=== PATIENT | male | born 1960 | race Caucasian/White ===

== ENCOUNTER 2023-11-06 10:53 | Inpatient (IN) | payer MEDICAID, SELFPAY ==
[2023-11-06] VITALS (35 sets, daily range): BP systolic 69–120; BP diastolic 60–95; PULSE 35–121; RESP 13–29; TEMP 35.7–37.7; O2SAT 92–100; BMI 32.1
[2023-11-06] MEDS: 0.9% Normal Saline (1000mL) 1,000 ML 1000 ML IV ×2 (10:53→11:47)
[2023-11-06] MEDS: Etomidate 20 MG/10 ML Vial IV (10:53)
[2023-11-06] MEDS: Succinylcholine Chloride 200 MG/10 ML SYRINGE 100 MG IV (10:53)
[2023-11-06] MEDS: Midazolam 5 MG/ML Syringe IV (10:58)
--- NOTE | 2023-11-06 11:02 | CT_ITS ---
STUDY: CT BRAIN WITHOUT CONTRAST REASON FOR EXAM: Male, 63 years old. Post arrest RADIATION DOSAGE (If Supplied By Facility): CTDIvol = ( 44.99 ) mGy, DLP = ( 846.73 ) mGycm TECHNIQUE: Transaxial CT imaging of the brain was performed without administration of intravenous contrast material. Individualized dose optimization techniques were used for this CT. COMPARISON: No relevant priors. FINDINGS: Normal soft tissue structures. Normal calvarium. There is mild cerebral atrophy with widening of the extra-axial spaces and ventricular dilatation. Normal white matter tracts of the cerebral hemispheres. Normal basal ganglia and thalami. Normal brainstem. Normal cerebellum. There is no intracranial hemorrhage. There are no findings of an acute ischemic infarction. Atherosclerotic plaque formation of the cavernous portions of the internal carotid arteries bilaterally. Mild degree of mucosal thickening of the ethmoid sinuses bilaterally. CT/Brain/Head without Contrast IMPRESSION: Chronic involutional changes of the brain. Electronically Signed: Carlyle Lazaro MD at 13:12 EDT ,
--- NOTE | 2023-11-06 11:03 | EKG12_ITS ---
Test Reason : CODE BLUE Blood Pressure : / mmHG Vent. Rate : 114 BPM Atrial Rate : 114 BPM P-R Int : 192 ms QRS Dur : 114 ms QT Int : 330 ms P-R-T Axes : 069 074 022 degrees QTc Int : 454 ms Sinus tachycardia Possible Left atrial enlargement Septal infarct , age undetermined ST & T wave abnormality, consider inferior ischemia Abnormal ECG Confirmed by Arie Berg ([id number]), field map editor KATERINA SHELTON ([id number]) on 11/08/2023 8:18:35 AM Referred By: PATI Confirmed By:Arie Berg
[2023-11-06 11:09] LABS: Absolute Lymphocyte Count 2.02 X10^3/uL (0.83-4.51); Absolute Neutrophil Count 8.2 X10^3/uL (2.0-7.7); Basophil# 0.04 X10^3/uL; Basophil% 0.4 % (0-1); Eosinophil# 0.01 X10^3/uL; Eosinophils% 0.1 % (0-5); Hematocrit 35.6 % (40-54); Hemoglobin 11.1 g/dL (13.0-16.5); Lymphocyte # 2.02 X10^3/ul (0.83-4.51); Lymphocyte % 18.4 % (19-41); Mean Corp Hgb Conc 31.2 g/dL (32-36); Mean Corpuscular Hgb 30.6 pg (27.0-32.0); Mean Corpuscular Volume 98.1 fL (80-94); Mean Platelet Vol. 10.7 fl (6.2-12.0); Monocyte# 0.42 X10^3/uL; Monocyte% 3.8 % (0-10); NRBC Flagged by Analyzer 0.5 % (0-5); Neutrophil % 74.9 % (47-70); Platelet Count 195 K/mm3 (150-450); RBC Distribution Width CV 16.6 % (11.6-14.6); RBC Distribution Width SD 60.1 fl (35.1-43.9); Red Blood Count 3.63 M/mm3 (4.6-6.2)
--- NOTE | 2023-11-06 11:10 | RAD_ITS ---
STUDY: X-RAY CHEST REASON FOR EXAM: Male, 63 years old. ET tube and orogastric tube placement. TECHNIQUE: Single AP portable view of the chest. COMPARISON: None. FINDINGS: An endotracheal tube in situ. The tip is at 3.6 sinus proximal to the cory. An orogastric tube is seen with tip below the left hemidiaphragm. The lungs are clear and expanded. There is no demonstrated pleural abnormality. Normal size heart. Normal mediastinum and angi. Normal visualized pulmonary arteries. There is atherosclerotic calcification of the aortic arch with tortuosity. There are degenerative changes of the visualized thoracic spine. Normal visualized ribs, clavicles, and shoulders. There is no demonstrated abnormality of the visualized soft tissue structures of the upper abdomen. RAD/Chest 1 View (Portable) IMPRESSION: The tip of the endotracheal tube is at 3.6 times approximately the cory. The tip of the orogastric tube is seen below the left hemidiaphragm. Electronically Signed: Carlyle Lazaro MD at 11:57 EDT ,
[2023-11-06 11:11] LABS: Bacteria 0 SEEN /hpf (None Seen); Mucous, Urine 0 SEEN /hpf (<or=2+); Red Blood Cells-Urine 0 SEEN /hpf (0-5); Squamous Epithelial Cells - UA 0 SEEN /hpf (0-5); White Blood Cells 0 SEEN /hpf (0-5)
[2023-11-06 11:15] LABS: Glucose, Dipstick Normal (Normal); Leukocyte Esterase-Dipstick 100 /ul (Negative); Nitrite-Dipstick Negative (Negative); Occult Blood-Urine 25 /ul (Negative); Protein-Dipstick 100 mg/dl (Negative); Specific Gravity, Urine 1.015 (1.002-1.030); Urine Bilirubin Dipstick Negative (Negative); Urine Urobilinogen 4 mg/dl (Normal); Urine pH 6.5 (5.0 - 8.0)
[2023-11-06 11:21] LABS: International Normalized Ratio 1.2; Prothrombin Time (Protime)PT. 14.7 SECONDS (11.7-14.9)
[2023-11-06 11:22] LABS: Partial Thromboplast Time 38.2 Seconds (24.1-36.2)
--- NOTE | 2023-11-06 11:22 | EKG12_ITS ---
Test Reason : CODE BLUE SVT Blood Pressure : / mmHG Vent. Rate : 196 BPM Atrial Rate : 197 BPM P-R Int : 000 ms QRS Dur : 138 ms QT Int : 246 ms P-R-T Axes : 000 -49 088 degrees QTc Int : 444 ms Critical Test Result: High HR , Arrhythmia Poor data quality, interpretation may be adversely affected SVT Left axis deviation Right bundle branch block Abnormal ECG No previous ECGs available Confirmed by Arie Berg ([id number]), scientific publications editor KATERINA SHELTON ([id number]) on 11/10/2023 6:43:22 AM Referred By: PATI Confirmed By:Arie Berg
[2023-11-06 11:24] LABS: Color, Urine YELLOW (Yellow)
--- NOTE | 2023-11-06 11:24 | RAD_ITS ---
STUDY: X-RAY CHEST REASON FOR EXAM: Male, 63 years old. Central line TECHNIQUE: Single AP portable view of the chest. COMPARISON: Comparison is made with prior study done earlier today. FINDINGS: The endotracheal tube and orogastric tube are seen and unchanged. The right-sided central venous catheter has been placed with the tip at the junction of the superior vena cava and right atrium. Mild degree of vascular congestion. There is no demonstrated pleural abnormality. Normal size heart. Normal mediastinum and angi. Normal visualized pulmonary arteries. There is atherosclerotic calcification of the aortic arch with tortuosity. There are diffuse degenerative changes of the visualized thoracic spine. Normal visualized ribs, clavicles, and shoulders. There is no demonstrated abnormality of the visualized soft tissue structures of the upper abdomen. RAD/Chest 1 View (Portable) IMPRESSION: The endotracheal tube and orogastric tube are unchanged. The tip of the right-sided central venous catheter is at the junction of the superior vena cava and right atrium. Vascular congestion. Electronically Signed: Carlyle Lazaro MD at 11:58 EDT ,
[2023-11-06 11:25] LABS: Urine Clarity Sl. Cloudy (Clear)
[2023-11-06 11:28] LABS: Ketone-Dipstick 150 mg/dl (Negative)
--- NOTE | 2023-11-06 11:29 | EKG12_ITS ---
Test Reason : Blood Pressure : / mmHG Vent. Rate : 072 BPM Atrial Rate : 000 BPM P-R Int : 000 ms QRS Dur : 116 ms QT Int : 452 ms P-R-T Axes : 000 068 -68 degrees QTc Int : [address] & T wave abnormality, consider inferior ischemia Prolonged QT Abnormal ECG Confirmed by Arie Berg ([id number]), development editor KATERINA SHELTON ([id number]) on 11/08/2023 8:18:23 AM Referred By: BEVERLY Confirmed By:Arie Berg
[2023-11-06] MEDS: Amiodarone 360 MG in Dextrose 5% Viaflo Bag 192.8 ML 33.3 MG CONT INF (11:30)
[2023-11-06 11:39] LABS: Allen Test Positive; Base Excess -16 mmol/L (-2 to +2); Bicarbonate 12.8 mmol/L (22-26); Blood Gas Specimen Type ART; Mode AC; O2 Delivery Device Adult Vent; PEEP 10; PO2 92 mmHG (75-100); RR 16; SITE L Radial; SO2 95 % (95-99); Total Carbon Dioxide 14 mmol/L; pCO2 34.7 mmHg (35-45); pH 7.18 (7.35-7.45)
--- NOTE | 2023-11-06 11:42 | CPS ---
critical ABG results handed to Dr Gay
[2023-11-06 11:51] LABS: Alcohol, Blood (Medical)-Serum < 3.0 mg/dL
--- NOTE | 2023-11-06 11:57 | CT_ITS ---
STUDY: CTA CHEST REASON FOR EXAM: Male, 63 years old. Pulmonary embolism/ cardiac arrest RADIATION DOSAGE (If Supplied By Facility): CTDIvol = ( 16.18 ) mGy, DLP = ( 547.62 ) mGycm TECHNIQUE: The examination was performed with the intravenous administration of IV 100mL Isovue-370. Post-processing of the angiographic images was performed, with multiplanar reformation and 3D reconstruction. Individualized dose optimization techniques were used for this CT. COMPARISON: Comparison is made with prior chest radiograph done earlier in the day. FINDINGS: An endotracheal tube and orogastric tubes are visualized. Normal enhancement of the main pulmonary artery and right and left pulmonary arteries. Normal enhancement of the bilateral peripheral pulmonary arteries. There is no demonstrated pulmonary embolism. There is atherosclerotic calcification of the aortic arch with tortuosity. There is no demonstrated aortic dissection. There are calcifications of the coronary arteries. Normal mediastinum. Normal hilar regions. Normal visualized trachea and bronchi. The lungs are well expanded. Diffuse bilateral airspace disease more pronounced in the right hemithorax and lower lobes. Normal pleura. Normal chest wall structures. There are degenerative changes of thoracic spine. Normal visualized upper abdomen. CT/CTA Chest W/WO Contrast IMPRESSION: No evidence of pulmonary embolism. This may represent pulmonary edema. Bilateral airspace disease worse in the lower lobes and right hemithorax. Electronically Signed: Carlyle Lazaro MD at 13:11 EDT ,
[2023-11-06] MEDS: Norepinephrine 8 MG in 0.9% Normal Saline (250mL Bag) 242 ML 9.4 MG CONT INF (12:04)
--- NOTE | 2023-11-06 12:07 | ED.RN ---
potassium 2.5, troponin 2086 dr hill notified
[2023-11-06 12:08] LABS: AST(SGOT) 41 U/L (15-37); Alanine Aminotransfer ALT/SGPT 15 U/L (16-61); Albumin, Serum 2.9 g/dL (3.2-5.0); Alkaline Phosphatase 68 U/L (45-117); Anion Gap 19 (5-15); BUN 8 mg/dL (7-18); Bilirubin, Direct 0.31 mg/dL (0.00-0.30); Calcium,Total 8.6 mg/dL (8.5-10.1); Chloride 95 mmol/L (98-107); Creatinine, Serum 1.15 mg/dL (0.70-1.30); EST Glomerular Filtration Rate 68 mL/min (>60); Est Glom Filt Rate - Afr Amer 82 mL/min (>60); Globulin 3.9 g/dL (2.2-4.2); Glucose 230 mg/dL (74-106); Lipase 15 U/L (13-75); Magnesium 2.7 mg/dL (1.6-2.6); Potassium 2.5 mmol/L (3.5-5.1); Protein, Total 6.8 g/dL (6.4-8.2); Sodium Level 132 mmol/L (136-145); Troponin-I HS (w/2H Reflex) 2087 pg/mL (3.0-78.0)
[2023-11-06 12:15] LABS: Lactic Acid 9.3 mmol/L (0.4-1.9)
[2023-11-06] MEDS: Heparin Injection (Vial) 5,000 UNIT/ML VIAL 4000 UNIT IV (12:28)
[2023-11-06] MEDS: HEPARIN/D5w 25,000 UNITS 25,000 UNITS/250 ML IV.SOLN. 10 UNITS CONT INF (12:28)
--- NOTE | 2023-11-06 12:39 | CHAPLAIN ---
Type of Pastoral Visit ___ Initial Visit ___ Follow-up Visit ___ On-call Visit ___ General Patient Visit ___ Spiritual Assessment ___ Family Conference ___ Bereavement ___ Rapid Response _x__ Code Blue ___ Other (describe below) Pastoral Care Referral From ___ Patient ___ Family ___ Nurse ___ Physician ___ Concrete Stone Fabricator ___ Mid Level Business Analyst _x__ Other (describe below) Sacrament/Intervention ___ Active listening ___ Anointing ___ Pentecostal ___ Bereavement ___ Communion ___ Jessica exploration ___ ___ Life review ___ Prayer ___ Reconciliation ___ Sacrament of Sick _x__ Supportive presence ___ Wedding ___ Other (describe below) Pastoral Comments patient was brought in by suzanne who reported that family member was present at home and would be coming to the hospital; was available to patient while medical team gave life saving measures; waited for family member to arrive but no one came in; assisted in ED as others came for evaluation and thus gave directions, verbal support to those in waiting area
[2023-11-06] MEDS: Propofol 10MG/Ml 1,000 MG/100 ML Bottle 5.4 MG CONT INF (12:45)
[2023-11-06] MEDS: 0.9% Normal Saline (1000mL) 1,000 ML 150 ML IV ×2 (13:06→15:22)
[2023-11-06 13:07] LABS: Reflex Troponin-HS? (from REC) Y
[2023-11-06 13:13] LABS: Partial Thromboplast Time 34.1 Seconds (24.1-36.2)
[2023-11-06] MEDS: Potassium Chloride 10mEq/100mL 10 MEQ/100 ML IV.SOLN. 100 MEQ IV BOLUS ×2 (13:17→14:16)
[2023-11-06 13:36] LABS: International Normalized Ratio 1.4; Prothrombin Time (Protime)PT. 16.7 SECONDS (11.7-14.9)
--- NOTE | 2023-11-06 13:39 | EX.PCM.CONCC ---
Assessment & Plan Assessment/Plan (1) Acute respiratory failure: PLAN: Plan RECOMMENDATIONS: 1. Continue assist-control mode mechanical ventilation. Wean FiO2 and PEEP to maintain saturations at or above 90%. 2. Agree with empiric antimicrobials. 3. Continue vasopressor support to maintain a mean arterial pressure at or above 65 mmHg. 4. Amiodarone and heparin infusion as ordered. 5. Cardiology consultation and echocardiogram. 6. Obtain sputum and send for culture. 7. Potassium repletion as ordered. 8. Initiate appropriate GI prophylaxis. IMPRESSIONS: 1. Acute hypoxemic respiratory failure following byj-as-ekhrusis cardiac arrest The patient was emergently intubated on arrival to the emergency department. ACLS was initiated with subsequent ROSC. CTA chest was completed and ruled out pulmonary embolism. However, there was evidence of questionable bilateral infiltrates, which could be secondary to CPR. Nevertheless, it is reasonable to initiate empiric antibiotics, pending infectious workup. The patient's electrolytes will be repleted as needed. Cardiology consultation will be obtained along with echocardiogram. 2. History of hypertension and hyperlipidemia Complicates care, management, recovery and prognosis. Hold home medications for now. TIME: 34 minutes of critical care time, independent of procedures, was spent addressing the patient's acute hypoxemic respiratory failure following [id number] cardiac arrest, review of all data and collaboration with the care team. HPI Consult Data Date of Consult: 11/07/23 HPI Narrative Reason for Consultation: Acute respiratory failure status post cardiac arrest HPI Narrative: The patient is a 63-year-old male, with a history as outlined below, who presented to the emergency department on November 05 after he collapsed, while visiting his niece. The patient apparently resides in [place] normally. According to the report that I received, there was a nearby fire truck at the time of his collapse, who were solicited to provide assistance and an AED. Therefore, early resuscitative efforts were undertaken. According to the ED provider, the patient did have business cards for both a assistant director of security and cardiothoracic surgeon on his persons at the time of arrival. It sounds as if the patient was shocked for pulseless V. tach and then had ACLS initiated on arrival to the emergency department, with eventual ROSC. On presentation to the emergency department, the patient was documented to be afebrile but was notably tachycardic and tachypneic with a presenting blood pressure of 85/65 mmHg. Initial laboratory evaluation revealed a normal white blood cell count. Hemoglobin was noted to be 11.1 g/dL with a normal platelet count. The patient was emergently intubated on arrival with subsequent ABG that was notable for a pH of 7.18 with a pCO2 of 35 and pO2 of 92. Chemistry profile was notable for a sodium of 132, potassium of 2.5, chloride of 95, bicarbonate of 18 and creatinine of 1.15. Lactate was elevated at 9.3. Troponin was increased to 2087 with a BNP of 1027. Urine analysis was noncontributory. Alcohol level was negative. CTA chest showed no evidence for pulmonary embolism. Bilateral infiltrates were incidentally noted. The patient received supplemental IV fluid hydration and was initiated on amiodarone infusion and Levophed secondary to fluid refractory hypotension. The patient was initiated on empiric antimicrobials and admitted to the medical intensive care unit for further management. [facility] Medical History Hypertension Hyperlipidemia History of CVA (cerebrovascular accident) Peripheral vascular disease CAD (coronary artery disease) Medical History unable to obtain Home Medications ?Medication ?Instructions ?Recorded ?Last Taken ?Type acetaminophen 500 mg capsule 500 mg PO Q6H 11/06/23 Unknown History albuterol sulfate 90 mcg/actuation 2 inh inhalation Q6H 11/06/23 Unknown History aerosol inhaler amlodipine 5 mg tablet 5 mg PO DAILY 11/06/23 Unknown History aspirin 325 mg tablet 325 mg PO DAILY 11/06/23 Unknown History cetirizine 10 mg tablet (Aller-Lalitha) 10 mg PO DAILY 11/06/23 Unknown History cyclobenzaprine 5 mg tablet 5 mg PO Q8H 11/06/23 Unknown History diphenhydramine HCl 25 mg capsule 25 mg PO Q8H 11/06/23 Unknown History (Aler-Cap) hydrochlorothiazide 25 mg tablet 50 mg PO DAILY 11/06/23 Unknown History ibuprofen 200 mg tablet (Advil) 200 mg PO Q8H 11/06/23 Unknown History losartan 50 mg tablet 50 mg PO DAILY 11/06/23 Unknown History metoprolol tartrate 25 mg tablet 25 mg PO BID 11/06/23 Unknown History rosuvastatin 10 mg tablet 10 mg PO DAILY 11/06/23 Unknown History Allergy/AdvReac Type Severity Reaction Status Date / Time Unable to Assess Allergy Verified 11/06/23 13:21 Family History unable to obtain Surgical History unable to obtain Social History adopted: No number of children: 1 Smoking Status: Current every day smoker tobacco type: cigarettes alcohol intake: former ROS Review of Systems ROS Unobtainable: due to endotracheal tube Physical Exam Const Constitutional Narrative: Intubated, sedated and mechanically ventilated. HEENT normocephalic and head/scalp atraumatic Mouth: endotracheal tube in place and OG tube in place Eyes EOMs intact bilaterally and conjunctivae normal Neck supple General: trachea midline and CVC in place Chest inspection of chest normal Resp Auscultation: diminished lung sounds; Negative for rales, rhonchi or wheezes Cardio S1 normal heart sound and S2 normal heart sound Rate: tachycardic GI normal to inspection, nondistended, normoactive bowel sounds Extremity no clubbing, cyanosis or edema Skin no rashes or lesions noted Neuro Sensorium / Orientation: sedated on vent Lab / Micro Data 11/07/23 06:45 11/07/23 06:45 Labs: Laboratory Results - last 24 hr 11/06/23 10:55: WBC 11.0, RBC 3.63 L, Hgb 11.1 L, Hct 35.6 L, MCV 98.1 H, MCH 30.6, MCHC 31.2 L, RDW Std Deviation 60.1 H, RDW Coeff of [place] 16.6 H, Plt Count 195, MPV 10.7, Immature Gran % (Auto) 2.400 H, Neut % (Auto) 74.9 H, Lymph % (Auto) 18.4 L, Burt % (Auto) 3.8, Eos % (Auto) 0.1, Baso % (Auto) 0.4, Absolute Neuts (auto) 8.2 H, Absolute Lymphs (auto) 2.02, Nucleated RBC % 0.5, PT 14.7, INR 1.2, APTT 38.2 H, Sodium 132 L, Potassium 2.5 L*, Chloride 95 L, Carbon Dioxide 18.0 L, Anion Gap 19 H, BUN 8, Creatinine 1.15, Est GFR (MDRD) Af Amer 82, Est GFR (MDRD) Non-Af 68, BUN/Creatinine Ratio 7.0 L, Glucose 230 H, Lactic Acid 9.3 H*, Calcium 8.6, Magnesium 2.7 H, Total Bilirubin 0.80, Direct Bilirubin 0.31 H, AST 41 H, ALT 15 L, Alkaline Phosphatase 68, Troponin I High Sens 2087 H*, B-Natriuretic Peptide 1027.0 H, Total Protein 6.8, Albumin 2.9 L, Globulin 3.9, Lipase 15, Ethyl Alcohol < 3.0 11/06/23 11:04: Urine Color YELLOW, Urine Clarity Sl. Cloudy, Urine pH 6.5, Ur Specific [place] 1.015, Urine Protein 100 H, Urine Glucose (UA) Normal, Urine Ketones 150 A*, Urine Occult Blood 25 H, Urine Nitrite Negative, Urine Bilirubin Negative, Urine Urobilinogen 4 H, Ur Leukocyte Esterase 100 H, Urine RBC 0 SEEN, Urine WBC 0 SEEN, Ur Squamous Epith Cells 0 SEEN, Urine Bacteria 0 SEEN, Urine Mucus 0 SEEN 11/06/23 12:10: PT 16.7 H, INR 1.4, APTT 34.1 ABG Data ABG results: ABG 11/06/23 11:35 Specimen Type ART Sample Site L Radial pH 7.18 L* Bicarbonate Actual 12.8 L Total CO2 14 Base Excess -16 L O2 Saturation 95 O2 % 100.0 ABG pCO2 34.7 L ABG pO2 92 Jakob Test Positive Respiration Rate 16 O2 Delivery Device Adult Vent Vent Mode AC Tidal Volume 500.0 POC PEEP 10 Crit Call To/Read Back Yes Imaging Radiology Impression Brain CT 11/06/23 11:02 IMPRESSION: Chronic involutional changes of the brain. Electronically Signed: Carlyle Lazaro MD at 13:12 EDT , Chest X-Ray 11/06/23 11:10 IMPRESSION: The tip of the endotracheal tube is at 3.6 times approximately the cory. The tip of the orogastric tube is seen below the left hemidiaphragm. Electronically Signed: Carlyle Lazaro MD at 11:57 EDT , Chest X-Ray 11/06/23 11:24 IMPRESSION: The endotracheal tube and orogastric tube are unchanged. The tip of the right-sided central venous catheter is at the junction of the superior vena cava and right atrium. Vascular congestion. Electronically Signed: Carlyle Lazaro MD at 11:58 EDT , Chest CTA 11/06/23 11:57 IMPRESSION: No evidence of pulmonary embolism. This may represent pulmonary edema. Bilateral airspace disease worse in the lower lobes and right hemithorax. Electronically Signed: Carlyle Lazaro MD at 13:11 EDT , Charges/Coding Procedures Hospitalists Procedures: [id number] Critical Care 1st Hr
[2023-11-06] MEDS: Piperacil/Tazobactam 4.5 GM in 0.9% Normal Saline (100mL MB+) 100 ML IV (13:45)
[2023-11-06 14:06] LABS: Troponin-I HS 3313 pg/mL (3.0-78.0)
--- NOTE | 2023-11-06 14:06 | ED.RN ---
troponin [address] grace notified
--- NOTE | 2023-11-06 14:11 | HP.PCM.HOS_ITS ---
HPI - General General Date of Admission: 11/06/23 Date of Service: 11/06/23 Chief Complaint: Cardiac arrest HPI Narrative DARREN CARLISLE, is a 63-year-old male with unclear past medical history as he is from [place] presented to [facility] ED 11/06/2023 secondary to cardiac arrest. He is up here from [place] staying with his niece and collapsed, there were brand designer nearby within the ED and he was shocked 3 times and was sinus bradycardia brought to the hospital, went V. tach was defibrillated and CPR underway however patient then woke up and began speaking but he then decompensated and ultimately required intubation. Also had an SVT and was shocked for that and now has been in A-fib. Workup in ED revealed high anion gap metabolic acidosis with a lactic 9.3 and also a potassium of 2.5, troponin of 2000, BNP of 1027 and patient had CTA w/ no PE but possible pulmonary edema versus pneumonia. Hospitalist contacted for admission to ICU. 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 Patient evaluated with niece at bedside (Vy Carlisle [phone]) he reports he had a fight with his son and called last week to ask if he could come stay with her, they do not talk often but given his family she was agreeable, he has been here since Monday or . Of note he has been taking significant ritu of ibuprofen, around tentative time, as he reports he has been out of his blood thinner. He reportedly been in his usual health up until today when he had been reporting just feeling generally unwell and then he lost consciousness and had episode of cardiac arrest. She reports he has a history of drinking but recently reported only drinking occasionally and has not drank since as that was one of the conditions of him coming to the house. She is unsure if he has had any drug use but does not know of any. [facility] Medical History unable to obtain Home Medications ?Medication ?Instructions ?Recorded ?Last Taken ?Type acetaminophen 500 mg capsule 500 mg PO Q6H 11/06/23 Unknown History albuterol sulfate 90 mcg/actuation 2 inh inhalation Q6H 11/06/23 Unknown History aerosol inhaler amlodipine 5 mg tablet 5 mg PO DAILY 11/06/23 Unknown History aspirin 325 mg tablet 325 mg PO DAILY 11/06/23 Unknown History cetirizine 10 mg tablet (Aller-Lalitha) 10 mg PO DAILY 11/06/23 Unknown History cyclobenzaprine 5 mg tablet 5 mg PO Q8H 11/06/23 Unknown History diphenhydramine HCl 25 mg capsule 25 mg PO Q8H 11/06/23 Unknown History (Aler-Cap) hydrochlorothiazide 25 mg tablet 50 mg PO DAILY 11/06/23 Unknown History ibuprofen 200 mg tablet (Advil) 200 mg PO Q8H 11/06/23 Unknown History losartan 50 mg tablet 50 mg PO DAILY 11/06/23 Unknown History metoprolol tartrate 25 mg tablet 25 mg PO BID 11/06/23 Unknown History rosuvastatin 10 mg tablet 10 mg PO DAILY 11/06/23 Unknown History Allergy/AdvReac Type Severity Reaction Status Date / Time Unable to Assess Allergy Verified 11/06/23 13:21 Social History Smoking Status: Current every day smoker tobacco type: cigarettes ROS ROS Narrative Unable to obtain secondary to intubated and sedated Vital Signs Vital Signs Vital Signs: 11/06/23 10:55 11/06/23 11:06 11/06/23 11:30 Temperature Temperature Source Pulse Rate 121 H 75 Pulse Rate [4] 35 L Respiratory Rate 29 H 25 H Respiratory Pattern Tachypnea Blood Pressure 85/65 L Blood Pressure Mean 71 Blood Pressure Source Monitor Blood Pressure Position Supine Blood Pressure Location Left Arm Pulse Ox 94 92 93 Oxygen Delivery Method Ambu-Bag Mechanical Ventilator Fraction of Inspired Oxygen (FIO2) 100 100 11/06/23 11:32 11/06/23 12:04 11/06/23 12:13 Temperature Temperature Source Pulse Rate 88 94 Pulse Rate [4] Respiratory Rate 23 H 29 H Respiratory Pattern Blood Pressure 69/60 L 93/68 Blood Pressure Mean 63 76 Blood Pressure Source Monitor Blood Pressure Position Supine Blood Pressure Location Left Arm Pulse Ox 96 93 Oxygen Delivery Method Mechanical Ventilator Mechanical Ventilator Mechanical Ventilator Fraction of Inspired Oxygen (FIO2) 100 100 11/06/23 12:30 11/06/23 13:00 11/06/23 13:00 Temperature 96.4 F L 96.3 F L Temperature Source Core Core Pulse Rate 109 H 116 H 106 H Pulse Rate [4] Respiratory Rate 23 H 23 H 24 H Respiratory Pattern Tachypnea Blood Pressure 107/87 H 120/87 H Blood Pressure Mean 93 98 Blood Pressure Source Blood Pressure Position Blood Pressure Location Pulse Ox 94 95 95 Oxygen Delivery Method Mechanical Ventilator Mechanical Ventilator Fraction of Inspired Oxygen (FIO2) 100 100 100 11/06/23 13:12 11/06/23 13:14 11/06/23 13:30 Temperature 96.5 F L Temperature Source Core Pulse Rate 99 106 H 89 Pulse Rate [4] Respiratory Rate 22 H 21 H 20 H Respiratory Pattern Blood Pressure 104/91 H 104/91 H 97/81 H Blood Pressure Mean 95 95 86 Blood Pressure Source Monitor Monitor Blood Pressure Position Supine Supine Blood Pressure Location Left Arm Left Arm Pulse Ox 96 96 97 Oxygen Delivery Method Mechanical Ventilator Mechanical Ventilator Mechanical Ventilator Fraction of Inspired Oxygen (FIO2) 100 100 100 11/06/23 13:34 11/06/23 13:57 Temperature 96.5 F L 96.6 F L Temperature Source Core Core Pulse Rate 104 H Pulse Rate [4] Respiratory Rate 18 Respiratory Pattern Blood Pressure 101/78 Blood Pressure Mean 85 Blood Pressure Source Blood Pressure Position Blood Pressure Location Pulse Ox 97 Oxygen Delivery Method Mechanical Ventilator Fraction of Inspired Oxygen (FIO2) 100 Weight Weight: 90.2 kg Body Mass Index (BMI) 32.1 Physical Exam Narrative General: Intubated and sedated HEENT: Atraumatic, normocephalic Eyes: Eyes closed, no spontaneous opening Neck: Supple Respiratory: Mechanically ventilated Cardiovascular: Regular rate and rhythm GI: Soft, nontender, nondistended Extremities: No edema Musculoskeletal: Presently sedated and not moving extremities spontaneously Neuro: Unable to participate in neuro exam secondary to intubated and sedated Skin: No rashes appreciated Psych: Unable to cooperate secondary to intubated and sedated Results Lab / Micro Data 11/06/23 10:55 11/06/23 10:55 Labs: Laboratory Results - last 24 hr 11/06/23 10:55: WBC 11.0, RBC 3.63 L, Hgb 11.1 L, Hct 35.6 L, MCV 98.1 H, MCH 30.6, MCHC 31.2 L, RDW Std Deviation 60.1 H, RDW Coeff of [place] 16.6 H, Plt Count 195, MPV 10.7, Immature Gran % (Auto) 2.400 H, Neut % (Auto) 74.9 H, Lymph % (Auto) 18.4 L, Collin % (Auto) 3.8, Eos % (Auto) 0.1, Baso % (Auto) 0.4, Absolute Neuts (auto) 8.2 H, Absolute Lymphs (auto) 2.02, Nucleated RBC % 0.5, PT 14.7, INR 1.2, APTT 38.2 H, Sodium 132 L, Potassium 2.5 L*, Chloride 95 L, Carbon Dioxide 18.0 L, Anion Gap 19 H, BUN 8, Creatinine 1.15, Est GFR (MDRD) Af Amer 82, Est GFR (MDRD) Non-Af 68, BUN/Creatinine Ratio 7.0 L, Glucose 230 H, Lactic Acid 9.3 H*, Calcium 8.6, Magnesium 2.7 H, Total Bilirubin 0.80, Direct Bilirubin 0.31 H, AST 41 H, ALT 15 L, Alkaline Phosphatase 68, Troponin I High Sens 2087 H*, B-Natriuretic Peptide 1027.0 H, Total Protein 6.8, Albumin 2.9 L, Globulin 3.9, Lipase 15, Ethyl Alcohol < 3.0 11/06/23 11:04: Urine Color YELLOW, Urine Clarity Sl. Cloudy, Urine pH 6.5, Ur Specific [place] 1.015, Urine Protein 100 H, Urine Glucose (UA) Normal, Urine Ketones 150 A*, Urine Occult Blood 25 H, Urine Nitrite Negative, Urine Bilirubin Negative, Urine Urobilinogen 4 H, Ur Leukocyte Esterase 100 H, Urine RBC 0 SEEN, Urine WBC 0 SEEN, Ur Squamous Epith Cells 0 SEEN, Urine Bacteria 0 SEEN, Urine Mucus 0 SEEN 11/06/23 11:07: Ur Drug Screen Comment 11/06/23 12:10: PT 16.7 H, INR 1.4, APTT 34.1 11/06/23 13:25: Troponin I High Sens 3313 H* ABG Data ABG results: ABG 11/06/23 11:35 Specimen Type ART Sample Site L Radial pH 7.18 L* Bicarbonate Actual 12.8 L Total CO2 14 Base Excess -16 L O2 Saturation 95 O2 % 100.0 ABG pCO2 34.7 L ABG pO2 92 Jakob Test Positive Respiration Rate 16 O2 Delivery Device Adult Vent Vent Mode AC Tidal Volume 500.0 POC PEEP 10 Crit Call To/Read Back Yes Imaging Radiology Impression Brain CT 11/06/23 11:02 IMPRESSION: Chronic involutional changes of the brain. Electronically Signed: Carlyle Lazaro MD at 13:12 EDT , Chest X-Ray 11/06/23 11:10 IMPRESSION: The tip of the endotracheal tube is at 3.6 times approximately the cory. The tip of the orogastric tube is seen below the left hemidiaphragm. Electronically Signed: Carlyle Lazaro MD at 11:57 EDT , Chest X-Ray 11/06/23 11:24 IMPRESSION: The endotracheal tube and orogastric tube are unchanged. The tip of the right-sided central venous catheter is at the junction of the superior vena cava and right atrium. Vascular congestion. Electronically Signed: Carlyle Lazaro MD at 11:58 EDT , Chest CTA 11/06/23 11:57 IMPRESSION: No evidence of pulmonary embolism. This may represent pulmonary edema. Bilateral airspace disease worse in the lower lobes and right hemithorax. Electronically Signed: Carlyle Lazaro MD at 13:11 EDT , Assessment & Plan Assessment/Plan (1) Cardiac arrest: PLAN: Plan # Cardiac arrest/Shock of unclear underlying etiology -Multiple episodes of defibrillation inside and outside of hospital, unclear underlying etiology but patient was hypokalemic and does have some sort of cardiac history -Troponin elevated, unclear if this is due to cardiac arrest or underlying cardiac etiology the cause of arrest -Cardiology consulted -Patient on heparin drip -Echocardiogram -Patient admitted to ICU -Project Production Engineer consult -Patient achieved ROSC but now is requiring Levophed and was hypotensive prior to sedation -Less likely infectious etiology however patient had possible infiltrate on CT study started on Zosyn, will continue Zosyn at this time # Respiratory failure -In relation to patient's cardiac arrest, ultimately required intubation -Patient admitted to the ICU, on the ventilator, sedated with propofol -Project Production Engineer consult # Elevated troponin -Unclear if cardiac reason the cause of his arrest or this is elevated due to the cardiac arrest -Heparin drip -Echo -Trend troponins -Cardiology consult # Infiltrate on CT -Unclear significance, patient unable to answer questions and per family only was reporting feeling generally unwell today but unclear if any other specific complaints -Started on Zosyn as this was continued -Does have elevated BNP and inquired if there was fluid however unclear significance, workup as above # High anion gap metabolic acidosis and elevated lactic acid -Possibly secondary to the elevated lactic acid and cardiac arrest -Trend lactic -Repeat BMP later -Treat underlying etiology #Afib, unclear chronicity -Patient in A-fib, unclear if this is new or patient has history -On amiodarone drip -On heparin drip -Presently not in RVR # Hypokalemia -Replaced, magnesium actually elevated -Repeat BMP this evening after replacement # Suspect history of hypertension -Patient hypotensive, will hold present medications #Hx alcohol use -Reportedly only uses intermittently now per what he told his niece but has a long history of alcohol use -Has not drink at least since last as one of the conditions for him coming up was that #DVT ppx: On heparin drip Puja Owusu MD Charges/Coding Visit Charges Inpatient E&M: 91547 Init Hosp L2
[2023-11-06 14:16] LABS: CPK Total, Creatine Kinase 130 U/L (39-308); Triglycerides 111 mg/dL
--- NOTE | 2023-11-06 14:19 | ECHOD_ITS ---
Reason For Study: CARDIAC ARREST Procedure This was a 2D Doppler, Color Flow transthoracic echocardiogram. Patient was scanned in supine position during reflux assessment. The study was technically difficult. Contrast injection was performed. Patient was on ventillator during exam. Exam performed portable in ICU/CCU. Left Ventricle Normal LV size. Mild concentric left ventricular hypertrophy. Severe LV systolic dysfunction. Severe global LV hypokinesis. Anterior apical akinesis with thinning. Estimated LVEF 10%. Diastolic function is indeterminate. Right Ventricle Moderate global right ventricular systolic dysfunction. Atria There is mild biatrial dilatation. Mitral Valve Mild-Moderate (1-2+) mitral valve insufficiency. Tricuspid Valve Mild tricuspid valve insufficiency. Right ventricular systolic pressure estimated to be 37 mmHg. Aortic Valve Aortic sclerosis, no stenosis. Trivial aortic valve insufficiency. Pulmonic Valve The pulmonic valve is not well visualized. Great Vessels Normal sized aortic root. Pericardium/Pleural No pericardial effusion. Medication Diluted definity 5ml given slow IV push to enhance endocardial definition. MMode/2D Measurements & Calculations LVIDd: 4.8 cm IVSd: 1.2 cm LVOT diam: 2.0 cm LVIDs: 4.1 cm LVPWd: 1.1 cm RVDd: 4.4 cm FS: 14.4 % LVOT area: 3.1 cm2 Ao root diam: 3.5 cm LAV(MOD-bp): 96.1 ml LVAd ap4: 41.9 cm2 LAV(MOD-bp) Indexed: 48.2 ml/m2 LVLd ap4: 9.4 cm LAV(MOD-sp2): 91.7 ml EDV(MOD-sp4): 149.9 ml LAV(MOD-sp4): 91.7 ml EDV(sp4-el): 157.9 ml LVAs ap4: 40.6 cm2 LVLs ap4: 9.4 cm ESV(MOD-sp4): 139.2 ml ESV(sp4-el): 148.3 ml EF(MOD-sp4): 7.2 % EF(sp4-el): 6.1 % LVAd ap2: 39.6 cm2 SV(MOD-sp4): 10.7 ml SV(MOD-sp2): 14.0 ml LVLd ap2: 10.0 cm EDV(MOD-sp2): 126.2 ml EDV(sp2-el): 133.7 ml LVAs ap2: 36.6 cm2 LVLs ap2: 9.7 cm ESV(MOD-sp2): 112.1 ml ESV(sp2-el): 117.5 ml EF(MOD-sp2): 11.1 % SV(sp4-el): 9.6 ml LA dimension(2D): 4.1 cm LA A4 area: 28.8 cm2 RA A4 area: 23.0 cm2 TAPSE: 0.64 cm Time Measurements MV dec time: 0.18 sec Doppler Measurements & Calculations MV E max magen: 67.9 cm/sec Lat Peak E' Magen: 5.9 cm/sec Med Peak E' Magen: 5.8 cm/sec E/E' lat: 11.4 E/E' med: 11.8 Ao V2 max: 77.7 cm/sec LV V1 max: 54.1 cm/sec SV(LVOT): 23.4 ml Ao max P.5 mmHg LV V1 max P.2 mmHg Ao V2 mean: 62.6 cm/sec LV V1 mean P.76 mmHg Ao mean P.7 mmHg LV V1 mean: 42.3 cm/sec Ao V2 VTI: 10.9 cm LV V1 VTI: 7.6 cm AV (velocity ratio): 0.69 JES(I,D): 2.1 cm2 JES(V,D): 2.2 cm2 PA V2 max: 47.9 cm/sec TR max magen: 232.5 cm/sec PA max PG (full): 0.59 mmHg TR max P.6 mmHg ECHO/Echo Complete W/ Contrast Interpretation Summary Mild concentric left ventricular hypertrophy. Severe LV systolic dysfunction. Severe global LV hypokinesis. Anterior apical a kinesis with thinning. Estimated LVEF 10%. Moderate global right ventricular systolic dysfunction. There is mild biatrial dilatation. Mild-Moderate (1-2+) mitral valve insufficiency. Mild tricuspid valve insufficiency. Right ventricular systolic pressure estimated to be 37 mmHg. Ordering Physician: Puja Owusu Performed By: Leighann Berger RDCS and Student
--- NOTE | 2023-11-06 14:22 | CON.PCM.CA_ITS ---
Assessment & Plan Assessment/Plan (1) CAD (coronary artery disease): QUALIFIERS: Coronary Disease-Associated Artery/Lesion type: [place] artery [place] vs. transplanted heart: [place] heart Associated angina: u nspecified whether angina present Qualified Code(s): I25.10 - Atherosclerotic heart disease of [place] coronary artery without angina pectoris PLAN: Patient's records from [facility] cardiology in [facility] reported small vessel distal coronary artery disease. There was a catheterization done at some point in time in the past. The patient had been on secondary risk factor modifications with rosuvastatin and blood pressure control but he continued to smoke he was not diabetic. (2) Peripheral vascular disease: PLAN: Patient has a history of an occluded right superficial femoral artery and right tibial artery. He was scheduled to see vascular surgery and have an ultrasound done in December 2023. The patient was supposed to be on some type of blood thinner but it was not in his pills. He reportedly ran out of it recently and did not have the refill done yet. The patient carries a history of claudication of the right lower extremity. His left lower extremity by SHILPI was within normal limits. (3) History of CVA (cerebrovascular accident): PLAN: Patient had a CVA in [place] at some point in time in the not too distant past. We do not have an idea of any residual. The cardiology group in [facility] did not have any records from the [place] evaluation and treatment. (4) Hyperlipidemia: QUALIFIERS: Hyperlipidemia type: pure hypercholesterolemia Q ualified Code(s): E78.00 - Pure hypercholesterolemia, unspecified PLAN: Patient is on rosuvastatin is one of his pills. (5) Hypertension: QUALIFIERS: Hypertension type: primary hypertension Qualified Code(s): I10 - Essential (primary) hypertension PLAN: The patient is on losartan is one of his medications and his pills. Currently the patient is on vasopressors for blood pressure support. (6) Cardiac arrest: PLAN: The patient suffered a cardiac arrest that appears to be arrhythmia genic in etiology. We do not know a history of the patient's LV function a 2D echocardiogram will be performed. The patient does have a very low potassium at 2.5 which is being replaced magnesium was within acceptable ranges he is also lactic acidosis with a lactate of 9.3 and a bicarb of 18. This is being treated by the wallcovering hanger and hospitalist services. The patient's ventricular tachycardia/ventricular fibrillatory arrest will be continue to be treated with fixing the metabolic issues as well as amiodarone and blood pressure support. We need to correct the patient's metabolic derangements and then will evaluate him for further treatment options as indicated. Currently the patient's last EKG was not consistent with a STEMI and I would not recommend taking him emergently to the [facility]. There is a question that he did not want heroic measures performed the last time he had a cardiac arrest in [place]. The niece is not next of kin she is trying to contact the patient's son who lives in [place]. (7) Acute respiratory failure: QUALIFIERS: Respiratory failure complication: hypoxia Qualified Code(s): J96.01 - Acute respiratory failure with hypoxia PLAN: The patient's acute respiratory failure secondary to his cardiac arrest. His metabolic derangements are being addressed. And the patient will be managed by the [facility]ing [facility] for his respiratory status. PLAN: Plan 1. Intensive care supportive therapy. 2. Obtain 2D echocardiogram to tailor medical regimen. 3. Defer any aggressive invasive evaluation from a cardiovascular standpoint until we are able to discuss options with the patient. HPI Consult Data Date of Consult: 11/06/23 HPI Narrative HPI Narrative: DARREN CARLISLE, is a 63 M who presents with full arrest. Apparently the patient had just arrived here in [place] last to visit with his niece. She is the daughter of his brother. The patient apparently told the niece and her boyfriend who is retired that he was not feeling well he laid down on the couch and when the boyfriend went to check on him he actually rolled off the couch and a posturing movement and was unresponsive. The boyfriend immediately started CPR and 911 was called there apparently was a veterinary epidemiologist nearby who responded and brought in an AED which shocked the patient 3 times. The patient was transported to the emergency room where CPR was reinitiated due ventricular tachycardia and the patient was cardioverted again. At 1 point in time during the CPR the patient was alert enough to tell them it hurt and to get off of him. The patient deteriorated again went into supraventricular tachycardia and was cardioverted again. The patient was intubated and sedated and EKG was performed which showed some nonspecific ST and T wave changes in the inferior leads. There was no evidence of STEMI. The patient did not complain of chest pain prior to the event. The niece has no information about his past medical history other than the fact she knew he had a stroke when he lived in [place] and thought he had had a previous cardiac arrest at that time as well. I actually called his communications project lead in [place] Dr. Momin ([phone]) his staff was very helpful. They were able to tell me the patient carries a history of a CVA, hypertension, hyperlipidemia he was cathed in the past that revealed small vessel distal disease. He also has a history of claudication and was scheduled to see a vascular surgeon December 18, 2023. He had ABIs performed November 2022 which showed right lower extremity severe occlusive disease with the right superficial femoral artery being occluded and the right tibial artery being occluded. The left lower extremity did not show any significant disease. There is no history of surgical intervention on his peripheral vascular disease or his coronary disease. He has no previous history of stenting to their knowledge. The patient has been such somewhat of a transient living in [facility] and over the recent past. Currently the patient is intubated and sedated and will be transferred to the intensive care unit for further management. [facility] Medical History (Updated 11/06/23 @ 14:[address] Arie Berg MD) Hypertension Hyperlipidemia History of CVA (cerebrovascular accident) Peripheral vascular disease CAD (coronary artery disease) Medical History unable to obtain Home Medications ?Medication ?Instructions ?Recorded ?Last Taken ?Type acetaminophen 500 mg capsule 500 mg PO Q6H 11/06/23 Unknown History albuterol sulfate 90 mcg/actuation 2 inh inhalation Q6H 11/06/23 Unknown History aerosol inhaler amlodipine 5 mg tablet 5 mg PO DAILY 11/06/23 Unknown History aspirin 325 mg tablet 325 mg PO DAILY 11/06/23 Unknown History cetirizine 10 mg tablet (Aller-Lalitha) 10 mg PO DAILY 11/06/23 Unknown History cyclobenzaprine 5 mg tablet 5 mg PO Q8H 11/06/23 Unknown History diphenhydramine HCl 25 mg capsule 25 mg PO Q8H 11/06/23 Unknown History (Aler-Cap) hydrochlorothiazide 25 mg tablet 50 mg PO DAILY 11/06/23 Unknown History ibuprofen 200 mg tablet (Advil) 200 mg PO Q8H 11/06/23 Unknown History losartan 50 mg tablet 50 mg PO DAILY 11/06/23 Unknown History metoprolol tartrate 25 mg tablet 25 mg PO BID 11/06/23 Unknown History rosuvastatin 10 mg tablet 10 mg PO DAILY 11/06/23 Unknown History Allergy/AdvReac Type Severity Reaction Status Date / Time Unable to Assess Allergy Verified 11/06/23 13:21 unable to obtain unable to obtain Social History (Updated 11/06/23 @ 14:[address] Arie Berg MD) adopted: No number of children: 1 Smoking Status: Current every day smoker tobacco type: cigarettes alcohol intake: former ROS Review of Systems ROS Unobtainable: due to endotracheal tube and due to mental status Physical Exam Narrative Patient is intubated and sedated in the emergency department. Const Constitutional Narrative: Appears his stated age HEENT normocephalic Neck no carotid bruits Chest inspection of chest normal Resp Resp Narrative: Patient on the ventilator breathing 16 times a minute sedated. Breath sounds were clear throughout. Auscultation: crackles bilateral (Minimal relatively clear to auscultation.) base Cardio regular rate, regular rhythm, S1 normal heart sound, S2 normal heart sound, no murmurs, no rub and no gallops Cardio Narrative: Distant heart tones and difficult to auscultate given the intubation. GI soft to palpation Extremity no pedal edema Skin no rashes or lesions noted Neuro Neuro Narrative: Intubated and sedated Psych Psych Narrative: Intubated and sedated Risk Stratification Risk Stratification Applicable: Yes Age >/= 65: No >/= 3 CAD Risk Factors (HTN, HLD, DM, family hx of CAD, or current smoker): Yes Aspirin Use in the Past 7 Days: Yes Severe Angina (>/= episodes in 24 hours): No EKG ST Changes >/= 0.5mm: No Positive Cardiac Marker: Yes DARRIN Risk Stratification Score: 3 DARRIN % Risk: 13% Risk Charges/Coding Visit Charges Inpatient E&M: 14651 Init Hosp L3 Objective Data Vital Signs: Vital Signs Temp Pulse Resp BP Pulse Ox O2 Del Method FiO2 96.6 F L 105 H 16 120/95 H 92 Mechanical Ventilator 80 11/06/23 13:57 11/06/23 14:14 11/06/23 14:14 11/06/23 14:14 11/06/23 14:14 11/06/23 14:14 11/06/23 14:14 Oxygen Delivery Method Mechanical Ventilator Weight: 198 lb 13.711 oz Body Mass Index (BMI) 32.1 Intake & Output: Intake and Output for Last 24 Hours 11/04/23 11/05/23 11/06/23 23:59 23:59 23:59 Intake Total 8.29 / 2118.29 Balance 2118.29 / 2118.29 Lab / Micro Data Attestation: I reviewed the patient's lab results. 11/06/23 10:55 11/06/23 10:55 Labs: Laboratory Results - last 24 hr 11/06/23 10:55: WBC 11.0, RBC 3.63 L, Hgb 11.1 L, Hct 35.6 L, MCV 98.1 H, MCH 30.6, MCHC 31.2 L, RDW Std Deviation 60.1 H, RDW Coeff of [place] 16.6 H, Plt Count 195, MPV 10.7, Immature Gran % (Auto) 2.400 H, Neut % (Auto) 74.9 H, Lymph % (Auto) 18.4 L, [place] % (Auto) 3.8, Eos % (Auto) 0.1, Baso % (Auto) 0.4, Absolute Neuts (auto) 8.2 H, Absolute Lymphs (auto) 2.02, Nucleated RBC % 0.5, PT 14.7, INR 1.2, APTT 38.2 H, Sodium 132 L, Potassium 2.5 L*, Chloride 95 L, Carbon Dioxide 18.0 L, Anion Gap 19 H, BUN 8, Creatinine 1.15, Est GFR (MDRD) Af Amer 82, Est GFR (MDRD) Non-Af 68, BUN/Creatinine Ratio 7.0 L, Glucose 230 H, Lactic Acid 9.3 H*, Calcium 8.6, Magnesium 2.7 H, Total Bilirubin 0.80, Direct Bilirubin 0.31 H, AST 41 H, ALT 15 L, Alkaline Phosphatase 68, Total Creatine Kinase 130, Troponin I High Sens 2087 H*, B-Natriuretic Peptide 1027.0 H, Total Protein 6.8, Albumin 2.9 L, Globulin 3.9, Triglycerides 111, Lipase 15, Ethyl Alcohol < 3.0 11/06/23 11:04: Urine Color YELLOW, Urine Clarity Sl. Cloudy, Urine pH 6.5, Ur Specific [place] 1.015, Urine Protein 100 H, Urine Glucose (UA) Normal, Urine Ketones 150 A*, Urine Occult Blood 25 H, Urine Nitrite Negative, Urine Bilirubin Negative, Urine Urobilinogen 4 H, Ur Leukocyte Esterase 100 H, Urine RBC 0 SEEN, Urine WBC 0 SEEN, Ur Squamous Epith Cells 0 SEEN, Urine Bacteria 0 SEEN, Urine Mucus 0 SEEN 11/06/23 11:07: Ur Drug Screen Comment 11/06/23 12:10: PT 16.7 H, INR 1.4, APTT 34.1 11/06/23 13:25: Troponin I High Sens 3313 H* ABG Data ABG results: ABG 11/06/23 11:35 Specimen Type ART Sample Site L Radial pH 7.18 L* Bicarbonate Actual 12.8 L Total CO2 14 Base Excess -16 L O2 Saturation 95 O2 % 100.0 ABG pCO2 34.7 L ABG pO2 92 Jakob Test Positive Respiration Rate 16 O2 Delivery Device Adult Vent Vent Mode AC Tidal Volume 500.0 POC PEEP 10 Crit Call To/Read Back Yes Cardiology Labs/Tests 11/06/23 10:55: WBC 11.0, RBC 3.63 L, Hgb 11.1 L, Hct 35.6 L, MCV 98.1 H, MCH 30.6, MCHC 31.2 L, Plt Count 195, MPV 10.7, Immature Gran % (Auto) 2.400 H, Neut % (Auto) 74.9 H, Lymph % (Auto) 18.4 L, [place] % (Auto) 3.8, Eos % (Auto) 0.1, Baso % (Auto) 0.4, Absolute Neuts (auto) 8.2 H, Nucleated RBC % 0.5, PT 14.7, INR 1.2, APTT 38.2 H, Sodium 132 L, Potassium 2.5 L*, Chloride 95 L, Carbon Dioxide 18.0 L, Anion Gap 19 H, BUN 8, Creatinine 1.15, Est GFR (MDRD) Af Amer 82, Est GFR (MDRD) Non-Af 68, BUN/Creatinine Ratio 7.0 L, Glucose 230 H, Lactic Acid 9.3 H*, Calcium 8.6, Magnesium 2.7 H, Total Bilirubin 0.80, Direct Bilirubin 0.31 H, B-Natriuretic Peptide 1027.0 H, Triglycerides 111 11/06/23 11:04: Urine Color YELLOW, Urine Clarity Sl. Cloudy, Urine pH 6.5, Ur Specific [place] 1.015, Urine Protein 100 H, Urine Glucose (UA) Normal, Urine Ketones 150 A*, Urine Occult Blood 25 H, Urine Nitrite Negative, Urine Bilirubin Negative, Urine Urobilinogen 4 H, Ur Leukocyte Esterase 100 H, Urine RBC 0 SEEN, Urine WBC 0 SEEN 11/06/23 11:35: pH 7.18 L*, Bicarbonate Actual 12.8 L, Base Excess -16 L, O2 Saturation 95, ABG pCO2 34.7 L, ABG pO2 92, Jakob Test Positive 11/06/23 12:10: PT 16.7 H, INR 1.4, APTT 34.1 Rhythm: EKG: ECHO: Stress Test: Cardiac Cath: PCI: CT Surgery: Holter monitor: EPS: PPM: CXR: Chest CT Scan: Radiography Diagnostic Testing: Radiology Impression Brain CT 11/06/23 11:02 IMPRESSION: Chronic involutional changes of the brain. Electronically Signed: Carlyle Lazaro MD at 13:12 EDT , Chest X-Ray 11/06/23 11:10 IMPRESSION: The tip of the endotracheal tube is at 3.6 times approximately the cory. The tip of the orogastric tube is seen below the left hemidiaphragm. Electronically Signed: Carlyle Lazaro MD at 11:57 EDT , Chest X-Ray 11/06/23 11:24 IMPRESSION: The endotracheal tube and orogastric tube are unchanged. The tip of the right-sided central venous catheter is at the junction of the superior vena cava and right atrium. Vascular congestion. Electronically Signed: Carlyle Lazaro MD at 11:58 EDT , Chest CTA 11/06/23 11:57 IMPRESSION: No evidence of pulmonary embolism. This may represent pulmonary edema. Bilateral airspace disease worse in the lower lobes and right hemithorax. Electronically Signed: Carlyle Lazaro MD at 13:11 EDT ,
[2023-11-06 14:42] LABS: Amphetamine Urine VISTA NEGATIVE (<1000 ng/mL); Barbiturate Urine VISTA NEGATIVE (< 200 ng/mL); Benzodiazepine Urine VISTA NEGATIVE (< 200 ng/mL); Cocaine Urine VISTA NEGATIVE (< 300 ng/mL); Ecstacy Urine VISTA NEGATIVE (< 500 ng/mL); Methadone Urine VISTA NEGATIVE (< 300 ng/mL); PCP Urine VISTA NEGATIVE (< 25 ng/mL); THC Urine VISTA POSITIVE (< 50 ng/mL); Vista UDS pH Range 6
[2023-11-06] MEDS: Aspirin 300 MG Suppository RC (14:53)
[2023-11-06 15:06] LABS: Reflex Lactate? Y
[2023-11-06] MEDS: Pantoprazole Sodium 40 MG in 0.9% Normal Saline (100mL MB+) 100 ML 330 MG IV (15:23)
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
[2023-11-06 16:44] LABS: Lactic Acid 3.2 mmol/L (0.4-1.9)
[2023-11-06] MEDS: Amiodarone 360 MG in Dextrose 5% Viaflo Bag 192.8 ML 16.7 MG CONT INF (16:48)
[2023-11-06] MEDS: fentaNYL drip 100 ML 5 MCG CONT INF (18:23)
[2023-11-06 18:50] LABS: Anion Gap 9 (5-15); BUN 10 mg/dL (7-18); BUN/Creat Ratio 11.8 RATIO (10-20); Calcium,Total 7.8 mg/dL (8.5-10.1); Chloride 100 mmol/L (98-107); Creatinine, Serum 0.85 mg/dL (0.70-1.30); EST Glomerular Filtration Rate 97 mL/min (>60); Est Glom Filt Rate - Afr Amer 117 mL/min (>60); Estimated Creatinine Clearance 90.19 ml/min; Glucose 125 mg/dL (74-106); Potassium 3.7 mmol/L (3.5-5.1); Sodium Level 132 mmol/L (136-145); Troponin-I HS 18489 pg/mL (3.0-78.0)
[2023-11-06] MEDS: Propofol 10MG/Ml 1,000 MG/100 ML Bottle 13.5 MG CONT INF (19:35)
[2023-11-06] MEDS: Piperacil/Tazobactam 3.375 GM in 0.9% Normal Saline (50mL MB+) 50 ML IV (21:07)
[2023-11-06] MEDS: 0.9% Saline Lock 10 ML Syringe IV (21:07)
[2023-11-07] VITALS (41 sets, daily range): BP systolic 87–131; BP diastolic 53–109; PULSE 74–120; RESP 16–23; TEMP 37.2–38.1; O2SAT 86–99; BMI 30.2
[2023-11-07 00:56] LABS: Partial Thromboplast Time 59.8 Seconds (24.1-36.2)
[2023-11-07] MEDS: Propofol 10MG/Ml 1,000 MG/100 ML Bottle 16.2 MG CONT INF (03:34)
[2023-11-07] MEDS: fentaNYL drip 100 ML 7.5 MCG CONT INF ×2 (04:15→20:19)
[2023-11-07] MEDS: Amiodarone 360 MG in Dextrose 5% Viaflo Bag 192.8 ML 16.7 MG CONT INF ×3 (05:17→23:52)
[2023-11-07] MEDS: Piperacil/Tazobactam 3.375 GM in 0.9% Normal Saline (50mL MB+) 50 ML IV ×3 (05:31→20:48)
[2023-11-07 07:08] LABS: Absolute Lymphocyte Count 1.14 X10^3/uL (0.83-4.51); Absolute Neutrophil Count 6.9 X10^3/uL (2.0-7.7); Basophil# 0.01 X10^3/uL; Basophil% 0.1 % (0-1); Eosinophil# 0.01 X10^3/uL; Eosinophils% 0.1 % (0-5); Hematocrit 30.8 % (40-54); Hemoglobin 9.9 g/dL (13.0-16.5); Lymphocyte # 1.14 X10^3/ul (0.83-4.51); Lymphocyte % 13.4 % (19-41); Mean Corp Hgb Conc 32.1 g/dL (32-36); Mean Corpuscular Hgb 29.9 pg (27.0-32.0); Mean Corpuscular Volume 93.1 fL (80-94); Mean Platelet Vol. 10.4 fl (6.2-12.0); Monocyte# 0.46 X10^3/uL; Monocyte% 5.4 % (0-10); NRBC Flagged by Analyzer 0 % (0-5); Neutrophil # 6.85 X10^3/uL (2.7-7.7); Neutrophil % 80.5 % (47-70); Platelet Count 175 K/mm3 (150-450); RBC Distribution Width CV 16.7 % (11.6-14.6); RBC Distribution Width SD 56.7 fl (35.1-43.9); Red Blood Count 3.31 M/mm3 (4.6-6.2); White Blood Count 8.5 K/mm3 (4.4-11.0)
[2023-11-07] MEDS: Atorvastatin Calcium 40 MG Tablet PO (07:47)
[2023-11-07] MEDS: Aspirin E.C. 81 MG Tablet PO (07:47)
[2023-11-07 08:20] LABS: Partial Thromboplast Time 48.1 Seconds (24.1-36.2)
[2023-11-07 09:46] LABS: ALB/GLOB Ratio 0.7 RATIO (0.9-2.4); AST(SGOT) 377 U/L (15-37); Alanine Aminotransfer ALT/SGPT 115 U/L (16-61); Albumin, Serum 2.6 g/dL (3.2-5.0); Alkaline Phosphatase 57 U/L (45-117); Anion Gap 10 (5-15); BUN 10 mg/dL (7-18); BUN/Creat Ratio 12.4 RATIO (10-20); Calcium,Total 8.1 mg/dL (8.5-10.1); Chloride 98 mmol/L (98-107); Creatinine, Serum 0.81 mg/dL (0.70-1.30); EST Glomerular Filtration Rate 103 mL/min (>60); Est Glom Filt Rate - Afr Amer 124 mL/min (>60); Estimated Creatinine Clearance 95.43 ml/min; Globulin 3.5 g/dL (2.2-4.2); Glucose 109 mg/dL (74-106); Magnesium 1.9 mg/dL (1.6-2.6); Potassium 3.4 mmol/L (3.5-5.1); Protein, Total 6.1 g/dL (6.4-8.2); Sodium Level 133 mmol/L (136-145)
--- NOTE | 2023-11-07 10:00 | PCM.PN.CARD ---
Subjective Subjective The patient has been weaned off of pressors. He remains on dipper Van heparin and antibiotic therapy. His enzymes are elevated 18,000 for high-sensitivity troponin. This is not inconsistent with his resuscitation efforts from his arrhythmia genic arrest. Patient's EF is estimated in the 10% range by visual inspection of the echocardiogram final report is pending. The patient does arouse with verbal stimulation and seems to answer questions yes no appropriately. Patient remains intubated and moderately sedated. Objective Data Vital Signs: Vital Signs Temp Pulse Resp BP Pulse Ox O2 Del Method FiO2 100.5 F H 94 16 98/71 97 Mechanical Ventilator 40 11/07/23 07:00 11/07/23 09:28 11/07/23 09:28 11/07/23 09:00 11/07/23 09:28 11/07/23 09:00 11/07/23 09:28 Oxygen Delivery Method Mechanical Ventilator Weight: 187 lb 6.287 oz Body Mass Index (BMI) 30.2 Intake & Output: Intake and Output for Last 24 Hours 11/05/23 11/06/23 11/07/23 23:59 23:59 23:59 Intake Total 3553.59 / 3592.99 613.95 / 613.95 Output Total 250 / 500 400 / 400 Balance 3303.59 / 3092.99 213.95 / 213.95 Lab / Micro Data Attestation: I reviewed the patient's lab results. 11/07/23 06:45 11/07/23 06:45 Labs: Laboratory Results - last 24 hr 11/06/23 10:55: WBC 11.0, RBC 3.63 L, Hgb 11.1 L, Hct 35.6 L, MCV 98.1 H, MCH 30.6, MCHC 31.2 L, RDW Std Deviation 60.1 H, RDW Coeff of [place] 16.6 H, Plt Count 195, MPV 10.7, Immature Gran % (Auto) 2.400 H, Neut % (Auto) 74.9 H, Lymph % (Auto) 18.4 L, Lyon % (Auto) 3.8, Eos % (Auto) 0.1, Baso % (Auto) 0.4, Absolute Neuts (auto) 8.2 H, Absolute Lymphs (auto) 2.02, Nucleated RBC % 0.5, PT 14.7, INR 1.2, APTT 38.2 H, Sodium 132 L, Potassium 2.5 L*, Chloride 95 L, Carbon Dioxide 18.0 L, Anion Gap 19 H, BUN 8, Creatinine 1.15, Est GFR (MDRD) Af Amer 82, Est GFR (MDRD) Non-Af 68, BUN/Creatinine Ratio 7.0 L, Glucose 230 H, Lactic Acid 9.3 H*, Calcium 8.6, Magnesium 2.7 H, Total Bilirubin 0.80, Direct Bilirubin 0.31 H, AST 41 H, ALT 15 L, Alkaline Phosphatase 68, Total Creatine Kinase 130, Troponin I High Sens 2087 H*, B-Natriuretic Peptide 1027.0 H, Total Protein 6.8, Albumin 2.9 L, Globulin 3.9, Triglycerides 111, Lipase 15, Ethyl Alcohol < 3.0 11/06/23 11:04: Urine Color YELLOW, Urine Clarity Sl. Cloudy, Urine pH 6.5, Ur Specific [place] 1.015, Urine Protein 100 H, Urine Glucose (UA) Normal, Urine Ketones 150 A*, Urine Occult Blood 25 H, Urine Nitrite Negative, Urine Bilirubin Negative, Urine Urobilinogen 4 H, Ur Leukocyte Esterase 100 H, Urine RBC 0 SEEN, Urine WBC 0 SEEN, Ur Squamous Epith Cells 0 SEEN, Urine Bacteria 0 SEEN, Urine Mucus 0 SEEN 11/06/23 11:07: Urine Opiates Screen NEGATIVE, Urine Methadone Screen NEGATIVE, Ur Barbiturates Screen NEGATIVE, Ur Phencyclidine Scrn NEGATIVE, Ur Amphetamines Screen NEGATIVE, MDMA (Ecstasy) Screen NEGATIVE, U Benzodiazepines Scrn NEGATIVE, Urine Cocaine Screen NEGATIVE, U Cannabinoids Screen POSITIVE H, Ur Drug Screen Comment 11/06/23 12:10: PT 16.7 H, INR 1.4, APTT 34.1 11/06/23 13:25: Troponin I High Sens 3313 H* 11/06/23 15:40: Lactic Acid 3.2 H* 11/06/23 18:04: APTT 44.0 H, Sodium 132 L, Potassium 3.7, Chloride 100, Carbon Dioxide 23.0, Anion Gap 9, BUN 10, Creatinine 0.85, Estim Creat Clear Calc 90.19, Est GFR (MDRD) Af Amer 117, Est GFR (MDRD) Non-Af 97, BUN/Creatinine Ratio 11.8, Glucose 125 H, Calcium 7.8 L, Troponin I High Sens 44370 H* 11/07/23 00:30: APTT 59.8 H 11/07/23 06:45: WBC 8.5, RBC 3.31 L, Hgb 9.9 L, Hct 30.8 L, MCV 93.1 D, MCH 29.9, MCHC 32.1, RDW Std Deviation 56.7 H, RDW Coeff of [place] 16.7 H, Plt Count 175, MPV 10.4, Immature Gran % (Auto) 0.500, Neut % (Auto) 80.5 H, Lymph % (Auto) 13.4 L, [place] % (Auto) 5.4, Eos % (Auto) 0.1, Baso % (Auto) 0.1, Absolute Neuts (auto) 6.9, Absolute Lymphs (auto) 1.14, Nucleated RBC % 0, APTT 48.1 H, Sodium 133 L, Potassium 3.4 L, Chloride 98, Carbon Dioxide 25.0, Anion Gap 10, BUN 10, Creatinine 0.81, Estim Creat Clear Calc 95.43, Est GFR (MDRD) Af Amer 124, Est GFR (MDRD) Non-Af 103, BUN/Creatinine Ratio 12.4, Glucose 109 H, Calcium 8.1 L, Magnesium 1.9, Total Bilirubin 1.00, AST 377 H, ALT 115 H, Alkaline Phosphatase 57, Total Protein 6.1 L, Albumin 2.6 L, Globulin 3.5, Albumin/Globulin Ratio 0.7 L, TSH 3.100 Micro: Microbiology 11/06/23 15:28 Mucosa - Nasopharyngeal SARS-CoV-2, Influenza & RSV (PCR) - Final ABG Data ABG results: ABG 11/06/23 11:35 Specimen Type ART Sample Site L Radial pH 7.18 L* Bicarbonate Actual 12.8 L Total CO2 14 Base Excess -16 L O2 Saturation 95 O2 % 100.0 ABG pCO2 34.7 L ABG pO2 92 Jakob Test Positive Respiration Rate 16 O2 Delivery Device Adult Vent Vent Mode AC Tidal Volume 500.0 POC PEEP 10 Crit Call To/Read Back Yes Rhythm Strip Rhythm Strip: A-fib Rate: 95 Cardiology Labs/Tests 11/06/23 10:55: WBC 11.0, RBC 3.63 L, Hgb 11.1 L, Hct 35.6 L, MCV 98.1 H, MCH 30.6, MCHC 31.2 L, Plt Count 195, MPV 10.7, Immature Gran % (Auto) 2.400 H, Neut % (Auto) 74.9 H, Lymph % (Auto) 18.4 L, [place] % (Auto) 3.8, Eos % (Auto) 0.1, Baso % (Auto) 0.4, Absolute Neuts (auto) 8.2 H, Nucleated RBC % 0.5, PT 14.7, INR 1.2, APTT 38.2 H, Sodium 132 L, Potassium 2.5 L*, Chloride 95 L, Carbon Dioxide 18.0 L, Anion Gap 19 H, BUN 8, Creatinine 1.15, Est GFR (MDRD) Af Amer 82, Est GFR (MDRD) Non-Af 68, BUN/Creatinine Ratio 7.0 L, Glucose 230 H, Lactic Acid 9.3 H*, Calcium 8.6, Magnesium 2.7 H, Total Bilirubin 0.80, Direct Bilirubin 0.31 H, B-Natriuretic Peptide 1027.0 H, Triglycerides 111 11/06/23 11:04: Urine Color YELLOW, Urine Clarity Sl. Cloudy, Urine pH 6.5, Ur Specific [place] 1.015, Urine Protein 100 H, Urine Glucose (UA) Normal, Urine Ketones 150 A*, Urine Occult Blood 25 H, Urine Nitrite Negative, Urine Bilirubin Negative, Urine Urobilinogen 4 H, Ur Leukocyte Esterase 100 H, Urine RBC 0 SEEN, Urine WBC 0 SEEN 11/06/23 11:35: pH 7.18 L*, Bicarbonate Actual 12.8 L, Base Excess -16 L, O2 Saturation 95, ABG pCO2 34.7 L, ABG pO2 92, Jakob Test Positive 11/06/23 12:10: PT 16.7 H, INR 1.4, APTT 34.1 11/06/23 15:40: Lactic Acid 3.2 H* 11/06/23 18:04: APTT 44.0 H, Sodium 132 L, Potassium 3.7, Chloride 100, Carbon Dioxide 23.0, Anion Gap 9, BUN 10, Creatinine 0.85, Est GFR (MDRD) Af Amer 117, Est GFR (MDRD) Non-Af 97, BUN/Creatinine Ratio 11.8, Glucose 125 H, Calcium 7.8 L 11/07/23 00:30: APTT 59.8 H 11/07/23 06:45: WBC 8.5, RBC 3.31 L, Hgb 9.9 L, Hct 30.8 L, MCV 93.1 D, MCH 29.9, MCHC 32.1, Plt Count 175, MPV 10.4, Immature Gran % (Auto) 0.500, Neut % (Auto) 80.5 H, Lymph % (Auto) 13.4 L, Lyon % (Auto) 5.4, Eos % (Auto) 0.1, Baso % (Auto) 0.1, Absolute Neuts (auto) 6.9, Nucleated RBC % 0, APTT 48.1 H, Sodium 133 L, Potassium 3.4 L, Chloride 98, Carbon Dioxide 25.0, Anion Gap 10, BUN 10, Creatinine 0.81, Est GFR (MDRD) Af Amer 124, Est GFR (MDRD) Non-Af 103, BUN/Creatinine Ratio 12.4, Glucose 109 H, Calcium 8.1 L, Magnesium 1.9, Total Bilirubin 1.00 Rhythm: EKG: ECHO: Stress Test: Cardiac Cath: PCI: CT Surgery: Holter monitor: EPS: PPM: CXR: Chest CT Scan: Radiography Diagnostic Testing: Radiology Impression Brain CT 11/06/23 11:02 IMPRESSION: Chronic involutional changes of the brain. Electronically Signed: Carlyle Lazaro MD at 13:12 EDT , Chest X-Ray 11/06/23 11:10 IMPRESSION: The tip of the endotracheal tube is at 3.6 times approximately the cory. The tip of the orogastric tube is seen below the left hemidiaphragm. Electronically Signed: Carlyle Lazaro MD at 11:57 EDT , Chest X-Ray 11/06/23 11:24 IMPRESSION: The endotracheal tube and orogastric tube are unchanged. The tip of the right-sided central venous catheter is at the junction of the superior vena cava and right atrium. Vascular congestion. Electronically Signed: Carlyle Lazaro MD at 11:58 EDT , Chest CTA 11/06/23 11:57 IMPRESSION: No evidence of pulmonary embolism. This may represent pulmonary edema. Bilateral airspace disease worse in the lower lobes and right hemithorax. Electronically Signed: Carlyle Lazaro MD at 13:11 EDT , Physical Exam Const alert and oriented x3 Constitutional Narrative: Intubated HEENT normocephalic Eyes EOMs intact bilaterally Chest inspection of chest normal Resp Auscultation: crackles bilateral base Cardio Cardio Narrative: Very distant heart tones Rate: regular rate Rhythm: abnormal rhythm irregularly irregular Heart Sounds: S1 normal and S2 normal; Negative for click, gallop, murmur or rub GI non-tender and no bruits Extremity no pedal edema Skin no rashes or lesions noted Neuro Neuro Narrative: Intubated and moderately sedated but does respond to verbal stimuli appropriately. Assessment & Plan Assessment/Plan (1) Cardiac arrest: PLAN: The patient suffered a presumed ventricular febrile shaan arrest in the field yesterday resuscitated with AED and CPR. Patient is now appears to be neurologically intact he is arousable by verbal stimuli and appears to respond appropriately remains intubated. He is being weaned from the ventilatory support and his pressors have been discontinued. 2D echocardiogram formal report is pending at this time. (2) Acute respiratory failure: QUALIFIERS: Respiratory failure complication: hypoxia Qualified Code(s): J96.01 - Acute respiratory failure with hypoxia PLAN: Pulmonary is managing the patient's respiratory failure and weaning of ventilatory support. (3) Peripheral vascular disease: PLAN: Patient has a history of severe right lower extremity peripheral vascular disease with an occluded right superficial femoral artery and right tibial artery. (4) CAD (coronary artery disease): QUALIFIERS: Coronary Disease-Associated Artery/Lesion type: [place] artery [place] vs. transplanted heart: [place] heart Associated angina: unspecified whether angina present Qualified Code(s): I25.10 - Atherosclerotic heart disease of [place] coronary artery without angina pectoris PLAN: By verbal report from the patient's residential property manager in [facility] was told that he had small vessel distal disease but they did not have a recent echocardiogram or evaluation of his LV function. Will attempt to get more definitive information once the patient is extubated and can discuss his past medical history with this. PLAN: Plan 1. Continue supportive care per the ICU and primary service. 2. Will address appropriate medical therapy once the 2D echocardiogram is evaluated and will probably need to be repeated as a limited echo given the fact that this 1 was done immediately postresuscitation. 3. Once extubated will discuss long-term management options with the patient. 4. The patient's son Adrian and the patient are estranged at this point in time there is very limited communication between the 2 apparently. Charges/Coding Visit Charges Inpatient E&M: 05890 Subs Hosp L3
[2023-11-07 10:03] LABS: Phosphorus 1.9 mg/dL (2.5-4.9)
[2023-11-07] MEDS: Pantoprazole Sodium 40 MG in 0.9% Normal Saline (100mL MB+) 100 ML 330 MG IV (10:55)
--- NOTE | 2023-11-07 11:05 | CASEMGMT ---
[facility] REYES Face to Face with patient for initial transition planning/care coordination assessment. RN ERIC introduced self and role at [facility]. Patient lying in bed, alert and oriented, intubated and unable to answer questions except for yes and no questions. Nilisa Mcclellan at bedside. Nilisa Mcclellan willing to participate in assessment and is able to answer most questions appropriately. Care providers, pharmacy, and demographics verified. Strata: 1 PCP: Patient has PCP back home in [place] Specialists: none Preferred Pharmacy: [facility] retail at discharge Insurance: unable to verify if patient has insurance. Niece to bring wallet with information Prescription Benefit: unknown Living Will/HPOA: none LNOK: son, greer Living Arrangements: Patient is currently visiting niece here in [place]. Patient lives in [place]. Patient to discharge to niece's house when apporpriate. Niece lives in a 2 story home. Patient nods that his independent and able to ambulate stairs. Transportation: niece DME/HHC: Niece has shower chair at home. Patient wishes to discharge home to niece's home, will monitor for needs pending course of treatment and progress with therapy. Patient and niece state they have no further needs or concerns at this time. CM to follow for discharge planning needs that may arise. Disposition Plan: TBD, pending course of treatment and progress with therapy. Brooke CAVAZOS, RN, CM
[2023-11-07] MEDS: HEPARIN/D5w 25,000 UNITS 25,000 UNITS/250 ML IV.SOLN. 12 UNITS CONT INF (11:17)
--- NOTE | 2023-11-07 12:18 | PCM.PN.INT ---
Assessment & Plan Assessment/Plan (1) Acute respiratory failure: QUALIFIERS: Respiratory failure complication: hypoxia Qualified Code(s): J96.01 - Acute respiratory failure with hypoxia PLAN: Plan RECOMMENDATIONS: 1. Continue assist-control mode mechanical ventilation. Wean FiO2 and PEEP to maintain saturations at or above 90%. 2. Agree with empiric antimicrobials, pending finalized culture results. 3. Initiate scheduled bronchodilators on account of reported history of COPD. 4. Continue amiodarone per cardiology recommendations. 5. Maintain potassium level greater than 4 and magnesium level greater than 2. 6. Continue appropriate GI prophylaxis. IMPRESSIONS: 1. Acute hypoxemic respiratory failure following [id number] cardiac arrest The patient was emergently intubated on arrival to the emergency department. ACLS was initiated with subsequent ROSC. CTA chest was completed and ruled out pulmonary embolism. However, there was evidence of questionable bilateral infiltrates, which are likely secondary to CPR. Nevertheless, it is reasonable to continue empiric antibiotics, pending infectious workup. Continue aggressive electrolyte repletion as needed. The patient did confirm a history of COPD and tobacco dependency. Therefore, he was initiated on scheduled bronchodilators this morning. The patient is otherwise clinically stable. Plan to repeat spontaneous awakening and breathing trial tomorrow morning to assess readiness for extubation. Remainder of medical management per cardiology recommendations. 2. History of hypertension and hyperlipidemia/self-reported history of COPD of unclear severity/tobacco dependency in remission Complicates care, management, recovery and prognosis. Hold home medications for now. TIME: 32 minutes of critical care time, independent of procedures, was spent addressing the patient's acute hypoxemic respiratory failure following [id number] cardiac arrest, review of all data and collaboration with the care team. Subjective Subjective The patient was seen and examined at the bedside this morning. Events from the last 24 hours have been reviewed. The patient is currently afebrile with borderline hemodynamics. He remains on assist-control mode of mechanical ventilation with an FiO2 requirement of 40%. The patient failed his spontaneous breathing trial this morning secondary to hypoxia and tachycardia. The patient is currently alert and able to nod his head to questioning. He did confirm a longstanding smoking history along with COPD and stated that he utilizes inhalers at his baseline. White count remains normal this morning. Chemistry profile was notable for a potassium of 3.4. Objective Data Objective Data The patient's most recent lab work, culture data and imaging studies have all been personally reviewed. Surface echocardiogram demonstrated severe LV systolic dysfunction with an ejection fraction of 10%. COVID, influenza and RSV PCR's were negative. Blood and sputum cultures are pending. Vital Signs: Vital Signs Temp Pulse Resp BP Pulse Ox O2 Del Method FiO2 99.8 F H 98 16 91/70 95 Mechanical Ventilator 40 11/07/23 12:00 11/07/23 12:00 11/07/23 12:00 11/07/23 12:00 11/07/23 12:00 11/07/23 12:00 11/07/23 12:00 Oxygen Delivery Method Mechanical Ventilator Weight: 187 lb 6.287 oz Body Mass Index (BMI) 30.2 Intake & Output: Intake and Output for Last 24 Hours 11/05/23 11/06/23 11/07/23 23:59 23:59 23:59 Intake Total 3553.59 / 3592.99 841.45 / 841.45 Output Total 250 / 500 400 / 400 Balance 3303.59 / 3092.99 441.45 / 441.45 Lab / Micro Data Attestation: I reviewed the patient's lab results. 11/07/23 06:45 11/07/23 06:45 Labs: Laboratory Results - last 24 hr 11/06/23 10:55: Total Creatine Kinase 130, Triglycerides 111 11/06/23 11:07: Urine Opiates Screen NEGATIVE, Urine Methadone Screen NEGATIVE, Ur Barbiturates Screen NEGATIVE, Ur Phencyclidine Scrn NEGATIVE, Ur Amphetamines Screen NEGATIVE, MDMA (Ecstasy) Screen NEGATIVE, U Benzodiazepines Scrn NEGATIVE, Urine Cocaine Screen NEGATIVE, U Cannabinoids Screen POSITIVE H, Ur Drug Screen Comment 11/06/23 12:10: PT 16.7 H, INR 1.4, APTT 34.1 11/06/23 13:25: Troponin I High Sens 3313 H* 11/06/23 15:40: Lactic Acid 3.2 H* 11/06/23 18:04: APTT 44.0 H, Sodium 132 L, Potassium 3.7, Chloride 100, Carbon Dioxide 23.0, Anion Gap 9, BUN 10, Creatinine 0.85, Estim Creat Clear Calc 90.19, Est GFR (MDRD) Af Amer 117, Est GFR (MDRD) Non-Af 97, BUN/Creatinine Ratio 11.8, Glucose 125 H, Calcium 7.8 L, Troponin I High Sens 50950 H* 11/07/23 00:30: APTT 59.8 H 11/07/23 06:45: WBC 8.5, RBC 3.31 L, Hgb 9.9 L, Hct 30.8 L, MCV 93.1 D, MCH 29.9, MCHC 32.1, RDW Std Deviation 56.7 H, RDW Coeff of [place] 16.7 H, Plt Count 175, MPV 10.4, Immature Gran % (Auto) 0.500, Neut % (Auto) 80.5 H, Lymph % (Auto) 13.4 L, [place] % (Auto) 5.4, Eos % (Auto) 0.1, Baso % (Auto) 0.1, Absolute Neuts (auto) 6.9, Absolute Lymphs (auto) 1.14, Nucleated RBC % 0, APTT 48.1 H, Sodium 133 L, Potassium 3.4 L, Chloride 98, Carbon Dioxide 25.0, Anion Gap 10, BUN 10, Creatinine 0.81, Estim Creat Clear Calc 95.43, Est GFR (MDRD) Af Amer 124, Est GFR (MDRD) Non-Af 103, BUN/Creatinine Ratio 12.4, Glucose 109 H, Calcium 8.1 L, Phosphorus 1.9 L, Magnesium 1.9, Total Bilirubin 1.00, AST 377 H, ALT 115 H, Alkaline Phosphatase 57, Total Protein 6.1 L, Albumin 2.6 L, Globulin 3.5, Albumin/Globulin Ratio 0.7 L, TSH 3.100 Micro: Microbiology 11/06/23 15:28 Mucosa - Nasopharyngeal SARS-CoV-2, Influenza & RSV (PCR) - Final Radiography Diagnostic Testing: Radiology Impression Brain CT 11/06/23 11:02 IMPRESSION: Chronic involutional changes of the brain. Electronically Signed: Carllye Lazaro MD at 13:12 EDT , Chest CTA 11/06/23 11:57 IMPRESSION: No evidence of pulmonary embolism. This may represent pulmonary edema. Bilateral airspace disease worse in the lower lobes and right hemithorax. Electronically Signed: Carlyle Lazaro MD at 13:11 EDT , Echocardiogram 11/06/23 14:19 Interpretation Summary Mild concentric left ventricular hypertrophy. Severe LV systolic dysfunction. Severe global LV hypokinesis. Anterior apical akinesis with thinning. Estimated LVEF 10%. Moderate global right ventricular systolic dysfunction. There is mild biatrial dilatation. Mild-Moderate (1-2+) mitral valve insufficiency. Mild tricuspid valve insufficiency. Right ventricular systolic pressure estimated to be 37 mmHg. Ordering Physician: Puja Owusu Performed By: Leighann Berger RDCS and Student Rhythm Strip Rhythm Strip: A-fib Rate: 95 Physical Exam Const Constitutional Narrative: Intubated, sedated and mechanically ventilated. No ventilator dyssynchrony. General Appearance: patient mechanically ventilated HEENT normocephalic and head/scalp atraumatic Mouth: endotracheal tube in place and OG tube in place Eyes EOMs intact bilaterally and conjunctivae normal Neck supple General: trachea midline and CVC in place Chest inspection of chest normal Resp Auscultation: rhonchi and diminished lung sounds; Negative for rales or wheezes Cardio S1 normal heart sound and S2 normal heart sound Rhythm: abnormal rhythm GI normal to inspection, nondistended, normoactive bowel sounds Extremity no clubbing, cyanosis or edema Skin no rashes or lesions noted Neuro Neuro Narrative: Hold if sedated, the patient is alert and able to follow simple commands. Charges/Coding Procedures Hospitalists Procedures: [id number] Critical Care 1st Hr
[2023-11-07] MEDS: Magnesium Sulfate 2 GM in Dextrose 5%-Water (100mL Bag) 100 ML IV (12:54)
[2023-11-07] MEDS: Potassium Chloride 20mEq/100mL 20 MEQ/100 ML IV.SOLN. 100 MEQ IV BOLUS ×2 (12:54→13:50)
[2023-11-07] MEDS: Propofol 10MG/Ml 1,000 MG/100 ML Bottle 10.8 MG CONT INF ×2 (14:35→23:13)
[2023-11-07] MEDS: Potassium Phosphate 21 MM in 0.9% Normal Saline (250mL Bag) 250 ML 84 MM IV (14:37)
--- NOTE | 2023-11-07 16:25 | PN.HOSP_ITS ---
Reason for Visit Reason for Visit: Diagnoses Pure hypercholesterolemia, unspecified (11/06/23) Essential (primary) hypertension (11/06/23) Atherosclerotic heart disease of [place] coronary artery without angina pectoris (11/06/23) Cardiac arrest, cause unspecified (11/06/23) Peripheral vascular disease, unspecified (11/06/23) Acute respiratory failure, unspecified whether with hypoxia or hypercapnia (11/06/23) Acute respiratory failure with hypoxia (11/06/23) Personal history of transient ischemic attack (TIA), and cerebral infarction without residual deficits (11/06/23) Subjective Subjective Patient was seen and examined today, he is sedated and on the ventilator, I talked briefly with cardiology about his care today Objective Data Objective Data Vital Signs: Vital Signs Temp Pulse Resp BP Pulse Ox O2 Del Method FiO2 99.6 F H 96 16 97/53 L 96 Mechanical Ventilator 40 11/07/23 12:00 11/07/23 15:47 11/07/23 15:47 11/07/23 12:00 11/07/23 15:47 11/07/23 15:19 11/07/23 15:47 Oxygen Delivery Method Mechanical Ventilator Weight: 85 kg Body Mass Index (BMI) 30.2 Intake & Output: Intake and Output for Last 24 Hours 11/05/23 11/06/23 11/07/23 23:59 23:59 23:59 Intake Total 3553.59 / 3592.99 1266.39 / 1266.39 Output Total 250 / 500 500 / 500 Balance 3303.59 / 3092.99 766.39 / 766.39 Lab / Micro Data 11/07/23 06:45 11/07/23 06:45 Labs: Laboratory Results - last 24 hr 11/06/23 15:40: Lactic Acid 3.2 H* 11/06/23 18:04: APTT 44.0 H, Sodium 132 L, Potassium 3.7, Chloride 100, Carbon Dioxide 23.0, Anion Gap 9, BUN 10, Creatinine 0.85, Estim Creat Clear Calc 90.19, Est GFR (MDRD) Af Amer 117, Est GFR (MDRD) Non-Af 97, BUN/Creatinine Ratio 11.8, Glucose 125 H, Calcium 7.8 L, Troponin I High Sens 49795 H* 11/07/23 00:30: APTT 59.8 H 11/07/23 06:45: WBC 8.5, RBC 3.31 L, Hgb 9.9 L, Hct 30.8 L, MCV 93.1 D, MCH 29.9, MCHC 32.1, RDW Std Deviation 56.7 H, RDW Coeff of [place] 16.7 H, Plt Count 175, MPV 10.4, Immature Gran % (Auto) 0.500, Neut % (Auto) 80.5 H, Lymph % (Auto) 13.4 L, [place] % (Auto) 5.4, Eos % (Auto) 0.1, Baso % (Auto) 0.1, Absolute Neuts (auto) 6.9, Absolute Lymphs (auto) 1.14, Nucleated RBC % 0, APTT 48.1 H, S odium 133 L, Potassium 3.4 L, Chloride 98, Carbon Dioxide 25.0, Anion Gap 10, BUN 10, Creatinine 0.81, Estim Creat Clear Calc 95.43, Est GFR (MDRD) Af Amer 124, Est GFR (MDRD) Non-Af 103, BUN/Creatinine Ratio 12.4, Glucose 109 H, C alcium 8.1 L, Phosphorus 1.9 L, Magnesium 1.9, Total Bilirubin 1.00, AST 377 H, ALT 115 H, Alkaline Phosphatase 57, Total Protein 6.1 L, Albumin 2.6 L, Globulin 3.5, Albumin/Globulin Ratio 0.7 L, TSH 3.100 11/07/23 14:35: APTT 57.0 H Micro: Microbiology 11/06/23 14:14 Sputum, Tracheal Aspirate Gram Stain - Final 11/06/23 15:28 Mucosa - Nasopharyngeal SARS-CoV-2, Influenza & RSV (PCR) - Final Radiography Diagnostic Testing: Radiology Impression Echocardiogram 11/06/23 14:19 Interpretation Summary Mild concentric left ventricular hypertrophy. Severe LV systolic dysfunction. Severe global LV hypokinesis. Anterior apical akinesis with thinning. Estimated LVEF 10%. Moderate global right ventricular systolic dysfunction. There is mild biatrial dilatation. Mild-Moderate (1-2+) mitral valve insufficiency. Mild tricuspid valve insufficiency. Right ventricular systolic pressure estimated to be 37 mmHg. Ordering Physician: Puja Owusu Performed By: Leighann Berger RDCS and Student Rhythm Strip Rhythm Strip: A-fib Rate: 95 Physical Exam Const Constitutional Narrative: Patient was sedated and on the ventilator General Appearance: well developed HEENT normocephalic, head/scalp atraumatic and moist oral mucous membranes Eyes PERRL and conjunctivae normal Neck no JVD and thyroid normal General: trachea midline Resp normal respiratory effort and clear to auscultation bilaterally Auscultation: Negative for rales, rhonchi or wheezes Cardio regular rate, regular rhythm, S1 normal heart sound, S2 normal heart sound, no murmurs, no rub and no gallops GI normal to inspection, nondistended, normoactive bowel sounds, soft to palpation, non-tender and non-distended Extremity no clubbing, cyanosis or edema Skin no rashes or lesions noted General Skin Exam: no breakdown Neuro Neuro Narrative: Patient is sedated and on the ventilator Psych Psych Narrative: Patient is sedated and on the ventilator Assessment & Plan Assessment/Plan (1) Cardiac arrest: PLAN: Plan 1. Cardiac arrest secondary to cardiac arrhythmia-patient remains intubated at this time and under moderate sedation. Echocardiogram today showed an EF of 10% with severe LV systolic dysfunction and severe global LV hypokinesis. Cardiology is participating in his care #2 acute hypoxic respiratory failure secondary to cardiac arrest-critical care is recommending continuing empiric antibiotic treatment, patient's vital signs are stable at this time, pulmonary medicine states that they may try a breathing trial tomorrow to see if the patient could be extubated #3 cerebrovascular disease-it is unknown whether the patient is compliant with his medications, according to cardiology, patient has a history of a stroke in the past #4 hyperlipidemia-patient had previously been on Crestor, he is on atorvastatin now #5 cardiac arrhythmias-pulseless V. tach-patient is currently on IV amiodarone Total clinical time spent by myself addressing the patient's medical issues, reviewing all of his data, and collaborating with his care team: 35 minutes Charges/Coding Visit Charges Inpatient E&M: 35256 Subs Hosp L2
[2023-11-07] MEDS: Ipratropium/Albuterol Sulfate 3 ML AMPUL.NEB INHALATION (19:24)
[2023-11-07 20:49] LABS: Partial Thromboplast Time 50.3 Seconds (24.1-36.2)
[2023-11-08] VITALS (36 sets, daily range): BP systolic 87–156; BP diastolic 69–124; PULSE 72–133; RESP 13–23; TEMP 36.8–37.8; O2SAT 90–98
[2023-11-08] MEDS: Ipratropium/Albuterol Sulfate 3 ML AMPUL.NEB INHALATION ×4 (01:25→19:26)
[2023-11-08] MEDS: Piperacil/Tazobactam 3.375 GM in 0.9% Normal Saline (50mL MB+) 50 ML IV ×3 (05:26→20:11)
[2023-11-08 06:32] LABS: Partial Thromboplast Time 69.3 Seconds (24.1-36.2)
[2023-11-08] MEDS: HEPARIN/D5w 25,000 UNITS 25,000 UNITS/250 ML IV.SOLN. 13 UNITS CONT INF (07:37)
[2023-11-08] MEDS: Aspirin E.C. 81 MG Tablet PO (07:38)
[2023-11-08] MEDS: Atorvastatin Calcium 40 MG Tablet PO (07:38)
--- NOTE | 2023-11-08 09:22 | PCM.PN.CARD ---
Subjective Subjective Patient on extubation trial at this time. He is alert gives me a thumbs up when I walked in the room. Heart rate is up in the 1 30-1 40 range in atrial fibrillation. Prior to the weaning trial the patient's heart rate had been well-controlled by the nurses report. Objective Data Vital Signs: Vital Signs Temp Pulse Resp BP Pulse Ox O2 Del Method FiO2 99.7 F H 111 H 20 H 127/96 H 97 Mechanical Ventilator 40 11/08/23 08:00 11/08/23 08:00 11/08/23 08:00 11/08/23 08:00 11/08/23 08:00 11/08/23 08:00 11/08/23 08:00 Oxygen Delivery Method Mechanical Ventilator Weight: 186 lb 4.65 oz Body Mass Index (BMI) 30.0 Intake & Output: Intake and Output for Last 24 Hours 11/06/23 11/07/23 11/08/23 23:59 23:59 23:59 Intake Total 3553.59 / 3592.99 2051.24 / 2089.70 361.23 / 361.23 Output Total 250 / 500 800 / 855 205 / 205 Balance 3303.59 / 3092.99 1251.24 / 1234.70 156.23 / 156.23 Lab / Micro Data Attestation: I reviewed the patient's lab results. 11/07/23 06:45 11/07/23 06:45 Labs: Laboratory Results - last 24 hr 11/07/23 06:45: Sodium 133 L, Potassium 3.4 L, Chloride 98, Carbon Dioxide 25.0, Anion Gap 10, BUN 10, Creatinine 0.81, Estim Creat Clear Calc 95.43, Est GFR (MDRD) Af Amer 124, Est GFR (MDRD) Non-Af 103, BUN/Creatinine Ratio 12.4, Glucose 109 H, Calcium 8.1 L, Phosphorus 1.9 L, Magnesium 1.9, Total Bilirubin 1.00, AST 377 H, ALT 115 H, Alkaline Phosphatase 57, Total Protein 6.1 L, Albumin 2.6 L, Globulin 3.5, Albumin/Globulin Ratio 0.7 L, TSH 3.100 11/07/23 14:35: APTT 57.0 H 11/07/23 20:30: APTT 50.3 H 11/08/23 05:20: APTT 69.3 H Micro: Microbiology 11/06/23 14:14 Sputum, Tracheal Aspirate Gram Stain - Final Rhythm Strip Rhythm Strip: A-fib Rate: 140 Cardiology Labs/Tests 11/07/23 06:45: Sodium 133 L, Potassium 3.4 L, Chloride 98, Carbon Dioxide 25.0, Anion Gap 10, BUN 10, Creatinine 0.81, Est GFR (MDRD) Af Amer 124, Est GFR (MDRD) Non-Af 103, BUN/Creatinine Ratio 12.4, Glucose 109 H, Calcium 8.1 L, Phosphorus 1.9 L, Magnesium 1.9, Total Bilirubin 1.00 11/07/23 14:35: APTT 57.0 H 11/07/23 20:30: APTT 50.3 H 11/08/23 05:20: APTT 69.3 H Rhythm: EKG: ECHO: Stress Test: Cardiac Cath: PCI: CT Surgery: Holter monitor: EPS: PPM: CXR: Chest CT Scan: Radiography Diagnostic Testing: Radiology Impression Echocardiogram 11/06/23 14:19 Interpretation Summary Mild concentric left ventricular hypertrophy. Severe LV systolic dysfunction. Severe global LV hypokinesis. Anterior apical akinesis with thinning. Estimated LVEF 10%. Moderate global right ventricular systolic dysfunction. There is mild biatrial dilatation. Mild-Moderate (1-2+) mitral valve insufficiency. Mild tricuspid valve insufficiency. Right ventricular systolic pressure estimated to be 37 mmHg. Ordering Physician: Puja Owusu Performed By: Leighann Berger RDCS and Student Physical Exam Const alert Constitutional Narrative: Remains intubated but is no longer sedated HEENT normocephalic Eyes EOMs intact bilaterally Neck no JVD Chest inspection of chest normal Resp Auscultation: rhonchi throughout Cardio Rate: tachycardic Rhythm: abnormal rhythm irregularly irregular Heart Sounds: S1 normal, S2 normal and other Other Details: Difficult to auscultate given respiratory noise. ; Negative for click, gallop or murmur Skin no rashes or lesions noted Neuro Neuro Narrative: Patient is alert and responsive but remains intubated. Assessment & Plan Assessment/Plan (1) Cardiac arrest: PLAN: Patient status post presumed ventricular fibrillatory arrest. He is now alert and awake and being weaned from the ventilator. He is currently on a trial to extubate the patient. Left ventricular ejection fraction immediately postresuscitation was estimated at 10% with severe global dysfunction. There is apical thinning suggestive of an old myocardial infarction. The information I obtained from his ornamenter in [facility] was that he had small vessel distal disease. There was no mention of bypass graft surgery or stenting. The patient does not have any surgical scars consistent with CABG. We will have further recommendations once we can talk to the patient and figure out a more detailed past medical history. At this time given the tachycardia would recommend adding IV Lopressor as a single dose until the vent weaning trial is completed and the patient is extubated. Once extubated the patient should be instituted on Coreg 6.25-12.5 mg twice daily based on blood pressure response. The patient was on metoprolol 25 mg twice daily by report in his home environment along with losartan 50 mg daily. Given the patient's LV dysfunction I recommend reinstituting losartan when possible based on blood pressure and instead of the hydrochlorothiazide I would replace this with spironolactone 25 mg daily. We should avoid amlodipine unless needed for blood pressure control in addition to maximizing his Coreg and losartan. He should also be reinstituted on the rosuvastatin when tolerating p.o. (2) Dilated cardiomyopathy: PLAN: Patient has a dilated cardiomyopathy on recent echo. Medications will be instituted as noted above in #1. Once maximally titrated we would repeat a limited echocardiogram in 6 to 12 weeks. PLAN: Plan 1. Add Lopressor 5 mg IV push x 1 now. 2. [place] Coreg 12.5 mg twice daily as tolerated once taking p.o.'s. 3. Add losartan 50 mg daily as blood pressure will tolerate. 4. After tolerating Coreg and losartan would add spironolactone 25 mg daily and check a basic metabolic panel 24 to 48 hours later. The patient's renal function 11/07/2023 was within normal limits. He also was mildly hypokalemic. 5. We will continue to follow-up with you as you directed. Please call if assistance is needed. 6. The patient should follow-up in the [place] [facility] office is 7 to 10 days after discharge from the hospital. We will continue to follow peripherally over the next several days. Charges/Coding Visit Charges Inpatient E&M: 13390 [facility] Hosp L3
[2023-11-08] MEDS: Metoprolol Tartrate 5 MG/5 ML Vial IV (09:35)
[2023-11-08] MEDS: Pantoprazole Sodium 40 MG in 0.9% Normal Saline (100mL MB+) 100 ML 330 MG IV (09:43)
[2023-11-08 10:24] LABS: Absolute Lymphocyte Count 0.72 X10^3/uL (0.83-4.51); Absolute Neutrophil Count 11.8 X10^3/uL (2.0-7.7); Basophil# 0.01 X10^3/uL; Basophil% 0.1 % (0-1); Hematocrit 31.1 % (40-54); Hemoglobin 10.3 g/dL (13.0-16.5); Lymphocyte # 0.72 X10^3/ul (0.83-4.51); Lymphocyte % 5.5 % (19-41); Mean Corp Hgb Conc 33.1 g/dL (32-36); Mean Corpuscular Hgb 31.6 pg (27.0-32.0); Mean Corpuscular Volume 95.4 fL (80-94); Mean Platelet Vol. 10.7 fl (6.2-12.0); Monocyte# 0.56 X10^3/uL; Monocyte% 4.3 % (0-10); NRBC Flagged by Analyzer 0.2 % (0-5); Neutrophil # 11.75 X10^3/uL (2.7-7.7); Neutrophil % 89.3 % (47-70); Platelet Count 199 K/mm3 (150-450); RBC Distribution Width CV 17.1 % (11.6-14.6); RBC Distribution Width SD 59.3 fl (35.1-43.9); Red Blood Count 3.26 M/mm3 (4.6-6.2); White Blood Count 13.1 K/mm3 (4.4-11.0)
[2023-11-08 10:46] LABS: Anion Gap 8 (5-15); BUN 15 mg/dL (7-18); Calcium,Total 8.7 mg/dL (8.5-10.1); Chloride 98 mmol/L (98-107); Creatinine, Serum 0.79 mg/dL (0.70-1.30); EST Glomerular Filtration Rate 105 mL/min (>60); Est Glom Filt Rate - Afr Amer 127 mL/min (>60); Estimated Creatinine Clearance 97.58 ml/min; Glucose 162 mg/dL (74-106); Magnesium 2.3 mg/dL (1.6-2.6); Phosphorus 2.1 mg/dL (2.5-4.9); Potassium 4.2 mmol/L (3.5-5.1); Sodium Level 130 mmol/L (136-145)
--- NOTE | 2023-11-08 10:50 | PN.CC_ITS ---
Assessment & Plan Assessment/Plan (1) Acute respiratory failure: QUALIFIERS: Respiratory failure complication: hypoxia Qualified Code(s): J96.01 - Acute respiratory failure with hypoxia PLAN: Plan RECOMMENDATIONS: 1. Proceed with a trial of extubation this morning. 2. Once extubated, wean supplemental oxygen to maintain saturations at or above 90%. 3. Continue scheduled bronchodilators and corticosteroid, given history of COPD. 4. Continue empiric antimicrobials. 5. Perform bedside swallow evaluation and advance diet accordingly. 6. Rate/rhythm control strategy per cardiology. 7. Encourage incentive spirometer use and mobilize patient as tolerated. IMPRESSIONS: 1. Acute hypoxemic respiratory failure following [id number] cardiac arrest The patient was emergently intubated on arrival to the emergency department. ACLS was initiated with subsequent ROSC. CTA chest was completed and ruled out pulmonary embolism. However, there was evidence of questionable bilateral infiltrates, which are likely secondary to CPR. Nevertheless, it is reasonable to continue empiric antibiotics, given concerns for possible aspiration. The patient did confirm a history of COPD and tobacco dependency. Therefore, he will be maintained on scheduled bronchodilators and steroids. The patient is otherwise improved from a respiratory perspective and was able to be extubated on the morning of November 07. Supplemental oxygen will be weaned as tolerated. Bedside swallow evaluation can be completed, with tentative plans for dietary advancement as tolerated. Remainder of medical management per cardiology recommendations. 2. History of hypertension and hyperlipidemia/self-reported history of COPD of unclear severity/tobacco dependency in remission Complicates care, management, recovery and prognosis. Physical therapy to evaluate the patient once extubated. TIME: 33 minutes of critical care time, independent of procedures, was spent addressing the patient's acute hypoxemic respiratory failure following [id number] cardiac arrest, review of all data and collaboration with the care team. Subjective Subjective The patient was seen and examined at the bedside this morning. Events from the last 24 hours have been reviewed. The patient is currently afebrile, hemodynamically stable and maintaining appropriate oxygen saturations on spontaneous mode of mechanical ventilation with an FiO2 requirement of 30%. The patient did quite well this morning on his spontaneous breathing trial. He is alert and able to follow commands appropriately. Therefore, the patient was extubated. White count is mildly elevated at 13,000. Objective Data Objective Data The patient's most recent lab work, culture data and imaging studies have all been personally reviewed. Surface echocardiogram demonstrated severe LV systolic dysfunction with an ejection fraction of 10%. COVID, influenza and RSV PCR's were negative. Blood and sputum cultures are pending. Vital Signs: Vital Signs Temp Pulse Resp BP Pulse Ox O2 Del Method FiO2 100.1 F H 132 H 15 145/105 H 92 Mechanical Ventilator 30 11/08/23 09:00 11/08/23 09:35 11/08/23 09:31 11/08/23 09:35 11/08/23 09:31 11/08/23 09:00 11/08/23 09:00 Oxygen Delivery Method Mechanical Ventilator Weight: 186 lb 4.65 oz Body Mass Index (BMI) 30.0 Intake & Output: Intake and Output for Last 24 Hours 11/06/23 11/07/23 11/08/23 23:59 23:59 23:59 Intake Total 3553.59 / 3592.99 2051.24 / 2089.70 521.23 / 521.23 Output Total 250 / 500 800 / 855 205 / 205 Balance 3303.59 / 3092.99 1251.24 / 1234.70 316.23 / 316.23 Lab / Micro Data Attestation: I reviewed the patient's lab results. 11/08/23 09:55 11/08/23 09:55 Labs: Laboratory Results - last 24 hr 11/07/23 14:35: APTT 57.0 H 11/07/23 20:30: APTT 50.3 H 11/08/23 05:20: APTT 69.3 H 11/08/23 09:55: WBC 13.1 H, RBC 3.26 L, Hgb 10.3 L, Hct 31.1 L, MCV 95.4 H, MCH 31.6, MCHC 33.1, RDW Std Deviation 59.3 H, RDW Coeff of [place] 17.1 H, Plt Count 199, MPV 10.7, Immature Gran % (Auto) 0.800, Neut % (Auto) 89.3 H, Lymph % (Auto) 5.5 L, [place] % (Auto) 4.3, Eos % (Auto) 0.0, Baso % (Auto) 0.1, Absolute Neuts (auto) 11.8 H, Absolute Lymphs (auto) 0.72 L, Nucleated RBC % 0.2, Sodium 130 L, Potassium 4.2, Chloride 98, Carbon Dioxide 24.0, Anion Gap 8, BUN 15, Creatinine 0.79, Estim Creat Clear Calc 97.58, Est GFR (MDRD) Af Amer 127, Est GFR (MDRD) Non-Af 105, BUN/Creatinine Ratio 19.0, Glucose 162 H, Calcium 8.7, P hosphorus 2.1 L, Magnesium 2.3 Micro: Microbiology 11/06/23 14:14 Sputum, Tracheal Aspirate Gram Stain - Final 11/06/23 14:14 Sputum, Tracheal Aspirate Respiratory Culture - Preliminary Appears to be normal respiratory alissa. Further studies to follow. 11/06/23 15:28 Mucosa - Nasopharyngeal SARS-CoV-2, Influenza & RSV (PCR) - Final Radiography Diagnostic Testing: Radiology Impression Brain CT 11/06/23 11:02 IMPRESSION: Chronic involutional changes of the brain. Electronically Signed: Carlyle Lazaro MD at 13:12 EDT , Chest CTA 11/06/23 11:57 IMPRESSION: No evidence of pulmonary embolism. This may represent pulmonary edema. Bilateral airspace disease worse in the lower lobes and right hemithorax. Electronically Signed: Carlyle Lazaro MD at 13:11 EDT , Echocardiogram 11/06/23 14:19 Interpretation Summary Mild concentric left ventricular hypertrophy. Severe LV systolic dysfunction. Severe global LV hypokinesis. Anterior apical akinesis with thinning. Estimated LVEF 10%. Moderate global right ventricular systolic dysfunction. There is mild biatrial dilatation. Mild-Moderate (1-2+) mitral valve insufficiency. Mild tricuspid valve insufficiency. Right ventricular systolic pressure estimated to be 37 mmHg. Ordering Physician: Puja Owusu Performed By: Leighann Berger RDCS and Student Rhythm Strip Rhythm Strip: A-fib Rate: 140 Physical Exam Const Constitutional Narrative: Intubated and mechanically ventilated. Currently tolerating spontaneous mode of mechanical ventilation. General Appearance: patient mechanically ventilated HEENT normocephalic and head/scalp atraumatic Mouth: endotracheal tube in place and OG tube in place Eyes EOMs intact bilaterally and conjunctivae normal Neck supple General: trachea midline and CVC in place Chest inspection of chest normal Resp Auscultation: rhonchi and diminished lung sounds; Negative for rales or wheezes Cardio S1 normal heart sound and S2 normal heart sound Rate: tachycardic Rhythm: abnormal rhythm GI normal to inspection, nondistended, normoactive bowel sounds Extremity no clubbing, cyanosis or edema Skin no rashes or lesions noted Neuro Neuro Narrative: Alert and able to follow simple commands without issue. Psych cooperative Charges/Coding Procedures Hospitalists Procedures: 20072 Critical Care 1st Hr
[2023-11-08] MEDS: Potassium Phosphate 30 MM in 0.9% Normal Saline (250mL Bag) 250 ML 42 MM IV (11:33)
[2023-11-08] MEDS: Furosemide 40 MG/4 ML Vial IV (12:06)
[2023-11-08 12:26] LABS: Partial Thromboplast Time 41.7 Seconds (24.1-36.2)
[2023-11-08] MEDS: Amiodarone 360 MG in Dextrose 5% Viaflo Bag 192.8 ML 16.7 MG CONT INF ×2 (12:32→23:48)
[2023-11-08 13:01] LABS: Partial Thromboplast Time 55.1 Seconds (24.1-36.2)
--- NOTE | 2023-11-08 13:03 | CHAPLAIN ---
Type of Pastoral Visit ___ Initial Visit _x__ Follow-up Visit ___ On-call Visit ___ General Patient Visit ___ Spiritual Assessment ___ Family Conference ___ Bereavement ___ Rapid Response ___ Code Blue ___ Other (describe below) Pastoral Care Referral From ___ Patient ___ Family _x__ Nurse ___ Physician ___ Decorative Greens Cutter ___ Petroleum Refinery Laborer ___ Other (describe below) Sacrament/Intervention _x__ Active listening ___ Anointing ___ Holiness ___ Bereavement ___ Communion ___ Jessica exploration ___ ___ Life review ___ Prayer ___ Reconciliation ___ Sacrament of Sick _x__ Supportive presence ___ Wedding ___ Other (describe below) Pastoral Comments this patient was extubated today and is alert with family at bedside; pt was a code blue on Monday when this power plant technician responded to ED; met with family members in the room today; pt is able to express thankfulness for greatly improved situation and health; pt denies having any further needs or concerns; offer of support to family given as well;
[2023-11-08] MEDS: Carvedilol 6.25 MG Tablet PO (13:53)
--- NOTE | 2023-11-08 17:57 | PN.HOSP_ITS ---
Reason for Visit Reason for Visit: Diagnoses Pure hypercholesterolemia, unspecified (11/06/23) Essential (primary) hypertension (11/06/23) Atherosclerotic heart disease of [place] coronary artery without angina pectoris (11/06/23) Dilated cardiomyopathy (11/06/23) Cardiac arrest, cause unspecified (11/06/23) Peripheral vascular disease, unspecified (11/06/23) Acute respiratory failure, unspecified whether with hypoxia or hypercapnia (11/06/23) Acute respiratory failure with hypoxia (11/06/23) Personal history of transient ischemic attack (TIA), and cerebral infarction without residual deficits (11/06/23) Subjective Subjective Patient was seen and examined today, I saw him while he was still on the ventilator, he was alert and responded with head nods to questions. Patient was extubated later today and appears to be stable on nasal cannula oxygen. I talked briefly with cardiology about his care, cardiology would like the patient to be on carvedilol after he is extubated. Objective Data Objective Data Vital Signs: Vital Signs Temp Pulse Resp BP Pulse Ox O2 Del Method O2 Flow Rate 98.5 F 110 H 20 H 149/101 H 94 High Flow 8 11/08/23 16:00 11/08/23 17:00 11/08/23 17:00 11/08/23 17:00 11/08/23 17:00 11/08/23 17:00 11/08/23 17:00 FiO2 30 11/08/23 09:00 Oxygen Flow Rate (L/min) 8 Oxygen Delivery Method High Flow Weight: 84.5 kg Body Mass Index (BMI) 30.0 Intake & Output: Intake and Output for Last 24 Hours 11/06/23 11/07/23 11/08/23 23:59 23:59 23:59 Intake Total 3553.59 / 3592.99 2051.24 / 2089.70 791.21 / 791.21 Output Total 250 / 500 800 / 855 1205 / 1205 Balance 3303.59 / 3092.99 1251.24 / 1234.70 -413.79 / -413.79 Lab / Micro Data 11/08/23 09:55 11/08/23 09:55 Labs: Laboratory Results - last 24 hr 11/07/23 20:30: APTT 50.3 H 11/08/23 05:20: APTT 69.3 H 11/08/23 09:55: WBC 13.1 H, RBC 3.26 L, Hgb 10.3 L, Hct 31.1 L, MCV 95.4 H, MCH 31.6, MCHC 33.1, RDW Std Deviation 59.3 H, RDW Coeff of [place] 17.1 H, Plt Count 199, MPV 10.7, Immature Gran % (Auto) 0.800, Neut % (Auto) 89.3 H, Lymph % (Auto) 5.5 L, [place] % (Auto) 4.3, Eos % (Auto) 0.0, Baso % (Auto) 0.1, Absolute Neuts (auto) 11.8 H, Absolute Lymphs (auto) 0.72 L, Nucleated RBC % 0.2, Sodium 130 L, Potassium 4.2, Chloride 98, Carbon Dioxide 24.0, Anion Gap 8, BUN 15, Creatinine 0.79, Estim Creat Clear Calc 97.58, Est GFR (MDRD) Af Amer 127, Est GFR (MDRD) Non-Af 105, BUN/Creatinine Ratio 19.0, Glucose 162 H, Calcium 8.7, P hosphorus 2.1 L, Magnesium 2.3 11/08/23 11:40: APTT 41.7 H 11/08/23 12:35: APTT 55.1 H Micro: Microbiology 11/06/23 13:25 Blood Culture (Wb) - Anticubital Left Blood Culture - Preliminary No growth in 48 hours. 11/06/23 14:14 Sputum, Tracheal Aspirate Gram Stain - Final 11/06/23 14:14 Sputum, Tracheal Aspirate Respiratory Culture - Preliminary Appears to be normal respiratory alissa. Further studies to follow. 11/06/23 15:28 Mucosa - Nasopharyngeal SARS-CoV-2, Influenza & RSV (PCR) - Final Rhythm Strip Rhythm Strip: A-fib Rate: 140 Physical Exam Narrative Constitutional Narrative: Patient is alert and on the ventilator General Appearance: well developed HEENT normocephalic, head/scalp atraumatic and moist oral mucous membranes Eyes PERRL and conjunctivae normal Neck no JVD and thyroid normal General: trachea midline Resp normal respiratory effort and clear to auscultation bilaterally Auscultation: Negative for rales, rhonchi or wheezes Cardio regular rate, regular rhythm, S1 normal heart sound, S2 normal heart sound, no murmurs, no rub and no gallops GI normal to inspection, nondistended, normoactive bowel sounds, soft to palpation, non-tender and non-distended Extremity no clubbing, cyanosis or edema Skin no rashes or lesions noted General Skin Exam: no breakdown Neuro Neuro Narrative: Patient is alert and on the ventilator Psych Psych Narrative: Patient is alert and on the ventilator Assessment & Plan Assessment/Plan (1) CAD (coronary artery disease): QUALIFIERS: Coronary Disease-Associated Artery/Lesion type: [place] artery [place] vs. transplanted heart: [place] heart Associated angina: u nspecified whether angina present Qualified Code(s): I25.10 - Atherosclerotic heart disease of [place] coronary artery without angina pectoris (2) Cardiac arrest: PLAN: Plan 1. Cardiac arrest secondary to cardiac arrhythmia-patient appears stable at this time, he is on amiodarone and Coreg, due to an elevated blood pressure have elected to increase his Coreg to 12.5 mg twice daily. Patient will be placed on Plavix in addition to his aspirin. #2 acute hypoxic respiratory failure secondary to cardiac arrest-critical care is recommending continuing empiric antibiotic treatment, patient's vital signs are stable at this time #3 cerebrovascular disease-it is unknown whether the patient is compliant with his medications, according to cardiology, patient has a history of a stroke in the past #4 hyperlipidemia-patient had previously been on Crestor, he is on atorvastatin now #5 cardiac arrhythmias-pulseless V. tach-patient is currently on IV amiodarone #6 essential hypertension-patient will be placed on losartan in addition to his Coreg, blood pressure will be monitored Total clinical time spent by myself addressing the patient's medical issues, reviewing all of his data, and collaborating with his care team: 35 minutes Charges/Coding Visit Charges Inpatient E&M: 02451 Subs Hosp L2
[2023-11-08] MEDS: Losartan Potassium 50 MG Tablet PO (20:12)
[2023-11-08] MEDS: Clopidogrel Bisulfate 75 MG Tablet PO (20:12)
[2023-11-08] MEDS: Carvedilol 12.5 MG Tablet PO (20:12)
[2023-11-08] MEDS: 0.9 % NaCl (Sterile) Posiflush 10 mL IV (20:20)
[2023-11-09] VITALS (26 sets, daily range): BP systolic 132–156; BP diastolic 94–130; PULSE 92–124; RESP 12–25; TEMP 36.4–37.2; O2SAT 90–98; BMI 29.7
[2023-11-09] MEDS: Ipratropium/Albuterol Sulfate 3 ML AMPUL.NEB INHALATION ×4 (02:04→20:12)
[2023-11-09] MEDS: HEPARIN/D5w 25,000 UNITS 25,000 UNITS/250 ML IV.SOLN. 13 UNITS CONT INF (02:13)
[2023-11-09] MEDS: Piperacil/Tazobactam 3.375 GM in 0.9% Normal Saline (50mL MB+) 50 ML IV ×3 (05:02→20:26)
[2023-11-09 05:06] LABS: Absolute Lymphocyte Count 1.14 X10^3/uL (0.83-4.51); Absolute Neutrophil Count 10.1 X10^3/uL (2.0-7.7); Basophil# 0.01 X10^3/uL; Basophil% 0.1 % (0-1); Hematocrit 29.4 % (40-54); Hemoglobin 9.7 g/dL (13.0-16.5); Lymphocyte # 1.14 X10^3/ul (0.83-4.51); Lymphocyte % 9.5 % (19-41); Mean Corpuscular Hgb 30.9 pg (27.0-32.0); Mean Corpuscular Volume 93.6 fL (80-94); Mean Platelet Vol. 10.1 fl (6.2-12.0); Monocyte# 0.65 X10^3/uL; Monocyte% 5.4 % (0-10); NRBC Flagged by Analyzer 0.7 % (0-5); Neutrophil # 10.14 X10^3/uL (2.7-7.7); Neutrophil % 84.3 % (47-70); Platelet Count 190 K/mm3 (150-450); RBC Distribution Width CV 16.6 % (11.6-14.6); RBC Distribution Width SD 56.1 fl (35.1-43.9); Red Blood Count 3.14 M/mm3 (4.6-6.2)
[2023-11-09 05:16] LABS: Partial Thromboplast Time 41.7 Seconds (24.1-36.2)
[2023-11-09 05:24] LABS: Anion Gap 8 (5-15); BUN 21 mg/dL (7-18); Calcium,Total 8.4 mg/dL (8.5-10.1); Chloride 98 mmol/L (98-107); Creatinine, Serum 0.72 mg/dL (0.70-1.30); EST Glomerular Filtration Rate 116 mL/min (>60); Est Glom Filt Rate - Afr Amer 141 mL/min (>60); Estimated Creatinine Clearance 107.06 ml/min; Glucose 130 mg/dL (74-106); Magnesium 1.9 mg/dL (1.6-2.6); Phosphorus 2.3 mg/dL (2.5-4.9); Potassium 3.9 mmol/L (3.5-5.1); Sodium Level 131 mmol/L (136-145)
--- NOTE | 2023-11-09 06:15 | PCM.PN.INT ---
Assessment & Plan Assessment/Plan (1) Acute respiratory failure: QUALIFIERS: Respiratory failure complication: hypoxia Qualified Code(s): J96.01 - Acute respiratory failure with hypoxia PLAN: Plan RECOMMENDATIONS: 1. Wean supplemental oxygen to maintain saturations at or above 90%. 2. Continue bronchodilators and steroids, given history of COPD. 3. Gentle diuresis as tolerated by hemodynamics and renal function. 4. Continue empiric antimicrobials. 5. Rate/rhythm control strategy per cardiology. 6. Encourage incentive spirometer use and mobilize patient as tolerated. IMPRESSIONS: 1. Acute hypoxemic respiratory failure following [id number] cardiac arrest The patient was emergently intubated on arrival to the emergency department. ACLS was initiated with subsequent ROSC. CTA chest was completed and ruled out pulmonary embolism. However, there was evidence of questionable bilateral infiltrates, which are likely secondary to CPR. Nevertheless, it is reasonable to continue empiric antibiotics, given concerns for possible aspiration. The patient did report a history of COPD and tobacco dependency. Therefore, he has been maintained on scheduled bronchodilators and steroids. Ultimately, the patient improved from a respiratory perspective and was extubated on the morning of November 07. Plan to continue to wean supplemental oxygen to maintain saturations at or above 90%. Continue attempts at gentle diuresis as tolerated by hemodynamics and renal function. Remainder of medical management per cardiology recommendations. 2. History of hypertension and hyperlipidemia/self-reported history of COPD of unclear severity/tobacco dependency in remission Complicates care, management, recovery and prognosis. Physical therapy to work with the patient. This note was generated with [employer] dictation software. It may contain incorrect words, spelling, and punctuation that were not noted in checking the note before signing. Subjective Subjective The patient was seen and examined at the bedside this morning. Events from the last 24 hours have been reviewed. The patient is currently afebrile, hemodynamically stable and maintaining appropriate oxygen saturations on 8 L/min via nasal cannula. The patient has done relatively well from a respiratory perspective following extubation yesterday. White count is mildly elevated at 12,000 with a hemoglobin of 9.7 g/dL. Creatinine remains within normal limits. Objective Data Objective Data The patient's most recent lab work, culture data and imaging studies have all been personally reviewed. Surface echocardiogram demonstrated severe LV systolic dysfunction with an ejection fraction of 10%. COVID, influenza and RSV PCR's were negative. Blood and sputum cultures have not demonstrated any growth to date. Vital Signs: Vital Signs Temp Pulse Resp BP Pulse Ox O2 Del Method O2 Flow Rate 98.1 F 100 14 148/103 H 91 High Flow 8 11/09/23 06:00 11/09/23 06:00 11/09/23 06:00 11/09/23 06:00 11/09/23 06:00 11/09/23 06:00 11/09/23 06:00 FiO2 30 11/08/23 09:00 Oxygen Flow Rate (L/min) 8 Oxygen Delivery Method High Flow Weight: 185 lb 3.013 oz Body Mass Index (BMI) 29.7 Intake & Output: Intake and Output for Last 24 Hours 11/07/23 11/08/23 11/09/23 23:59 23:59 23:59 Intake Total 2051.24 / 2089.70 1517.36 / 1610.70 321.86 / 321.86 Output Total 800 / 855 1355 / 1405 300 / 300 Balance 1251.24 / 1234.70 162.36 / 205.70 21.86 / 21.86 Lab / Micro Data Attestation: I reviewed the patient's lab results. 11/09/23 04:50 11/09/23 04:50 Labs: Laboratory Results - last 24 hr 11/08/23 05:20: APTT 69.3 H 11/08/23 09:55: WBC 13.1 H, RBC 3.26 L, Hgb 10.3 L, Hct 31.1 L, MCV 95.4 H, MCH 31.6, MCHC 33.1, RDW Std Deviation 59.3 H, RDW Coeff of [place] 17.1 H, Plt Count 199, MPV 10.7, Immature Gran % (Auto) 0.800, Neut % (Auto) 89.3 H, Lymph % (Auto) 5.5 L, [place] % (Auto) 4.3, Eos % (Auto) 0.0, Baso % (Auto) 0.1, Absolute Neuts (auto) 11.8 H, Absolute Lymphs (auto) 0.72 L, Nucleated RBC % 0.2, Sodium 130 L, Potassium 4.2, Chloride 98, Carbon Dioxide 24.0, Anion Gap 8, BUN 15, Creatinine 0.79, Estim Creat Clear Calc 97.58, Est GFR (MDRD) Af Amer 127, Est GFR (MDRD) Non-Af 105, BUN/Creatinine Ratio 19.0, Glucose 162 H, Calcium 8.7, Phosphorus 2.1 L, Magnesium 2.3 11/08/23 11:40: APTT 41.7 H 11/08/23 12:35: APTT 55.1 H 11/09/23 04:50: WBC 12.0 H, RBC 3.14 L, Hgb 9.7 L, Hct 29.4 L, MCV 93.6, MCH 30.9, MCHC 33.0, RDW Std Deviation 56.1 H, RDW Coeff of [place] 16.6 H, Plt Count 190, MPV 10.1, Immature Gran % (Auto) 0.700, Neut % (Auto) 84.3 H, Lymph % (Auto) 9.5 L, [place] % (Auto) 5.4, Eos % (Auto) 0.0, Baso % (Auto) 0.1, Absolute Neuts (auto) 10.1 H, Absolute Lymphs (auto) 1.14, Nucleated RBC % 0.7, APTT 41.7 H, Sodium 131 L, Potassium 3.9, Chloride 98, Carbon Dioxide 25.0, Anion Gap 8, BUN 21 H, Creatinine 0.72, Estim Creat Clear Calc 107.06, Est GFR (MDRD) Af Amer 141, Est GFR (MDRD) Non-Af 116, BUN/Creatinine Ratio 29.0 H, Glucose 130 H, Calcium 8.4 L, Phosphorus 2.3 L, Magnesium 1.9 Micro: Microbiology 11/06/23 13:25 Blood Culture (Wb) - Anticubital Left Blood Culture - Preliminary No growth in 48 hours. 11/06/23 14:14 Sputum, Tracheal Aspirate Gram Stain - Final 11/06/23 14:14 Sputum, Tracheal Aspirate Respiratory Culture - Preliminary Appears to be normal respiratory alissa. Further studies to follow. 11/06/23 15:28 Mucosa - Nasopharyngeal SARS-CoV-2, Influenza & RSV (PCR) - Final Radiography Diagnostic Testing: Radiology Impression Brain CT 11/06/23 11:02 IMPRESSION: Chronic involutional changes of the brain. Electronically Signed: Carlyle Lazaro MD at 13:12 EDT , Chest CTA 11/06/23 11:57 IMPRESSION: No evidence of pulmonary embolism. This may represent pulmonary edema. Bilateral airspace disease worse in the lower lobes and right hemithorax. Electronically Signed: Carlyle Lazaro MD at 13:11 EDT , Echocardiogram 11/06/23 14:19 Interpretation Summary Mild concentric left ventricular hypertrophy. Severe LV systolic dysfunction. Severe global LV hypokinesis. Anterior apical akinesis with thinning. Estimated LVEF 10%. Moderate global right ventricular systolic dysfunction. There is mild biatrial dilatation. Mild-Moderate (1-2+) mitral valve insufficiency. Mild tricuspid valve insufficiency. Right ventricular systolic pressure estimated to be 37 mmHg. Ordering Physician: Puja Owusu Performed By: Leighann Berger RDCS and Student Rhythm Strip Rhythm Strip: A-fib Rate: 140 Physical Exam Const alert and no apparent distress General Appearance: cooperative HEENT normocephalic, head/scalp atraumatic and moist oral mucous membranes Teeth and [place]: poor dentition Eyes PERRL, EOMs intact bilaterally and conjunctivae normal Neck supple General: trachea midline and CVC in place Chest inspection of chest normal Resp Auscultation: diminished lung sounds; Negative for rales, rhonchi or wheezes Cardio S1 normal heart sound and S2 normal heart sound Rate: tachycardic Rhythm: abnormal rhythm GI normal to inspection, nondistended, normoactive bowel sounds Extremity no clubbing, cyanosis or edema Skin no rashes or lesions noted Neuro oriented x3, CN's II-XII intact bilaterally, moves all extremities and no focal motor deficits Psych cooperative and affect normal Charges/Coding Visit Charges Inpatient E&M: 59620 Subs Hosp L3
[2023-11-09] MEDS: Potassium Phosphate 21 MM in 0.9% Normal Saline (250mL Bag) 250 ML 84 MM IV (07:55)
--- NOTE | 2023-11-09 07:58 | RAD_ITS ---
STUDY: X-RAY CHEST REASON FOR EXAM: Male, 63 years old. Hypoxia TECHNIQUE: Single AP portable view of the chest. COMPARISON: Comparison is made with prior study November 06, 2023. FINDINGS: A right-sided central venous catheter has been placed with the tip at the junction of the superior vena cava and right atrium. EKG electrodes are seen. The endotracheal tube has been withdrawn as well as the oral gastric tube. Persistent vascular congestion and CHF. Mild increased markings at the lung bases suggesting bibasilar atelectasis. There is no demonstrated pleural abnormality. Normal size heart. Normal mediastinum and angi. Normal visualized pulmonary arteries. Normal visualized aortic arch and descending thoracic aorta. There are diffuse degenerative changes of the visualized thoracic spine. Normal visualized ribs, clavicles, and shoulders. There is no demonstrated abnormality of the visualized soft tissue structures of the upper abdomen. RAD/Chest 1 View (Portable) IMPRESSION: Persistent vascular congestion CHF with findings suggesting bibasilar atelectasis. Electronically Signed: Carlyle Lazaro MD at 8:56 EDT ,
[2023-11-09] MEDS: Carvedilol 12.5 MG Tablet PO ×2 (08:31→09:25)
[2023-11-09] MEDS: Furosemide 40 MG/4 ML Vial IV (08:31)
[2023-11-09] MEDS: Aspirin E.C. 81 MG Tablet PO (08:31)
[2023-11-09] MEDS: Atorvastatin Calcium 40 MG Tablet PO (08:32)
[2023-11-09] MEDS: 0.9% Saline Lock 10 ML Syringe IV (08:32)
--- NOTE | 2023-11-09 09:05 | PN.CARD_ITS ---
Subjective Subjective The patient is alert awake and extubated. I was able to carry on a normal conversation. The patient reports that he originally presented in [place] with what sounds to be a hypertensive emergency and had positive cardiac enzymes and a CVA. He had minimal residual from the CVA. He subsequently had another CVA in [facility] when he was living there. An echocardiogram at that time reportedly showed an LV ejection fraction of 40%. He was told that the apical segment of his heart was . He subsequently moved to [facility] where accounting analyst performed a left heart catheterization that showed some abnormality in the right coronary artery and is apex of his heart was no longer by the patient's report. However, our echo here shows thinning of the apex consistent with an old myocardial infarction. I was told by reading the catheter report from the [facility] office that he had small vessel distal disease and no stenting or bypass surgery was performed. The patient does report that he ran out of his Lasix is the medication he was missing when he came here to visit. He felt that the cats and dogs and his niece's house were the reason for his progressive shortness of breath which led up to his cardiac event and sudden cardiac . Will continue to titrate patient's medications for guideline directed medical therapy for LV dysfunction based on his blood pressure and heart rate. Please see assessment and plan below. Objective Data Vital Signs: Vital Signs Temp Pulse Resp BP Pulse Ox O2 Del Method O2 Flow Rate 98.3 F 119 H 17 136/116 H 91 High Flow 8 11/09/23 08:00 11/09/23 08:00 11/09/23 08:00 11/09/23 08:00 11/09/23 08:00 11/09/23 08:00 11/09/23 08:00 FiO2 30 11/08/23 09:00 Oxygen Flow Rate (L/min) 8 Oxygen Delivery Method High Flow Weight: 185 lb 3.013 oz Body Mass Index (BMI) 29.7 Intake & Output: Intake and Output for Last 24 Hours 11/07/23 11/08/23 11/09/23 23:59 23:59 23:59 Intake Total 2051.24 / 2089.70 1517.36 / 1610.70 321.86 / 321.86 Output Total 800 / 855 1355 / 1405 450 / 450 Balance 1251.24 / 1234.70 162.36 / 205.70 -128.14 / -128.14 Lab / Micro Data Attestation: I reviewed the patient's lab results. 11/09/23 04:50 11/09/23 04:50 Labs: Laboratory Results - last 24 hr 11/08/23 09:55: WBC 13.1 H, RBC 3.26 L, Hgb 10.3 L, Hct 31.1 L, MCV 95.4 H, MCH 31.6, MCHC 33.1, RDW Std Deviation 59.3 H, RDW Coeff of [place] 17.1 H, Plt Count 199, MPV 10.7, Immature Gran % (Auto) 0.800, Neut % (Auto) 89.3 H, Lymph % (Auto) 5.5 L, [place] % (Auto) 4.3, Eos % (Auto) 0.0, Baso % (Auto) 0.1, Absolute Neuts (auto) 11.8 H, Absolute Lymphs (auto) 0.72 L, Nucleated RBC % 0.2, Sodium 130 L, Potassium 4.2, Chloride 98, Carbon Dioxide 24.0, Anion Gap 8, BUN 15, Creatinine 0.79, Estim Creat Clear Calc 97.58, Est GFR (MDRD) Af Amer 127, Est GFR (MDRD) Non-Af 105, BUN/Creatinine Ratio 19.0, Glucose 162 H, Calcium 8.7, P hosphorus 2.1 L, Magnesium 2.3 11/08/23 11:40: APTT 41.7 H 11/08/23 12:35: APTT 55.1 H 11/09/23 04:50: WBC 12.0 H, RBC 3.14 L, Hgb 9.7 L, Hct 29.4 L, MCV 93.6, MCH 30.9, MCHC 33.0, RDW Std Deviation 56.1 H, RDW Coeff of [place] 16.6 H, Plt Count 190, MPV 10.1, Immature Gran % (Auto) 0.700, Neut % (Auto) 84.3 H, Lymph % (Auto) 9.[address] L, [place] % (Auto) 5.4, Eos % (Auto) 0.0, Baso % (Auto) 0.1, Absolute Neuts (auto) 10.1 H, Absolute Lymphs (auto) 1.14, Nucleated RBC % 0.7, APTT 41.7 H, Sodium 131 L, Potassium 3.9, Chloride 98, Carbon Dioxide 25.0, Anion Gap 8, B UN 21 H, Creatinine 0.72, Estim Creat Clear Calc 107.06, Est GFR (MDRD) Af Amer 141, Est GFR (MDRD) Non-Af 116, BUN/Creatinine Ratio 29.0 H, Glucose 130 H, C alcium 8.4 L, Phosphorus 2.3 L, Magnesium 1.9 Micro: Microbiology 11/06/23 14:14 Sputum, Tracheal Aspirate Gram Stain - Final 11/06/23 14:14 Sputum, Tracheal Aspirate Respiratory Culture - Final Mixed normal respiratory alissa. No Streptococcus pneumoniae, beta-hemolytic Streptococcus or Staphylococcus aureus isolated. 11/06/23 13:25 Blood Culture (Wb) - Anticubital Left Blood Culture - Preliminary No growth in 48 hours. Rhythm Strip Rhythm Strip: A-fib Rate: 120 Cardiology Labs/Tests 11/08/23 09:55: WBC 13.1 H, RBC 3.26 L, Hgb 10.3 L, Hct 31.1 L, MCV 95.4 H, MCH 31.6, MCHC 33.1, Plt Count 199, MPV 10.7, Immature Gran % (Auto) 0.800, Neut % (Auto) 89.3 H, Lymph % (Auto) 5.5 L, [place] % (Auto) 4.3, Eos % (Auto) 0.0, Baso % (Auto) 0.1, Absolute Neuts (auto) 11.8 H, Nucleated RBC % 0.2, Sodium 130 L, Potassium 4.2, Chloride 98, Carbon Dioxide 24.0, Anion Gap 8, BUN 15, Creatinine 0.79, Est GFR (MDRD) Af Amer 127, Est GFR (MDRD) Non-Af 105, BUN/Creatinine Ratio 19.0, Glucose 162 H, Calcium 8.7, Phosphorus 2.1 L, Magnesium 2.3 11/08/23 11:40: APTT 41.7 H 11/08/23 12:35: APTT 55.1 H 11/09/23 04:50: WBC 12.0 H, RBC 3.14 L, Hgb 9.7 L, Hct 29.4 L, MCV 93.6, MCH 30.9, MCHC 33.0, Plt Count 190, MPV 10.1, Immature Gran % (Auto) 0.700, Neut % (Auto) 84.3 H, Lymph % (Auto) 9.[address] L, [place] % (Auto) 5.4, Eos % (Auto) 0.0, Baso % (Auto) 0.1, Absolute Neuts (auto) 10.1 H, Nucleated RBC % 0.7, APTT 41.7 H, S odium 131 L, Potassium 3.9, Chloride 98, Carbon Dioxide 25.0, Anion Gap 8, BUN 21 H, Creatinine 0.72, Est GFR (MDRD) Af Amer 141, Est GFR (MDRD) Non-Af 116, B UN/Creatinine Ratio 29.0 H, Glucose 130 H, Calcium 8.4 L, Phosphorus 2.3 L, Magnesium 1.9 Rhythm: EKG: ECHO: Stress Test: Cardiac Cath: PCI: CT Surgery: Holter monitor: EPS: PPM: CXR: Chest CT Scan: Radiography Diagnostic Testing: Radiology Impression Chest X-Ray 11/09/23 07:58 IMPRESSION: Persistent vascular congestion CHF with findings suggesting bibasilar atelectasis. Electronically Signed: Carlyle Lazaro MD at 8:56 EDT , Physical Exam Const alert and oriented x3 HEENT normocephalic Eyes EOMs intact bilaterally Neck no JVD Carotids: Negative for bruit Chest inspection of chest normal Resp normal respiratory effort Auscultation: rales bilateral lower Cardio Rate: tachycardic Rhythm: abnormal rhythm irregularly irregular Heart Sounds: S1 normal, S2 normal and other Other Details: Distant heart tones ; Negative for click, gallop or murmur GI soft to palpation Extremity no pedal edema Skin no rashes or lesions noted Neuro Neuro Narrative: Awake alert and oriented x 3 Psych mental status grossly normal Assessment & Plan Assessment/Plan (1) Cardiac arrest: PLAN: Patient is now extubated and conversing normally. It does appear that he was having decompensated congestive heart failure that led to his cardiac arrest. We will continue to titrate his aggressive medical therapy for guideline directed treatment of his heart failure. (2) Dilated cardiomyopathy: PLAN: Historically the patient had an ejection fraction of 40% with apical wall motion changes. He had a catheterization in [facility] about 18 to 24 months ago which showed some questionable changes in his right coronary artery and small vessel distal disease. The patient reports that his wall motion abnormality had recovered. However, his echo here at the time of his event showed an EF of 10% probably depressed related to resuscitation efforts but he also had thinning of the apex consistent with an old infarct. We will continue to aggressively titrate his Coreg and afterload reduction therapy with MARGARET ARB therapy. Given his normal renal function consideration should be given of adding spironolactone 25 mg daily to his medical regimen. We should avoid calcium channel blockade unless were unable to control his blood pressure with triple drug therapy as noted above. Agree with addition of IV Lasix this morning given his chest x-ray results. Should probably be on a daily regimen of Lasix based on his I's and O's. Would plan to aggressively titrate the patient's guideline directed medical therapy for heart failure and then obtain a limited echo in the next 48 to 96 hours. The patient would then be followed up in the [facility] office in 7 to 10 days and after aggressive treatment with guideline directed medical therapy would repeat a full echo at 6 to 12 weeks. At this point in time would not recommend left heart catheterization in the PET less the patient has recurrent intractable ventricular ectopy or chest pains. Would recommend continuing amiodarone and should switch to p.o. dosing to assist with treatment of the atrial fibrillation. (3) CAD (coronary artery disease): QUALIFIERS: Coronary Disease-Associated Artery/Lesion type: [place] artery [place] vs. transplanted heart: [place] heart Associated angina: u nspecified whether angina present Qualified Code(s): I25.10 - Atherosclerotic heart disease of [place] coronary artery without angina pectoris PLAN: Agree with dual antiplatelet therapy. However, the patient is in atrial fibrillation require long-term oral anticoagulation. Would recommend adding Eliquis 5 mg twice daily and discontinuing the aspirin but continuing the Plavix 75 mg daily. Orders have been altered. IV heparin will be discontinued. (4) Hypertension: QUALIFIERS: Hypertension type: primary hypertension Qualified Code(s): I10 - Essential (primary) hypertension PLAN: Blood pressure will be aggressively treated with a combination of Coreg losartan and spironolactone as explained above in #2. (5) Paroxysmal atrial fibrillation: PLAN: Patient remains in atrial fibrillation with a rapid ventricular response. He has been on IV amiodarone. Initially was cardioversion in the emergency department he went from a supraventricular tachycardia to transient sinus rhythm. He then reverted into atrial fibrillation. Recommend discontinue the heparin and switching to Eliquis 5 mg twice daily. Continue with rate control by increasing the Coreg. Would switch to oral amiodarone in an attempt to give 3 to 6 weeks of therapy and then consider direct-current cardioversion. PLAN: Plan 1. Coreg to 25 mg twice daily. 2. Increase losartan as noted. 3. DC IV heparin and start Eliquis 5 mg twice daily. 4. DC IV amiodarone after this bag. Initiate p.o. amiodarone 200 mg 3 times daily for 5 days and then drop back to 200 mg twice daily. 5. Will obtain limited 2D echocardiogram in the next 72 to 96 hours. 6. Will follow-up with the patient in the [facility] office in 7 to 10 days after discharge. At that time we will decide on direct-current cardioversion. 7. Would plan on additional limited 2D echocardiogram to evaluate LV function in 6 to 12 weeks if the patient's EF remains less than 35% on follow-up limited echo in the next 92 to 96 hours. 8. Would defer left heart catheterization at this point in time given the history of small vessel distal disease documented on cath 18 to 24 months ago. If the patient has incessant ventricular ectopy and/or recurrent symptoms of chest symptoms consistent with angina would recommend proceeding with catheterization. Charges/Coding Visit Charges Inpatient E&M: 61773 [facility] Hosp L3
[2023-11-09] MEDS: Losartan Potassium 100 MG Tablet PO (09:22)
[2023-11-09] MEDS: Clopidogrel Bisulfate 75 MG Tablet PO (09:22)
[2023-11-09] MEDS: Pantoprazole Sodium 40 MG in 0.9% Normal Saline (100mL MB+) 100 ML 330 MG IV (09:22)
[2023-11-09] MEDS: Acetaminophen 325 MG Tablet 650 MG PO ×2 (09:23→20:22)
[2023-11-09] MEDS: APIXABAN 5 MG TABLET PO ×2 (11:33→20:23)
--- NOTE | 2023-11-09 11:37 | CASEMGMT ---
Social Work- SW met with pt to conduct SDOH assessment. Pt was alert and oriented x 3; pleasant in demeanor. Pt reports that he came to [place] and had been staying with his niece since last Sunday 10/29. Pt reports that there are stairs to the bathroom in the home and that she has pets which aggravate pt allergies. Pt would like more independent living ideally, as he reports being independent in self care, medications, housekeeping, and food preparation at baseline. Pt reports that pt son provided transportation in [place], as pt does not drive. Pt reports that he is open to rehab at d/c. SW will follow up with pt on SNF list. Pt currently receives SSI ($804/month) and is working on disability approval. Pt is agreeable to referral to [facility]; JONI completed. Pt declined to complete HCPOA today, reporting that he would like to address it at a later time. JONI provided information on food resources, medicaid/SNAP, transportation, [facility], metro/housing, people to people, and [facility]. TIA Paul
[2023-11-09] MEDS: Amiodarone 200 MG Tablet PO ×2 (12:31→20:23)
[2023-11-09] MEDS: Spironolactone 25 MG Tablet PO (13:10)
[2023-11-09] MEDS: 0.9% Normal Saline (250mL Bag) 250 ML 15 ML IV (13:11)
--- NOTE | 2023-11-09 13:46 | ECHOLC_ITS ---
Reason For Study: AFib/Flutter Procedure This was a limited 2D transthoracic echocardiogram. Exam performed portable in ICU/CCU. Left Ventricle Normal left ventricular size. Mild LV concentric hypertrophy. Severe LV systolic dysfunction with severe global hypokinesis. Anterior apical akinesis with thinning. Estimated LVEF 15%. Right Ventricle Normal RV size. Mild to moderate global right ventricular systolic dysfunction. Atria There is mild biatrial dilatation. Bubble contrast study is negative for PFO/ASD. Mitral Valve Severe (4+) mitral valve insufficiency. Tricuspid Valve Mild tricuspid valve insufficiency. Right ventricular systolic pressure estimated to be 49 mmHg. Aortic Valve The aortic valve is not well visualized in the short axis view. Great Vessels The aortic root is not well visualized. Pericardium/Pleural No pericardial effusion. Medication Diluted definity 4ml given slow IV push to enhance endocardial definition. Performed a rapid injection of agitated mix of 9 cc saline and 1cc air to assess for atrial septal defect. MMode/2D Measurements & Calculations LVIDd: 4.8 cm IVSd: 1.5 cm LAV(MOD-sp4): 158.4 ml LVIDs: 4.4 cm LVPWd: 1.2 cm FS: 8.6 % LVAd ap4: 47.8 cm2 SV(MOD-sp4): 30.6 ml SV(sp4-el): 28.6 ml LVLd ap4: 10.1 cm EDV(MOD-sp4): 182.5 ml EDV(sp4-el): 192.3 ml LVAs ap4: 43.5 cm2 LVLs ap4: 9.8 cm ESV(MOD-sp4): 152.0 ml ESV(sp4-el): 163.7 ml EF(MOD-sp4): 16.8 % EF(sp4-el): 14.9 % LA A4 area: 38.5 cm2 RA A4 area: 30.2 cm2 Doppler Measurements & Calculations MR max jaycob: 574.4 cm/sec TR max jaycob: 291.3 cm/sec MR max P.0 mmHg TR max P.9 mmHg MR mean jaycob: 463.4 cm/sec MR mean P.0 mmHg MR VTI: 173.8 cm ECHO/Echo Limited w/Contrast Interpretation Summary Severe LV systolic dysfunction with severe global hypokinesis. Anterior apical akinesis to dyskinesis with thinning. Estimated LVEF 15%. Mild to moderate global right ventricular systolic dysfunction. There is mild biatrial dilatation. Severe (4+) mitral valve insufficiency. Mild tricuspid valve insufficiency. Right ventricular systolic pressure estimated to be 49 mmHg. Ordering Physician: Jose M Nance Performed By: Ryan Jeronimo and Student
[2023-11-09] MEDS: Calcium Carbonate 500 MG Tablet 1000 MG PO (16:39)
--- NOTE | 2023-11-09 16:59 | PN.HOSP_ITS ---
Reason for Visit Reason for Visit: Diagnoses Pure hypercholesterolemia, unspecified (11/06/23) Essential (primary) hypertension (11/06/23) Atherosclerotic heart disease of [place] coronary artery without angina pectoris (11/06/23) Dilated cardiomyopathy (11/06/23) Cardiac arrest, cause unspecified (11/06/23) Paroxysmal atrial fibrillation (11/06/23) Peripheral vascular disease, unspecified (11/06/23) Acute respiratory failure, unspecified whether with hypoxia or hypercapnia (11/06/23) Acute respiratory failure with hypoxia (11/06/23) Personal history of transient ischemic attack (TIA), and cerebral infarction without residual deficits (11/06/23) Subjective Subjective Patient was seen and examined today, he is currently on 6 L of oxygen via nasal cannula. I have ordered a chest x-ray on the patient this morning, it showed what appeared to be congestive heart failure, he was given IV Lasix and I placed him on oral Lasix starting this evening. Patient was placed on spironolactone, his Coreg was increased today by cardiology. I had multiple discussions with cardiology concerning the patient, it is felt that the patient would be candidate for a single-lead implanted defibrillator, patient does not have insurance coverage in [place] at this point but case management is arranging for the patient to be placed on [place] Medicaid. Patient went into atrial fibrillation early this morning, his rate is approximately 110 at the time my examination. Objective Data Objective Data Vital Signs: Vital Signs Temp Pulse Resp BP Pulse Ox O2 Del Method O2 Flow Rate 98.2 F 109 H 25 H 144/116 H 96 Nasal Cannula 6 11/09/23 12:00 11/09/23 16:00 11/09/23 16:00 11/09/23 16:00 11/09/23 16:00 11/09/23 16:00 11/09/23 16:00 FiO2 30 11/08/23 09:00 Oxygen Flow Rate (L/min) 6 Oxygen Delivery Method Nasal Cannula Weight: 84 kg Body Mass Index (BMI) 29.7 Intake & Output: Intake and Output for Last 24 Hours 11/07/23 11/08/23 11/09/23 23:59 23:59 23:59 Intake Total 2051.24 / 2089.70 1517.36 / 1610.70 1123.62 / 1123.62 Output Total 800 / 855 1355 / 1405 2550 / 2550 Balance 1251.24 / 1234.70 162.36 / 205.70 -1426.38 / -1426.38 Lab / Micro Data 11/09/23 04:50 11/09/23 04:50 Labs: Laboratory Results - last 24 hr 11/09/23 04:50: WBC 12.0 H, RBC 3.14 L, Hgb 9.7 L, Hct 29.4 L, MCV 93.6, MCH 30.9, MCHC 33.0, RDW Std Deviation 56.1 H, RDW Coeff of [place] 16.6 H, Plt Count 190, MPV 10.1, Immature Gran % (Auto) 0.700, Neut % (Auto) 84.3 H, Lymph % (Auto) 9.5 L, [place] % (Auto) 5.4, Eos % (Auto) 0.0, Baso % (Auto) 0.1, Absolute Neuts (auto) 10.1 H, Absolute Lymphs (auto) 1.14, Nucleated RBC % 0.7, APTT 41.7 H, Sodium 131 L, Potassium 3.9, Chloride 98, Carbon Dioxide 25.0, Anion Gap 8, B UN 21 H, Creatinine 0.72, Estim Creat Clear Calc 107.06, Est GFR (MDRD) Af Amer 141, Est GFR (MDRD) Non-Af 116, BUN/Creatinine Ratio 29.0 H, Glucose 130 H, C alcium 8.4 L, Phosphorus 2.3 L, Magnesium 1.9 Micro: Microbiology 11/06/23 14:14 Sputum, Tracheal Aspirate Gram Stain - Final 11/06/23 14:14 Sputum, Tracheal Aspirate Respiratory Culture - Final Mixed normal respiratory alissa. No Streptococcus pneumoniae, beta-hemolytic Streptococcus or Staphylococcus aureus isolated. 11/06/23 13:25 Blood Culture (Wb) - Anticubital Left Blood Culture - Preliminary No growth in 48 hours. 11/06/23 15:28 Mucosa - Nasopharyngeal SARS-CoV-2, Influenza & RSV (PCR) - Final Radiography Diagnostic Testing: Radiology Impression Chest X-Ray 11/09/23 07:58 IMPRESSION: Persistent vascular congestion CHF with findings suggesting bibasilar atelectasis. Electronically Signed: Carlyle Lazaro MD at 8:56 EDT , Echocardiogram 11/09/23 13:46 Interpretation Summary Severe LV systolic dysfunction with severe global hypokinesis. Anterior apical akinesis to dyskinesis with thinning. Estimated LVEF 15%. Mild to moderate global right ventricular systolic dysfunction. There is mild biatrial dilatation. Severe (4+) mitral valve insufficiency. Mild tricuspid valve insufficiency. Right ventricular systolic pressure estimated to be 49 mmHg. Ordering Physician: Jose M Nance Performed By: Ryan Jeronimo and Student Rhythm Strip Rhythm Strip: A-fib Rate: 120 Physical Exam Const alert, no apparent distress and average body habitus General Appearance: cooperative, well kempt and well developed Orientation / Consciousness: awake, oriented to person and oriented to place HEENT normocephalic, head/scalp atraumatic and moist oral mucous membranes Eyes PERRL, EOMs intact bilaterally and conjunctivae normal Neck supple, no JVD and thyroid normal General: trachea midline Resp normal respiratory effort, no retractions, no use of accessory muscles and clear to auscultation bilaterally Auscultation: Negative for rales, rhonchi or wheezes Cardio S1 normal heart sound, S2 normal heart sound, no murmurs, no rub and no gallops Cardio Narrative: Heart rate and rhythm is irregular GI normal to inspection, nondistended, normoactive bowel sounds, soft to palpation, non-tender and non-distended Extremity no clubbing, cyanosis or edema Skin no rashes or lesions noted General Skin Exam: no breakdown Neuro oriented x3, CN's II-XII intact bilaterally, moves all extremities, no focal motor deficits and no sensory deficits noted Sensorium / Orientation: awake and alert Speech: speech normal Psych affect normal Assessment & Plan Assessment/Plan (1) Paroxysmal atrial fibrillation: PLAN: Plan 1. Cardiac arrest secondary to cardiac arrhythmia-patient appears stable at this time, he is on amiodarone and Coreg, he is currently on full anticoagulation and Plavix. #2 acute hypoxic respiratory failure secondary to cardiac arrest-critical care is recommending continuing empiric antibiotic treatment, patient's vital signs are stable at this time, patient is on nasal cannula O2 #3 cerebrovascular disease-patient is currently on Plavix #4 hyperlipidemia-patient had previously been on Crestor, he is on atorvastatin now #5 cardiac arrhythmias-pulseless V. tach-patient is currently on p.o. amiodarone #6 essential hypertension-patient will remain on his current hypertensive medications and they will be adjusted as needed #7 acute congestive heart failure with reduced ejection fraction-patient will continue oral Lasix, losartan and Coreg. Patient was also placed on spironolactone #8 paroxysmal atrial fibrillation-patient is currently on amiodarone and Coreg and is on full anticoagulation with Eliquis. Total clinical time spent by myself addressing the patient's medical issues, reviewing all of his data, and collaborating with his care team: 50 minutes Charges/Coding Visit Charges Inpatient E&M: [id number] [facility] Hosp L3
[2023-11-09] MEDS: Furosemide 40 MG Tablet PO (18:28)
[2023-11-09] MEDS: Carvedilol 25 MG Tablet PO (20:22)
[2023-11-09] MEDS: 0.9 % NaCl (Sterile) Posiflush 10 mL IV (20:27)
[2023-11-10] VITALS (10 sets, daily range): BP systolic 118–143; BP diastolic 92–102; PULSE 77–103; RESP 12–20; TEMP 36.2–36.8; O2SAT 95–99
[2023-11-10] MEDS: Ipratropium/Albuterol Sulfate 3 ML AMPUL.NEB INHALATION ×4 (01:26→19:51)
[2023-11-10] MEDS: Calcium Carbonate 500 MG Tablet 1000 MG PO (04:11)
[2023-11-10] MEDS: Acetaminophen 325 MG Tablet 650 MG PO ×2 (04:11→10:41)
[2023-11-10 05:31] LABS: Anion Gap 5 (5-15); BUN 27 mg/dL (7-18); BUN/Creat Ratio 35.9 RATIO (10-20); Calcium,Total 8.4 mg/dL (8.5-10.1); Chloride 97 mmol/L (98-107); Creatinine, Serum 0.75 mg/dL (0.70-1.30); EST Glomerular Filtration Rate 111 mL/min (>60); Est Glom Filt Rate - Afr Amer 134 mL/min (>60); Glucose 112 mg/dL (74-106); Potassium 3.3 mmol/L (3.5-5.1); Sodium Level 130 mmol/L (136-145)
[2023-11-10] MEDS: Piperacil/Tazobactam 3.375 GM in 0.9% Normal Saline (50mL MB+) 50 ML IV ×3 (05:44→22:36)
[2023-11-10] MEDS: Amiodarone 200 MG Tablet PO ×3 (05:44→22:39)
[2023-11-10] MEDS: 0.9 % NaCl (Sterile) Posiflush 10 mL IV (05:45)
--- NOTE | 2023-11-10 08:37 | PN.CARD_ITS ---
Subjective Subjective Patient resting comfortably in bed this morning. He continues on IV antibiotic therapy. He is transitioning to oral cardiovascular medical therapy which is being titrated aggressively to blood pressure and heart rate. The patient has been up to the bedside for about 3 hours yesterday he remains extremely weak he has not been ambulating at all. Limited echocardiogram showed his ejection fraction is 20% in the face of thinning of the anterior and apical segments consistent with an old anterior septal infarct. The patient reports that his ejection fraction that he remembers was 40% in the past. He has never been offered implantable defibrillator. Currently there is process is underway to transition him from [place] Medicaid coverage to [place] Medicaid coverage. The patient had a good diuresis yesterday of 1.4 L. Objective Data Vital Signs: Vital Signs Temp Pulse Resp BP Pulse Ox O2 Del Method O2 Flow Rate 98.2 F 102 H 18 143/102 H 96 Nasal Cannula 2 11/10/23 06:00 11/10/23 06:00 11/10/23 06:00 11/10/23 06:00 11/10/23 06:00 11/10/23 06:00 11/10/23 06:00 FiO2 30 11/08/23 09:00 Oxygen Flow Rate (L/min) 2 Oxygen Delivery Method Nasal Cannula Weight: 185 lb 3.013 oz Body Mass Index (BMI) 29.7 Intake & Output: Intake and Output for Last 24 Hours 11/08/23 11/09/23 11/10/23 23:59 23:59 23:59 Intake Total 1517.36 / 1610.70 1573.37 / 1573.37 170 / 170 Output Total 1355 / 1405 2950 / 2950 100 / 100 Balance 162.36 / 205.70 -1376.63 / -1376.63 70 / 70 Lab / Micro Data Attestation: I reviewed the patient's lab results. 11/09/23 04:50 11/10/23 03:50 Labs: Laboratory Results - last 24 hr 11/10/23 03:50: Sodium 130 L, Potassium 3.3 L, Chloride 97 L, Carbon Dioxide 28.0, Anion Gap 5, BUN 27 H, Creatinine 0.75, Estim Creat Clear Calc 102.50, Est GFR (MDRD) Af Amer 134, Est GFR (MDRD) Non-Af 111, BUN/Creatinine Ratio 35.9 H, Glucose 112 H, Calcium 8.4 L Micro: Microbiology 11/06/23 14:14 Sputum, Tracheal Aspirate Gram Stain - Final 11/06/23 14:14 Sputum, Tracheal Aspirate Respiratory Culture - Final Mixed normal respiratory alissa. No Streptococcus pneumoniae, beta-hemolytic Streptococcus or Staphylococcus aureus isolated. Rhythm Strip Rhythm Strip: A-fib Rate: 100 Cardiology Labs/Tests 11/10/23 03:50: Sodium 130 L, Potassium 3.3 L, Chloride 97 L, Carbon Dioxide 28.0, Anion Gap 5, BUN 27 H, Creatinine 0.75, Est GFR (MDRD) Af Amer 134, Est GFR (MDRD) Non-Af 111, BUN/Creatinine Ratio 35.9 H, Glucose 112 H, Calcium 8.4 L Rhythm: EKG: ECHO: Stress Test: Cardiac Cath: PCI: CT Surgery: Holter monitor: EPS: PPM: CXR: Chest CT Scan: Radiography Diagnostic Testing: Radiology Impression Chest X-Ray 11/09/23 07:58 IMPRESSION: Persistent vascular congestion CHF with findings suggesting bibasilar atelectasis. Electronically Signed: Carlyle Lazaro MD at 8:56 EDT , Echocardiogram 11/09/23 13:46 Interpretation Summary Severe LV systolic dysfunction with severe global hypokinesis. Anterior apical akinesis to dyskinesis with thinning. Estimated LVEF 15%. Mild to moderate global right ventricular systolic dysfunction. There is mild biatrial dilatation. Severe (4+) mitral valve insufficiency. Mild tricuspid valve insufficiency. Right ventricular systolic pressure estimated to be 49 mmHg. Ordering Physician: Jose M Nance Performed By: Ryan Jeronimo and Student Physical Exam Const alert and oriented x3 HEENT normocephalic Eyes EOMs intact bilaterally Neck no JVD Chest inspection of chest normal Resp normal respiratory effort Auscultation: crackles bilateral base Cardio Rate: regular rate Rhythm: abnormal rhythm irregularly irregular Heart Sounds: S1 normal, S2 normal and murmur systolic (Consistent with mitral regurgitation.) II/ blowing holo left sternal border and apex; Negative for click or gallop GI soft to palpation Extremity no pedal edema Skin no rashes or lesions noted Neuro Neuro Narrative: Alert and oriented x 3 Psych mental status grossly normal Assessment & Plan Assessment/Plan (1) Paroxysmal atrial fibrillation: PLAN: Patient remains in atrial fibrillation heart rate is probably appropriately elevated slightly in the 100 range. He is recovering from cardiac arrest, he did have a probable respiratory infection remains on broad-spectrum antibiotics, and he is recovering from an ejection fraction as low as 10%. Patient appears to be tolerating Eliquis with no obvious bleeding. However, his hemoglobin is 9 and needs to be monitored closely. (2) Dilated cardiomyopathy: PLAN: Patient has a dilated cardiomyopathy repeat echocardiogram limited showed an EF of 20% with send in dilated probably aneurysmal apical segment of his left ventricle. Historically the patient was told his ejection fraction was 40%. There is a question of a previous cardiac event that was reported as a CVA to the patient. However, he did suffer a documented arrhythmia genic arrest on this admission and was successfully resuscitated. Ideally the patient should be considered for implantable cardio defibrillator. I discussed this in detail with the patient that given the question of continued infection and continued antibiotic therapy it is not an ideal time to implant a defibrillator. The patient will need to be documented to have sterile blood prior to implantation. I also discussed with him the possibility of the vest. The patient will consider these as he is being evaluated now for possible rehabilitation placement. Ideally if he could be placed in rehab on telemetry that would be the most appropriate bridge to consideration for implantable defibrillator. The patient's medications have been titrated his carvedilol is up to 50 mg twice daily losartan is 100 mg daily. And he is on spironolactone 25 mg daily. At this time I would tolerate a slightly elevated diastolic blood pressure and give these medicines 4 to 5 days to see maximum effect before making alterations. The patient's amiodarone should be decreased to 200 mg twice daily when he is discharged to rehab. (3) CAD (coronary artery disease): QUALIFIERS: Coronary Disease-Associated Artery/Lesion type: [place] artery [place] vs. transplanted heart: [place] heart Associated angina: u nspecified whether angina present Qualified Code(s): I25.10 - Atherosclerotic heart disease of [place] coronary artery without angina pectoris PLAN: The patient has a history of small vessel distal disease and probably an old occluded LAD given his echo results. When he was cathed in [facility] a year and a half ago no intervention was indicated. At this point time I would not pursue invasive coronary evaluation. That is something that we will need to be reconsidered in the future. (4) History of CVA (cerebrovascular accident): PLAN: Patient has a history of remote CVA with minimal if any residual deficits that I can ascertain at this time. The patient has not been ambulatory however. (5) Cardiac arrest: PLAN: Status post cardiac arrest the patient's recovering amazingly well renal function is normal there is a question of respiratory infection that is being treated. His LV function is being treated as noted above. (6) Acute respiratory failure: QUALIFIERS: Respiratory failure complication: hypoxia Qualified Code(s): J96.01 - Acute respiratory failure with hypoxia PLAN: Is being managed by the pulmonary service and the hospitalist service. PLAN: Plan 1. Continue current medical therapy and monitor for blood pressure and heart rate response. 2. Will need to reevaluate for implantable cardiac defibrillator once proven infection is completely resolved. 3. Continue amiodarone would decrease to 200 mg twice daily when transition to rehab. 4. Continue Eliquis at 5 mg twice daily. 5. Monitor hemoglobin closely and consider evaluation for anemia if this is persistent. Will defer to the primary service and hospitalist team. 6. Please call me if assistance is needed in the interim. I will be available by phone and will be back November 19 to the hospital. Charges/Coding Visit Charges Inpatient E&M: 95652 [facility] Hosp L3
[2023-11-10] MEDS: Spironolactone 25 MG Tablet PO (09:06)
[2023-11-10] MEDS: Carvedilol 25 MG Tablet 50 MG PO ×2 (09:06→22:39)
[2023-11-10] MEDS: APIXABAN 5 MG TABLET PO ×2 (09:06→22:38)
[2023-11-10] MEDS: Furosemide 40 MG Tablet PO ×2 (09:07→17:23)
[2023-11-10] MEDS: Atorvastatin Calcium 40 MG Tablet PO (09:07)
[2023-11-10] MEDS: Clopidogrel Bisulfate 75 MG Tablet PO (09:07)
[2023-11-10] MEDS: Pantoprazole Sodium 40 MG Tablet PO (09:07)
[2023-11-10] MEDS: Losartan Potassium 100 MG Tablet PO (09:07)
[2023-11-10] MEDS: Potassium Chloride Oral Tablet 20 MEQ 40 MEQ PO (09:07)
[2023-11-10] MEDS: 0.9% Saline Lock 10 ML Syringe IV ×2 (09:10→14:18)
--- NOTE | 2023-11-10 10:08 | PN.CC_ITS ---
Assessment & Plan Assessment/Plan (1) Acute respiratory failure: QUALIFIERS: Respiratory failure complication: hypoxia Qualified Code(s): J96.01 - Acute respiratory failure with hypoxia PLAN: Plan RECOMMENDATIONS: 1. Wean supplemental oxygen to maintain saturations at or above 90%. 2. Continue bronchodilators and steroids. Will transition to prednisone 40 mg daily x 5 days. 3. Ongoing diuresis per hospitalist/cardiology 4. Continue empiric antimicrobials to complete 7 days of therapy 5. Rate/rhythm control strategy per cardiology. 6. Encourage incentive spirometer use and mobilize patient as tolerated. 7. Will sign off from a critical care perspective. Please call with any additional questions. IMPRESSIONS: 1. Acute hypoxemic respiratory failure following qqd-ot-[id number] cardiac arrest The patient was emergently intubated on arrival to the emergency department. ACLS was initiated with subsequent ROSC. CTA chest was completed and ruled out pulmonary embolism. However, there was evidence of questionable bilateral infiltrates, which are likely secondary to CPR. Nevertheless, it is reasonable to continue empiric antibiotics, given concerns for possible aspiration. The patient did report a history of COPD and tobacco dependency. Therefore, he has been maintained on scheduled bronchodilators and steroids. Ultimately, the patient improved from a respiratory perspective and was extubated on the morning of November 07. Plan to continue to wean supplemental oxygen to maintain saturations at or above 90%. Continue attempts at gentle diuresis as tolerated by hemodynamics and renal function. Remainder of medical management per cardiology recommendations. 2. History of hypertension and hyperlipidemia/self-reported history of COPD of unclear severity/tobacco dependency in remission Complicates care, management, recovery and prognosis. Physical therapy to work with the patient. This note was generated with [employer] dictation software. It may contain incorrect words, spelling, and punctuation that were not noted in checking the note before signing. Subjective Subjective The patient was seen and examined at the bedside this morning. Events from the last 24 hours have been reviewed. The patient is currently afebrile, hemodynamically stable and maintaining appropriate oxygen saturations on 2 L/min via nasal cannula. The patient remains on antimicrobials, bronchodilators and steroids. No overnight issues were reported. Objective Data Objective Data The patient's most recent lab work, culture data and imaging studies have all been personally reviewed. Surface echocardiogram demonstrated severe LV systolic dysfunction with an ejection fraction of 10%. COVID, influenza and RSV PCR's were negative. Blood and sputum cultures have not demonstrated any growth to date. Vital Signs: Vital Signs Temp Pulse Resp BP Pulse Ox O2 Del Method O2 Flow Rate 97.6 F L 85 18 134/92 H 98 Nasal Cannula 2 11/10/23 09:00 11/10/23 09:00 11/10/23 09:00 11/10/23 09:00 11/10/23 09:00 11/10/23 09:13 11/10/23 09:13 FiO2 30 11/08/23 09:00 Oxygen Flow Rate (L/min) 2 Oxygen Delivery Method Nasal Cannula Weight: 185 lb 3.013 oz Body Mass Index (BMI) 29.7 Intake & Output: Intake and Output for Last 24 Hours 11/08/23 11/09/23 11/10/23 23:59 23:59 23:59 Intake Total 1517.36 / 1610.70 1573.37 / 1573.37 373.25 / 373.25 Output Total 1355 / 1405 2950 / 2950 100 / 100 Balance 162.36 / 205.70 -1376.63 / -1376.63 273.25 / 273.25 Lab / Micro Data Attestation: I reviewed the patient's lab results. 11/09/23 04:50 11/10/23 03:50 Labs: Laboratory Results - last 24 hr 11/10/23 03:50: Sodium 130 L, Potassium 3.3 L, Chloride 97 L, Carbon Dioxide 28.0, Anion Gap 5, BUN 27 H, Creatinine 0.75, Estim Creat Clear Calc 102.50, Est GFR (MDRD) Af Amer 134, Est GFR (MDRD) Non-Af 111, BUN/Creatinine Ratio 35.9 H, Glucose 112 H, Calcium 8.4 L Micro: Microbiology 11/06/23 14:14 Sputum, Tracheal Aspirate Gram Stain - Final 11/06/23 14:14 Sputum, Tracheal Aspirate Respiratory Culture - Final Mixed normal respiratory alissa. No Streptococcus pneumoniae, beta-hemolytic Streptococcus or Staphylococcus aureus isolated. 11/06/23 13:25 Blood Culture (Wb) - Anticubital Left Blood Culture - Preliminary No growth in 48 hours. 11/06/23 15:28 Mucosa - Nasopharyngeal SARS-CoV-2, Influenza & RSV (PCR) - Final Radiography Diagnostic Testing: Radiology Impression Echocardiogram 11/09/23 13:46 Interpretation Summary Severe LV systolic dysfunction with severe global hypokinesis. Anterior apical akinesis to dyskinesis with thinning. Estimated LVEF 15%. Mild to moderate global right ventricular systolic dysfunction. There is mild biatrial dilatation. Severe (4+) mitral valve insufficiency. Mild tricuspid valve insufficiency. Right ventricular systolic pressure estimated to be 49 mmHg. Ordering Physician: Jose M Nance Performed By: Ryan Jeronimo and Student Rhythm Strip Rhythm Strip: A-fib Rate: 100 Physical Exam Const alert and no apparent distress General Appearance: cooperative HEENT normocephalic, head/scalp atraumatic and moist oral mucous membranes Teeth and Ging[place]: poor dentition Eyes PERRL, EOMs intact bilaterally and conjunctivae normal Neck supple General: trachea midline and CVC in place Chest inspection of chest normal Resp Auscultation: diminished lung sounds; Negative for rales, rhonchi or wheezes Cardio S1 normal heart sound and S2 normal heart sound Rhythm: abnormal rhythm Heart Sounds: murmur GI normal to inspection, nondistended, normoactive bowel sounds Extremity no clubbing, cyanosis or edema Skin no rashes or lesions noted Neuro oriented x3, CN's II-XII intact bilaterally, moves all extremities and no focal motor deficits Psych cooperative and affect normal Charges/Coding Visit Charges Inpatient E&M: 35013 Subs Hosp L2
--- NOTE | 2023-11-10 10:31 | CASEMGMT ---
SW met with patient as SNF has been discussed. SW introduced self and role at [facility]. Patient confirmed he is agreeable to whatever is recommended. SW provided a list of longterm facility providers including quality and resource use data and consistent with patient?s preferred geographic region, medical needs, and insurance network were provided from the [employer] Guide.? ?SW explained to patient he would need to pick 3 preferences and SW would take care of making referrals. Patient verbalized understanding. SW also provided patient with a packet of resources for [facility] since he is new to the area. Plan: At this time plan is SNF pending, pending Medicaid number, accepting facility, and receipt of level of care. Khadijah Armas CALENDER INSPECTOR [employer]
--- NOTE | 2023-11-10 11:04 | CASEMGMT ---
Patient's pending case number is [id number]. Khadijah BUSTILLOS
--- NOTE | 2023-11-10 12:16 | CASEMGMT ---
Physician spoke with patient and his niece and they are agreeable to [facility]. SW met with patient and his niece. Introduced self to niece Vy. Both confirmed they are okay with [facility]. JONI explained that [facility] may need Vy to assist with finances and getting information to [facility]. Vy was in agreement with this. Vy also suggested that she should probably be present when [facility] talks with patient about finances due to all of the medical stuff patient just went through. JONI explained SW will make a referral and let them know. JONI sent a referral via [facility] to [facility]. Khadijah Armas [employer]OUNDATION ENGINE[employer]
--- NOTE | 2023-11-10 12:19 | TREXTCAR_ITS ---
Diet Diet Order/Speech Therapy: 11/08/23 11:58 Diet: Cardiac - Heart Healthy Routine Orders/Code Status O2 Liters per Minute: 2 O2 Frequency: Continuous Keep PO Greater than or Equal to (%): 90 Routine Lab Work: CBC (in 5 days) and BMP (in 5 days) Code Status: Full Code Therapies Weight Bearing: Full weight bearing Physical Therapy: Eval and Treat Occupational Therapy: Eval and Treat Problem/Diagnosis (1) Acute respiratory failure: Status: Acute Code(s): J96.00 - Acute respiratory failure, unspecified whether with hypoxia or hypercapnia Plan 1. Cardiac arrest secondary to cardiac arrhythmia-patient appears stable at this time, he is on amiodarone and Coreg, he is currently on full anticoagulation and Plavix. #2 acute hypoxic respiratory failure secondary to cardiac arrest-critical care is recommending continuing empiric antibiotic treatment, patient's vital signs are stable at this time, patient is on nasal cannula O2 #3 cerebrovascular disease-patient is currently on Plavix #4 hyperlipidemia-patient had previously been on Crestor, he is on atorvastatin now #5 cardiac arrhythmias-pulseless V. tach-patient is currently on p.o. amiodarone #6 essential hypertension-patient will remain on his current hypertensive medications and they will be adjusted as needed #7 acute congestive heart failure with reduced ejection fraction-patient will continue oral Lasix, losartan and Coreg. Patient was also placed on spironolactone #8 paroxysmal atrial fibrillation-patient is currently on amiodarone and Coreg and is on full anticoagulation with Eliquis. Total clinical time spent by myself addressing the patient's medical issues, reviewing all of his data, and collaborating with his care team: 50 minutes Allergies/Procedures Done in Hospital Allergies Unable to Assess Allergy (Verified 11/06/23 13:21) Procedures: 2-D Echocardiogram, CPR performed and Intubation Type of Care/Length of Stay Estimated LOS: Convalescent Care Less Than 30 days Type of Care Needed: Skilled Rehab Potential: Good Prognosis: Good Additional Orders/Day of Discharge H&P will serve as current which was dated: 11/06/23 Day of Discharge: 11/10/23 Dietary and Speech Recommendations Dietitian Recommendations/Changes: . Discharge Plan Admission Admit Date/Time: 11/06/23 14:11 Primary Reason for Your Visit: cardiac arrest Attending Provider: Jose M Nance Primary Care Provider: Care Physician,No Primary Consulting Providers: Arie Berg; Puja Owusu Discharge Orders/Prescriptions Prescriptions: New furosemide 40 mg Tablet 40 mg PO BIDLX Qty: 0 0RF atorvastatin 40 mg Tablet 40 mg PO DAILY Qty: 0 0RF carvedilol 25 mg Tablet 50 mg PO BID Qty: 0 0RF acetaminophen 325 mg Tablet 650 mg PO Q6H PRN PRN (Reason: Pain 1-10) Qty: 0 0RF ipratropium-albuterol 0.5 mg-3 mg(2.5 mg base)/3 mL Solution For Nebulization 3 ml inhalation Q6H.RT Qty: 0 0RF amiodarone 200 mg Tablet 200 mg PO BID Qty: 0 0RF Rx Instructions: 200 mg three times a day prednisone 20 mg Tablet 40 mg PO BREAKFAST Qty: 0 0RF Rx Instructions: 40 mg daily for 5 days, then stop melatonin 3 mg Tablet 3 mg PO QHS PRN PRN (Reason: Insomnia) Qty: 0 0RF clopidogrel 75 mg Tablet 75 mg PO DAILY Qty: 0 0RF spironolactone 25 mg Tablet 25 mg PO DAILY Qty: 0 0RF pantoprazole 40 mg Tablet,Delayed Release (Dr/Ec) 40 mg PO DAILY Qty: 0 0RF calcium carbonate 200 mg calcium (500 mg) Tablet,Chewable 1,000 mg PO Q6H PRN PRN (Reason: DYSPEPSIA/INDIGESTION) Qty: 0 0RF losartan 100 mg Tablet 100 mg PO DAILY Qty: 0 0RF Eliquis 5 mg Tablet 5 mg PO BID Qty: 0 0RF amoxicillin-pot clavulanate [Augmentin] 500-125 mg tablet 1 tab PO TID Qty: 15 0RF Rx Instructions: with food potassium chloride 20 mEq tablet extended release 20 meq PO DAILY Qty: 1 0RF No Action diphenhydramine HCl [Aler-Cap] 25 mg capsule 25 mg PO Q8H Patient Comments: PT HAD 25MG TABLETS OTC IN BAG OF MEDS. UNSURE HOW PT IS TAKING. ibuprofen [Advil] 200 mg tablet 200 mg PO Q8H Patient Comments: PT HAD 200MG TABLETS IN BAG OF MEDS. UNSURE OF HOW PT IS TAKING. metoprolol tartrate 25 mg tablet 25 mg PO BID amlodipine 5 mg tablet 5 mg PO DAILY rosuvastatin 10 mg tablet 10 mg PO DAILY Rx Instructions: PM hydrochlorothiazide 25 mg tablet 50 mg PO DAILY Patient Comments: PT HAD EMPTY BOTTLE DATED 12/06/22 IN BAG OF MEDS. albuterol sulfate 90 mcg/actuation HFA aerosol inhaler 2 inh inhalation Q6H Patient Comments: INHALER WITHOUT LABEL IN BAG OF MEDS. cyclobenzaprine 5 mg tablet 5 mg PO Q8H losartan 50 mg tablet 50 mg PO DAILY Rx Instructions: PT REMOVED LABEL FROM STOCK BOTTLE. UNSURE OF DIRECTIONS. aspirin 325 mg tablet 325 mg PO DAILY Patient Comments: PT HAD 325MG TABLETS OTC IN BAG OF MEDS. UNSURE HOW PT IS TAKING. cetirizine [Aller-Lalitha] 10 mg tablet 10 mg PO DAILY Patient Comments: PT HAD 10MG TABLETS OTC IN BAG OF MEDS. UNSURE HOW PT IS TAKING. acetaminophen 500 mg capsule 500 mg PO Q6H Patient Comments: PT HAD 500MG TABLETS OTC IN BAG OF MEDS. UNSURE HOW PT IS TAKING. Referrals / Follow Up: Care Physician,No Primary [Primary Care Provider] - Disposition Disposition (needs filled in before D/C Order can be placed): Half-Way Facility (1) Acute respiratory failure Qualifiers: Respiratory failure complication: hypoxia Qualified Code(s): J96.01 - Acute respiratory failure with hypoxia
--- NOTE | 2023-11-10 14:35 | CASEMGMT ---
[facility] is unable to take patient as the Medicaid [place] and it will not cover SNF stay per [facility]. SW reviewed patient's therapy notes and he is doing better. SW spoke with patient, his niece, and another individual. Discussed issues with insurance and finding a half-way. Patient is concerned about steps at home. SW will ask therapy to try steps with patient. The other individual in the room told patient he could stay with him as his home is all one level except to get into the house. Patient stated he has not been using a walker with therapy so he should not need one. SW also explained there is 1 other facility that has been open to taking patient's on [place]. Patient was agreeable to SW sending a referral to [facility]. SW asked Ruby to send a referral to [facility]. Khadijah BUSTILLOS
--- NOTE | 2023-11-10 15:56 | PCM.PN.HOSP ---
Reason for Visit Reason for Visit: Diagnoses Pure hypercholesterolemia, unspecified (11/06/23) Essential (primary) hypertension (11/06/23) Atherosclerotic heart disease of [place] coronary artery without angina pectoris (11/06/23) Dilated cardiomyopathy (11/06/23) Cardiac arrest, cause unspecified (11/06/23) Paroxysmal atrial fibrillation (11/06/23) Peripheral vascular disease, unspecified (11/06/23) Acute respiratory failure, unspecified whether with hypoxia or hypercapnia (11/06/23) Acute respiratory failure with hypoxia (11/06/23) Personal history of transient ischemic attack (TIA), and cerebral infarction without residual deficits (11/06/23) Subjective Subjective Patient was seen and examined today, he is currently on 2 L of nasal cannula oxygen. He has decided that he would like to go to a skilled care facility for temporary rehab services, we will need to get this approved with his pending Medicaid. Objective Data Objective Data Vital Signs: Vital Signs Temp Pulse Resp BP Pulse Ox O2 Del Method O2 Flow Rate 97.8 F 85 18 131/102 H 98 Nasal Cannula 2 11/10/23 14:27 11/10/23 14:27 11/10/23 14:27 11/10/23 14:27 11/10/23 14:27 11/10/23 14:35 11/10/23 14:35 FiO2 30 11/08/23 09:00 Oxygen Flow Rate (L/min) 2 Oxygen Delivery Method Nasal Cannula Weight: 84 kg Body Mass Index (BMI) 29.7 Intake & Output: Intake and Output for Last 24 Hours 11/08/23 11/09/23 11/10/23 23:59 23:59 23:59 Intake Total 1517.36 / 1610.70 1573.37 / 1573.37 860.25 / 860.25 Output Total 1355 / 1405 2950 / 2950 325 / 325 Balance 162.36 / 205.70 -1376.63 / -1376.63 535.25 / 535.25 Lab / Micro Data 11/09/23 04:50 11/10/23 03:50 Labs: Laboratory Results - last 24 hr 11/10/23 03:50: Sodium 130 L, Potassium 3.3 L, Chloride 97 L, Carbon Dioxide 28.0, Anion Gap 5, BUN 27 H, Creatinine 0.75, Estim Creat Clear Calc 102.50, Est GFR (MDRD) Af Amer 134, Est GFR (MDRD) Non-Af 111, BUN/Creatinine Ratio 35.9 H, Glucose 112 H, Calcium 8.4 L Micro: Microbiology 11/06/23 14:14 Sputum, Tracheal Aspirate Gram Stain - Final 11/06/23 14:14 Sputum, Tracheal Aspirate Respiratory Culture - Final Mixed normal respiratory alissa. No Streptococcus pneumoniae, beta-hemolytic Streptococcus or Staphylococcus aureus isolated. 11/06/23 13:25 Blood Culture (Wb) - Anticubital Left Blood Culture - Preliminary No growth in 48 hours. 11/06/23 15:28 Mucosa - Nasopharyngeal SARS-CoV-2, Influenza & RSV (PCR) - Final Rhythm Strip Rhythm Strip: A-fib Rate: 100 Physical Exam Const alert, oriented x3, no apparent distress and average body habitus General Appearance: cooperative, well kempt and well developed Orientation / Consciousness: awake, oriented to person, oriented to place and oriented to time HEENT normocephalic, head/scalp atraumatic and moist oral mucous membranes Eyes PERRL, EOMs intact bilaterally and conjunctivae normal Neck supple, no JVD, thyroid normal and no carotid bruits General: trachea midline Resp normal respiratory effort, no retractions, no use of accessory muscles and clear to auscultation bilaterally Auscultation: Negative for rales, rhonchi or wheezes Cardio S1 normal heart sound, S2 normal heart sound, no murmurs, no rub and no gallops Cardio Narrative: Heart rate and rhythm is irregular GI normal to inspection, nondistended, normoactive bowel sounds, soft to palpation, non-tender and non-distended Extremity no clubbing, cyanosis or edema Skin no rashes or lesions noted General Skin Exam: no breakdown Neuro oriented x3, CN's II-XII intact bilaterally, moves all extremities, no focal motor deficits and no sensory deficits noted Sensorium / Orientation: awake and alert Speech: speech normal Psych affect normal Assessment & Plan Assessment/Plan (1) Cardiac arrest: (2) Acute respiratory failure: QUALIFIERS: Respiratory failure complication: hypoxia Qualified Code(s): J96.01 - Acute respiratory failure with hypoxia PLAN: Plan 1. Cardiac arrest secondary to cardiac arrhythmia-patient appears stable at this time, he is on amiodarone and Coreg, he is currently on full anticoagulation and Plavix. #2 acute hypoxic respiratory failure secondary to cardiac arrest-critical care is recommending continuing empiric antibiotic treatment, patient's vital signs are stable at this time, patient is on nasal cannula O2 #3 cerebrovascular disease-patient is currently on Plavix #4 hyperlipidemia-patient had previously been on Crestor, he is on atorvastatin now #5 cardiac arrhythmias-pulseless V. tach-patient is currently on p.o. amiodarone #6 essential hypertension-patient will remain on his current hypertensive medications and they will be adjusted as needed #7 acute congestive heart failure with reduced ejection fraction-patient will continue oral Lasix, losartan and Coreg. Patient was also placed on spironolactone #8 paroxysmal atrial fibrillation-patient is currently on amiodarone and Coreg and is on full anticoagulation with Eliquis. Total clinical time spent by myself addressing the patient's medical issues, reviewing all of his data, and collaborating with his care team: 35 minutes Charges/Coding Visit Charges Inpatient E&M: 25244 Subs Hosp L2
[2023-11-10] MEDS: Ensure Plus High Protein 120 ML LIQUID PO ×2 (17:23→22:39)
[2023-11-11] VITALS (8 sets, daily range): BP systolic 112–125; BP diastolic 89–98; PULSE 62–86; RESP 17–18; TEMP 36.2–36.7; O2SAT 94–98; BMI 29.4
[2023-11-11] MEDS: Ipratropium/Albuterol Sulfate 3 ML AMPUL.NEB INHALATION ×4 (01:55→19:45)
[2023-11-11] MEDS: Piperacil/Tazobactam 3.375 GM in 0.9% Normal Saline (50mL MB+) 50 ML IV ×3 (05:25→21:52)
[2023-11-11] MEDS: Amiodarone 200 MG Tablet PO ×3 (05:27→21:50)
[2023-11-11] MEDS: Acetaminophen 325 MG Tablet 650 MG PO ×2 (08:09→21:49)
[2023-11-11] MEDS: predniSONE 20 MG Tablet 40 MG PO (08:09)
[2023-11-11] MEDS: Losartan Potassium 100 MG Tablet PO (10:01)
[2023-11-11] MEDS: Clopidogrel Bisulfate 75 MG Tablet PO (10:01)
[2023-11-11] MEDS: Atorvastatin Calcium 40 MG Tablet PO (10:01)
[2023-11-11] MEDS: Carvedilol 25 MG Tablet 50 MG PO ×2 (10:01→21:51)
[2023-11-11] MEDS: Furosemide 40 MG Tablet PO ×2 (10:01→16:54)
[2023-11-11] MEDS: Spironolactone 25 MG Tablet PO (10:01)
[2023-11-11] MEDS: APIXABAN 5 MG TABLET PO ×2 (10:01→21:52)
[2023-11-11] MEDS: Pantoprazole Sodium 40 MG Tablet PO (10:01)
[2023-11-11] MEDS: 0.9% Normal Saline (250mL Bag) 250 ML 15 ML IV (14:44)
[2023-11-11] MEDS: Ensure Plus High Protein 120 ML LIQUID PO ×3 (14:48→21:57)
--- NOTE | 2023-11-11 14:49 | PCM.PN.HOSP ---
Reason for Visit Reason for Visit: Diagnoses Pure hypercholesterolemia, unspecified (11/06/23) Essential (primary) hypertension (11/06/23) Atherosclerotic heart disease of [place] coronary artery without angina pectoris (11/06/23) Dilated cardiomyopathy (11/06/23) Cardiac arrest, cause unspecified (11/06/23) Paroxysmal atrial fibrillation (11/06/23) Peripheral vascular disease, unspecified (11/06/23) Acute respiratory failure, unspecified whether with hypoxia or hypercapnia (11/06/23) Acute respiratory failure with hypoxia (11/06/23) Personal history of transient ischemic attack (TIA), and cerebral infarction without residual deficits (11/06/23) Subjective Subjective Patient was seen and examined today, he is currently on room air this afternoon. Case management states that we may have a problem placing the patient in a extended care facility due to insurance coverage. Objective Data Objective Data Vital Signs: Vital Signs Temp Pulse Resp BP Pulse Ox O2 Del Method O2 Flow Rate 97.5 F L 81 17 125/98 H 94 Room Air 2 11/11/23 09:58 11/11/23 13:42 11/11/23 13:42 11/11/23 09:58 11/11/23 09:58 11/11/23 09:58 11/11/23 06:57 FiO2 30 11/08/23 09:00 Oxygen Flow Rate (L/min) 2 Oxygen Delivery Method Room Air Weight: 82.6 kg Body Mass Index (BMI) 29.4 Intake & Output: Intake and Output for Last 24 Hours 11/09/23 11/10/23 11/11/23 23:59 23:59 23:59 Intake Total 1573.37 / 1573.37 1460.25 / 1460.25 1100 / 1100 Output Total 2950 / 2950 2375 / 2375 2024 / 2024 Balance -1376.63 / -1376.63 -914.75 / -914.75 -925 / -925 Lab / Micro Data 11/09/23 04:50 11/10/23 03:50 Micro: Microbiology 11/06/23 13:25 Blood Culture (Wb) - Anticubital Left Blood Culture - Final No growth in 5 days. 11/06/23 14:14 Sputum, Tracheal Aspirate Gram Stain - Final 11/06/23 14:14 Sputum, Tracheal Aspirate Respiratory Culture - Final Mixed normal respiratory alissa. No Streptococcus pneumoniae, beta-hemolytic Streptococcus or Staphylococcus aureus isolated. 11/06/23 15:28 Mucosa - Nasopharyngeal SARS-CoV-2, Influenza & RSV (PCR) - Final Rhythm Strip Rhythm Strip: A-fib Rate: 100 Physical Exam Const alert, oriented x3, no apparent distress and healthy appearing General Appearance: cooperative and well developed Orientation / Consciousness: awake, oriented to person, oriented to place and oriented to time HEENT normocephalic and moist oral mucous membranes Eyes PERRL, EOMs intact bilaterally and conjunctivae normal Neck supple, no JVD, thyroid normal and no carotid bruits General: trachea midline Resp normal respiratory effort, no retractions, no use of accessory muscles and clear to auscultation bilaterally Auscultation: Negative for rales, rhonchi or wheezes Cardio regular rate, regular rhythm, S1 normal heart sound, S2 normal heart sound, no murmurs, no rub and no gallops GI normal to inspection, nondistended, normoactive bowel sounds, soft to palpation, non-tender and non-distended Extremity no clubbing, cyanosis or edema Skin no rashes or lesions noted General Skin Exam: no breakdown Neuro oriented x3, CN's II-XII intact bilaterally, moves all extremities, no focal motor deficits and no sensory deficits noted Sensorium / Orientation: awake and alert Speech: speech normal Psych affect normal Assessment & Plan Assessment/Plan (1) Cardiac arrest: (2) Acute respiratory failure: QUALIFIERS: Respiratory failure complication: hypoxia Qualified Code(s): J96.01 - Acute respiratory failure with hypoxia PLAN: Plan 1. Cardiac arrest secondary to cardiac arrhythmia-patient appears stable at this time, he is on amiodarone and Coreg, he is currently on full anticoagulation and Plavix. #2 acute hypoxic respiratory failure secondary to cardiac arrest-critical care is recommending continuing empiric antibiotic treatment, patient's vital signs are stable at this time, patient is now on room air #3 cerebrovascular disease-patient is currently on Plavix #4 hyperlipidemia-patient had previously been on Crestor, he is on atorvastatin now #5 cardiac arrhythmias-pulseless V. tach-patient is currently on p.o. amiodarone #6 essential hypertension-patient will remain on his current hypertensive medications and they will be adjusted as needed #7 acute congestive heart failure with reduced ejection fraction-patient will continue oral Lasix, losartan and Coreg. Patient was also placed on spironolactone #8 paroxysmal atrial fibrillation-patient is currently on amiodarone and Coreg and is on full anticoagulation with Eliquis. Total clinical time spent by myself addressing the patient's medical issues, reviewing all of his data, and collaborating with his care team: 35 minutes Charges/Coding Visit Charges Inpatient E&M: 82464 Subs Hosp L2
[2023-11-11] MEDS: 0.9% Saline Lock 10 ML Syringe IV (14:55)
[2023-11-11] MEDS: 0.9 % NaCl (Sterile) Posiflush 10 mL IV (21:49)
[2023-11-12] VITALS (8 sets, daily range): BP systolic 114–123; BP diastolic 96–97; PULSE 76–94; RESP 16–18; TEMP 36.3–36.8; O2SAT 94–96; BMI 28.6
[2023-11-12] MEDS: Ipratropium/Albuterol Sulfate 3 ML AMPUL.NEB INHALATION ×3 (01:24→19:31)
[2023-11-12] MEDS: Piperacil/Tazobactam 3.375 GM in 0.9% Normal Saline (50mL MB+) 50 ML IV (05:04)
[2023-11-12] MEDS: Amiodarone 200 MG Tablet PO ×3 (05:06→21:22)
[2023-11-12] MEDS: Acetaminophen 325 MG Tablet 650 MG PO ×2 (07:35→18:49)
[2023-11-12] MEDS: Atorvastatin Calcium 40 MG Tablet PO (09:06)
[2023-11-12] MEDS: Clopidogrel Bisulfate 75 MG Tablet PO (09:06)
[2023-11-12] MEDS: Pantoprazole Sodium 40 MG Tablet PO (09:06)
[2023-11-12] MEDS: Losartan Potassium 100 MG Tablet PO (09:06)
[2023-11-12] MEDS: Carvedilol 25 MG Tablet 50 MG PO ×2 (09:06→21:22)
[2023-11-12] MEDS: Furosemide 40 MG Tablet PO ×2 (09:06→17:13)
[2023-11-12] MEDS: Spironolactone 25 MG Tablet PO (09:07)
[2023-11-12] MEDS: APIXABAN 5 MG TABLET PO ×2 (09:07→21:22)
[2023-11-12] MEDS: predniSONE 20 MG Tablet 40 MG PO (09:07)
--- NOTE | 2023-11-12 11:38 | PN.HOSP_ITS ---
Reason for Visit Reason for Visit: Diagnoses Pure hypercholesterolemia, unspecified (11/06/23) Essential (primary) hypertension (11/06/23) Atherosclerotic heart disease of [place] coronary artery without angina pectoris (11/06/23) Dilated cardiomyopathy (11/06/23) Cardiac arrest, cause unspecified (11/06/23) Paroxysmal atrial fibrillation (11/06/23) Peripheral vascular disease, unspecified (11/06/23) Acute respiratory failure, unspecified whether with hypoxia or hypercapnia (11/06/23) Acute respiratory failure with hypoxia (11/06/23) Personal history of transient ischemic attack (TIA), and cerebral infarction without residual deficits (11/06/23) Subjective Subjective Patient was seen and examined today, he still remains in atrial fibrillation but it is well-controlled. Patient has no complaints of any shortness of breath or chest pain Objective Data Objective Data Vital Signs: Vital Signs Temp Pulse Resp BP Pulse Ox O2 Del Method O2 Flow Rate 98.3 F 89 18 122/97 H 95 Room Air 2 11/12/23 09:05 11/12/23 09:05 11/12/23 09:05 11/12/23 09:05 11/12/23 09:05 11/12/23 09:05 11/11/23 19:49 FiO2 30 11/08/23 09:00 Oxygen Flow Rate (L/min) 2 Oxygen Delivery Method Room Air Weight: 80.6 kg Body Mass Index (BMI) 28.6 Intake & Output: Intake and Output for Last 24 Hours 11/10/23 11/11/23 11/12/23 23:59 23:59 23:59 Intake Total 1460.25 / 1460.25 2450.25 / 2450.25 285.5 / 285.5 Output Total 2375 / 2375 5100 / 5100 275 / 275 Balance -914.75 / -914.75 -2649.75 / -2649.75 10.5 / 10.5 Lab / Micro Data 11/09/23 04:50 11/10/23 03:50 Micro: Microbiology 11/06/23 13:25 Blood Culture (Wb) - Anticubital Left Blood Culture - Final No growth in 5 days. 11/06/23 14:14 Sputum, Tracheal Aspirate Gram Stain - Final 11/06/23 14:14 Sputum, Tracheal Aspirate Respiratory Culture - Final Mixed normal respiratory alissa. No Streptococcus pneumoniae, beta-hemolytic Streptococcus or Staphylococcus aureus isolated. 11/06/23 15:28 Mucosa - Nasopharyngeal SARS-CoV-2, Influenza & RSV (PCR) - Final Rhythm Strip Rhythm Strip: A-fib Rate: 100 Physical Exam Narrative alert, oriented x3, no apparent distress and healthy appearing General Appearance: cooperative and well developed Orientation / Consciousness: awake, oriented to person, oriented to place and oriented to time HEENT normocephalic and moist oral mucous membranes Eyes PERRL, EOMs intact bilaterally and conjunctivae normal Neck supple, no JVD, thyroid normal and no carotid bruits General: trachea midline Resp normal respiratory effort, no retractions, no use of accessory muscles and clear to auscultation bilaterally Auscultation: Negative for rales, rhonchi or wheezes Cardio Heart rate and rhythm is irregular, S1 normal heart sound, S2 normal heart sound, no murmurs, no rub and no gallops GI normal to inspection, nondistended, normoactive bowel sounds, soft to palpation, non-tender and non-distended Extremity no clubbing, cyanosis or edema Skin no rashes or lesions noted General Skin Exam: no breakdown Neuro oriented x3, CN's II-XII intact bilaterally, moves all extremities, no focal motor deficits and no sensory deficits noted Sensorium / Orientation: awake and alert Speech: speech normal Psych affect normal Assessment & Plan Assessment/Plan (1) Cardiac arrest: (2) Acute respiratory failure: QUALIFIERS: Respiratory failure complication: hypoxia Qualified Code(s): J96.01 - Acute respiratory failure with hypoxia PLAN: Plan 1. Cardiac arrest secondary to cardiac arrhythmia-patient appears stable at this time, he is on amiodarone and Coreg, he is currently on full anticoagulation and Plavix. #2 acute hypoxic respiratory failure secondary to cardiac arrest-critical care is recommending continuing empiric antibiotic treatment-I will change his antibiotics over to oral, patient's vital signs are stable at this time, patient is now on room air #3 cerebrovascular disease-patient is currently on Plavix #4 hyperlipidemia-patient had previously been on Crestor, he is on atorvastatin now #5 cardiac arrhythmias-pulseless V. tach-patient is currently on p.o. amiodarone #6 essential hypertension-patient will remain on his current hypertensive medications and they will be adjusted as needed #7 acute congestive heart failure with reduced ejection fraction-patient will continue oral Lasix, losartan and Coreg. Patient was also placed on spironolactone #8 paroxysmal atrial fibrillation-patient is currently on amiodarone and Coreg and is on full anticoagulation with Eliquis. Total clinical time spent by myself addressing the patient's medical issues, reviewing all of his data, and collaborating with his care team: 35 minutes Charges/Coding Visit Charges Inpatient E&M: 33530 Subs Hosp L2
[2023-11-12] MEDS: Ensure Plus High Protein 120 ML LIQUID PO ×3 (15:12→21:24)
[2023-11-12] MEDS: Amox/Clavulanate 875 MG Tablet PO (17:13)
[2023-11-13] VITALS (9 sets, daily range): BP systolic 105–117; BP diastolic 81–94; PULSE 76–84; RESP 16–18; TEMP 35.9–36.6; O2SAT 93–97; BMI 27.5
[2023-11-13] MEDS: Ipratropium/Albuterol Sulfate 3 ML AMPUL.NEB INHALATION ×5 (00:21→19:23)
[2023-11-13] MEDS: Amiodarone 200 MG Tablet PO ×3 (06:07→22:29)
[2023-11-13] MEDS: APIXABAN 5 MG TABLET PO ×2 (08:21→22:31)
[2023-11-13] MEDS: Losartan Potassium 100 MG Tablet PO (08:21)
[2023-11-13] MEDS: Amox/Clavulanate 875 MG Tablet PO ×2 (08:21→18:04)
[2023-11-13] MEDS: Spironolactone 25 MG Tablet PO (08:21)
[2023-11-13] MEDS: Carvedilol 25 MG Tablet 50 MG PO ×2 (08:21→22:27)
[2023-11-13] MEDS: predniSONE 20 MG Tablet 40 MG PO (08:22)
[2023-11-13] MEDS: Pantoprazole Sodium 40 MG Tablet PO (08:23)
[2023-11-13] MEDS: Clopidogrel Bisulfate 75 MG Tablet PO (08:23)
[2023-11-13] MEDS: Furosemide 40 MG Tablet PO ×2 (08:24→18:04)
[2023-11-13] MEDS: Ensure Plus High Protein 120 ML LIQUID PO ×3 (08:24→22:31)
[2023-11-13] MEDS: Atorvastatin Calcium 40 MG Tablet PO (08:24)
--- NOTE | 2023-11-13 09:33 | PN.HOSP_ITS ---
Reason for Visit Reason for Visit: Diagnoses Pure hypercholesterolemia, unspecified (11/06/23) Essential (primary) hypertension (11/06/23) Atherosclerotic heart disease of [place] coronary artery without angina pectoris (11/06/23) Dilated cardiomyopathy (11/06/23) Cardiac arrest, cause unspecified (11/06/23) Paroxysmal atrial fibrillation (11/06/23) Peripheral vascular disease, unspecified (11/06/23) Acute respiratory failure, unspecified whether with hypoxia or hypercapnia (11/06/23) Acute respiratory failure with hypoxia (11/06/23) Personal history of transient ischemic attack (TIA), and cerebral infarction without residual deficits (11/06/23) Subjective Subjective Patient was seen and examined today, he complains of constipation but has no complaints of any chest pain or shortness of breath. Patient remains in atrial fibrillation with a well-controlled rate today. Blood pressure is under somewhat better control. Objective Data Objective Data Vital Signs: Vital Signs Temp Pulse Resp BP Pulse Ox O2 Del Method O2 Flow Rate 96.6 F L 80 16 111/90 H 97 Room Air 2 11/13/23 08:18 11/13/23 08:18 11/13/23 08:18 11/13/23 08:18 11/13/23 08:18 11/13/23 08:34 11/11/23 19:49 FiO2 30 11/08/23 09:00 Oxygen Flow Rate (L/min) 2 Oxygen Delivery Method Room Air Weight: 77.4 kg Body Mass Index (BMI) 27.5 Intake & Output: Intake and Output for Last 24 Hours 11/11/23 11/12/23 11/13/23 23:59 23:59 23:59 Intake Total 2450.25 / 2450.25 2149.75 / 2149.75 Output Total 5100 / 5100 4525 / 4525 300 / 300 Balance -2649.75 / -2649.75 -2375.25 / -2375.25 -300 / -300 Lab / Micro Data 11/09/23 04:50 11/10/23 03:50 Micro: Microbiology 11/06/23 13:25 Blood Culture (Wb) - Anticubital Left Blood Culture - Final No growth in 5 days. 11/06/23 14:14 Sputum, Tracheal Aspirate Gram Stain - Final 11/06/23 14:14 Sputum, Tracheal Aspirate Respiratory Culture - Final Mixed normal respiratory alissa. No Streptococcus pneumoniae, beta-hemolytic Streptococcus or Staphylococcus aureus isolated. 11/06/23 15:28 Mucosa - Nasopharyngeal SARS-CoV-2, Influenza & RSV (PCR) - Final Rhythm Strip Rhythm Strip: A-fib Rate: 100 Physical Exam Narrative alert, oriented x3, no apparent distress and healthy appearing General Appearance: cooperative and well developed Orientation / Consciousness: awake, oriented to person, oriented to place and oriented to time HEENT normocephalic and moist oral mucous membranes Eyes PERRL, EOMs intact bilaterally and conjunctivae normal Neck supple, no JVD, thyroid normal and no carotid bruits General: trachea midline Resp normal respiratory effort, no retractions, no use of accessory muscles and clear to auscultation bilaterally Auscultation: Negative for rales, rhonchi or wheezes Cardio Heart rate and rhythm is irregular, S1 normal heart sound, S2 normal heart sound, no murmurs, no rub and no gallops GI normal to inspection, nondistended, normoactive bowel sounds, soft to palpation, non-tender and non-distended Extremity no clubbing, cyanosis or edema Skin no rashes or lesions noted General Skin Exam: no breakdown Neuro oriented x3, CN's II-XII intact bilaterally, moves all extremities, no focal motor deficits and no sensory deficits noted Sensorium / Orientation: awake and alert Speech: speech normal Psych affect normal Assessment & Plan Assessment/Plan (1) Cardiac arrest: (2) Acute respiratory failure: QUALIFIERS: Respiratory failure complication: hypoxia Qualified Code(s): J96.01 - Acute respiratory failure with hypoxia PLAN: Plan 1. Cardiac arrest secondary to cardiac arrhythmia-patient appears stable at this time, he is on amiodarone and Coreg, he is currently on full anticoagulation and Plavix. #2 acute hypoxic respiratory failure secondary to cardiac arrest-critical care is recommending continuing empiric antibiotic treatment-I will change his antibiotics over to oral, patient's vital signs are stable at this time, patient is now on room air #3 cerebrovascular disease-patient is currently on Plavix #4 hyperlipidemia-patient had previously been on Crestor, he is on atorvastatin now #5 cardiac arrhythmias-pulseless V. tach-patient is currently on p.o. amiodarone #6 essential hypertension-patient will remain on his current hypertensive medications and they will be adjusted as needed #7 acute congestive heart failure with reduced ejection fraction-patient will continue oral Lasix, losartan and Coreg. Patient was also placed on spironolactone #8 paroxysmal atrial fibrillation-patient is currently on amiodarone and Coreg and is on full anticoagulation with Eliquis. #9 constipation-patient will be given 5 ounces of mag citrate. Total clinical time spent by myself addressing the patient's medical issues, reviewing all of his data, and collaborating with his care team: 35 minutes Charges/Coding Visit Charges Inpatient E&M: 41211 Subs Hosp L2
[2023-11-13] MEDS: Magnesium Citrate 300 ML 150 ML PO (10:24)
[2023-11-13] MEDS: Acetaminophen 325 MG Tablet 650 MG PO (20:15)
[2023-11-14] VITALS (8 sets, daily range): BP systolic 100–129; BP diastolic 82–92; PULSE 73–87; RESP 16–20; TEMP 36.2–36.6; O2SAT 94–97; BMI 27.0
[2023-11-14] MEDS: Ipratropium/Albuterol Sulfate 3 ML AMPUL.NEB INHALATION ×4 (01:31→20:14)
[2023-11-14] MEDS: Amiodarone 200 MG Tablet PO ×2 (05:59→14:12)
[2023-11-14] MEDS: Losartan Potassium 100 MG Tablet PO (08:52)
[2023-11-14] MEDS: predniSONE 20 MG Tablet 40 MG PO (08:52)
[2023-11-14] MEDS: Amox/Clavulanate 875 MG Tablet PO ×2 (08:53→17:21)
[2023-11-14] MEDS: Carvedilol 25 MG Tablet 50 MG PO (08:53)
[2023-11-14] MEDS: Spironolactone 25 MG Tablet PO (08:53)
[2023-11-14] MEDS: Atorvastatin Calcium 40 MG Tablet PO (10:11)
[2023-11-14] MEDS: Pantoprazole Sodium 40 MG Tablet PO (10:11)
[2023-11-14] MEDS: Furosemide 40 MG Tablet PO (10:11)
[2023-11-14] MEDS: APIXABAN 5 MG TABLET PO (10:11)
[2023-11-14] MEDS: Clopidogrel Bisulfate 75 MG Tablet PO (10:11)
--- NOTE | 2023-11-14 10:17 | CASEMGMT ---
Addendum entered by Ruby Pollard 11/14/23 14:17: CC declined patient d/t no longer taking jesu pending. Ruby Pollard DC Planning Asst. Original Note: Discharge Planning Referral sent to [facility] via [facility]. Ruby Pollard DC Planning Asst.
[2023-11-14] MEDS: Ensure Plus High Protein 120 ML LIQUID PO ×3 (14:12→20:35)
--- NOTE | 2023-11-14 15:09 | DCINST_ITS ---
Discharge Instructions Diet Discharge Diet: No restrictions Activity Discharge Activity: Return to Normal Activity Weight Bearing Status: Weight bearing as tolerated Follow Up Care Test Results: Test results from this visit will be discussed in further detail at your follow- up appointment, if applicable. Discharge Plan Admission Admit Date/Time: 11/06/23 14:11 Primary Reason for Your Visit: cardiac arrest, atrial fibrillation, cardiomyopathy Attending Provider: Jose M Nance Primary Care Provider: Care Physician,No Primary Consulting Providers: Arie Berg; Puja Owusu Discharge Orders/Prescriptions Prescriptions: New furosemide 40 mg Tablet 40 mg PO BIDLX Qty: 0 0RF atorvastatin 40 mg Tablet 40 mg PO DAILY Qty: 0 0RF carvedilol 25 mg Tablet 50 mg PO BID Qty: 0 0RF acetaminophen 325 mg Tablet 650 mg PO Q6H PRN PRN (Reason: Pain 1-10) Qty: 0 0RF ipratropium-albuterol 0.5 mg-3 mg(2.5 mg base)/3 mL Solution For Nebulization 3 ml inhalation Q6H.RT Qty: 0 0RF amiodarone 200 mg Tablet 200 mg PO BID Qty: 0 0RF Rx Instructions: 200 mg three times a day prednisone 20 mg Tablet 40 mg PO BREAKFAST Qty: 0 0RF Rx Instructions: 40 mg daily for 5 days, then stop melatonin 3 mg Tablet 3 mg PO QHS PRN PRN (Reason: Insomnia) Qty: 0 0RF clopidogrel 75 mg Tablet 75 mg PO DAILY Qty: 0 0RF spironolactone 25 mg Tablet 25 mg PO DAILY Qty: 0 0RF pantoprazole 40 mg Tablet,Delayed Release (Dr/Ec) 40 mg PO DAILY Qty: 0 0RF calcium carbonate 200 mg calcium (500 mg) Tablet,Chewable 1,000 mg PO Q6H PRN PRN (Reason: DYSPEPSIA/INDIGESTION) Qty: 0 0RF losartan 100 mg Tablet 100 mg PO DAILY Qty: 0 0RF Eliquis 5 mg Tablet 5 mg PO BID Qty: 0 0RF amoxicillin-pot clavulanate [Augmentin] 500-125 mg tablet 1 tab PO TID Qty: 15 0RF Rx Instructions: with food potassium chloride 20 mEq tablet extended release 20 meq PO DAILY Qty: 1 0RF No Action diphenhydramine HCl [Aler-Cap] 25 mg capsule 25 mg PO Q8H Patient Comments: PT HAD 25MG TABLETS OTC IN BAG OF MEDS. UNSURE HOW PT IS TAKING. ibuprofen [Advil] 200 mg tablet 200 mg PO Q8H Patient Comments: PT HAD 200MG TABLETS IN BAG OF MEDS. UNSURE OF HOW PT IS TAKING. metoprolol tartrate 25 mg tablet 25 mg PO BID amlodipine 5 mg tablet 5 mg PO DAILY rosuvastatin 10 mg tablet 10 mg PO DAILY Rx Instructions: PM hydrochlorothiazide 25 mg tablet 50 mg PO DAILY Patient Comments: PT HAD EMPTY BOTTLE DATED 12/06/22 IN BAG OF MEDS. albuterol sulfate 90 mcg/actuation HFA aerosol inhaler 2 inh inhalation Q6H Patient Comments: INHALER WITHOUT LABEL IN BAG OF MEDS. cyclobenzaprine 5 mg tablet 5 mg PO Q8H losartan 50 mg tablet 50 mg PO DAILY Rx Instructions: PT REMOVED LABEL FROM STOCK BOTTLE. UNSURE OF DIRECTIONS. aspirin 325 mg tablet 325 mg PO DAILY Patient Comments: PT HAD 325MG TABLETS OTC IN BAG OF MEDS. UNSURE HOW PT IS TAKING. cetirizine [Aller-Lalitha] 10 mg tablet 10 mg PO DAILY Patient Comments: PT HAD 10MG TABLETS OTC IN BAG OF MEDS. UNSURE HOW PT IS TAKING. acetaminophen 500 mg capsule 500 mg PO Q6H Patient Comments: PT HAD 500MG TABLETS OTC IN BAG OF MEDS. UNSURE HOW PT IS TAKING. Referrals / Follow Up: Care Physician,No Primary [Primary Care Provider] - Disposition Disposition (needs filled in before D/C Order can be placed): Intermediate Facility
--- NOTE | 2023-11-14 15:35 | CASEMGMT ---
Therapy saw patient and he is completely independent and does not need any therapy at discharge. SW spoke with patient and he is okay with going home at discharge. SW notified physician. Khadijah BUSTILLOS
--- NOTE | 2023-11-14 15:42 | DCINST_ITS ---
Discharge Instructions Diet Discharge Diet: No restrictions Activity Discharge Activity: Return to Normal Activity Weight Bearing Status: Weight bearing as tolerated Follow Up Care Test Results: Test results from this visit will be discussed in further detail at your follow- up appointment, if applicable. Discharge Plan Admission Admit Date/Time: 11/06/23 14:11 Primary Reason for Your Visit: cardiac arrest, atrial fibrillation, cardiomyopathy Attending Provider: Jose M Nance Primary Care Provider: Care Physician,No Primary Consulting Providers: Arie Berg; Puja Owusu Discharge Orders/Prescriptions Prescriptions: New acetaminophen 325 mg Tablet 650 mg PO Q6H PRN PRN (Reason: Pain 1-10) Qty: 0 0RF amiodarone 200 mg Tablet 200 mg PO BID Qty: 0 0RF Rx Instructions: 200 mg three times a day amoxicillin-pot clavulanate [Augmentin] 500-125 mg tablet 1 tab PO TID Qty: 15 0RF Rx Instructions: with food potassium chloride 20 mEq tablet extended release 20 meq PO DAILY Qty: 1 0RF spironolactone [Aldactone] 25 mg tablet 25 mg PO DAILY Qty: 30 0RF losartan [Cozaar] 100 mg tablet 100 mg PO DAILY Qty: 30 0RF furosemide [Lasix] 40 mg tablet 40 mg PO BID Qty: 60 0RF amiodarone 200 mg tablet 200 mg PO BID Qty: 60 0RF carvedilol 25 mg tablet 50 mg PO BID Qty: 120 0RF Rx Instructions: two twice a day(50 mg twice a day) Eliquis 5 mg tablet 5 mg PO BID Qty: 60 0RF atorvastatin 40 mg tablet 40 mg PO DAILY Qty: 30 0RF clopidogrel [Plavix] 75 mg tablet 75 mg PO DAILY Qty: 30 0RF No Action diphenhydramine HCl [Aler-Cap] 25 mg capsule 25 mg PO Q8H Patient Comments: PT HAD 25MG TABLETS OTC IN BAG OF MEDS. UNSURE HOW PT IS TAKING. ibuprofen [Advil] 200 mg tablet 200 mg PO Q8H Patient Comments: PT HAD 200MG TABLETS IN BAG OF MEDS. UNSURE OF HOW PT IS TAKING. metoprolol tartrate 25 mg tablet 25 mg PO BID amlodipine 5 mg tablet 5 mg PO DAILY rosuvastatin 10 mg tablet 10 mg PO DAILY Rx Instructions: PM hydrochlorothiazide 25 mg tablet 50 mg PO DAILY Patient Comments: PT HAD EMPTY BOTTLE DATED 12/06/22 IN BAG OF MEDS. albuterol sulfate 90 mcg/actuation HFA aerosol inhaler 2 inh inhalation Q6H Patient Comments: INHALER WITHOUT LABEL IN BAG OF MEDS. cyclobenzaprine 5 mg tablet 5 mg PO Q8H losartan 50 mg tablet 50 mg PO DAILY Rx Instructions: PT REMOVED LABEL FROM STOCK BOTTLE. UNSURE OF DIRECTIONS. aspirin 325 mg tablet 325 mg PO DAILY Patient Comments: PT HAD 325MG TABLETS OTC IN BAG OF MEDS. UNSURE HOW PT IS TAKING. cetirizine [Aller-Lalitha] 10 mg tablet 10 mg PO DAILY Patient Comments: PT HAD 10MG TABLETS OTC IN BAG OF MEDS. UNSURE HOW PT IS TAKING. acetaminophen 500 mg capsule 500 mg PO Q6H Patient Comments: PT HAD 500MG TABLETS OTC IN BAG OF MEDS. UNSURE HOW PT IS TAKING. Referrals / Follow Up: Arie Berg MD [Med Staff - Active Staff] - See Referral Note (On November 22 at 2:30 PM) Care Physician,No Primary [Primary Care Provider] - Disposition Disposition (needs filled in before D/C Order can be placed): Home, Self Care
--- NOTE | 2023-11-14 16:09 | PCM.DC.SUM ---
Providers Date of Admission: 11/06/23 Date of Discharge: 11/14/23 Primary Care Physician: Lisbet Primary Care Phys Consultations 11/06/23 14:47 Consult: Cardiology Routine Consulting Provider: Arie Berg Reason for Consult: cardiac arrest. elevated trop EMERGENT Consult: No Notified: Yes Date Notified: 11/06/23 Time Notified: 14:16 Method of Notification: ED Physician Initiated Consult: Time Study Observer / Pulmonary Medicine Routine Consulting Provider: Intensivists/Pulmonary Med Reason for Consult: cardiac arrest, intubated EMERGENT Consult: No Notified: Yes Date Notified: 11/06/23 Time Notified: 14:19 Method of Notification: ED Physician Initiated Reason For Visit: CARDIAC ARREST Diagnosis Discharge Diagnosis (1) Cardiac arrest: Status: Acute Code(s): I46.9 - Cardiac arrest, cause unspecified (2) Acute respiratory failure: Status: Acute Code(s): J96.00 - Acute respiratory failure, unspecified whether with hypoxia or hypercapnia Qualifiers: Respiratory failure complication: hypoxia Qualified Code(s): J96.01 - Acute respiratory failure with hypoxia Plan 1. Cardiac arrest secondary to cardiac arrhythmia-patient appears stable at this time, he is on amiodarone and Coreg, he is currently on full anticoagulation and Plavix. #2 acute hypoxic respiratory failure secondary to cardiac arrest-critical care is recommending continuing empiric antibiotic treatment-I will change his antibiotics over to oral, patient's vital signs are stable at this time, patient is now on room air #3 cerebrovascular disease-patient is currently on Plavix #4 hyperlipidemia-patient had previously been on Crestor, he is on atorvastatin now #5 cardiac arrhythmias-pulseless V. tach-patient is currently on p.o. amiodarone #6 essential hypertension-patient will remain on his current hypertensive medications and they will be adjusted as needed #7 acute congestive heart failure with reduced ejection fraction-patient will continue oral Lasix, losartan and Coreg. Patient was also placed on spironolactone #8 paroxysmal atrial fibrillation-patient is currently on amiodarone and Coreg and is on full anticoagulation with Eliquis. #9 constipation-patient will be given 5 ounces of mag citrate. Total clinical time spent by myself addressing the patient's medical issues, reviewing all of his data, and collaborating with his care team: 35 minutes Medications at Discharge Home Medications acetaminophen 500 mg capsule 500 mg PO Q6H pain 11/06/23 albuterol sulfate 90 mcg/actuation aerosol inhaler 2 inh inhalation Q6H breathing 11/06/23 amlodipine 5 mg tablet 5 mg PO DAILY blood pressure 11/06/23 aspirin 325 mg tablet 325 mg PO DAILY heart health 11/06/23 cetirizine 10 mg tablet (Aller-Lalitha) 10 mg PO DAILY allergies 11/06/23 cyclobenzaprine 5 mg tablet 5 mg PO Q8H muscle relaxer 11/06/23 diphenhydramine HCl 25 mg capsule (Aler-Cap) 25 mg PO Q8H allergies 11/06/23 hydrochlorothiazide 25 mg tablet 50 mg PO DAILY diuretic 11/06/23 ibuprofen 200 mg tablet (Advil) 200 mg PO Q8H pain 11/06/23 losartan 50 mg tablet 50 mg PO DAILY blood pressure 11/06/23 metoprolol tartrate 25 mg tablet 25 mg PO BID blood pressure 11/06/23 rosuvastatin 10 mg tablet 10 mg PO DAILY cholesterol 11/06/23 acetaminophen 325 mg tablet 650 mg (2 x 325 mg) PO Q6H PRN PRN Pain 1-10 #0 tabs 11/10/23 amiodarone 200 mg tablet 200 mg PO BID #0 tabs 11/10/23 amoxicillin 500 mg-potassium clavulanate 125 mg tablet (Augmentin) 1 tab PO TID #15 tabs 11/10/23 potassium chloride 20 mEq tablet,extended release 20 meq PO DAILY #1 TAB 11/10/23 amiodarone 200 mg tablet 200 mg PO BID #60 tabs 11/14/23 apixaban 5 mg tablet (Eliquis) 5 mg PO BID #60 tabs 11/14/23 atorvastatin 40 mg tablet 40 mg PO DAILY #30 tabs 11/14/23 carvedilol 25 mg tablet 50 mg (2 x 25 mg) PO BID #120 tabs 11/14/23 clopidogrel 75 mg tablet (Plavix) 75 mg PO DAILY #30 tabs 11/14/23 furosemide 40 mg tablet (Lasix) 40 mg PO BID #60 tabs 11/14/23 losartan 100 mg tablet (Cozaar) 100 mg PO DAILY #30 tabs 11/14/23 spironolactone 25 mg tablet (Aldactone) 25 mg PO DAILY #30 tabs 11/14/23 Hospital Course Operations None Procedures 2-D Echocardiogram Summary of Care Provided Minutes Spent on Discharge: 32 Hospital Course: This 63-year-old white male was brought to the emergency room at [facility] by squad after suffering a cardiac arrest at home, CPR was instituted immediately after his collapse, he was visiting from out of town and staying with his niece. Patient underwent several rounds of cardioversion for pulseless V. tach. Patient was intubated and spent several days on the ventilator. Patient was seen by cardiology who participated in his care, he was finally extubated and moved to PCU for further care. Patient went into atrial fibrillation and he was placed on amiodarone which was continued during this hospitalization. Patient's blood pressure medications were adjusted, he was also placed on Eliquis due to the atrial fibs. Initially plans were for the patient to go to a skilled care facility for inpatient rehab services but due to the fact we could not confirm a assisted that would take his insurance (he applied for [place] Medicaid and was given an [place] Medicaid plan) necessitated the patient to be discharged home. He was doing well with physical therapy prior to discharge and I felt he was stable for discharge home rather than continue to try assisted placement. Patient was instructed to follow-up with cardiology here who they have been participating in his care, his echocardiogram showed a very reduced EF at 15 to 20%. He was treated for CHF during his hospitalization and was on antibiotic coverage briefly. On 11/14/2023, patient was seen and examined: On examination he appeared in good health and spirits. Vital signs as documented. Skin warm and dry and without overt rashes. Neck without JVD, neck was supple, trachea midline, thyroid was normal. Lungs clear bilaterally, normal air movement was noted. Heart exam notable for irregular rhythm, normal sounds and absence of murmurs, rubs or gallops. Abdomen unremarkable and without evidence of organomegaly, masses, or abdominal aortic enlargement. Bowel sounds are present, abdomen is not distended. Extremities nonedematous, no cyanosis was noted, no clubbing was noted. Neuro: Cranial nerves II through XII are grossly intact, no focal motor deficits were noted, sensation to light touch and pinprick intact, motor exam 5/5 throughout. Psych: Patient is alert and oriented x3, he does not appear anxious or depressed, he does not appear agitated. Patient was discharged home in stable condition on 11/14/2023. Weight / BMI Weight Weight: 76 kg Body Mass Index (BMI) 27.0 ABG / Lab / Microbiology Data 11/09/23 04:50 11/14/23 16:47 Microbiology: Microbiology 11/06/23 13:25 Blood Culture (Wb) - Anticubital Left Blood Culture - Final No growth in 5 days. 11/06/23 14:14 Sputum, Tracheal Aspirate Gram Stain - Final 11/06/23 14:14 Sputum, Tracheal Aspirate Respiratory Culture - Final Mixed normal respiratory alissa. No Streptococcus pneumoniae, beta-hemolytic Streptococcus or Staphylococcus aureus isolated. 11/06/23 15:28 Mucosa - Nasopharyngeal SARS-CoV-2, Influenza & RSV (PCR) - Final D/C Instructions Discharge Diet: No restrictions Weight Bearing Status: Weight bearing as tolerated Meaningful Use Info Meaningful Use Meaningful Use Diagnoses (Choose all that apply): CHF CHF MARGARET/ARB ordered at discharge?: Yes Documented LVEF (%): 15 Ischemic Stroke Statin Dosing Therapy Reference: STATIN DOSE THERAPY REFERENCE: * Patients > 75 years receive moderate or high dose statin therapy. * Patients 75 years or YOUNGER should receive HIGH intensity statin dose unless contraindicated. You will be required to document reason for non-treatment if statin daily dose does not meet guidelines. HIGH DOSE STATIN THERAPY DAILY Atorvastatin > than or = to 40 mg Rosuvastatin > than or = to 20 mg Amlodipine + Atorvastatin > than or = to 2.5/40 mg Ezetimibe + Simvastatin 10/80 mg Simvastatin 80mg Discharge Plan Admission Admit Date/Time: 11/06/23 14:11 Primary Reason for Your Visit: cardiac arrest, atrial fibrillation, cardiomyopathy Attending Provider: Jose M Nance Primary Care Provider: Care Physician,No Primary Consulting Providers: Arie Berg; Puja Owusu Discharge Orders/Prescriptions Prescriptions: New acetaminophen 325 mg Tablet 650 mg PO Q6H PRN PRN (Reason: Pain 1-10) Qty: 0 0RF amiodarone 200 mg Tablet 200 mg PO BID Qty: 0 0RF Rx Instructions: 200 mg three times a day amoxicillin-pot clavulanate [Augmentin] 500-125 mg tablet 1 tab PO TID Qty: 15 0RF Rx Instructions: with food potassium chloride 20 mEq tablet extended release 20 meq PO DAILY Qty: 1 0RF spironolactone [Aldactone] 25 mg tablet 25 mg PO DAILY Qty: 30 0RF losartan [Cozaar] 100 mg tablet 100 mg PO DAILY Qty: 30 0RF furosemide [Lasix] 40 mg tablet 40 mg PO BID Qty: 60 0RF amiodarone 200 mg tablet 200 mg PO BID Qty: 60 0RF carvedilol 25 mg tablet 50 mg PO BID Qty: 120 0RF Rx Instructions: two twice a day(50 mg twice a day) Eliquis 5 mg tablet 5 mg PO BID Qty: 60 0RF atorvastatin 40 mg tablet 40 mg PO DAILY Qty: 30 0RF clopidogrel [Plavix] 75 mg tablet 75 mg PO DAILY Qty: 30 0RF No Action diphenhydramine HCl [Aler-Cap] 25 mg capsule 25 mg PO Q8H Patient Comments: PT HAD 25MG TABLETS OTC IN BAG OF MEDS. UNSURE HOW PT IS TAKING. ibuprofen [Advil] 200 mg tablet 200 mg PO Q8H Patient Comments: PT HAD 200MG TABLETS IN BAG OF MEDS. UNSURE OF HOW PT IS TAKING. metoprolol tartrate 25 mg tablet 25 mg PO BID amlodipine 5 mg tablet 5 mg PO DAILY rosuvastatin 10 mg tablet 10 mg PO DAILY Rx Instructions: PM hydrochlorothiazide 25 mg tablet 50 mg PO DAILY Patient Comments: PT HAD EMPTY BOTTLE DATED 12/06/22 IN BAG OF MEDS. albuterol sulfate 90 mcg/actuation HFA aerosol inhaler 2 inh inhalation Q6H Patient Comments: INHALER WITHOUT LABEL IN BAG OF MEDS. cyclobenzaprine 5 mg tablet 5 mg PO Q8H losartan 50 mg tablet 50 mg PO DAILY Rx Instructions: PT REMOVED LABEL FROM STOCK BOTTLE. UNSURE OF DIRECTIONS. aspirin 325 mg tablet 325 mg PO DAILY Patient Comments: PT HAD 325MG TABLETS OTC IN BAG OF MEDS. UNSURE HOW PT IS TAKING. cetirizine [Aller-Lalitha] 10 mg tablet 10 mg PO DAILY Patient Comments: PT HAD 10MG TABLETS OTC IN BAG OF MEDS. UNSURE HOW PT IS TAKING. acetaminophen 500 mg capsule 500 mg PO Q6H Patient Comments: PT HAD 500MG TABLETS OTC IN BAG OF MEDS. UNSURE HOW PT IS TAKING. Referrals / Follow Up: Arie Berg MD [Med Staff - Active Staff] - 11/23/23 2:30 pm (On November 22 at 2:30 PM) Care Physician,No Primary [Primary Care Provider] - Disposition Disposition (needs filled in before D/C Order can be placed): Home, Self Care Charges/Coding Visit Charges Inpatient E&M: 33472 Disch Hosp >30min
--- NOTE | 2023-11-14 16:25 | CASEMGMT ---
SW utilized [facility] prescription assistance program for patient. Khadijah BUSTILLOS
[2023-11-14 17:26] LABS: Anion Gap 6 (5-15); BUN 20 mg/dL (7-18); BUN/Creat Ratio 21.7 RATIO (10-20); Calcium,Total 8.5 mg/dL (8.5-10.1); Chloride 90 mmol/L (98-107); Creatinine, Serum 0.92 mg/dL (0.70-1.30); EST Glomerular Filtration Rate 88 mL/min (>60); Est Glom Filt Rate - Afr Amer 107 mL/min (>60); Estimated Creatinine Clearance 74.16 ml/min; Glucose 143 mg/dL (74-106); Potassium 3.6 mmol/L (3.5-5.1); Sodium Level 130 mmol/L (136-145)
== END 2023-11-14 21:34 | disposition home or self-care (01) | DRG 201 ==
LOC: ED 12:04 → ICU 15:40 → PCU 11-10 04:48
PROVIDERS: Internal Medicine Critical Care Medicine; Admitting Provider Internal Medicine; Emergency Provider Emergency Medicine; Visit Provider Internal Medicine
DX: I47.20 Ventricular tachycardia, unspecified (principal); J96.01 Acute respiratory failure with hypoxia; I46.9 Cardiac arrest, cause unspecified; J44.9 Chronic obstructive pulmonary disease, unspecified; I73.9 Peripheral vascular disease, unspecified; I11.0 Hypertensive heart disease with heart failure; I50.21 Acute systolic (congestive) heart failure; I42.0 Dilated cardiomyopathy; E87.20 Acidosis, unspecified; F17.210 Nicotine dependence, cigarettes, uncomplicated; E78.00 Pure hypercholesterolemia, unspecified; E87.6 Hypokalemia; I95.2 Hypotension due to drugs; I25.10 Atherosclerotic heart disease of native coronary artery without angina pectoris; I48.0 Paroxysmal atrial fibrillation; I25.2 Old myocardial infarction; I67.9 Cerebrovascular disease, unspecified; K59.00 Constipation, unspecified; R57.0 Cardiogenic shock; Z86.73 Personal history of transient ischemic attack (TIA), and cerebral infarction without residual deficits; R79.89 Other specified abnormal findings of blood chemistry; R74.02 Elevation of levels of lactic acid dehydrogenase [LDH]; I47.10 Supraventricular tachycardia, unspecified; Z79.899 Other long term (current) drug therapy; Z79.82 Long term (current) use of aspirin
CPT/HCPCS: 31500; 31720; 36415; 36556; 36591; 36600; 51702; 70450; 71045; 71275; 80048; 80053; 80076; 80307; 81001; 82077; 82550; 82803; 83605; 83690; 83735; 83880; 84100; 84443; 84478; 84484; 85025; 85610; 85730; 87040; 87070; 87205; 87631; 92950; 93005; 93306; 93308; 94002; 94003; 94640; 94660; 94668; 94762; 97110; 97116; 97162; 97166; 97530; 97535; 97803; 99285; J7030; J7050; Q9957; Q9967; A4216; C8924; C8929; J1940

== ENCOUNTER → 2023-11-23 | Outpatient (CLI) | payer MEDICAID, SELFPAY ==
[2023-11-23 16:16] LABS: Absolute Lymphocyte Count 1.59 X10^3/uL (0.83-4.51); Absolute Neutrophil Count 4.5 X10^3/uL (2.0-7.7); Basophil# 0.03 X10^3/uL; Basophil% 0.5 % (0-1); Eosinophil# 0.07 X10^3/uL; Eosinophils% 1.1 % (0-5); Hemoglobin 11.6 g/dL (13.0-16.5); Lymphocyte # 1.59 X10^3/ul (0.83-4.51); Lymphocyte % 24.1 % (19-41); Mean Corp Hgb Conc 31.4 g/dL (32-36); Mean Corpuscular Hgb 29.6 pg (27.0-32.0); Mean Corpuscular Volume 94.4 fL (80-94); Mean Platelet Vol. 9.3 fl (6.2-12.0); Monocyte# 0.37 X10^3/uL; Monocyte% 5.6 % (0-10); NRBC Flagged by Analyzer 0 % (0-5); Neutrophil # 4.52 X10^3/uL (2.7-7.7); Neutrophil % 68.2 % (47-70); Platelet Count 261 K/mm3 (150-450); RBC Distribution Width CV 16.5 % (11.6-14.6); RBC Distribution Width SD 56.9 fl (35.1-43.9); Red Blood Count 3.92 M/mm3 (4.6-6.2); White Blood Count 6.6 K/mm3 (4.4-11.0)
[2023-11-23 17:05] LABS: ALB/GLOB Ratio 0.9 RATIO (0.9-2.4); AST(SGOT) 17 U/L (15-37); Alanine Aminotransfer ALT/SGPT 18 U/L (16-61); Albumin, Serum 3.3 g/dL (3.2-5.0); Alkaline Phosphatase 84 U/L (45-117); Anion Gap 7 (5-15); BUN 13 mg/dL (7-18); BUN/Creat Ratio 14.7 RATIO (10-20); Calcium,Total 9.2 mg/dL (8.5-10.1); Chloride 99 mmol/L (98-107); Creatinine, Serum 0.88 mg/dL (0.70-1.30); EST Glomerular Filtration Rate 93 mL/min (>60); Est Glom Filt Rate - Afr Amer 112 mL/min (>60); Globulin 3.7 g/dL (2.2-4.2); Glucose 96 mg/dL (74-106); Potassium 4.1 mmol/L (3.5-5.1); Sodium Level 133 mmol/L (136-145)
[2023-11-24 15:02] LABS: BNP,B-Type NATRIURETIC PEPTIDE 307.6 pg/mL (0-100)
== END | disposition home or self-care (01) ==
LOC: LAB 15:55
PROVIDERS: Referring Provider Internal Medicine Cardiovascular Disease; Visit Provider Internal Medicine Cardiovascular Disease
DX: D64.9 Anemia, unspecified (principal); I48.0 Paroxysmal atrial fibrillation; I42.0 Dilated cardiomyopathy; E78.00 Pure hypercholesterolemia, unspecified; I10 Essential (primary) hypertension
CPT/HCPCS: 36415; 80053; 83880; 85025

== ENCOUNTER → 2023-12-14 | Outpatient (CLI) | payer MEDICAID, SELFPAY ==
--- NOTE | 2023-12-14 15:00 | ECHOLC_ITS ---
Reason For Study: DILATED CARDIOMYOPATHY Procedure This was a limited 2D transthoracic echocardiogram. The study was technically difficult. Contrast injection was performed. Exam performed in department. Left Ventricle Normal LV size. The estimated ejection fraction is 35-40 %. Akinesis of the apex and hypokinesis of the basal septum and distal anterior wall. Right Ventricle Normal RV size. Normal systolic function. Atria There is mild biatrial dilatation. No doppler evidence for ASD. Mitral Valve There is no mitral valve stenosis. No mitral valve insufficiency. Tricuspid Valve There is no tricuspid stenosis. Mild tricuspid valve insufficiency. Pulmonary artery systolic pressure is 45 mmHg. Aortic Valve Aortic sclerosis, no stenosis. There is no aortic stenosis. No aortic valve insufficiency. Pulmonic Valve There is no pulmonic valvular stenosis. No pulmonic valve insufficiency. Great Vessels Normal aortic root. Pericardium/Pleural No pericardial effusion. Medication 22 gauge I.V. with prn adaptor inserted into left arm. Diluted definity 4.5ml given slow IV push to enhance endocardial definition. MMode/2D Measurements & Calculations LVIDd: 4.4 cm IVSd: 1.2 cm LVOT diam: 2.1 cm LVIDs: 3.9 cm LVPWd: 1.2 cm RVDd: 3.3 cm FS: 9.6 % LVOT area: 3.6 cm2 LAV(MOD-bp): 83.1 ml LVAd ap4: 40.6 cm2 LVAd ap2: 46.3 cm2 LAV(MOD-bp) Indexed: 45.1 ml/m2 LVLd ap4: 8.9 cm LVLd ap2: 9.6 cm LAV(MOD-sp2): 81.6 ml EDV(MOD-sp4): 149.1 ml EDV(MOD-sp2): 181.2 ml LAV(MOD-sp4): 86.3 ml EDV(sp4-el): 157.4 ml EDV(sp2-el): 189.1 ml LVAs ap4: 34.7 cm2 LVAs ap2: 39.5 cm2 LVLs ap4: 8.8 cm LVLs ap2: 9.7 cm ESV(MOD-sp4): 110.7 ml ESV(MOD-sp2): 130.7 ml ESV(sp4-el): 116.3 ml ESV(sp2-el): 136.6 ml EF(MOD-sp4): 25.7 % EF(MOD-sp2): 27.9 % EF(sp4-el): 26.1 % SV(MOD-sp4): 38.3 ml SV(MOD-sp2): 50.5 ml SV(sp4-el): 41.2 ml Ao sinus diam: 3.7 cm LA A4 area: 24.9 cm2 LA dimension(2D): 4.5 cm RA A4 area: 18.7 cm2 TAPSE: 1.00 cm Doppler Measurements & Calculations Lat Peak E' Magen: 6.3 cm/sec Med Peak E' Magen: 6.4 cm/sec TR max magen: 307.5 cm/sec TR max P.8 mmHg ECHO/Echo Limited w/Contrast Interpretation Summary Akinesis of the apex and hypokinesis of the basal septum and distal anterior wa ll There is mild biatrial dilatation. Pulmonary artery systolic pressure is 45 mmHg. The estimated ejection fraction is 35-40 %. Ordering Physician: Arie Berg Referring Physician: Arie Berg MD Performed By: Leighann Berger, BILL
== END | disposition home or self-care (01) ==
LOC: CVS 14:58
PROVIDERS: Referring Provider Internal Medicine Cardiovascular Disease; Visit Provider Internal Medicine Cardiovascular Disease
DX: I42.0 Dilated cardiomyopathy (principal)
CPT/HCPCS: 93308; Q9957; A4216; C8924

== ENCOUNTER 2024-01-16 10:25 | Day surgery (SDC) | payer MEDICAID, SELFPAY ==
[2024-01-16 07:08] VITALS: BMI 23.6
[2024-01-16 11:10] LABS: Anion Gap 6 (5-15); BUN 21 mg/dL (7-18); BUN/Creat Ratio 15.4 RATIO (10-20); Calcium,Total 9.4 mg/dL (8.5-10.1); Chloride 102 mmol/L (98-107); Creatinine, Serum 1.36 mg/dL (0.70-1.30); EST Glomerular Filtration Rate 56 mL/min (>60); Est Glom Filt Rate - Afr Amer 68 mL/min (>60); Glucose 105 mg/dL (74-106); Potassium 4.8 mmol/L (3.5-5.1); Sodium Level 135 mmol/L (136-145)
--- NOTE | 2024-01-16 12:33 | CARDIOVERS ---
Cardioversion Cardioversion: The patient was brought to the [facility] prep recovery area in fasting condition. The patient had been previously fully loaded with amiodarone and is currently on 200 mg twice daily. Carries a history of severe ischemic dilated cardiomyopathy his EF initially was in the 10% range after aggressive guideline directed medical therapy to an improved to the 35% range. The patient is now brought in for attempted cardioversion with his atrial fibrillation which has been present for several months. The patient was sedated with the assistance of Dr. Nii Odonnell. Etomidate was utilized due to his LV dysfunction. The patient after being appropriately sedated received a single 200 J synchronized shock which successfully converted him to sinus bradycardia. The patient's resting heart rate recovered to the 55 bpm range he had no acute ischemic changes on his EKG. The patient woke up moves all of his extremities had no obvious neurologic deficits. The patient will be reevaluated in our office in 1 week with an EKG and in 4 to 6 weeks with an office visit. After 6 weeks if he remains in sinus rhythm we will repeat a limited echocardiogram to reevaluate his LV function. Historically his LV function had been in the 40% range prior to his sudden cardiac episode that occurred earlier this summer. The patient voiced understanding of the planned procedures and follow-up. Procedures Coronary Therapeutic CF Procedures [id number]: [id number] Cardioversion electric ext
--- NOTE | 2024-01-16 13:21 | CARDIOVERS_ITS ---
Cardioversion Cardioversion: CONSCIOUS SEDATION REPORT DATE OF SERVICE: January 16, 2024 BRIEF HISTORY OF PRESENT ILLNESS: The patient is a 63-year-old male who presented to [facility] to undergo an elective outpatient cardioversion due to atrial fibrillation. The patient does have an active tobacco abuse history along with self-reported COPD, but is not currently followed on an outpatient basis by pulmonary medicine. He does not utilize supplemental oxygen at his baseline. He does report frequent cannabis use. The patient denied any prior anesthetic complications. His last surface echocardiogram demonstrated an ejection fraction of approximately 35%. The patient is systemically anticoagulated on Eliquis. PHYSICAL EXAMINATION: VITAL SIGNS: Reviewed and were acceptable. GENERAL: The patient is a male, in no apparent distress, speaking in full sentences. HEENT: Normocephalic, atraumatic. Mucous membranes are moist and pink. Good mouth opening noted. Trachea is midline. Good neck mobility. CHEST: S1, S2 irregularly irregular. No murmurs, rubs or gallops were noted. LUNGS: Clear to auscultation bilaterally without appreciable wheezes, rales or rhonchi. ABDOMEN: Soft, nontender, nondistended. Positive bowel sounds. EXTREMITIES: There is no clubbing, cyanosis or edema. ASA Class: II DESCRIPTION OF PROCEDURE: After confirmation of informed consent, the patient's anesthesia plan was reviewed in detail. Etomidate was chosen. Risks and benefits were reviewed and the patient agreed to proceed. At 1216, the patient was given 6 mg of etomidate. The patient achieved an appropriate level of sedation and was given a 200 joule synchronized cardioversion by Dr. Berg at the bedside. This was successful in achieving normal sinus rhythm. The patient was monitored until 1232, at which time he reached his baseline mental status and function. The patient tolerated the procedure well. COMPLICATIONS: None ESTIMATED BLOOD LOSS: None RECOMMENDATIONS: Okay to recover in usual fashion. Procedures Pulmonary Pulmonary Procedures /Diagnostic Testin Con Sedation
== END 2024-01-16 13:20 | disposition home or self-care (01) ==
PROVIDERS: Referring Provider Internal Medicine Cardiovascular Disease; Visit Provider Internal Medicine Cardiovascular Disease
DX: I48.0 Paroxysmal atrial fibrillation (principal); I42.0 Dilated cardiomyopathy; I25.10 Atherosclerotic heart disease of native coronary artery without angina pectoris; Z86.74 Personal history of sudden cardiac arrest; I10 Essential (primary) hypertension; E78.5 Hyperlipidemia, unspecified; Z86.73 Personal history of transient ischemic attack (TIA), and cerebral infarction without residual deficits; I73.9 Peripheral vascular disease, unspecified; Z82.49 Family history of ischemic heart disease and other diseases of the circulatory system; F17.210 Nicotine dependence, cigarettes, uncomplicated; F12.90 Cannabis use, unspecified, uncomplicated
CPT/HCPCS: 36415; 80048; 92960; 93005; J7040

== ENCOUNTER → 2024-05-23 | Outpatient (CLI) | payer MEDICARE, SELFPAY ==
[2024-05-23 18:25] LABS: Anion Gap 13 (5-15); BUN 23 mg/dL (4-19); BUN/Creat Ratio 20.2 RATIO (10-20); Calcium,Total 9.3 mg/dL (7.6-11.0); Carbon Dioxide 23.6 mmol/L (21.0-32.0); Chloride 101 mmol/L (98-108); Creatinine, Serum 1.16 mg/dL (0.70-1.20); EST Glomerular Filtration Rate 70 (>60); Glucose 102 mg/dL (70-99); Potassium 4.9 mmol/L (3.3-5.1); Pro- Brain NATRIURETIC PEPTIDE 550 pg/mL (<=900); Sodium Level 138 mmol/L (133-145)
== END | disposition home or self-care (01) ==
LOC: LAB 16:22
PROVIDERS: Referring Provider Internal Medicine Cardiovascular Disease; Visit Provider Internal Medicine Cardiovascular Disease
DX: I48.0 Paroxysmal atrial fibrillation (principal); I42.0 Dilated cardiomyopathy
CPT/HCPCS: 36415; 80048; 83880

== ENCOUNTER 2024-07-11 20:49 | Inpatient (IN) | payer MEDICARE, SELFPAY ==
[2024-07-11 20:51] VITALS: BP 203/117; PULSE 81; RESP 18; TEMP 36.5; O2SAT 99; BMI 22.9
--- NOTE | 2024-07-11 21:40 | CT_ITS ---
PROCEDURE: ABDOMEN/PELVIS W IV CONT ONLY 07/11/2024 REASON FOR EXAM: LOWER GI BLEED TECHNIQUE: Abdomen and pelvis CT with intravenous contrast. Coronal and Sagittal reconstruction series were provided. PATIENT PREPARATION: Per protocol ORAL CONTRAST TYPE: None. AMOUNT: mL CONTRAST: Omnipaque 350 VOLUME: 100 mL Not Provided gauge IV One or more dose reduction techniques were used (e.g., Automated exposure control, adjustment of the mA and/or kV according to patient size, use of iterative reconstruction technique. COMPARISON: None FINDINGS: Lung bases: Unremarkable Liver: Hepatomegaly, craniocaudal length 19 cm. Scattered subcentimeter low- attenuation lesions, too small to characterize and likely benign.. Gallbladder: No ductal dilation. Gallbladder is unremarkable. Spleen: Normal size. Pancreas: Normal size without evidence of mass surrounding inflammation or ductal dilation. Adrenals: Qmycs-yedbwiu-drzh-left adrenal thickening. Kidneys: Left interpolar region cortical defect. Otherwise, homogeneous enhancement and size. No suspicious mass. No calculi or hydronephrosis. Bladder: Unremarkable. Reproductive Organs: No pelvic mass. Bowel: Stomach is unremarkable. Fluid-filled nondistended terminal ileum and ascending colon. Otherwise, no bowel dilation. No significant wall thickening. Moderate colonic stool. Appendix: The appendix is not identified. There is no inflammatory process identified in the right lower quadrant to suggest appendicitis. Lymph nodes: No suspicious lymph node enlargement. Vasculature: Severe diffuse atherosclerotic calcifications are noted. Peritoneum / Retroperitoneum: No pneumoperitoneum. No ascites. Bones: Degenerative changes of the spine. CT/Abdomen/Pelvis W IV Cont ONLY IMPRESSION: No acute findings in the abdomen and pelvis. Chronic findings as described above. Reading [facility]
[2024-07-11 21:51] VITALS: BP 150/102; PULSE 65; RESP 21; O2SAT 97
[2024-07-11] MEDS: 0.9% Normal Saline (1000mL) 1,000 ML 999 ML IV (21:51)
[2024-07-11 21:55] LABS: Basophil# 0.04 X10^3/uL; Basophil% 0.6 % (0-1); Eosinophil# 0.21 X10^3/uL; Eosinophils% 3.1 % (0-5); Hematocrit 36.7 % (40-54); Hemoglobin 12.8 g/dL (13.0-16.5); Lymphocyte % 43.7 % (19-41); Mean Corp Hgb Conc 34.9 g/dL (32-36); Mean Corpuscular Hgb 33.9 pg (27.0-32.0); Mean Corpuscular Volume 97.1 fL (80-94); Monocyte# 0.63 X10^3/uL; Monocyte% 9.2 % (0-10); NRBC Flagged by Analyzer 0 % (0-5); Neutrophil # 2.97 X10^3/uL (2.7-7.7); Neutrophil % 43.1 % (47-70); POSITIVE MORPHOLOGY YES; Platelet Count 178 K/mm3 (150-450); RBC Distribution Width CV 13.8 % (11.6-14.6); RBC Distribution Width SD 48.8 fl (35.1-43.9); Red Blood Count 3.78 M/mm3 (4.6-6.2); White Blood Count 6.9 K/mm3 (4.4-11.0)
[2024-07-11 22:03] LABS: Differential Indicated SCAN CRITERIA MET
[2024-07-11 22:12] LABS: International Normalized Ratio 1.2
[2024-07-11 22:13] LABS: Partial Thromboplast Time 29.7 Seconds (24.1-36.2)
[2024-07-11 22:14] LABS: Lactic Acid 1.3 mmol/L (0.0-2.0)
[2024-07-11 22:14] LABS: Anion Gap 15 (5-15); BUN 16 mg/dL (4-19); Calcium,Total 9.1 mg/dL (7.6-11.0); Chloride 96 mmol/L (98-108); EST Glomerular Filtration Rate 68 (>60); Estimated Creatinine Clearance 63.92 ml/min (50-250); Glucose 105 mg/dL (70-99); Potassium 3.6 mmol/L (3.3-5.1); Sodium Level 132 mmol/L (133-145)
--- NOTE | 2024-07-11 22:19 | EDS_ITS ---
HPI History of Present Illness Chief Complaint: GI Bleed Narrative Narrative: Chief complaint and HPI: GI bleed. 64-year-old male with past medical history of CAD status post PCI on Plavix and Eliquis, HTN, HLD, proximal atrial fibrillation presents for evaluation of bright red blood per rectum. Patient states he has a history of hemorrhoids in the past. He states for the past week he has had bright red blood per rectum. States that it is not associated with bowel movements. States he is soaking through several sets of underwear and pants. He denies any rectal pain. States occasionally gets some abdominal pain. He denies any fever, chills, shortness of breath, chest pain, lightheadedness, weakness, constipation, diarrhea, nausea, vomiting. Review of systems: See HPI Medications: As listed on the chart Allergies: As listed on the chart PFSH: Per chart Vital signs: As listed on the chart. Reviewed. Physical exam: Gen: A&O x3, NAD Head: Normocephalic, atraumatic Eyes: No sclera icterus, conjunctiva clear ENT: Moist mucous membranes Neck: Trachea midline, No JVD CV: RRR, no murmurs, no peripheral edema Resp: Lungs CTA BL, no w/r/c GI: Abd soft, non-distended, non-tender, no r/r/g Rectal: Dried blood on the anus, non-thrombosed external hemorrhoids, no fissu re. Normal tone and sensation. No masses, fluctuance, or tenderness. No pain out of proportion. Melanotic stool on the finger. Musc: Full ROM, no deformity Skin: Warm, dry Neuro: Alert, oriented, grossly intact, sensation intact Psych: Cooperative, appropriate mood and affect [facility] Medical History Hx of myocardial infarction CAD (coronary artery disease) Acute respiratory failure Cardiac arrest Acute hypokalemia Dilated cardiomyopathy Paroxysmal atrial fibrillation Hypertension Hyperlipidemia History of CVA (cerebrovascular accident) Peripheral vascular disease Home Medications ?Medication ?Instructions ?Recorded ?Last Taken ?Type acetaminophen 500 mg capsule 500 mg PO Q6H pain Unknown History albuterol sulfate 90 mcg/actuation 2 inh inhalation Q6 H breathing 11/06/23 Unknown History aerosol inhaler diphenhydramine HCl 25 mg capsule 25 mg PO Q8H PRN all ergies 11/23/23 Unknown History (Aler-Cap) apixaban 5 mg tablet (Eliquis) 5 mg PO .COMPLEX #60 ta bs 12/20/23 01/16/24 Rx atorvastatin 40 mg tablet 40 mg PO DAILY #30 tabs 12/04 Unknown Rx clopidogrel 75 mg tablet (Plavix) 75 mg PO ONCE OK to take with 12/20/23 Unknown Rx Eliquis due to recent stent #30 tabs furosemide 40 mg tablet (Lasix) 40 mg PO BID OK to salima e with 12/20/23 Unknown Rx Spironolactone per Dr. Berg #60 tabs losartan 100 mg tablet (Cozaar) 100 mg PO DAILY #30 ta bs 12/20/23 Unknown Rx amiodarone 200 mg tablet 100 mg (1/2 x 200 mg) PO BID #60 01/24/24 Unknown Rx tabs carvedilol 25 mg tablet 50 mg (2 x 25 mg) PO BID #12 0 tabs 03/26/24 Unknown Rx spironolactone 25 mg tablet 25 mg PO DAILY OK to take with 03/26/24 Unknown Rx (Aldactone) Furosemide per Dr. Berg #9 0 tabs Allergy/AdvReac Type Severity Reaction Status Date / Time cat dander (cats) Allergy Other Verified 07/11/24 20:51 Family History Mother Heart disease Father Heart disease Grandfather Heart disease Grandmother Heart disease Surgical History History of cardioversion (01/16/24) Social History (Updated 07/11/24 @ 23:[address] Makenna Rothman MD) adopted: No household members: none number of children: 1 Smoking Status: Current every day smoker tobacco type: cigarettes alcohol intake: former substance use type: marijuana caffeine: Yes Type: coffee Number of servings: 3 EXAM Physical Exam Const Vital Signs: 07/11/24 20:51 07/11/24 21:51 07/11/24 23:00 Temperature 97.7 F L Temperature Source Temporal Pulse Rate 81 65 63 Respiratory Rate 18 21 H 18 Blood Pressure 203/117 H 150/102 H 150/89 H Blood Pressure Mean 145 118 109 Pulse Ox 99 97 96 Oxygen Delivery Method Room Air Room Air Room Air 07/11/24 23:25 Temperature 97.8 F Temperature Source Pulse Rate 64 Respiratory Rate 18 Blood Pressure 158/92 H Blood Pressure Mean 114 Pulse Ox 95 Oxygen Delivery Method MDM MDM MDM Narrative Medical decision making narrative: 64-year-old male with past medical history of CAD status post PCI on Plavix and Eliquis, HTN, HLD, proximal atrial fibrillation presents for evaluation of bright red blood per rectum. Patient states he has a history of hemorrhoids in the past. See physical exam findings. Differential diagnosis includes but is not limited to GI bleed from diverticulosis or internal hemorrhoids suspect less likely upper GI bleed, anemia, electrolyte abnormality, dehydration. NS bolus ordered. Given patient's occasional abdominal pain will get CT abdomen and pelvis along with laboratory work up. CBC without leukocytosis. Patient has anemia with hemoglobin of 12.8. History of anemia in the past. This is actually uptrending from 11.6 in 2023. Platelets unremarkable. PT mildly elevated. INR and PTT unremarkable. BMP shows baseline hyponatremia at 132. No YINA. No elevated BUN, makes upper GI bleed less likely. Lactic acid unremarkable. CT abdomen pelvis shows no acute intra-abdominal findings. Patient has hepatomegaly. Subcentimeter low-attenuation lesions in the liver too small to characterize size and likely benign. Some right greater than left adrenal thickening. Moderate colonic stool burden. Given patient is on blood thinners with GI bleed, Dr. Donaldson with GI was consulted and patient was discussed. Recommends admission for endoscopy. Patient updated of all results and confirmed understanding of the plan. Dr. Rothman accepted admission. On chart review with Dr. Rothman, cardiology note was reviewed, does not appear that patient had PCI but is on anticoagulation. Impression: 1. GI bleed, suspect lower on anticoagulation 2. Chronic anemia 3. Chronic mild hyponatremia Lab Data Labs: Laboratory Results - last 24 hr 07/11/24 07/11/24 21:00 21:40 WBC 6.9 RBC 3.78 L Hgb 12.8 L Hct 36.7 L MCV 97.1 H MCH 33.9 H MCHC 34.9 RDW Std Deviation 48.8 H RDW Coeff of [place] 13.8 Plt Count 178 MPV 11.0 Immature Gran % (Auto) 0.300 Neut % (Auto) 43.1 L Lymph % (Auto) 43.7 H [place] % (Auto) 9.2 Eos % (Auto) 3.1 Baso % (Auto) 0.6 Absolute Neuts (auto) 3.0 Absolute Lymphs (auto) 3.00 Nucleated RBC % 0 Platelet Estimate ADEQUATE PT 15.0 H INR 1.2 APTT 29.7 Sodium 132 L Potassium 3.6 Chloride 96 L Carbon Dioxide 21.0 Anion Gap 15 BUN 16 Creatinine 1.20 Estim Creat Clear Calc 63.92 Est GFR (MDRD) Non-Af 68 BUN/Creatinine Ratio 13.0 Glucose 105 H Lactic Acid 1.3 Calcium 9.1 Radiography Diagnostic Testing: Clinical Impression(s) from Imaging Studies Abdomen/Pelvis CT 07/11/24 21:40 IMPRESSION: No acute findings in the abdomen and pelvis. Chronic findings as described above. Reading Location: [facility] Discharge Plan Triage Chief Complaint: GI Bleed ED Provider: Ryan Ely Dx/Rx/DC Orders Prescriptions: No Action albuterol sulfate 90 mcg/actuation HFA aerosol inhaler 2 inh inhalation Q6H Patient Comments: INHALER WITHOUT LABEL IN BAG OF MEDS. acetaminophen 500 mg capsule 500 mg PO Q6H Patient Comments: PT HAD 500MG TABLETS OTC IN BAG OF MEDS. UNSURE HOW PT IS TAKING. diphenhydramine HCl [Aler-Cap] 25 mg capsule 25 mg PO Q8H PRN (Reason: allergies) Patient Comments: PT HAD 25MG TABLETS OTC IN BAG OF MEDS. UNSURE HOW PT IS TAKING. Eliquis 5 mg tablet 5 mg PO .COMPLEX Qty: 60 11RF Rx Instructions: 5 mg orally twice a day: ok to take with Clopidogrel due to Atrial Fib and recent coronary stent; atorvastatin 40 mg tablet 40 mg PO DAILY Qty: 30 11RF clopidogrel [Plavix] 75 mg tablet 75 mg PO ONCE Qty: 30 11RF furosemide [Lasix] 40 mg tablet 40 mg PO BID Qty: 60 11RF losartan [Cozaar] 100 mg tablet 100 mg PO DAILY Qty: 30 11RF amiodarone 200 mg tablet 100 mg PO BID Qty: 60 11RF carvedilol 25 mg tablet 50 mg PO BID Qty: 120 11RF Rx Instructions: two twice a day(50 mg twice a day) spironolactone [Aldactone] 25 mg tablet 25 mg PO DAILY Qty: 90 3RF Primary Care Provider: Care Physician,No Primary Referrals: Care Physician,No Primary [Primary Care Provider] - Print Language: Welsh
[2024-07-11 22:30] LABS: Platelet Estimate ADEQUATE (ADEQ)
[2024-07-11 23:00] VITALS: BP 150/89; PULSE 63; RESP 18; O2SAT 96
[2024-07-11 23:25] VITALS: BP 158/92; PULSE 64; RESP 18; TEMP 36.6; O2SAT 95
--- NOTE | 2024-07-11 23:31 | HP.PCM.HOS_ITS ---
HPI - General General Date of Admission: 07/11/24 Date of Service: 07/11/24 Chief Complaint: Continous episodes PRBPR. HPI Narrative The patient is a 64 y/o M w/ PMHx: Chronic anemia, Chronic hyponatremia of unclear etiology, CKD stage II per GFR trending, PAF, CAD with known occluded LAD without PCI, Dilated Cardiomyopathy (12/2023 ECHO w/ EF 35-40%), Hx Sudden cardiac x 2 with refusal of AICD, HTN, HLD, PVD, Hx CVA, Tobacco use, Chronic cannabis usage who presents to the [facility] ED on 07/11/2024 with history of bright red blood per rectum with history of hemorrhoids previously with intermittent bright red blood over the last week not necessarily associated with bowel movements however he does report that he is occasionally soaked his underwear with no rectal pain however he has had some occasional very vague diffuse abdominal discomfort rated very minimally 1-3 out of 10 in severity and more like cramping in nature but no recent diarrhea or constipation or any lightheadedness or dizziness but given ongoing prompted ED evaluation. Patient denies any alcohol abuse history. In the ED patient was noted dried blood around the anus with nonthrombosed external hemorrhoids seen with no masses or fluctuance with melanotic stool upon manual evaluation. Workup in the ED included T97.7 Temporal, heart rate 81, BP 203/117, respiratory rate 18, 99% on room air with most recent repeat vitals heart rate 65, BP 150/102, respiratory rate 21, 97% on room air, CBC with WBC 6.9, he 1 12.8, MCV 97.1, platelet 178 without marked shift, coags with PT 15 otherwise unremarkable, BMP with sodium 132, chloride 96, BUN/creatinine 16/1.20, GFR 60, glucose 105, lactic acid 1.3, CT abdomen and pelvis with no acute findings. In the ED patient ministered 1 L normal saline. ED discussed case with Dr. Donaldson. [facility] Medical History Hx of myocardial infarction CAD (coronary artery disease) Acute respiratory failure Cardiac arrest Acute hypokalemia Dilated cardiomyopathy Paroxysmal atrial fibrillation Hypertension Hyperlipidemia History of CVA (cerebrovascular accident) Peripheral vascular disease Home Medications ?Medication ?Instructions ?Recorded ?Last Taken ?Type acetaminophen 500 mg capsule 500 mg PO Q6H pain 08/26/ 24 Unknown History albuterol sulfate 90 mcg/actuation 2 inh inhalation Q6 H breathing 11/06/23 Unknown History aerosol inhaler diphenhydramine HCl 25 mg capsule 25 mg PO Q8H PRN all ergies 11/23/23 Unknown History (Aler-Cap) apixaban 5 mg tablet (Eliquis) 5 mg PO .COMPLEX #60 ta bs 12/20/23 01/16/24 Rx atorvastatin 40 mg tablet 40 mg PO DAILY #30 tabs 12/04 Unknown Rx clopidogrel 75 mg tablet (Plavix) 75 mg PO ONCE OK to take with 12/20/23 Unknown Rx Eliquis due to recent stent #30 tabs furosemide 40 mg tablet (Lasix) 40 mg PO BID OK to salima e with 12/20/23 Unknown Rx Spironolactone per Dr. Berg #60 tabs losartan 100 mg tablet (Cozaar) 100 mg PO DAILY #30 ta bs 12/20/23 Unknown Rx amiodarone 200 mg tablet 100 mg (1/2 x 200 mg) PO BID #60 01/24/24 Unknown Rx tabs carvedilol 25 mg tablet 50 mg (2 x 25 mg) PO BID #12 0 tabs 03/26/24 Unknown Rx spironolactone 25 mg tablet 25 mg PO DAILY OK to take with 03/26/24 Unknown Rx (Aldactone) Furosemide per Dr. Berg #9 0 tabs Allergy/AdvReac Type Severity Reaction Status Date / Time cat dander (cats) Allergy Other Verified 07/11/24 20:51 Family History Mother Heart disease Father Heart disease Grandfather Heart disease Grandmother Heart disease Surgical History History of cardioversion (01/16/24) Social History (Updated 07/12/24 @ 00:[address] Makenna Rothman MD) adopted: No household members: none number of children: 1 Smoking Status: Current every day smoker tobacco type: cigarettes Smoking packs per day: 1 Smoking cigarettes per day: 20.0 alcohol intake: former substance use type: marijuana caffeine: Yes Type: coffee Number of servings: 3 ROS ROS Narrative Admission Review of Systems: CONSTITUTIONAL: No weight loss, fever, chills, + weakness or fatigue. HEENT: + Poor oral dentition. Eyes: No visual loss, blurred vision, double vision or yellow sclerae. Ears, Nose, Throat: No hearing loss, sneezing, congestion, runny nose or sore throat. SKIN: No rash or itching, lesions, wounds except + occasional states ecchymoses, abrasion CARDIOVASCULAR: No chest pain, chest pressure or chest discomfort, palpitations, edema, orthopnea, syncopal events. RESPIRATORY: No shortness of breath, cough or sputum, wheezing, hemoptysis. GASTROINTESTINAL: + Bright red blood per rectum, transient vague generalized abdominal discomfort. No anorexia, nausea, vomiting or diarrhea, melena. GENITOURINARY: No dysuria, frequency, urgency or retention. NEUROLOGICAL: No headache, dizziness, syncope, paralysis, ataxia, numbness or tingling in the extremities, focal weakness, change in bowel or bladder control, seizure. MUSCULOSKELETAL: + muscle, back pain, joint pain or stiffness. HEMATOLOGIC: + Chronic anemia, easy bleeding/bruising. LYMPHATICS: No enlarged nodes. No history of splenectomy. PSYCHIATRIC: No history of depression or anxiety. ENDOCRINOLOGIC: No reports of sweating, cold or heat intolerance. No polyuria or polydipsia. ALLERGIES:+ History of allergic rhinitis. Vital Signs Vital Signs Vital Signs: 07/11/24 20:51 07/11/24 21:51 07/11/24 23:00 Temperature 97.7 F L Temperature Source Temporal Pulse Rate 81 65 63 Respiratory Rate 18 21 H 18 Blood Pressure 203/117 H 150/102 H 150/89 H Blood Pressure Mean 145 118 109 Pulse Ox 99 97 96 Oxygen Delivery Method Room Air Room Air Room Air 07/11/24 23:25 Temperature 97.8 F Temperature Source Pulse Rate 64 Respiratory Rate 18 Blood Pressure 158/92 H Blood Pressure Mean 114 Pulse Ox 95 Oxygen Delivery Method Weight Weight: 160 lb 3.2 oz Body Mass Index (BMI) 22.9 Physical Exam Narrative Physical Examination: General: Awake, alert, oriented x 3 and cooperative, seated upright in the ED bed, denies any complaints, no current abdominal discomfort, no lightheadedness or dizziness. Skin: Normal color, normal turgor, no icterus, no cyanosis Except occasional stage ecchymoses, abrasion. HEENT: AT/NC, EOMI, PERRLA, MMM, poor oral dental care/lacking several teeth, no carotid bruits or JVD noted. Lungs: Mildly diminished, greater bases, poor effort, no rales, ronchi or wheezing. Heart: Regular rate and rhythm; no gallop, rub audible. Abdomen: Soft, NTTP, ND, hyperactive BS, no appreciated HSM. Extremities: No cyanosis, clubbing, or edema. Neurological: Patient awake, alert, oriented as noted, cognitive function intact; pupils equally reactive to light and accommodation, cranial nerves gross normal, moving all 4 extremities, strength mildly to moderately globally decreased secondary to acute presentation complaints Psychiatric: Affect appears fatigued otherwise normal, no acute evidence of depressive or anxiety feelings. Results Lab / Micro Data 07/11/24 21:00 07/11/24 21:00 Labs: Laboratory Results - last 24 hr 07/11/24 21:00: WBC 6.9, RBC 3.78 L, Hgb 12.8 L, Hct 36.7 L, MCV 97.1 H, MCH 33.9 H, MCHC 34.9, RDW Std Deviation 48.8 H, RDW Coeff of [place] 13.8, Plt Count 178, MPV 11.0, Immature Gran % (Auto) 0.300, Neut % (Auto) 43.1 L, Lymph % (Auto) 43.7 H, [place] % (Auto) 9.2, Eos % (Auto) 3.1, Baso % (Auto) 0.6, Absolute Neuts (auto) 3.0, Absolute Lymphs (auto) 3.00, Nucleated RBC % 0, Platelet Estimate ADEQUATE, PT 15.0 H, INR 1.2, APTT 29.7, Sodium 132 L, Potassium 3.6, C hloride 96 L, Carbon Dioxide 21.0, Anion Gap 15, BUN 16, Creatinine 1.20, Estim Creat Clear Calc 63.92, Est GFR (MDRD) Non-Af 68, BUN/Creatinine Ratio 13.0, G lucose 105 H, Calcium 9.1 07/11/24 21:40: Lactic Acid 1.3 Micro: Microbiology 07/11/24 21:42 Stool Stool Occult Blood (RISSA) - Final Occult Blood Positive Imaging Radiology Impression Abdomen/Pelvis CT 07/11/24 21:40 IMPRESSION: No acute findings in the abdomen and pelvis. Chronic findings as described above. Reading Location: [facility] Assessment & Plan Assessment/Plan (1) GI bleed: PLAN: Plan The patient is a 64 y/o M w/ PMHx: Chronic anemia, Chronic hyponatremia of unclear etiology, CKD stage II per GFR trending, PAF, CAD with known occluded LAD without PCI, Dilated Cardiomyopathy (12/2023 ECHO w/ EF 35-40%), Hx Sudden cardiac x 2 with refusal of AICD, HTN, HLD, PVD, Hx CVA, Tobacco use, Chronic cannabis usage who presents to the [facility] ED on 07/11/2024 with history of bright red blood per rectum with history of hemorrhoids previously with intermittent bright red blood over the last week not necessarily associated with bowel movements however he does report that he is occasionally soaked his underwear with no rectal pain however he has had some occasional very vague abdominal discomfort but no recent diarrhea or constipation or any lightheadedness or dizziness but given ongoing prompted ED evaluation. #1. Acute GI Bleed with chronic macrocytic anemia potentially instigated versus worsened by being on anticoagulants and antiplatelet therapy as noted: Patient reporting significant bleeding with clots on anticoagulation and antiplatelet therapy. To be cautious will admit to [facility] given stable vital signs, maintain on judicious fluids, continue hypertensive regimen with hold parameters as needed, obtain serial H&H assessments, obtain T+S w/ cross for PRBC administration if appropriate, maintain on Protonix continuous infusion, allow clears until n.p.o. status at midnight, will initiate bowel regimen, GI consulted for evaluation. #2. PAF: Recent 05/23/2024 cardiology visit with decrease of Coreg to 25 mg twice daily and chart documented consideration of possible DC Eliquis if 3 more months without any arrhythmia noted with planned reevaluation of duration of amiodarone therapy also. Will continue Coreg with hold parameters as needed, discontinuing Eliquis. Continue amiodarone regimen. #3. CAD: Patient with documented known occluded LAD with inability for PCI, failed any intervention attempts and per cardiology notes has not had PCI intervention prior, medical management only complicated by sudden cardiac x 2 with refusal of AICD, discontinuing Eliquis given current presentation and recommendations previously per cardiology, temporarily hold Plavix given #1, restart once cleared by gastroenterology, continue Coreg, losartan, statin therapy. #4. Dilated cardiomyopathy related to ischemia: Most recent echocardiogram 12/2023 with EF 35 to 40%, maintained on medical directed therapy, recent 05/23/2024 visit with decision for transition back to twice daily Lasix dosing given significant nocturia, as noted discontinuing Eliquis, temporally holding Plavix given #1, continue Coreg, losartan, spironolactone, Lasix with hold parameters as needed in addition to statin therapy. #5. Chronic hyponatremia: Admission sodium 132, chloride 96, similar to previous, possibly related with patient's chronic diuretic therapy, given stable blood pressure at this time we will continue diuretic regimen with closely continue to monitor CMP. #6. Chronic Kidney Disease Stage II per GFR trend: Admission BUN/Cr 16/1.20, GFR 68, baseline renal function primarily more recently 0.1-1.3 but is vacillated, repeat BMP in AM. #7. History of CVA: As noted discontinuing Eliquis given current presentation and recent recommendations per cardiology although certainly still carries a risk, temporally holding Plavix given #1, resume once cleared per gastroenterology, continue hypertensive regimen, continue statin therapy, no diabetic history. #8. Hypertension: Continue home regimen including spironolactone, losartan, Lasix, Coreg with hold parameters as needed, PRN hydralazine. #9. Hyperlipidemia: Continue patient on statin therapy. #10. Tobacco Abuse: Encouraged cessation, inpatient consultation per RT, NR if desired. #11. DVT prophylaxis: SCDs. #12. CODE status: Patient HCPOA and living will are not in place and at this time he cannot name anyone he would want to be a medical decision-maker for himself. Discussed CODE status at length including difference between FULL code, DNR-CCA and DNR-CC status. Following discussions about the differences in these status, requested Full Code status. Charges/Coding Visit Charges Inpatient E&M: 23522 Init Hosp L3
[2024-07-12] VITALS (14 sets, daily range): BP systolic 91–136; BP diastolic 59–84; PULSE 54–68; RESP 14–17; TEMP 36.2–36.8; O2SAT 95–97; BMI 22.4; BMI 23.3
[2024-07-12 00:51] LABS: Magnesium 2.1 mg/dL (1.5-2.2)
[2024-07-12] MEDS: Bisacodyl 5 MG Tablet 20 MG PO (01:16)
[2024-07-12] MEDS: 0.9% Normal Saline (1000mL) 1,000 ML 75 ML IV (01:16)
[2024-07-12 01:24] LABS: Hematocrit 32.3 % (40-54); Hemoglobin 11.2 g/dL (13.0-16.5)
[2024-07-12] MEDS: Pantoprazole Sodium 80 MG in 0.9% Normal Saline (50mL Bag) 15 ML 420 MG IV BOLUS (01:36)
[2024-07-12] MEDS: Polyethylene Glycol 3350 BOWEL PREP PO (01:36)
[2024-07-12] MEDS: Pantoprazole Sodium 80 MG in 0.9% Normal Saline (100mL Bag) 80 ML 10 MG CONT INF ×2 (01:39→14:34)
[2024-07-12 05:15] LABS: Absolute Lymphocyte Count 1.86 X10^3/uL (0.83-4.51); Absolute Neutrophil Count 2.3 X10^3/uL (2.0-7.7); Basophil# 0.03 X10^3/uL; Basophil% 0.6 % (0-1); Eosinophils% 4.1 % (0-5); Hematocrit 32.1 % (40-54); Hemoglobin 10.9 g/dL (13.0-16.5); Lymphocyte # 1.86 X10^3/ul (0.83-4.51); Lymphocyte % 38.4 % (19-41); Mean Corpuscular Hgb 33.4 pg (27.0-32.0); Mean Corpuscular Volume 98.5 fL (80-94); Mean Platelet Vol. 10.1 fl (6.2-12.0); Monocyte# 0.47 X10^3/uL; Monocyte% 9.7 % (0-10); NRBC Flagged by Analyzer 0 % (0-5); Neutrophil # 2.28 X10^3/uL (2.7-7.7); POSITIVE MORPHOLOGY YES; Platelet Count 121 K/mm3 (150-450); RBC Distribution Width CV 13.7 % (11.6-14.6); RBC Distribution Width SD 49.7 fl (35.1-43.9); Red Blood Count 3.26 M/mm3 (4.6-6.2); White Blood Count 4.9 K/mm3 (4.4-11.0)
[2024-07-12 05:25] LABS: Differential Indicated SCAN CRITERIA MET
[2024-07-12 06:09] LABS: ALB/GLOB Ratio 1.5 RATIO (0.9-2.4); AST(SGOT) 22 U/L (<=37); Alanine Aminotransfer ALT/SGPT 7 U/L (<=46); Albumin, Serum 3.6 g/dL (3.4-4.8); Alkaline Phosphatase 36 U/L (40-129); Anion Gap 9 (5-15); BUN 11 mg/dL (4-19); BUN/Creat Ratio 12.5 RATIO (10-20); Calcium,Total 8.4 mg/dL (7.6-11.0); Carbon Dioxide 22.5 mmol/L (21.0-32.0); Chloride 103 mmol/L (98-108); Creatinine, Serum 0.87 mg/dL (0.70-1.20); EST Glomerular Filtration Rate 96 (>60); Estimated Creatinine Clearance 86.02 ml/min (50-250); Globulin 2.4 g/dL (2.2-4.2); Glucose 95 mg/dL (70-99); Potassium 3.6 mmol/L (3.3-5.1); Sodium Level 134 mmol/L (133-145); Total Bilirubin 0.47 mg/dL (0.00-1.30)
[2024-07-12 06:11] LABS: Reactive Lymphocyte 1+
--- NOTE | 2024-07-12 08:39 | PCM.PN.HOSP ---
Reason for Visit Reason for Visit: Diagnoses Gastrointestinal hemorrhage, unspecified (07/11/24) Subjective Subjective Patient is a 64-year-old gentleman with history of paroxysmal atrial fibrillation on systemic anticoagulation with apixaban who presented with hematochezia Objective Data Objective Data Vital Signs: Vital Signs Temp Pulse Resp BP Pulse Ox O2 Del Method 97.8 F 59 L 16 136/80 H 95 Room Air 07/12/24 00:40 07/12/24 00:40 07/12/24 00:40 07/12/24 00:40 07/12/24 07:37 07/12/24 07:37 Oxygen Delivery Method Room Air Weight: 70.9 kg Body Mass Index (BMI) 22.4 Intake & Output: Intake and Output for Last 24 Hours 07/10/24 07/11/24 07/12/24 23:59 23:59 23:59 Intake Total 1000 / 1000 1035 / 1035 Balance 1000 / 1000 1035 / 1035 Lab / Micro Data 07/12/24 04:58 07/12/24 04:58 Labs: Laboratory Results - last 24 hr 07/11/24 21:00: WBC 6.9, RBC 3.78 L, Hgb 12.8 L, Hct 36.7 L, MCV 97.1 H, MCH 33.9 H, MCHC 34.9, RDW Std Deviation 48.8 H, RDW Coeff of Alma 13.8, Plt Count 178, MPV 11.0, Immature Gran % (Auto) 0.300, Neut % (Auto) 43.1 L, Lymph % (Auto) 43.7 H, [place] % (Auto) 9.2, Eos % (Auto) 3.1, Baso % (Auto) 0.6, Absolute Neuts (auto) 3.0, Absolute Lymphs (auto) 3.00, Nucleated RBC % 0, Platelet Estimate ADEQUATE, PT 15.0 H, INR 1.2, APTT 29.7, Sodium 132 L, Potassium 3.6, Chloride 96 L, Carbon Dioxide 21.0, Anion Gap 15, BUN 16, Creatinine 1.20, Estim Creat Clear Calc 63.92, Est GFR (MDRD) Non-Af 68, BUN/Creatinine Ratio 13.0, Glucose 105 H, Calcium 9.1, Magnesium 2.1, Blood Type O NEGATIVE, Antibody Screen NEGATIVE 07/11/24 21:40: Lactic Acid 1.3 07/12/24 01:13: Hgb 11.2 L, Hct 32.3 L 07/12/24 04:58: WBC 4.9, RBC 3.26 L, Hgb 10.9 L, Hct 32.1 L, MCV 98.5 H, MCH 33.4 H, MCHC 34.0, RDW Std Deviation 49.7 H, RDW Coeff of Alma 13.7, Plt Count 121 L, MPV 10.1, Immature Gran % (Auto) 0.200, Neut % (Auto) 47.0, Lymph % (Auto) 38.4, Sussex % (Auto) 9.7, Eos % (Auto) 4.1, Baso % (Auto) 0.6, Absolute Neuts (auto) 2.3, Absolute Lymphs (auto) 1.86, Nucleated RBC % 0, Reactive Lymphocytes 1+, Sodium 134, Potassium 3.6, Chloride 103, Carbon Dioxide 22.5, Anion Gap 9, BUN 11, Creatinine 0.87, Estim Creat Clear Calc 86.02, Est GFR (MDRD) Non-Af 96, BUN/Creatinine Ratio 12.5, Glucose 95, Calcium 8.4, Total Bilirubin 0.47, AST 22, ALT 7, Alkaline Phosphatase 36 L, Total Protein 6.0, Albumin 3.6, Globulin 2.4, Albumin/Globulin Ratio 1.5 Micro: Microbiology 07/11/24 21:42 Stool Stool Occult Blood (RISSA) - Final Occult Blood Positive Radiography Diagnostic Testing: Radiology Impression Abdomen/Pelvis CT 07/11/24 21:40 IMPRESSION: No acute findings in the abdomen and pelvis. Chronic findings as described above. Reading [facility] Physical Exam Narrative GENERAL: cooperative HEENT: Atraumatic; normocephalic EYES; Anicteric, Normal Conjunctiva NECK; supple, normal thyroid, RESPIRATORY: Diminished to auscultation CARDIOVASCULAR: Regular S1 S2, GI: soft, normoactive bowel sounds, : No Renal angle tenderness; EXTREMITIES: No edema, no clubbing, MUSCULOSKELETAL: no muscle wasting NEURO: Awake; no lateralizing signs. SKIN: No Rash PSYCH; Flat affect Assessment & Plan Assessment/Plan (1) GI bleed: PLAN: Plan Patient is a 64-year-old gentleman with history of paroxysmal atrial fibrillation on systemic anticoagulation with apixaban who presented with hematochezia 1. Acute hematochezia ? Suspected to be secondary to hemorrhoidal bleeding exacerbated by the use of antiplatelet and anticoagulant. Suspected offending medications held. Patient admitted to regular nursing floor. Requested for H&H every 6 hours started on Protonix with consultation placed to GI for possible endoscopic evaluation. Patient currently undergoing prep 2. Anemia Secondary to acute blood loss anemia from suspected hemorrhoidal bleed worsened by use of anticoagulant and antiplatelet. Monitoring H&H and transfuse if patient becomes symptomatic or hemoglobin falls below 7 in addition to management discussed 3. Paroxysmal atrial fibrillation ? Rate controlled with amiodarone and carvedilol patient systemic anticoagulation held given above 4. Coronary artery disease ? With known history of occluded LAD with failed attempt at PCI. Optimization of medical therapy recommended 5. Ischemic cardiomyopathy with ejection fraction of 35 to 40% ? With previous history of cardiac arrest x 2. Patient apparently refused AICD placement. Patient remains on beta-blockers, spironolactone and losartan and furosemide remains compensated 6.Chronic hyponatremia ? Patient sodium levels on admission 132. Repeat this a.m. 134 we will continue with daily monitoring with BMP 7. Hypertension ? Blood pressure controlled, home medications continued with dose adjustment as needed 8. Previous history of CVA ? With residual disequilibrium as well as short-term memory loss. Patient is on statin therapy as well as antiplatelet therapy with clopidogrel which is currently being held given his presentation 9. Dyslipidemia ?Patient is on statin therapy, continued at home dose 10. Chronic kidney disease stage II ruled out 11. Tobacco dependence ? Counseled on cessation, offered nicotine patch for tobacco cravings 12. DVT prophylaxis ? Systemic anticoagulation contraindicated given patient presentation Time spent in the patient's overall evaluation,decision-making process, review of diagnostic data, adjustment of management, discussion with other providers, nursing nursing and ancillary staff involved in patient's care documentation, 52 Minutes Charges/Coding Visit Charges Inpatient E&M: 83425 [facility] L3
[2024-07-12] MEDS: Spironolactone 25 MG Tablet PO (09:08)
[2024-07-12] MEDS: Amiodarone 200 MG Tablet 100 MG PO ×2 (09:08→20:42)
[2024-07-12] MEDS: Carvedilol 25 MG Tablet 50 MG PO ×2 (09:09→20:42)
[2024-07-12] MEDS: Furosemide 40 MG Tablet PO ×2 (09:09→20:12)
[2024-07-12] MEDS: Losartan Potassium 100 MG Tablet PO (09:09)
[2024-07-12] MEDS: Ondansetron 4 MG/2 ML Vial IV (09:18)
[2024-07-12] MEDS: 0.9% Saline Lock 10 ML Syringe IV (09:20)
--- NOTE | 2024-07-12 10:42 | CASEMGMT ---
CONSTANTINE REYES Assessment: Face to Face with pt for initial transition planning/care coordination assessment. CONSTANTINE REYES introduced self and role at [facility], pt voices understanding and consents to assessment. Pt is A&O x4 and answers all questions appropriately at this time. Pt lying in bed in no distress. Care providers, pharmacy, and demographics verified/updated. Admitting Dx: GI Bleed Strata Score: 2 PCP:None, provided pt with a local healthcare directory list. Pt denies needing assistance in setting up PCP. Specialists:Denies Preferred Pharmacy: [facility] Insurance: [employer] Prescription Benefit: yes LNOK: Vy Sheikh, niece Living Arrangements: Pt lives with friends. He states there are 4 people in the home. Pt reports being I in ADL/IADLs prior to hospitalization. Pt denies concerns at home. Transportation: Pt does not drive. Pt friends transport him as needed. DME:Denies HHC/SNF: Denies hx of Pt states no concerns with going home at time of dc. Pt currently prepping for scope. Pt states no further concerns/needs. CM to follow. Advised pt to ask CM if any further questions/concerns/needs arise, voices understanding. Pt Goal: Home Plan: Home [facility] CM
--- NOTE | 2024-07-12 14:15 | CASEMGMT ---
Social Work- SW met with pt, as it was noted in handoff that pt did not have a permanent address. Pt reports that he has lived with niece at that address a few days. Pt reports that he plans to stay there until he buys a camper to place on a friend's property. 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 Pt reports no concerns regarding food insecurity or safety. Pt reports no concerns regarding discharge and reports no needs for community resources at this time. TIA Paul
--- NOTE | 2024-07-12 16:30 | COLBX_PTH ---
PATIENT: DARREN CARLISLE LOC: MS3 U#:[id number] AGE/SX: 64/M ROOM: DC320 RE07/11/[address]: Dr. Erik Sarmiento MD : 1960 BED: 1 DIS: 07/13/2024 SPEC #: [id number] RECD: 07/12/24 17:42 STATUS: DANETTE JARQUIN #: [id number] ABEL: 07/12/24 16:[address]: Thien Donaldson DEPT: SURGICAL PATHOLOGY RECD BY: Candido Sharpe ENTERED: 07/15/24 07:18 SP TYPE: COLON BX OTHR DR: MD Dr. Erik Chavarria MD No Primary Care Phys Tissues: A - Sigmoid colon biopsy Procedures: Surgery Specimen Level IV HEADER OPERATION: Colonoscopy with polypectomy and hemorrhoid banding PRE-OP DIAGNOSIS: GI bleed TISSUE SUBMITTED:A- Sigmoid polyp MICROSCOPIC DIAGNOSIS A. Sigmoid colon, polyp, biopsy: * Polypoid fragment of colonic mucosa distorted by cautery artifact; cannot rule out dysplasia. MICROSCOPIC DESCRIPTION Slides are reviewed. GROSS DESCRIPTION A. Received in formalin in a container labeled with the patient's name, date of , and sigmoid polyp is a 0.3 x 0.3 x 0.2 cm fragment of dejesus-pink mucosal tissue. Submitted in toto in A1. [facility] 07-15-2024 CPT:85088
--- NOTE | 2024-07-12 16:38 | PRE.ANES_ITS ---
ASA Classification* ASA Classification ASA Classification: 3 Assessment & Plan Anesthesia* Anesthesia Assessment Anesthesia Assessment: Discussed sedation and/or anesthesia options, risks, benefits, and alternatives with patient/parents/legal guardian/POA. Questions invited. The patient/parents/legal guardian/POA seems to understand and agrees to proceed with anesthesia plan. Reviewed the physical assessment, medical history, allergy history and patient home medications list prior to surgery/procedure/anesthetic and documented any changes. Performed airway and anesthesia risk assessments. Anesthesia Type Anesthesia Type: MAC Anesthesia Focused Assessment* Temperature: 98.2 F Pulse Rate: 54 Blood Pressure: 110/76 Respiratory Rate: 16 Pulse Ox: 96 Airway Assessment Mouth opens: >3 cm Mallampati Score: II Focused Labs Anesthesia Preop lab: CBC WBC 4.9 K/mm3 (4.4-11.0) 07/12/24 04:58 07/12/24 RBC 3.26 M/mm3 (4.6-6.2) L 07/12/24 04:58 07/12/24 Hgb 10.9 g/dL (13.0-16.5) L 07/12/24 04:58 5 Hct 32.1 % (40-54) L 07/12/24 04:58 07/12/24 Plt Count 121 K/mm3 (150-450) L 07/12/24 04:58 07/12/24 CHEMISTRY Potassium 3.6 mmol/L (3.3-5.1) 07/12/24 04:58 07/12/24 Sodium 134 mmol/L (133-145) 07/12/24 04:58 07/12/24 Magnesium 2.1 mg/dL (1.5-2.2) 07/11/24 21:00 07/11/24 Phosphorus 2.3 mg/dL (2.5-4.9) L 11/09/23 04:50 11/09/23 BUN 11 mg/dL (4-19) 07/12/24 04:58 07/12/24 Creatinine 0.87 mg/dL (0.70-1.20) 07/12/24 04:58 07/12/24 Glucose 95 mg/dL (70-99) 07/12/24 04:58 07/12/24 TSH 3.100 uIU/mL (0.358-3.740) 11/07/23 06:45 08/10/03 COAG PT 15.0 SECONDS (11.7-14.9) H 07/11/24 21:00 05/04/06 Pre-Assessment Diagnosis/Proposed Procedure Planned Operative Procedure(s): colonoscopy Anesthesia History Anesthesia History - patient accounting representative: Anesthesia History - patient accounting representative Hx Hospitalization Any Problems With Anesthesia No 07/12/24 06:26 Cholinesterase deficiency No 07/12/24 06:26 You/Your Family Experience No 07/12/24 06:26 fever (hyperthermia) with Relationship Recent Exposure to Contagious No 07/12/24 06:26 Disease Does patient have nerve No 07/12/24 06:26 stimulator Patient instructed to have device shut off --Does patient have Pacemaker No 07/12/24 16:07 or ICD? When Was Last Pacemaker Check QUESTION #4 FULL TEXT: You/Your Family Experience fever (hyperthermia) with Anesthesia Last Oral Intake Last Oral intake: Last Oral Intake NPO since 12:00 07/12/24 16:07 Meds taken in AM with sips of Yes 07/12/24 16:07 water? Meds patient instructed to Carvedilol, losartan 07/12/24 16:07 take am of surgery PONV PONV - patient accounting representative: PONV - patient accounting representative Female HX of Motion Sickness HX of N/V After Surgery Non-Smoker Duration of Surgery greater than 60 minutes Number of Risk Factors PONV Score Height & Weight Height & Weight: Anesthesia: Height & Weight Height 5 ft 10 in 07/12/24 16:07 Weight: 73.6 kg 07/12/24 16:07 Body Mass Index (BMI) 23.3 07/12/24 16:07 Respiratory Assessment Respiratory Assessment - patient accounting representative: Respiratory Tract Infection Hx - patient accounting representative Hx Respiratory Tract Infection No 07/12/24 06:26 STOP Sleep Apnea STOP Sleep Apnea - patient accounting representative: STOP Sleep Apnea - patient accounting representative Hx Hypertension Yes 07/12/24 00:26 Hx Sleep Apnea No 07/12/24 00:26 CPAP BIPAP Do you snore loudly (louder Yes 07/12/24 00:26 than talking or can be heard Do you often feel tired/ No 07/12/24 00:26 fatigued/ sleepy during daytime? Has anyone observed you stop No 07/12/24 00:26 breathing during sleep? STOP Results Positive 07/12/24 00:26 QUESTION #5 FULL TEXT : Do you snore loudly (louder than talking or can be heard through closed doors)? 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 Specify any problems Hx of Preganancy in last 3 N/A 07/12/24 00:26 Months Nurse Filling Out Transfusion EVIZZO 07/12/24 00:26 & Questions: Date: 07/12/24 07/12/24 00:26 Time: 00:32 07/12/24 00:26 Patient unable to answer at this time (ie. confused, unrespo /Reproduction History /Reproductive History - patient accounting representative: /Reproductive Hx- patient accounting representative Hx Now Gestational Age (in weeks): EDC: Hx Hx Para Hx Section SAB Active Medications Active Medications: Current Medications Generic Name Dose Route Start Last Admin Trade Name Freq PRN Reason Stop Dose Admin Acetaminophen 650 mg 07/12/24 00:40 Acetaminophen 325 Mg Tablet PO Q4H PRN PRN Fever, pain 1-12/20 Al Hydroxide/Mg Hydroxide 30 ml 07/12/24 00:40 Mag Hydrox/Al Hydrox/Simeth 30 Ml Udc PO Q6H PRN PRN Gastric Burning Albuterol Sulfate 2.5 mg 07/12/24 00:40 Albuterol 2.5 Mg/3 Ml Vial.Neb. INHALATION Q2H PRN PRN Dyspnea, wheezing Amiodarone HCl 100 mg 07/12/24 10:00 07/12/24 09:08 Amiodarone 200 Mg Tablet PO 100 mg BID ZACK Administration Atorvastatin Calcium 40 mg 07/12/24 22:00 Atorvastatin Calcium 40 Mg Tablet PO QHS ZACK Carvedilol 50 mg 07/12/24 10:00 07/12/24 09:09 Carvedilol 25 Mg Tablet PO 50 mg BID ZACK Administration Furosemide 40 mg 07/12/24 10:00 07/12/24 09:09 Furosemide 40 Mg Tablet PO 40 mg BIDLX ZACK Administration Protocol Guaifenesin 20 ml 07/12/24 00:40 Guaifenesin 10 Ml Udc (200mg/10ml) PO Q4H PRN PRN COUGH Hydralazine HCl 10 mg 07/12/24 00:40 Hydralazine 20 Mg/Ml Vial IV Q4H PRN PRN SBP > 160 Protocol Sodium Chloride 250 mls @ 15 mls/hr 07/12/24 00:27 IV .[id number] PRN Saline Flush Sodium Chloride 250 mls @ 15 mls/hr 07/12/24 00:27 IV .[id number] PRN Additional IVPB Infusion Pantoprazole Sodium 80 mg/ 100 mls @ 10 mls/hr 07/12/24 00:40 07/12/24 14:34 Sodium Chloride CONT INF 10 mls/hr Q10H ZACK Administration Losartan Potassium 100 mg 07/12/24 10:00 07/12/24 09:09 Losartan Potassium 100 Mg Tablet PO 100 mg DAILY ZACK Administration Protocol Melatonin 3 mg 07/12/24 00:40 Melatonin 3 Mg Tablet PO QHS PRN PRN INSOMNIA Ondansetron HCl 4 mg 07/12/24 00:40 07/12/24 09:18 Ondansetron 4 Mg/2 Ml Vial IV 4 mg Q8H PRN PRN Administration NAUSEA/VOMITING Prochlorperazine Edisylate 5 mg 07/12/24 00:40 Prochlorperazine 10 Mg/2 Ml Vial IV Q4H PRN PRN Breakthrough nausea/vomiting Sodium Chloride 10 - 40 ml 07/12/24 00:27 07/12/24 09:20 0.9% Saline Lock 10 Ml Syringe IV 20 ml UD PRN Administration SALINE FLUSH Spironolactone 25 mg 07/12/24 10:00 07/12/24 09:08 Spironolactone 25 Mg Tablet PO 25 mg DAILY [facility] Administration Protocol [facility] Medical History Hx of myocardial infarction CAD (coronary artery disease) Acute respiratory failure Cardiac arrest Acute hypokalemia Dilated cardiomyopathy Paroxysmal atrial fibrillation Hypertension Hyperlipidemia History of CVA (cerebrovascular accident) Peripheral vascular disease Home Medications ?Medication ?Instructions ?Recorded ?Last Taken ?Type acetaminophen 500 mg capsule 500 mg PO Q6H pain Unknown History albuterol sulfate 90 mcg/actuation 2 inh inhalation Q6 H breathing 11/06/23 Unknown History aerosol inhaler diphenhydramine HCl 25 mg capsule 25 mg PO Q8H PRN all ergies 11/23/23 Unknown History (Aler-Cap) apixaban 5 mg tablet (Eliquis) 5 mg PO .COMPLEX #60 ta bs 12/20/23 01/16/24 Rx atorvastatin 40 mg tablet 40 mg PO DAILY #30 tabs 12/04 Unknown Rx clopidogrel 75 mg tablet (Plavix) 75 mg PO ONCE OK to take with 12/20/23 Unknown Rx Eliquis due to recent stent #30 tabs furosemide 40 mg tablet (Lasix) 40 mg PO BID OK to salima e with 12/20/23 Unknown Rx Spironolactone per Dr. Berg #60 tabs losartan 100 mg tablet (Cozaar) 100 mg PO DAILY #30 ta bs 12/20/23 Unknown Rx amiodarone 200 mg tablet 100 mg (1/2 x 200 mg) PO BID #60 01/24/24 Unknown Rx tabs carvedilol 25 mg tablet 50 mg (2 x 25 mg) PO BID #12 0 tabs 03/26/24 Unknown Rx spironolactone 25 mg tablet 25 mg PO DAILY OK to take with 03/26/24 Unknown Rx (Aldactone) Furosemide per Dr. Berg #9 0 tabs Allergy/AdvReac Type Severity Reaction Status Date / Time cat dander (cats) Allergy Other Verified 07/11/24 20:51 Family History Mother Heart disease Father Heart disease Grandfather Heart disease Grandmother Heart disease Surgical History History of cardioversion (01/16/24) Social History adopted: No household members: none number of children: 1 Smoking Status: Current every day smoker tobacco type: cigarettes Smoking packs per day: 1 Smoking cigarettes per day: 20.0 alcohol intake: former substance use type: marijuana caffeine: Yes Type: coffee Number of servings: 3 Review of Systems (Anesthesia) ROS Narrative System reviewed and no additional complaints, except as documented.
--- NOTE | 2024-07-12 16:42 | EX.PCM.CON.G ---
HPI Consult Data Date of Consult: 07/12/24 HPI Narrative Reason for Consultation: GI bleed HPI Narrative: DARREN CARLISLE, is a 64-year-old male with past medical history of CAD status post PCI on Plavix and Eliquis, HTN, HLD, proximal atrial fibrillation presents for evaluation of bright red blood per rectum. Patient states he has a history of hemorrhoids in the past. He states for the past week he has had bright red blood per rectum. States that it is not associated with bowel movements. States he is soaking through several sets of underwear and pants. He denies any rectal pain. States occasionally gets some abdominal pain. His hemoglobin dropped down from 12.8-11.1 and then down to 10.8. [facility] Medical History Hx of myocardial infarction CAD (coronary artery disease) Acute respiratory failure Cardiac arrest Acute hypokalemia Dilated cardiomyopathy Paroxysmal atrial fibrillation Hypertension Hyperlipidemia History of CVA (cerebrovascular accident) Peripheral vascular disease Home Medications ?Medication ?Instructions ?Recorded ?Last Taken ?Type acetaminophen 500 mg capsule 500 mg PO Q6H pain 11/06/23 Unknown History albuterol sulfate 90 mcg/actuation 2 inh inhalation Q6H breathing 11/06/23 Unknown History aerosol inhaler diphenhydramine HCl 25 mg capsule 25 mg PO Q8H PRN allergies 11/23/23 Unknown History (Aler-Cap) apixaban 5 mg tablet (Eliquis) 5 mg PO .COMPLEX #60 tabs 12/20/23 01/16/24 Rx atorvastatin 40 mg tablet 40 mg PO DAILY #30 tabs 12/20/23 Unknown Rx clopidogrel 75 mg tablet (Plavix) 75 mg PO ONCE OK to take with 12/20/23 Unknown Rx Eliquis due to recent stent #30 tabs furosemide 40 mg tablet (Lasix) 40 mg PO BID OK to take with 12/20/23 Unknown Rx Spironolactone per Dr. Berg #60 tabs losartan 100 mg tablet (Cozaar) 100 mg PO DAILY #30 tabs 12/20/23 Unknown Rx amiodarone 200 mg tablet 100 mg (1/2 x 200 mg) PO BID #60 01/24/24 Unknown Rx tabs carvedilol 25 mg tablet 50 mg (2 x 25 mg) PO BID #120 tabs 03/26/24 Unknown Rx spironolactone 25 mg tablet 25 mg PO DAILY OK to take with 03/26/24 Unknown Rx (Aldactone) Furosemide per Dr. Berg #90 tabs Allergy/AdvReac Type Severity Reaction Status Date / Time cat dander (cats) Allergy Other Verified 07/11/24 20:51 Family History Mother Heart disease Father Heart disease Grandfather Heart disease Grandmother Heart disease Surgical History History of cardioversion (01/16/24) Social History adopted: No household members: none number of children: 1 Smoking Status: Current every day smoker tobacco type: cigarettes Smoking packs per day: 1 Smoking cigarettes per day: 20.0 alcohol intake: former substance use type: marijuana caffeine: Yes Type: coffee Number of servings: 3 ROS ROS Narrative Admission Review of Systems: CONSTITUTIONAL: No weight loss, fever, chills, + weakness or fatigue. HEENT: + Poor oral dentition. Eyes: No visual loss, blurred vision, double vision or yellow sclerae. Ears, Nose, Throat: No hearing loss, sneezing, congestion, runny nose or sore throat. SKIN: No rash or itching, lesions, wounds except + occasional states ecchymoses, abrasion CARDIOVASCULAR: No chest pain, chest pressure or chest discomfort, palpitations, edema, orthopnea, syncopal events. RESPIRATORY: No shortness of breath, cough or sputum, wheezing, hemoptysis. GASTROINTESTINAL: + Bright red blood per rectum, transient vague generalized abdominal discomfort. No anorexia, nausea, vomiting or diarrhea, melena. GENITOURINARY: No dysuria, frequency, urgency or retention. NEUROLOGICAL: No headache, dizziness, syncope, paralysis, ataxia, numbness or tingling in the extremities, focal weakness, change in bowel or bladder control, seizure. MUSCULOSKELETAL: + muscle, back pain, joint pain or stiffness. HEMATOLOGIC: + Chronic anemia, easy bleeding/bruising. LYMPHATICS: No enlarged nodes. No history of splenectomy. PSYCHIATRIC: No history of depression or anxiety. ENDOCRINOLOGIC: No reports of sweating, cold or heat intolerance. No polyuria or polydipsia. ALLERGIES:+ History of allergic rhinitis. Physical Exam Narrative GENERAL: cooperative HEENT: Atraumatic; normocephalic EYES; Anicteric, Normal Conjunctiva NECK; supple, normal thyroid, RESPIRATORY: Diminished to auscultation CARDIOVASCULAR: Regular S1 S2, GI: soft, normoactive bowel sounds, : No Renal angle tenderness; EXTREMITIES: No edema, no clubbing, MUSCULOSKELETAL: no muscle wasting NEURO: Awake; no lateralizing signs. SKIN: No Rash PSYCH; Flat affect Lab / Micro Data 07/12/24 04:58 07/12/24 04:58 Labs: Laboratory Results - last 24 hr 07/11/24 21:00: WBC 6.9, RBC 3.78 L, Hgb 12.8 L, Hct 36.7 L, MCV 97.1 H, MCH 33.9 H, MCHC 34.9, RDW Std Deviation 48.8 H, RDW Coeff of [place] 13.8, Plt Count 178, MPV 11.0, Immature Gran % (Auto) 0.300, Neut % (Auto) 43.1 L, Lymph % (Auto) 43.7 H, Whitley % (Auto) 9.2, Eos % (Auto) 3.1, Baso % (Auto) 0.6, Absolute Neuts (auto) 3.0, Absolute Lymphs (auto) 3.00, Nucleated RBC % 0, Platelet Estimate ADEQUATE, PT 15.0 H, INR 1.2, APTT 29.7, Sodium 132 L, Potassium 3.6, Chloride 96 L, Carbon Dioxide 21.0, Anion Gap 15, BUN 16, Creatinine 1.20, Estim Creat Clear Calc 63.92, Est GFR (MDRD) Non-Af 68, BUN/Creatinine Ratio 13.0, Glucose 105 H, Calcium 9.1, Magnesium 2.1, Blood Type O NEGATIVE, Antibody Screen NEGATIVE 07/11/24 21:40: Lactic Acid 1.3 07/12/24 01:13: Hgb 11.2 L, Hct 32.3 L 07/12/24 04:58: WBC 4.9, RBC 3.26 L, Hgb 10.9 L, Hct 32.1 L, MCV 98.5 H, MCH 33.4 H, MCHC 34.0, RDW Std Deviation 49.7 H, RDW Coeff of [place] 13.7, Plt Count 121 L, MPV 10.1, Immature Gran % (Auto) 0.200, Neut % (Auto) 47.0, Lymph % (Auto) 38.4, Whitley % (Auto) 9.7, Eos % (Auto) 4.1, Baso % (Auto) 0.6, Absolute Neuts (auto) 2.3, Absolute Lymphs (auto) 1.86, Nucleated RBC % 0, Reactive Lymphocytes 1+, Sodium 134, Potassium 3.6, Chloride 103, Carbon Dioxide 22.5, Anion Gap 9, BUN 11, Creatinine 0.87, Estim Creat Clear Calc 86.02, Est GFR (MDRD) Non-Af 96, BUN/Creatinine Ratio 12.5, Glucose 95, Calcium 8.4, Total Bilirubin 0.47, AST 22, ALT 7, Alkaline Phosphatase 36 L, Total Protein 6.0, Albumin 3.6, Globulin 2.4, Albumin/Globulin Ratio 1.5 Micro: Microbiology 07/11/24 21:42 Stool Stool Occult Blood (RISSA) - Final Occult Blood Positive Imaging Radiology Impression Abdomen/Pelvis CT 07/11/24 21:40 IMPRESSION: No acute findings in the abdomen and pelvis. Chronic findings as described above. Reading Location: [facility] Assessment & Plan Assessment/Plan (1) GI bleed: PLAN: Plan Patient is a 64-year-old gentleman with history of paroxysmal atrial fibrillation on systemic anticoagulation with apixaban who presented with hematochezia the differential diagnosis does include stercoral ulcer because a history of constipation, diverticular bleed, hemorrhoidal bleed, anal fissure and less likely inflammatory bowel disease such as ulcerative colitis. He will undergo colonoscopy to evaluate his lower GI tract. He was explained conservative's, risk, benefits including outstanding bleeding, infection, sepsis, perforation, need for urgent . He will have an ASA 3. Charges/Coding Visit Charges Inpatient E&M: 97016 Init Hosp L2
--- NOTE | 2024-07-12 17:36 | OP.CCLET_ITS ---
07/12/2024 No Primary Care Physician Re : Colonoscopy procedure for Kyle Jeter Dear Care Physician This procedure was performed on Friday, July 12, 2024. My impressions and recommendations are as follows: Impressions : - Bleeding internal hemorrhoids. Banded. - One 8 mm polyp in the sigmoid colon, removed with a hot snare. Resected and retrieved. - Diverticulosis in the sigmoid colon. - The examination was otherwise normal on direct and retroflexion views. Recommendations : - [facility]. - Soft diet , then high fiber diet - Colace 100mg daily x 3 week - Continue present medications. - Await pathology results. - Repeat colonoscopy in 5 years for surveillance. My findings are described in the full procedure note, which is enclosed. If I can be of further assistance, please feel free to contact me at . Sincerely, Thien Donaldson, 07/12/2024 5:35:48 PM This report has been signed electronically.
--- NOTE | 2024-07-12 17:36 | OP.COLON_ITS ---
Patient Name: Kyle Jeter Procedure Date: 07/12/2024 4:45 PM Date of : 1960 Age: 64 Procedure: Colonoscopy Indications: Hematochezia Providers: Thien Donaldson DO Medicines: Monitored Anesthesia Care Patient Profile: This is a 64 year old male. Refer to note in patient chart for documentation of history and physical. Last Colonoscopy: date unknown. Unable to locate last colonoscopy report. Complications: No immediate complications. Procedure: Pre-Anesthesia Assessment: - Prior to the procedure, a History and Physical was performed, and patient medications and allergies were reviewed. The patient is competent. The risks and benefits of the procedure and the sedation options and risks were discussed with the patient. All questions were answered and informed consent was obtained. Patient identification and proposed procedure were verified by the physician in the pre-procedure area. Mental Status Examination: alert and oriented. Airway Examination: normal oropharyngeal airway and neck mobility. Respiratory Examination: clear to auscultation. CV Examination: normal. Prophylactic Antibiotics: The patient does not require prophylactic antibiotics. Prior Anticoagulants: The patient has taken no anticoagulant or antiplatelet agents except for NSAID medication. ASA Grade Assessment: II - A patient with mild systemic disease. After reviewing the risks and benefits, the patient was deemed in satisfactory condition to undergo the procedure. The anesthesia plan was to use monitored anesthesia care (MAC). Immediately prior to administration of medications, the patient was re-assessed for adequacy to receive sedatives. The heart rate, respiratory rate, oxygen saturations, blood pressure, adequacy of pulmonary ventilation, and response to care were monitored throughout the procedure. The physical status of the patient was re-assessed after the procedure. After I obtained informed consent, the scope was passed under direct vision. Throughout the procedure, the patient's blood pressure, pulse, and oxygen saturations were monitored continuously. The Colonoscope was introduced through the anus and advanced to the cecum, identified by appendiceal orifice and ileocecal valve. The colonoscopy was performed without difficulty. The patient tolerated the procedure well. The quality of the bowel preparation was adequate. The ileocecal valve, appendiceal orifice, and rectum were photographed. Scope In: 5:01:32 PM Scope Withdrawal Time 0 hours 20 minutes 0 seconds Scope Out: 5:28:53 PM Total Procedure Duration Time 0 hours 27 minutes 21 seconds Findings: The perianal and digital rectal examinations were normal. Bleeding internal hemorrhoids were found during retroflexion. The hemorrhoids were large and Grade III (internal hemorrhoids that prolapse but require manual reduction). The endoscope was withdrawn. A hemorrhoid was isolated with anoscopy. The ShortShot ligator was positioned over the hemorrhoid at the left lateral position. Suction was applied and one rubber band was placed over the hemorrhoid. This was checked to make certain that the muscularis was free of the band. Mild oozing of blood was present. An 8 mm polyp was found in the sigmoid colon. The polyp was sessile. The polyp was removed with a hot snare. Resection and retrieval were complete. Verification of patient identification for the specimen was done. Estimated blood loss was minimal. Multiple small and large-mouthed diverticula were found in the sigmoid colon. The exam was otherwise without abnormality on direct and retroflexion views. Impression: - Bleeding internal hemorrhoids. Banded. - One 8 mm polyp in the sigmoid colon, removed with a hot snare. Resected and retrieved. - Diverticulosis in the sigmoid colon. - The examination was otherwise normal on direct and retroflexion views. Recommendation: - [facility] for [facility] care. - Soft diet , then high fiber diet - Colace 100mg daily x 3 week - Continue present medications. - Await pathology results. - Repeat colonoscopy in 5 years for surveillance. Procedure Code(s): --- Professional --- 60488, Colonoscopy, flexible; with removal of tumor(s), polyp(s), or other lesion(s) by snare technique 10089, Hemorrhoidectomy, internal, by rubber band ligation(s) CPT copyright 2021 [employer]. All rights reserved. The codes documented in this report are preliminary and upon park worker supervisor review may be revised to meet current compliance requirements. Thien Donaldson DO 07/12/2024 5:35:48 PM This report has been signed electronically. Number of Addenda: 0 Note Initiated On: 07/12/2024 4:45 PM
--- NOTE | 2024-07-12 17:39 | PCM.POST.ANE ---
Anesthesia: Postop Eval I Current Vital Signs Temperature: 97.2 F Pulse Rate: 57 Blood Pressure: 91/59 Respiratory Rate: 16 Pulse Ox: 95 Oxygen Delivery Method: Room Air Assessment Airway patent: Yes Spontaneous unlabored respirations: Yes Mental status: Awake and Calm nausea: No Vomiting: No Anesthesia Complication: No Fluid Hydration Crystalloid volume administer (ml): 20 Total IV fluid infused: 20 Progress Note Anesthesia document: Postop Eval 1 completed: Yes
--- NOTE | 2024-07-12 17:41 | PCM.POSTANE2 ---
Anesthesia Postop Eval I Sum Postop Eval Completion status Anesthesia document: Postop Eval 1 completed: Yes Anesthesia Postop Eval I Summary Anesthesia Postop Eval I Summary: Anesthesia Postop Eval I: Assessment Summary Airway patent Yes 07/12/24 17:40 Spontaneous unlabored Yes 07/12/24 17:40 respirations Mental status Awake,Calm 07/12/24 17:40 nausea No 07/12/24 17:40 Vomiting No 07/12/24 17:40 Anesthesia Postop Eval I: Fluid Summary Crystalloid volume administer 20 07/12/24 17:40 (ml) Colloids volume administered ( ml) Blood Product volume administered (ml) Total IV fluid infused 20 07/12/24 17:40 Anesthesia Postop Eval I: Summary Notes Anesthesia Complication No 07/12/24 17:40 Anesthesia Complication Comment: Post-operative progress note Anesthesia: Postop Eval II Evaluation Mental status: Awake Pain Level: 0 nausea: No Vomiting: No
[2024-07-12] MEDS: Acetaminophen 325 MG Tablet 650 MG PO (20:42)
[2024-07-12] MEDS: Atorvastatin Calcium 40 MG Tablet PO (20:42)
[2024-07-13] MEDS: Pantoprazole Sodium 80 MG in 0.9% Normal Saline (100mL Bag) 80 ML 10 MG CONT INF (01:23)
[2024-07-13 02:11] VITALS: BP 122/78; PULSE 52; RESP 16; TEMP 36.6; O2SAT 97
[2024-07-13 05:45] VITALS: BMI 22.2
[2024-07-13 07:23] LABS: Absolute Lymphocyte Count 1.72 X10^3/uL (0.83-4.51); Basophil# 0.02 X10^3/uL; Basophil% 0.4 % (0-1); Differential Indicated SCAN CRITERIA MET; Eosinophil# 0.27 X10^3/uL; Eosinophils% 4.9 % (0-5); Hematocrit 34.3 % (40-54); Hemoglobin 11.4 g/dL (13.0-16.5); Lymphocyte # 1.72 X10^3/ul (0.83-4.51); Lymphocyte % 31.2 % (19-41); Mean Corp Hgb Conc 33.2 g/dL (32-36); Mean Corpuscular Hgb 33.2 pg (27.0-32.0); Mean Platelet Vol. 10.3 fl (6.2-12.0); Monocyte# 0.44 X10^3/uL; NRBC Flagged by Analyzer 0 % (0-5); Neutrophil # 3.04 X10^3/uL (2.7-7.7); Neutrophil % 55.1 % (47-70); POSITIVE MORPHOLOGY YES; Platelet Count 131 K/mm3 (150-450); RBC Distribution Width CV 14.2 % (11.6-14.6); RBC Distribution Width SD 51.3 fl (35.1-43.9); Red Blood Count 3.43 M/mm3 (4.6-6.2); White Blood Count 5.5 K/mm3 (4.4-11.0)
--- NOTE | 2024-07-13 07:34 | PCM.PN.HOSP ---
Reason for Visit Reason for Visit: Diagnoses Gastrointestinal hemorrhage, unspecified (07/11/24) Subjective Subjective Patient underwent colonoscopy the day prior findings are as below - Bleeding internal hemorrhoids. Banded. - One 8 mm polyp in the sigmoid colon, removed with a hot snare. Resected and retrieved. - Diverticulosis in the sigmoid colon. - The examination was otherwise normal on direct and retroflexion views. Objective Data Objective Data Vital Signs: Vital Signs Temp Pulse Resp BP Pulse Ox O2 Del Method 98 F 52 L 16 122/78 H 97 Room Air 07/13/24 02:11 07/13/24 02:11 07/13/24 02:11 07/13/24 02:11 07/13/24 02:11 07/13/24 02:11 Oxygen Delivery Method Room Air Weight: 70.5 kg Body Mass Index (BMI) 22.2 Intake & Output: Intake and Output for Last 24 Hours 07/11/24 07/12/24 07/13/24 23:59 23:59 23:59 Intake Total 1000 / 1000 2135 / 2135 100 / 100 Balance 1000 / 1000 2135 / 2135 100 / 100 Lab / Micro Data 07/13/24 07:04 07/12/24 04:58 Labs: Laboratory Results - last 24 hr 07/13/24 07:04: WBC 5.5, RBC 3.43 L, Hgb 11.4 L, Hct 34.3 L, MCV 100.0 H, MCH 33.2 H, MCHC 33.2, RDW Std Deviation 51.3 H, RDW Coeff of [place]ma 14.2, Plt Count 131 L, MPV 10.3, Immature Gran % (Auto) 0.400, Neut % (Auto) 55.1, Lymph % (Auto) 31.2, [place] % (Auto) 8.0, Eos % (Auto) 4.9, Baso % (Auto) 0.4, Absolute Neuts (auto) 3.0, Absolute Lymphs (auto) 1.72, Nucleated RBC % 0 Micro: Microbiology 07/11/24 21:42 Stool Stool Occult Blood (RISSA) - Final Occult Blood Positive Physical Exam Narrative GENERAL: cooperative HEENT: Atraumatic; normocephalic EYES; Anicteric, Normal Conjunctiva NECK; supple, normal thyroid, RESPIRATORY: Diminished to auscultation CARDIOVASCULAR: Regular S1 S2, GI: soft, normoactive bowel sounds, : No Renal angle tenderness; EXTREMITIES: No edema, no clubbing, MUSCULOSKELETAL: no muscle wasting NEURO: Awake; no lateralizing signs. SKIN: No Rash PSYCH; Flat affect Assessment & Plan Assessment/Plan (1) GI bleed: PLAN: Plan Patient is a 64-year-old gentleman with history of paroxysmal atrial fibrillation on systemic anticoagulation with apixaban who presented with hematochezia 1. Acute hematochezia ? Suspected to be secondary to hemorrhoidal bleeding exacerbated by the use of antiplatelet and anticoagulant. Suspected offending medications held. Patient admitted to regular nursing floor. Requested for H&H every 6 hours started on Protonix with consultation placed to GI for possible endoscopic evaluation. Patient currently undergoing prep ? 07/13/2024; colonoscopy performed on 07/12/2024 findings and procedures performed as below - Bleeding internal hemorrhoids. Banded. - One 8 mm polyp in the sigmoid colon, removed with a hot snare. Resected and retrieved. - Diverticulosis in the sigmoid colon. - The examination was otherwise normal on direct and retroflexion views. 2. Anemia Secondary to acute blood loss anemia from suspected hemorrhoidal bleed worsened by use of anticoagulant and antiplatelet. Monitoring H&H and transfuse if patient becomes symptomatic or hemoglobin falls below 7 in addition to management discussed 3. Paroxysmal atrial fibrillation ? Rate controlled with amiodarone and carvedilol patient systemic anticoagulation held given above ? Patient apixaban was held for a week on discharge 4. Coronary artery disease ? With known history of occluded LAD with failed attempt at PCI. Optimization of medical therapy recommended 5. Ischemic cardiomyopathy with ejection fraction of 35 to 40% ? With previous history of cardiac arrest x 2. Patient apparently refused AICD placement. Patient remains on beta-blockers, spironolactone and losartan and furosemide remains compensated 6.Chronic hyponatremia ? Patient sodium levels on admission 132. Repeat this a.m. 134 we will continue with daily monitoring with BMP 7. Hypertension ? Blood pressure controlled, home medications continued with dose adjustment as needed 8. Previous history of CVA ? With residual disequilibrium as well as short-term memory loss. Patient is on statin therapy as well as antiplatelet therapy with clopidogrel which is currently being held given his presentation 9. Dyslipidemia ?Patient is on statin therapy, continued at home dose 10. Chronic kidney disease stage II ruled out 11. Tobacco dependence ? Counseled on cessation, offered nicotine patch for tobacco cravings 12. DVT prophylaxis ? Systemic anticoagulation contraindicated given patient presentation Time spent in the patient's overall evaluation,decision-making process, review of diagnostic data, adjustment of management, discussion with other providers, nursing nursing and ancillary staff involved in patient's care documentation, 36 Minutes
[2024-07-13 07:37] VITALS: O2SAT 96
[2024-07-13 08:00] VITALS: BP 119/75; PULSE 60; RESP 16; TEMP 37.1; O2SAT 98
[2024-07-13 08:01] LABS: Atypical Lymphocyte 1+ %; Differential Comment SCANNED
--- NOTE | 2024-07-13 08:02 | PCM.DC.SUM ---
Providers Date of Admission: 07/11/24 Date of Discharge: 07/13/24 Primary Care Physician: Lisbet Primary Care Phys Consultations 07/12/24 00:40 Consult: Gastroenterology Routine Consulting Provider: Chapin Gastroenterjayleen Reason for Consult: GI bleed EMERGENT Consult: No MD Notified: Yes Date Notified: 07/11/24 Time Notified: 23:35 Method of Notification: ED Physician Initiated Reason For Visit: GI BLEED Diagnosis Discharge Diagnosis (1) GI bleed: Status: Acute Code(s): K92.2 - Gastrointestinal hemorrhage, unspecified Plan Patient is a 64-year-old gentleman with history of paroxysmal atrial fibrillation on systemic anticoagulation with apixaban who presented with hematochezia 1. Acute hematochezia ? Suspected to be secondary to hemorrhoidal bleeding exacerbated by the use of antiplatelet and anticoagulant. Suspected offending medications held. Patient admitted to regular nursing floor. Requested for H&H every 6 hours started on Protonix with consultation placed to GI for possible endoscopic evaluation. Patient currently undergoing prep ? 07/13/2024; colonoscopy performed on 07/12/2024 findings and procedures performed as below - Bleeding internal hemorrhoids. Banded. - One 8 mm polyp in the sigmoid colon, removed with a hot snare. Resected and retrieved. - Diverticulosis in the sigmoid colon. - The examination was otherwise normal on direct and retroflexion views. 2. Anemia Secondary to acute blood loss anemia from suspected hemorrhoidal bleed worsened by use of anticoagulant and antiplatelet. Monitoring H&H and transfuse if patient becomes symptomatic or hemoglobin falls below 7 in addition to management discussed 3. Paroxysmal atrial fibrillation ? Rate controlled with amiodarone and carvedilol patient systemic anticoagulation held given above ? Patient apixaban was held for a week on discharge 4. Coronary artery disease ? With known history of occluded LAD with failed attempt at PCI. Optimization of medical therapy recommended 5. Ischemic cardiomyopathy with ejection fraction of 35 to 40% ? With previous history of cardiac arrest x 2. Patient apparently refused AICD placement. Patient remains on beta-blockers, spironolactone and losartan and furosemide remains compensated 6.Chronic hyponatremia ? Patient sodium levels on admission 132. Repeat this a.m. 134 we will continue with daily monitoring with BMP 7. Hypertension ? Blood pressure controlled, home medications continued with dose adjustment as needed 8. Previous history of CVA ? With residual disequilibrium as well as short-term memory loss. Patient is on statin therapy as well as antiplatelet therapy with clopidogrel which is currently being held given his presentation 9. Dyslipidemia ?Patient is on statin therapy, continued at home dose 10. Chronic kidney disease stage II ruled out 11. Tobacco dependence ? Counseled on cessation, offered nicotine patch for tobacco cravings 12. DVT prophylaxis ? Systemic anticoagulation contraindicated given patient presentation Time spent in the patient's overall evaluation,decision-making process, review of diagnostic data, adjustment of management, discussion with other providers, nursing nursing and ancillary staff involved in patient's care documentation, 36 Minutes Medications at Discharge Home Medications acetaminophen 500 mg capsule 500 mg PO Q6H pain 11/06/23 albuterol sulfate 90 mcg/actuation aerosol inhaler 2 inh inhalation Q6H breathing 11/06/23 diphenhydramine HCl 25 mg capsule (Aler-Cap) 25 mg PO Q8H PRN allergies 11/23/23 apixaban 5 mg tablet (Eliquis) 5 mg PO .COMPLEX #60 tabs 12/20/23 Held on 07/13/24. Instructions: Resume on 07/19/24. atorvastatin 40 mg tablet 40 mg PO DAILY #30 tabs 12/20/23 clopidogrel 75 mg tablet (Plavix) 75 mg PO ONCE OK to take with Eliquis due to recent stent #30 tabs 12/20/23 furosemide 40 mg tablet (Lasix) 40 mg PO BID OK to take with Spironolactone per Dr. Berg #60 tabs 12/20/23 losartan 100 mg tablet (Cozaar) 100 mg PO DAILY #30 tabs 12/20/23 amiodarone 200 mg tablet 100 mg (1/2 x 200 mg) PO BID #60 tabs 01/24/24 carvedilol 25 mg tablet 50 mg (2 x 25 mg) PO BID #120 tabs 03/26/24 spironolactone 25 mg tablet (Aldactone) 25 mg PO DAILY OK to take with Furosemide per Dr. Berg #90 tabs 03/26/24 Physical Exam Narrative GENERAL: cooperative HEENT: Atraumatic; normocephalic EYES; Anicteric, Normal Conjunctiva NECK; supple, normal thyroid, RESPIRATORY: Diminished to auscultation CARDIOVASCULAR: Regular S1 S2, GI: soft, normoactive bowel sounds, : No Renal angle tenderness; EXTREMITIES: No edema, no clubbing, MUSCULOSKELETAL: no muscle wasting NEURO: Awake; no lateralizing signs. SKIN: No Rash PSYCH; Flat affect Weight / BMI Weight Weight: 70.5 kg Body Mass Index (BMI) 22.2 ABG / Lab / Microbiology Data 07/13/24 07:04 07/12/24 04:58 Laboratory: Laboratory Results - last 24 hr 07/13/24 07:04: WBC 5.5, RBC 3.43 L, Hgb 11.4 L, Hct 34.3 L, MCV 100.0 H, MCH 33.2 H, MCHC 33.2, RDW Std Deviation 51.3 H, RDW Coeff of [place] 14.2, Plt Count 131 L, MPV 10.3, Immature Gran % (Auto) 0.400, Neut % (Auto) 55.1, Lymph % (Auto) 31.2, [place] % (Auto) 8.0, Eos % (Auto) 4.9, Baso % (Auto) 0.4, Absolute Neuts (auto) 3.0, Absolute Lymphs (auto) 1.72, Nucleated RBC % 0, Differential Comment SCANNED, Atypical Lymphocytes 1+ Microbiology: Microbiology 07/11/24 21:42 Stool Stool Occult Blood (RISSA) - Final Occult Blood Positive D/C Instructions Discharge Diet: No restrictions Discharge Activity: Return to Normal Activity Call your doctor if you observe: Fever of 101 or Higher, Shortness of breath, Fainting spells and Chest pain DC O2, CPAP, BIPAP Needs Home O2 Discharge instructions: No Meaningful Use Info Meaningful Use Meaningful Use Diagnoses (Choose all that apply): None applicable Ischemic Stroke Statin Dosing Therapy Reference: STATIN DOSE THERAPY REFERENCE: * Patients > 75 years receive moderate or high dose statin therapy. * Patients 75 years or YOUNGER should receive HIGH intensity statin dose unless contraindicated. You will be required to document reason for non-treatment if statin daily dose does not meet guidelines. HIGH DOSE STATIN THERAPY DAILY Atorvastatin > than or = to 40 mg Rosuvastatin > than or = to 20 mg Amlodipine + Atorvastatin > than or = to 2.5/40 mg Ezetimibe + Simvastatin 10/80 mg Simvastatin 80mg Discharge Plan Admission Admit Date/Time: 07/11/24 23:34 Attending Provider: Erik Sarmiento Primary Care Provider: Care Physician,No Primary Consulting Providers: Makenna Rothman Discharge Orders/Prescriptions Prescriptions: Continued albuterol sulfate 90 mcg/actuation HFA aerosol inhaler 2 inh inhalation Q6H Patient Comments: INHALER WITHOUT LABEL IN BAG OF MEDS. acetaminophen 500 mg capsule 500 mg PO Q6H Patient Comments: PT HAD 500MG TABLETS OTC IN BAG OF MEDS. UNSURE HOW PT IS TAKING. diphenhydramine HCl [Aler-Cap] 25 mg capsule 25 mg PO Q8H PRN (Reason: allergies) Patient Comments: PT HAD 25MG TABLETS OTC IN BAG OF MEDS. UNSURE HOW PT IS TAKING. atorvastatin 40 mg tablet 40 mg PO DAILY Qty: 30 11RF clopidogrel [Plavix] 75 mg tablet 75 mg PO ONCE Qty: 30 11RF furosemide [Lasix] 40 mg tablet 40 mg PO BID Qty: 60 11RF losartan [Cozaar] 100 mg tablet 100 mg PO DAILY Qty: 30 11RF amiodarone 200 mg tablet 100 mg PO BID Qty: 60 11RF carvedilol 25 mg tablet 50 mg PO BID Qty: 120 11RF Rx Instructions: two twice a day(50 mg twice a day) spironolactone [Aldactone] 25 mg tablet 25 mg PO DAILY Qty: 90 3RF Held Eliquis 5 mg tablet 5 mg PO .COMPLEX Qty: 60 11RF Hold Instructions: Resume on 07/19/24. Rx Instructions: 5 mg orally twice a day: ok to take with Clopidogrel due to Atrial Fib and recent coronary stent; Referrals / Follow Up: Thien Donaldson DO [Med Staff - Active Staff] - Within 2 Weeks Care Physician,No Primary [Primary Care Provider] - Within 2 Weeks Disposition Disposition (needs filled in before D/C Order can be placed): Home, Self Care Charges/Coding Visit Charges Inpatient E&M: 22716 Disch Hosp >30min
[2024-07-13 08:12] LABS: Anion Gap 8 (5-15); BUN 5 mg/dL (4-19); BUN/Creat Ratio 6.8 RATIO (10-20); Calcium,Total 8.3 mg/dL (7.6-11.0); Chloride 107 mmol/L (98-108); EST Glomerular Filtration Rate 99 (>60); Estimated Creatinine Clearance 93.02 ml/min (50-250); Glucose 94 mg/dL (70-99); Magnesium 1.9 mg/dL (1.5-2.2); Phosphorus 2.7 mg/dL (2.7-4.5); Potassium 4.1 mmol/L (3.3-5.1); Sodium Level 140 mmol/L (133-145)
[2024-07-13] MEDS: Furosemide 40 MG Tablet PO (09:43)
[2024-07-13] MEDS: Spironolactone 25 MG Tablet PO (09:44)
[2024-07-13] MEDS: Amiodarone 200 MG Tablet 100 MG PO (09:44)
[2024-07-13] MEDS: Carvedilol 25 MG Tablet 50 MG PO (09:45)
[2024-07-13] MEDS: Losartan Potassium 100 MG Tablet PO (09:45)
[2024-07-13 12:27] VITALS: BP 118/82; PULSE 59; RESP 18; TEMP 36.6; O2SAT 96
== END 2024-07-13 12:54 | disposition home or self-care (01) | DRG 347 ==
LOC: ED 21:20 → MS3 07-12 00:07
PROVIDERS: Internal Medicine Gastroenterology; Admitting Provider Family Medicine; Emergency Provider Surgery; Visit Provider Internal Medicine
PROC: 0DJD8ZZ Inspection of Lower Intestinal Tract, Via Natural or Artificial Opening Endoscopic (ICD-10-PCS; CPT 45378; principal; 2024-07-12 16:25)
DX: K64.2 Third degree hemorrhoids (principal); K57.31 Diverticulosis of large intestine without perforation or abscess with bleeding; D68.32 Hemorrhagic disorder due to extrinsic circulating anticoagulants; E87.1 Hypo-osmolality and hyponatremia; D62 Acute posthemorrhagic anemia; Z86.74 Personal history of sudden cardiac arrest; I69.311 Memory deficit following cerebral infarction; I10 Essential (primary) hypertension; I48.0 Paroxysmal atrial fibrillation; I25.10 Atherosclerotic heart disease of native coronary artery without angina pectoris; E78.5 Hyperlipidemia, unspecified; F17.210 Nicotine dependence, cigarettes, uncomplicated; I25.5 Ischemic cardiomyopathy; I69.398 Other sequelae of cerebral infarction; D12.5 Benign neoplasm of sigmoid colon; Z79.01 Long term (current) use of anticoagulants; Z79.02 Long term (current) use of antithrombotics/antiplatelets; Z79.899 Other long term (current) drug therapy
CPT/HCPCS: 36415; 74177; 80048; 80053; 82274; 83605; 83735; 84100; 85014; 85018; 85025; 85610; 85730; 86850; 86900; 86901; 88305; 97802; 99283; 99406; Q9967; A4216; J2405

== ENCOUNTER → 2024-08-21 | Outpatient (CLI) | payer MEDICARE, SELFPAY ==
[2024-08-21 12:07] LABS: AST(SGOT) 22 U/L (<=37); Alanine Aminotransfer ALT/SGPT 7 U/L (<=46); Albumin, Serum 4.4 g/dL (3.4-4.8); Alkaline Phosphatase 51 U/L (40-129); Bilirubin, Direct 0.21 mg/dL (0.00-0.30); Cholesterol 164 mg/dL (<=200); Globulin 3.3 g/dL (2.2-4.2); High Density Lipoprotein 45 mg/dL; Low Density Lipoprotein Calc. 99 mg/dL; Protein, Total 7.7 g/dL (5.9-8.4); Triglycerides 102 mg/dL; Very Low Density Lipoprotein 20 mg/dL (5-40); cholesterol:hdl ratio screen 3.64
--- OUTSIDE RECORDS SUMMARY | 2024-08-21 20:50 | XMS RPT_ITS | CCD ---
Author Organization [facility] Care Team Providers Care Director [employer] Name Role Phone Unavailable Primary Care Provider Unavailabl e Care Physician, No Primary Primary Care Provider Unavailable Care Physician, No Primary Referring Provider Un available Morena FLANNERY, Dr. Sargent Attending Provider Morena FLANNERY, Dr. Sargent Referring Provider Arie Berg Referring Unavailable Arie Berg Attending Unavailable Care Physician, No Primary Primary Care Unava ilable Puja Owusu Admitting Unavailable Arie Berg Consulting Unavailable Care Physician, No Primary Primary Care Unava ilable Jose M Nance Attending Unavailable Puja Owusu Consulting Unavailable Arie Berg Attending Unavailable Care Physician, No Primary Referring Unava ilable Care Physician, No Primary Primary Care Unava ilable Arie Berg Consulting Unavailable Arie Berg Referring Unavailable Care Physician, No Primary Primary Care Unava ilable Nii Odonnell Attending Unavailable Puja Owusu Consulting Unavailable Puja Owusu Attending Unavailable Care Physician, No Primary Primary Care Unava ilable Puja Owusu Admitting Unavailable Arie Berg Attending Unavailable Arie Berg Consulting Unavailable Sylvester Rincon Consulting Unavailable Pat, Mendez Consulting Unavailable Nii Odonnell Consulting Unavailable Erik Ortiz Consulting Unavailable Will Smith Consulting Unavailable Mayra, Christofer Consulting Unavailable Viktoriya Diez Consulting Unavailab le Carlito, Carlito Consulting Unavailable CraigLuis M acevedo Consulting Unavailable Naga, Harriet Consulting Unavailable Aljundi, Lamia Consulting Unavailable Leticia, Roger Consulting Unavailable Van Giles Consulting Unavailable Precious, Rajan Consulting Unavailable Michael Kearney Consulting Unavailable Yoshi Bennett Consulting Unavailable Arie Berg Consulting Unavailable Care Physician, No Primary Primary Care Unava ilable Puja Owusu Admitting Unavailable Jose M Nance Attending Unavailable Sylvester Rincon Consulting Unavailable Pat, Mendez Consulting Unavailable Nii Odonnell Consulting Unavailable Erik Ortiz Consulting Unavailable Will Smith Consulting Unavailable Mayra, Christofer Consulting Unavailable [place], Viktoriya Consulting Unavailab aly Esteban, Carlito Consulting Unavailable Craig, Luis M Consulting Unavailable Naga, Harriet Consulting Unavailable Aljundi, Lamia Consulting Unavailable Leticia, Roger Consulting Unavailable Irukulla, Van Consulting Unavailable Precious, Rajan Consulting Unavailable Caio, Michael Consulting Unavailable Yoshi Bennett Consulting Unavailable Umer, Puja Consulting Unavailable Jose M Nance Consulting Unavailable Arie Berg Attending Unavailable Care Physician, No Primary Primary Care Unava ilable Thien Donaldson Attending Unavailable Makenna Rothman Consulting Unavailable Makenna Rothman L Admitting Unavailable Erik Sarmiento Referring Unavailable Erik Sarmiento Consulting Unavailable Jose M Nnace Referring Unavailable Nii Odonnell Attending Unavailable Care Physician, No Primary Primary Care Unava ilable Arie Berg Referring Unavailable Arie Berg Attending Unavailable Care Physician, No Primary Primary Care Unava ilable Arie Berg Referring Unavailable Arie Berg Attending Unavailable Arie Berg Referring Unavailable Arie Berg Attending Unavailable Care Physician, No Primary Primary Care Unava ilable Care Physician, No Primary Primary Care Unava ilable Makenna Rothman Consulting Unavailable Makenna Rothman Admitting Unavailable Erik Sarmiento Attending Unavailable Arie Berg Consulting Unavailable Arie Berg Referring Unavailable Arie Berg Attending Unavailable Care Physician, No Primary Primary Care Unava ilable Julia Mantilla Attending Unavailable Care Physician, No Primary Primary Care Unava ilable Care Physician, No Primary Primary Care Unava ilable Julia Mantilla Attending Unavailable Arie Berg Attending Unavailable Care Physician, No Primary Referring Unava ilable Care Physician, No Primary Primary Care Unava ilable Erik Sarmiento Attending Unavailable Care Physician, No Primary Primary Care Unava ilable Makenna Rothman Consulting Unavailable Makenna Rothman Admitting Unavailable Makenna Rothman Attending Unavailable Care Physician, No Primary Primary Care Unava ilable Arie Berg Attending Unavailable Care Physician, No Primary Referring Unava ilable Care Physician, No Primary Primary Care Unava ilable Mahogany Sánchez Attending UnavailArie Ng Attending Unavailable Care Physician, No Primary Referring Unava ilable Care Physician, No Primary Primary Care Unava ilable Arie Berg Attending Unavailable Care Physician, No Primary Referring Unava ilable Care Physician, No Primary Primary Care Unava ilable Solis BENITEZ, Dr. Ryan Emergency Provider Stephan FLANNERY, Dr. Makenna Chawla Admit Provider Stephan FLANNERY, Dr. Makenna Chawla Other Provider Dr. Erik Sarmiento MD Attending Provider Harriet Rothman MD, Dr. Makenna Chawla Attending Provider Dr. Erik Sarmiento MD Other Provider Unavailable Torsten FLANNERY, Dr. Valencia Referring Provider Dr. Thien Ring DO Attending Provider Naveed Mehta Attending Provider Allergies Allergy Classification Reported Allergen(s) Allergy Type Date of Onset Reaction(s) Facility (1 source) Cat Hair Extract Drug Allergy 11-23-2023 [facility] (1 source) cat dander Drug allergy (disorder) 07-11-2024 [facility] (1 source) Unable to Assess Drug allergy (disorder) 11-06-2023 [facility] Medications Current Medications Medication Drug Class(es) Dates Sig (Normalized) Sig (Original) [id number] 200 actuat albuterol 0.09 mg/actuat metered dose inhaler (2 sources) beta2-Adrenergic Agonist Start: 11-06-2023 Albuterol Sulfate 90 mcg/actuation HFA aerosol inhaler Active 2 NMA INHALATION EVERY 6 HOURS November 06, 2023 12:00am amiodarone hydrochloride 200 mg oral tablet (8 sources) Antiarrhythmic Start: 01-24-2024 Amiodarone 200 mg tablet Active 100 mg PO TWICE A DAY 60 January 24, 2024 2:21pm Start: 11-14-2023 End: 01-24-2024 take 1 tablet by mouth twice daily Amiodarone 200 mg tablet Discontinued 200 mg PO TWICE A DAY 60 December 20, 2023 11:10am January 24, 2024 2:22pm Start: 11-10-2023 End: 11-23-2023 take 1 tablet by mouth three times daily Amiodarone 200 mg Tablet Discontinued 200 mg PO TWICE A DAY 0 November 10, 2023 12:00am November 23, 2023 3:09pm 200 mg three times a day apixaban 5 mg oral tablet (4 sources) Factor Xa Inhibitor Start: 11-14-2023 End: 12-20-2023 take 1 tablet by mouth twice daily Apixaban (Eliquis) 5 mg tablet Active 5 mg PO .COMPLEX 60 December 20, 2023 11:10am On Hold: Resume on 07/19/24. 5 mg orally twice a day: ok to take with Clopidogrel due to Atrial Fib and recent coronary stent; atorvastatin 40 mg oral tablet (4 sources) HMG-CoA Reductase Inhibitor Start: 11-14-2023 End: 12-20-2023 take 1 tablet by mouth once daily Atorvastatin 40 mg tablet Active 40 mg PO DAILY December 20, 2023 11:11am clopidogrel 75 mg oral tablet (4 sources) [id number] Platelet Inhibitor Start: 11-14-2023 End: 12-20-2023 take 1 tablet by mouth once Clopidogrel (Plavix) 75 mg tablet Active 75 mg PO ONCE December 20, 2023 11:11am diphenhydrAMINE hydrochloride 25 mg oral capsule (4 sources) Histamine-1 Receptor Antagonist Start: 11-06-2023 End: 11-23-2023 take 1 capsule by mouth every eight hours as needed Diphenhydramine Hcl (Aler-Cap) 25 mg capsule Active 25 mg PO Q8H as needed for allergies November 23, 2023 3:12pm docusate sodium 100 mg oral capsule (1 source) Start: 07-13-2024 take 1 capsule by mouth three times daily Docusate Sodium (Colace) 100 mg capsule Active 100 mg PO THREE TIMES A DAY July 13, 2024 12:00am furosemide 40 mg oral tablet (4 sources) Loop Diuretic Start: 11-14-2023 End: 12-20-2023 take 1 tablet by mouth twice daily Furosemide (Lasix) 40 mg tablet Active 40 mg PO TWICE A DAY December 20, 2023 11:11am losartan potassium 100 mg oral tablet (6 sources) Angiotensin 2 Receptor Jaciel Start: 11-14-2023 End: 12-20-2023 take 1 tablet by mouth once daily Losartan (Cozaar) 100 mg tablet Active 100 mg PO DAILY December 20, 2023 11:12am Start: 11-06-2023 End: 11-23-2023 take 1 tablet by mouth once daily Losartan 50 mg tablet Discontinued 50 mg PO DAILY November 06, 2023 12:00am November 23, 2023 3:12pm PT REMOVED LABEL FROM STOCK BOTTLE. UNSURE OF DIRECTIONS. Completed/Discontinued Medications Medication Drug Class(es) Dates Sig (Normalized) Sig (Original) acetaminophen 325 mg oral tablet (4 sources) Start: 11-10-2023 End: 11-23-2023 take 2 tablets by mouth every six hours as needed for pain Acetaminophen 325 mg Tablet Discontinued 650 mg PO EVERY 6 HOURS NEEDED as needed for Pain 1-10 0 November 10, 2023 12:00am November 23, 2023 3:10pm Start: 11-06-2023 take 1 capsule by [facility] every six hours Acetaminophen 500 mg capsule Active 500 mg PO EVERY 6 HOURS November 06, 2023 12:00am amLODIPine 5 mg oral tablet (2 sources) Dihydropyridine Calcium Channel Jaciel Start: 11-06-2023 End: 11-23-2023 take 1 tablet by mouth once daily Amlodipine 5 mg tablet Discontinued 5 mg PO DAILY November 06, 2023 12:00am November 23, 2023 3:13pm amoxicillin 500 mg / clavulanate 125 mg oral tablet (2 sources) Penicillin-class Antibacterial Start: 11-10-2023 End: 12-28-2023 Amoxicillin-Pot Clavulanate (Augmentin) 500-125 mg tablet Discontinued 1 {tbl} PO THREE TIMES A DAY November 10, 2023 12:00am December 28, 2023 11:17am with food aspirin 325 mg oral tablet (2 sources) Platelet Aggregation Inhibitor, Nonsteroidal Anti-inflammatory Drug Start: 11-06-2023 End: 11-23-2023 take 1 tablet by mouth once daily Aspirin 325 mg tablet Discontinued 325 mg PO DAILY November 06, 2023 12:00am November 23, 2023 3:11pm carvedilol 25 mg oral tablet (6 sources) alpha-Adrenergic Jaciel, beta-Adrenergic Jaciel Start: 11-14-2023 End: 03-26-2024 take 2 tablets by mouth twice daily, then take 1 mg by mouth twice daily Carvedilol 25 mg tablet Discontinued 50 mg PO TWICE A DAY 120 December 20, 2023 11:11am March 26, 2024 1:03pm two twice a day(50 mg twice a day) cetirizine hydrochloride 10 mg oral tablet (2 sources) Histamine-1 Receptor Antagonist Start: 11-06-2023 End: 11-23-2023 take 1 tablet by mouth once daily Cetirizine (Aller-Lalitha) 10 mg tablet Discontinued 10 mg PO DAILY November 06, 2023 12:00am November 23, 2023 3:11pm cyclobenzaprine hydrochloride 5 mg oral tablet (2 sources) Muscle Relaxant Start: 11-06-2023 End: 11-23-2023 take 1 tablet by mouth every eight hours Cyclobenzaprine 5 mg tablet Discontinued 5 mg PO Q8H November 06, 2023 12:00am November 23, 2023 3:13pm hydroCHLOROthiazide 25 mg oral tablet (2 sources) Thiazide Diuretic Start: 11-06-2023 End: 11-23-2023 take 2 tablets by mouth once daily Hydrochlorothiazide 25 mg tablet Discontinued 50 mg PO DAILY November 06, 2023 12:00am November 23, 2023 3:13pm ibuprofen 200 mg oral tablet (2 sources) Nonsteroidal Anti-inflammatory Drug Start: 11-06-2023 End: 11-23-2023 take 1 tablet by mouth every eight hours Ibuprofen (Advil) 200 mg tablet Discontinued 200 mg PO Q8H November 06, 2023 12:00am November 23, 2023 3:13pm metoprolol tartrate 25 mg oral tablet (2 sources) beta-Adrenergic Jaciel Start: 11-06-2023 End: 11-23-2023 take 1 tablet by mouth twice daily Metoprolol Tartrate 25 mg tablet Discontinued 25 mg PO TWICE A DAY November 06, 2023 12:00am November 23, 2023 3:12pm potassium chloride 20 meq extended release oral tablet (2 sources) Start: 11-10-2023 End: 11-23-2023 take 1 tablet by mouth once daily Potassium Chloride 20 mEq tablet extended release Discontinued 20 meq PO DAILY 1 November 10, 2023 12:00am November 23, 2023 3:12pm rosuvastatin calcium 10 mg oral tablet (2 sources) HMG-CoA Reductase Inhibitor Start: 11-06-2023 End: 11-23-2023 take 1 tablet by mouth once daily Rosuvastatin 10 mg tablet Discontinued 10 mg PO DAILY November 06, 2023 12:00am November 23, 2023 3:12pm PM spironolactone 25 mg oral tablet (6 sources) Aldosterone Antagonist Start: 11-14-2023 End: 03-26-2024 take 1 tablet by mouth once daily Spironolactone (Aldactone) 25 mg tablet Discontinued 25 mg PO DAILY December 20, 2023 11:10am March 26, 2024 1:03pm Problems Active Problems Problem Classification Problem Date Documented Da te Episodic/Chronic Acute cerebrovascular disease (1 source) Cerebrovascular accident; Translations: [Cerebral infarction, unspecified] Onset: 4 12-29-2023 Chronic Cardiac arrest and ventricular fibrillation (4 sources) Cardiac arrest; Translations: [Cardiac arrest, cause unspecified] Onset: 4 12-29-2023 Chronic Cardiac dysrhythmias (7 sources) Paroxysmal atrial fibrillation; Translations: [Paroxysmal atrial fibrillation] Onset: 4 11-15-2023 Chronic Coronary atherosclerosis and other heart disease (8 sources) Coronary arteriosclerosis; Translations: [Atherosclerotic heart disease of [place] coronary artery without angina pectoris] Onset: 4 12-29-2023 Chronic Deficiency and other anemia (2 sources) Anemia; Translations: [Anemia, unspecified] 11-23-2023 Episodic Deficiency and other anemia (1 source) Anemia, unspecified; Translations: [Anemia, unspecified] Onset: Episodic Disorders of lipid metabolism (6 sources) Mixed hyperlipidemia; Translations: [Mixed hyperlipidemia] Onset: 4 12-29-2023 Chronic Essential hypertension (8 sources) Essential hypertension; Translations: [Essential (primary) hypertension] Onset: 4 12-29-2023 Chronic Fluid and electrolyte disorders (2 sources) Acute hypokalemia; Translations: [Hypokalemia] 11-22-2023 Episodic Gastrointestinal hemorrhage (4 sources) Gastrointestinal hemorrhage, unspecified; Translations: [Gastrointestinal hemorrhage] Onset: 5 07-21-2024 Episodic Other circulatory disease (5 sources) H/O: cardiovascular disease; Translations: [Personal history of sudden cardiac arrest] 12-28-2023 Episodic Other circulatory disease (2 sources) History of cerebrovascular accident; Translations: [Personal history of transient ischemic attack (TIA), and cerebral infarction without residual deficits] 11-22-2023 Episodic Other circulatory disease (1 source) Personal history of sudden cardiac arrest; Translations: [Personal history of sudden cardiac arrest] Onset: 5 Episodic Donna-; endo-; and myocarditis; cardiomyopathy (except that caused by tuberculosis or sexually transmitted disease) (8 sources) Dilated cardiomyopathy; Translations: [Dilated cardiomyopathy] Onset: 4 12-29-2023 Chronic Peripheral and visceral atherosclerosis (4 sources) Peripheral vascular disease; Translations: [Peripheral vascular disease, unspecified] Onset: 4 12-29-2023 Chronic Respiratory failure; insufficiency; arrest (adult) (4 sources) Acute respiratory failure; Translations: [Acute respiratory failure, unspecified whether with hypoxia or hypercapnia] Onset: 4 11-22-2023 Episodic Unclassified (1 source) Ventricular tachycardia, unspecified; Translations: [Ventricular tachycardia, unspecified] Onset: 4 Past or Other Problems Problem Classification Problem Date Documented Da te Episodic/Chronic Other circulatory disease (1 source) Personal history of transient ischemic attack (TIA), and cerebral infarction without residual deficits; Translations: [Personal history of transient ischemic attack (TIA), and cerebral infarction without residual deficits] Onset: 11-21-2023 Episodic Residual codes; unclassified (2 sources) History of cardioversion; Translations: [Personal history of other medical treatment] Onset: 01-16-2024 01-23-2024 Episodic Residual codes; unclassified (1 source) Personal history of other medical treatment; Translations: [Personal history of other medical treatment] Onset: 01-23-2024 Episodic Results Test Name Value Interpretation Reference Range Facility Basic Metabolic Profile (BMP )on 07-15-2024 BUN Normal 06-29 [facility] Comment on above: Result Comment: Canc elled via OM: Order cancelled - Patient discharged Performed By: #### L 100.0100, L500.2500 ####[facility] [address] [place], [address] BUN/CRE Normal 12-30 [facility] Comment on above: Result Comment: Canc elled via OM: Order cancelled - Patient discharged Performed By: #### L 100.0100, L500.2500 ####[facility] [address] [place], [address] Calcium Normal 7.6-11.0 [facility] Comment on above: Result Comment: Canc elled via OM: Order cancelled - Patient discharged Performed By: #### L 100.0100, L500.2500 ####[facility] [address] [place], [address] CL Normal 98-108 [facility] Comment on above: Result Comment: Canc elled via OM: Order cancelled - Patient discharged Performed By: #### L 100.0100, L500.2500 ####[facility] [address] [place], [address] CO2 Normal 21.0-32.0 [facility] Comment on above: Result Comment: Canc elled via OM: Order cancelled - Patient discharged Performed By: #### L 100.0100, L500.2500 ####[facility] [address] [place], [address] CREAT,SERUM Normal 0.70-1.20 [facility] Comment on above: Result Comment: Canc elled via OM: Order cancelled - Patient discharged Performed By: #### L 100.0100, L500.2500 ####[facility] [address] [place], [address] eGFR Normal >60 [facility] Comment on above: Result Comment: Canc elled via OM: Order cancelled - Patient discharged Performed By: #### L 100.0100, L500.2500 ####[facility] [address] [place], [address] GAP Normal 5-15 [facility] Comment on above: Result Comment: Canc elled via OM: Order cancelled - Patient discharged Performed By: #### L 100.0100, L500.2500 ####[facility] [address] [place], [address] GLU Normal 70-99 [facility] Comment on above: Result Comment: Canc elled via OM: Order cancelled - Patient discharged Performed By: #### L 100.0100, L500.2500 ####[facility] [address] [place], [address] Potassium Normal 3.3-5.1 [facility] Comment on above: Result Comment: Canc elled via OM: Order cancelled - Patient discharged Performed By: #### L 100.0100, L500.2500 ####[facility] [address] [place], [address] Basic Metabolic Profile (BMP) Normal 133-145 [facility] Comment on above: Result Comment: Canc elled via OM: Order cancelled - Patient discharged Performed By: #### L 100.0100, L500.2500 ####[facility] [address] [place], [address] CBC W/Diff, Automatedon 05-0 -2024 Absolute Neut Normal 2.0-7.7 [facility] Comment on above: Result Comment: Canc elled via OM: Order cancelled - Patient discharged Performed By: #### L 100.0100, L500.2500 ####[facility] [address] [place], [address] HCT Normal 40-54 [facility] Comment on above: Result Comment: Canc elled via OM: Order cancelled - Patient discharged Performed By: #### L 100.0100, L500.2500 ####[facility] [address] [place], [address] HGB Normal 13.0-16.5 [facility] Comment on above: Result Comment: Canc elled via OM: Order cancelled - Patient discharged Performed By: #### L 100.0100, L500.2500 ####[facility] [address] [place], [address] MCH Normal 27.0-32.0 [facility] Comment on above: Result Comment: Canc elled via OM: Order cancelled - Patient discharged Performed By: #### L 100.0100, L500.2500 ####[facility] [address] [place], [address] MCHC Normal 32-36 [facility] Comment on above: Result Comment: Canc elled via OM: Order cancelled - Patient discharged Performed By: #### L 100.0100, L500.2500 ####[facility] [address] [place], [address] MCV Normal 80-94 [facility] Comment on above: Result Comment: Canc elled via OM: Order cancelled - Patient discharged Performed By: #### L 100.0100, L500.2500 ####[facility] [address] [place], [address] NEUT% Normal 47-70 [facility] Comment on above: Result Comment: Canc elled via OM: Order cancelled - Patient discharged Performed By: #### L 100.0100, L500.2500 ####[facility] [address] [place], [address] PLT Normal 150-450 [facility] Comment on above: Result Comment: Canc elled via OM: Order cancelled - Patient discharged Performed By: #### L 100.0100, L500.2500 ####[facility] [address] [place], [address] RBC Normal 4.6-6.2 [facility] Comment on above: Result Comment: Canc elled via OM: Order cancelled - Patient discharged Performed By: #### L 100.0100, L500.2500 ####[facility] [address] [place], [address] RDW CV Normal 11.6-14.6 [facility] Comment on above: Result Comment: Canc elled via OM: Order cancelled - Patient discharged Performed By: #### L 100.0100, L500.2500 ####[facility] [address] [place], [address] RDW SD Normal 35.1-43.9 [facility] Comment on above: Result Comment: Canc elled via OM: Order cancelled - Patient discharged Performed By: #### L 100.0100, L500.2500 ####[facility] [address] [place], [address] WBC Normal 4.4-11.0 [facility] Comment on above: Result Comment: Canc elled via OM: Order cancelled - Patient discharged Performed By: #### L 100.0100, L500.2500 ####[facility] [address] [place], [address] Basic Metabolic Profile (BMP )on 07-14-2024 BUN Normal 4-19 [facility] Comment on above: Result Comment: Canc elled via OM: Order cancelled - Patient discharged Performed By: #### L 100.0100, L500.2500 ####[facility] [address] [place], [address] BUN/CRE Normal 10-20 [facility] Comment on above: Result Comment: Canc elled via OM: Order cancelled - Patient discharged Performed By: #### L 100.0100, L500.2500 ####[facility] [address] [place], [address] Calcium Normal 7.6-11.0 [facility] Comment on above: Result Comment: Canc elled via OM: Order cancelled - Patient discharged Performed By: #### L 100.0100, L500.2500 ####[facility] [address] [place], [address] CL Normal 98-108 [facility] Comment on above: Result Comment: Canc elled via OM: Order cancelled - Patient discharged Performed By: #### L 100.0100, L500.2500 ####[facility] [address] [place], [address] CO2 Normal 21.0-32.0 [facility] Comment on above: Result Comment: Canc elled via OM: Order cancelled - Patient discharged Performed By: #### L 100.0100, L500.2500 ####[facility] [address] [place], [address] CREAT,SERUM Normal 0.70-1.20 [facility] Comment on above: Result Comment: Canc elled via OM: Order cancelled - Patient discharged Performed By: #### L 100.0100, L500.2500 ####[facility] [address] [place], [address] eGFR Normal >60 [facility] Comment on above: Result Comment: Canc elled via OM: Order cancelled - Patient discharged Performed By: #### L 100.0100, L500.2500 ####[facility] [address] [place], [address] GAP Normal 5-15 [facility] Comment on above: Result Comment: Canc elled via OM: Order cancelled - Patient discharged Performed By: #### L 100.0100, L500.2500 ####[facility] [address] [place], [address] GLU Normal 70-99 [facility] Comment on above: Result Comment: Canc elled via OM: Order cancelled - Patient discharged Performed By: #### L 100.0100, L500.2500 ####[facility] [address] [place], [address] Potassium Normal 3.3-5.1 [facility] Comment on above: Result Comment: Canc elled via OM: Order cancelled - Patient discharged Performed By: #### L 100.0100, L500.2500 ####[facility] [address] [place], [address] Basic Metabolic Profile (BMP) Normal 133-145 [facility] Comment on above: Result Comment: Canc elled via OM: Order cancelled - Patient discharged Performed By: #### L 100.0100, L500.2500 ####[facility] [address] [place], [address] CBC W/Diff, Automatedon 05-0 -2024 Absolute Neut Normal 2.0-7.7 [facility] Comment on above: Result Comment: Canc elled via OM: Order cancelled - Patient discharged Performed By: #### L 100.0100, L500.2500 ####[facility] [address] [place], [address] HCT Normal 40-54 [facility] Comment on above: Result Comment: Canc elled via OM: Order cancelled - Patient discharged Performed By: #### L 100.0100, L500.2500 ####[facility] [address] [place], [address] HGB Normal 13.0-16.5 [facility] Comment on above: Result Comment: Canc elled via OM: Order cancelled - Patient discharged Performed By: #### L 100.0100, L500.2500 ####[facility] [address] [place], [address] MCH Normal 27.0-32.0 [facility] Comment on above: Result Comment: Canc elled via OM: Order cancelled - Patient discharged Performed By: #### L 100.0100, L500.2500 ####[facility] [address] [place], [address] MCHC Normal 32-36 [facility] Comment on above: Result Comment: Canc elled via OM: Order cancelled - Patient discharged Performed By: #### L 100.0100, L500.2500 ####[facility] [address] [place], [address] MCV Normal 80-94 [facility] Comment on above: Result Comment: Canc elled via OM: Order cancelled - Patient discharged Performed By: #### L 100.0100, L500.2500 ####[facility] [address] [place], [address] NEUT% Normal 47-70 [facility] Comment on above: Result Comment: Canc elled via OM: Order cancelled - Patient discharged Performed By: #### L 100.0100, L500.2500 ####[facility] [address] [place], [address] PLT Normal 150-450 [facility] Comment on above: Result Comment: Canc elled via OM: Order cancelled - Patient discharged Performed By: #### L 100.0100, L500.2500 ####[facility] [address] [place], [address] RBC Normal 4.6-6.2 [facility] Comment on above: Result Comment: Canc elled via OM: Order cancelled - Patient discharged Performed By: #### L 100.0100, L500.2500 ####[facility] [address] [place], [address] RDW CV Normal 11.6-14.6 [facility] Comment on above: Result Comment: Canc elled via OM: Order cancelled - Patient discharged Performed By: #### L 100.0100, L500.2500 ####[facility] [address] [place], [address] RDW SD Normal 35.1-43.9 [facility] Comment on above: Result Comment: Canc elled via OM: Order cancelled - Patient discharged Performed By: #### L 100.0100, L500.2500 ####[facility] [address] [place], [address] WBC Normal 4.4-11.0 [facility] Comment on above: Result Comment: Canc elled via OM: Order cancelled - Patient discharged Performed By: #### L 100.0100, L500.2500 ####[facility] [address] [place], [address] Absolute lymphocyte countOrd ered By: Erik Sarmiento on 07-13-2024 Lymphocytes Auto (Unsp spec) [#/Vol] 1.72 10*3/uL 0.83-4.51 [facility] Absolute neutrophil countOrd ered By: Erik Sarmiento on 07-13-2024 Neutrophils (Bld) [#/Vol] 3.0 10*3/uL 2.0-7.7 [facility] Anion gap in Serum or Plasma Ordered By: Erik Sarmiento on 07-13-2024 Anion gap [Moles/Vol] 8 mmol/L 5-15 [facility] Automated lymphocyte count a s percentage of total leukocytesOrdered By: Erik Sarmiento on 07-13-2024 Lymphocytes/100 WBC Auto (Unsp spec) 31.2 % 19-41 [facility] BUN/creatinine ratioOrdered By: Erik Sarmiento on 07-13-2024 Urea nitrogen/Creatinine [Mass ratio] 6.8 mg/mg Low 10-20 [facility] Basic Metabolic Profile (BMP )on 07-13-2024 BUN/CRE 6.8 RATIO Low 10-20 [facility] Comment on above: Performed By: #### L 100.0100, L501.5200, L500.2500, L501.2300 ####[facility] [address] [place], [address] Calcium [Mass/Vol] 8.3 mg/dL Normal 7.6-11.0 [facility] Comment on above: Performed By: #### L 100.0100, L501.5200, L500.2500, L501.2300 ####[facility] [address] [place], [address] Chloride [Moles/Vol] 107 mmol/L Normal 98-108 [facility] Comment on above: Performed By: #### L 100.0100, L501.5200, L500.2500, L501.2300 ####[facility] [address] [place], [address] CO2 [Moles/Vol] 25.0 mmol/L Normal 21.0-32.0 [facility] Comment on above: Performed By: #### L 100.0100, L501.5200, L500.2500, L501.2300 ####[facility] [address] [place], [address] Creatinine [Mass/Vol] 0.80 mg/dL Normal 0.70-1.20 [facility] Comment on above: Performed By: #### L 100.0100, L501.5200, L500.2500, L501.2300 ####[facility] [address] [place], [address] ECRCL 93.02 ml/min Normal 50-250 [facility] Comment on above: Performed By: #### L 100.0100, L501.5200, L500.2500, L501.2300 ####[facility] [address] [place], [address] GAP 8 Normal 5-15 [facility] Comment on above: Performed By: #### L 100.0100, L501.5200, L500.2500, L501.2300 ####[facility] [address] [place], [address] GFR/1.73 sq M.predicted among non-blacks MDRD (S/P/Bld) [Vol rate/Area] 99 mL/min/{1.73_m2} Normal >60 [facility] Comment on above: Result Comment: mL/m in/1.73m2 CKD-EPI Creatinine Equation (2020) Performed By: #### L 100.0100, L501.5200, L500.2500, L501.2300 ####[facility] [address] [place], [address] Glucose [Mass/Vol] 94 mg/dL Normal 70-99 [facility] Comment on above: Performed By: #### L 100.0100, L501.5200, L500.2500, L501.2300 ####[facility] [address] [place], [address] Potassium [Moles/Vol] 4.1 mmol/L Normal 3.3-5.1 [facility] Comment on above: Performed By: #### L 100.0100, L501.5200, L500.2500, L501.2300 ####[facility] [address] [place], [address] Sodium [Moles/Vol] 140 mmol/L Normal 133-145 [facility] Comment on above: Performed By: #### L 100.0100, L501.5200, L500.2500, L501.2300 ####[facility] [address] [place], [address] Urea nitrogen [Mass/Vol] 5 mg/dL Normal 4-19 [facility] Comment on above: Performed By: #### L 100.0100, L501.5200, L500.2500, L501.2300 ####[facility] [address] [place], [address] Basophil percentageOrdered B y: Erik Sarmiento on 07-13-2024 Basophils/100 WBC (Bld) 0.4 % 0-1 [facility] Blood manual differential co mment interpretation (narrative result)Ordered By: Erik Sarmiento on 07-13-2024 Manual differential comment Ruslan (Bld) [Interp] SCANNED [facility] CBC W/Diff, Automatedon ATYPICAL LYMPH 1+ Normal [facility] Comment on above: Performed By: #### L 100.0100, L501.5200, L500.2500, L501.2300 ####[facility] [address] [place], [address] SMEAR COMMENT SCANNED Normal [facility] Comment on above: Performed By: #### L 100.0100, L501.5200, L500.2500, L501.2300 ####[facility] [address] [facility] [place], [address] Carbon dioxide, total [Moles /volume] in Central venous bloodOrdered By: Erik Sarmiento on 07-13-2024 CO2 [Moles/Vol] 25.0 mmol/L 21.0-32.0 [facility] Chloride assayOrdered By: Roman Sarmiento on 07-13-2024 Chloride [Moles/Vol] 107 mmol/L 98-108 [facility] Eosinophil percentageOrdered By: Erik Sarmiento on 07-13-2024 Eosinophils/100 WBC (Bld) 4.9 % 0-5 [facility] Erythrocyte distribution wid th ratioOrdered By: Erik Sarmiento on 07-13-2024 Erythrocyte distribution width (RBC) [Ratio] 14.2 % 11.6-14.6 [facility] Erythrocyte distribution wid th standard deviationOrdered By: Erik Sarmiento on 07-13-2024 Erythrocyte distribution width (RBC) [Ratio] 51.3 fl High 35.1-43.9 [facility] Glomerular filtration rate ( GFR) estimation/1.73 sq m using serum, plasma, or whole bOrdered By: Erik Sarmiento on 07-13-2024 GFR/1.73 sq M.predicted among non-blacks MDRD (S/P/Bld) [Vol rate/Area] 99 mL/min/{1.73_m2} >60 [facility] Comment on above: mL/min/1.73m2 CKD-EP I Creatinine Equation (2020) Hematocrit Auto (Bld) [Volum e fraction]Ordered By: Erik Sarmiento on 07-13-2024 Hematocrit (Bld) [Volume fraction] 34.3 % Low 40-54 [facility] Hemoglobin measurementOrdere d By: Erik Sarmiento on 07-13-2024 Hemoglobin (Bld) [Mass/Vol] 11.4 g/dL Low 13.0-16.5 [facility] Immature granulocytes/100 WB C Auto (Bld)Ordered By: Erik Sarmiento on 07-13-2024 Immature granulocytes/100 WBC (Bld) 0.400 % 0.0-0.9 [facility] Comment on above: IG% - Immature Granu locytes (promyelocytes, myelocytes and metamyelocytes) > 1% indicates that a LEFT SHIFT is Present. MCV (mean corpuscular volume ) determinationOrdered By: Erik Sarmiento on 07-13-2024 MCV (RBC) [Entitic vol] 100.0 fL High 80-94 [facility] Magnesiumon 07-13-2024 Magnesium [Mass/Vol] 1.9 mg/dL Normal 1.5-2.2 [facility] Comment on above: Performed By: #### L 100.0100, L501.5200, L500.2500, L501.2300 ####[facility] [address] [place], [address] Magnesium measurement (mass/ volume)Ordered By: Erik Sarmiento on 07-13-2024 Magnesium (Unsp spec) [Mass/Vol] 1.9 mg/dL 1.5-2.2 [facility] Mean corpuscular hemoglobin (MCH) determinationOrdered By: Erik Sarmiento on 07-13-2024 MCH (RBC) [Entitic mass] 33.2 pg High 27.0-32.0 [facility] Mean corpuscular hemoglobin concentration (MCHC) determinationOrdered By: Erik Sarmiento on 07-13-2024 MCHC (RBC) [Mass/Vol] 33.2 g/dL 32-36 [facility] Mean platelet volume determi nationOrdered By: Erik Sarmiento on 07-13-2024 Platelet mean volume (Bld) [Entitic vol] 10.3 fL 6.2-12.0 [facility] Monocyte percentageOrdered B y: Erik Sarmiento on 07-13-2024 Monocytes/100 WBC (Bld) 8.0 % 0-10 [facility] Neutrophil percentageOrdered By: Erik Sarmiento on 07-13-2024 Neutrophils/100 WBC (Bld) 55.1 % 47-70 [facility] Nucleated red blood cell per centageOrdered By: Erik Sarmiento on 07-13-2024 Nucleated RBC/100 WBC (Bld) [Ratio] 0 % 0-5 [facility] Phosphoruson 07-13-2024 Phosphate [Mass/Vol] 2.7 mg/dL Normal 2.7-4.5 [facility] Comment on above: Performed By: #### L 100.0100, L501.5200, L500.2500, L501.2300 ####[facility] [address] [place], [address] Platelet countOrdered By: Roman Sarmiento on 07-13-2024 Platelets (Bld) [#/Vol] 131 10*3/uL Low 150-450 [facility] Potassium measurement (mass/ volume)Ordered By: Erik Sarmiento on 07-13-2024 Potassium (Unsp spec) [Mass/Vol] 4.1 mmol/L 3.3-5.1 [facility] RBC Auto (Bld) [#/Vol]Ordere d By: Erik Sarmiento on 07-13-2024 RBC (Bld) [#/Vol] 3.43 10*6/uL Low 4.6-6.[address] [facility] Serum creatinine measurement (mass/volume)Ordered By: Erik Sarmiento on 07-13-2024 Creatinine [Mass/Vol] 0.80 mg/dL 0.70-1.20 [facility] Serum glucose measurement (m ass/volume)Ordered By: Erik Sarmiento on 07-13-2024 Glucose [Mass/Vol] 94 mg/dL 70-99 [facility] Serum or plasma calcium hui urement (mass/volume)Ordered By: Erik Sarmiento on 07-13-2024 Calcium [Mass/Vol] 8.3 mg/dL 7.6-11.0 [facility] Serum or plasma urea nitroge n measurement (mass/volume)Ordered By: Erik Sarmiento on 07-13-2024 Urea nitrogen [Mass/Vol] 5 mg/dL 4-19 [facility] Sodium levelOrdered By: Jair Sarmiento on 07-13-2024 Sodium [Moles/Vol] 140 mmol/L 133-145 [facility] White blood cell (WBC) count Ordered By: Erik Sarmiento on 07-13-2024 WBC (Bld) [#/Vol] 5.5 10*3/uL 4.4-11.0 [facility] Bilirubin, totalOrdered By: Makenna Rothman on 07-12-2024 Bilirubin [Mass/Vol] 0.47 mg/dL 0.00-1.30 [facility] CBC W/Diff, Automatedon REACTIVE LYMPH 1+ Normal [facility] Comment on above: Performed By: #### L 100.0100 ####[facility] [address] [place], [address] Colonoscopy Reporton 025 Colonoscopy Report Normal [facility] Comprehensive Metabolic Prof ilon 07-12-2024 Albumin [Mass/Vol] 3.6 g/dL Normal 3.4-4.8 [facility] Comment on above: Performed By: #### L 500.4050 ####[facility] [address] [place], [address] Albumin/Globulin [Mass ratio] 1.5 {ratio} Normal 0.9-2.4 [facility] Comment on above: Performed By: #### L 500.4050 ####[facility] [address] [place], [address] ALK PHOS 36 U/L Low 40-129 [facility] Comment on above: Performed By: #### L 500.4050 ####[facility] [address] [place], [address] ALT [Catalytic activity/Vol] 7 U/L Normal <=46 [facility] Comment on above: Performed By: #### L 500.4050 ####[facility] [address] [place], [address] AST [Catalytic activity/Vol] 22 U/L Normal <=37 [facility] Comment on above: Performed By: #### L 500.4050 ####[facility] [address] [place], [address] Bilirubin [Mass/Vol] 0.47 mg/dL Normal 0.00-1.30 [facility] Comment on above: Performed By: #### L 500.4050 ####[facility] [address] [place], [address] BUN/CRE 12.5 RATIO Normal 10-20 [facility] Comment on above: Performed By: #### L 500.4050 ####[facility] [address] [place], [address] Calcium [Mass/Vol] 8.4 mg/dL Normal 7.6-11.0 [facility] Comment on above: Performed By: #### L 500.4050 ####[facility] [address] [place], [address] Chloride [Moles/Vol] 103 mmol/L Normal 98-108 [facility] Comment on above: Performed By: #### L 500.4050 ####[facility] [address] [place], [address] CO2 [Moles/Vol] 22.5 mmol/L Normal 21.0-32.0 [facility] Comment on above: Performed By: #### L 500.4050 ####[facility] [address] [place], [address] Creatinine [Mass/Vol] 0.87 mg/dL Normal 0.70-1.20 [facility] Comment on above: Performed By: #### L 500.4050 ####[facility] [address] [place], [address] ECRCL 86.02 ml/min Normal 50-250 [facility] Comment on above: Performed By: #### L 500.4050 ####[facility] [address] [place], [address] GAP 9 Normal 5-15 [facility] Comment on above: Performed By: #### L 500.4050 ####[facility] [address] [place], [address] GFR/1.73 sq M.predicted among non-blacks MDRD (S/P/Bld) [Vol rate/Area] 96 mL/min/{1.73_m2} Normal >60 [facility] Comment on above: Result Comment: mL/m in/1.73m2 CKD-EPI Creatinine Equation (2020) Performed By: #### L 500.4050 ####[facility] [address] [place], [address] Globulin (S) [Mass/Vol] 2.4 g/dL Normal 2.2-4.2 [facility] Comment on above: Performed By: #### L 500.4050 ####[facility] [address] [place], [address] Glucose [Mass/Vol] 95 mg/dL Normal 70-99 [facility] Comment on above: Performed By: #### L 500.4050 ####[facility] [address] [place], [address] Potassium [Moles/Vol] 3.6 mmol/L Normal 3.3-5.1 [facility] Comment on above: Performed By: #### L 500.4050 ####[facility] [address] [place], [address] Sodium [Moles/Vol] 134 mmol/L Normal 133-145 [facility] Comment on above: Performed By: #### L 500.4050 ####[facility] [address] [place], [address] T PROT 6.0 g/dL Normal 5.9-8.4 [facility] Comment on above: Performed By: #### L 500.4050 ####[facility] [address] [place], [place], [address] Urea nitrogen [Mass/Vol] 11 mg/dL Normal 4-19 [facility] Comment on above: Performed By: #### L 500.4050 ####[facility] [address] [place], [place], [address] HH, Hemoglobin AND Hematocri ton 07-12-2024 Hematocrit (Bld) [Volume fraction] 32.3 % Low 40-54 [facility] Comment on above: Performed By: #### L 100.0600, BTS ####[facility] [address] [place], [place], [address] Hemoglobin (Bld) [Mass/Vol] 11.2 g/dL Low 13.0-16.5 [facility] Comment on above: Performed By: #### L 100.0600, BTS ####[facility] [address] [place], [place], [address] Laboratory - Chemistry and C hemistry - challengeOrdered By: Makenna Rothman on 07-12-2024 AST [Catalytic activity/Vol] 22 U/L <38 [facility] MR/CON.PCM.GIon 07-12-2024 MR/CON.PCM.GI Normal [facility] MR/POSTOP.ANEon 07-12-2024 MR/POSTOP.ANE Normal [facility] MR/FXSHOGJM0nz 07-12-2024 MR/POSTOPAN2 Normal [facility] Magnesiumon 07-12-2024 Magnesium [Mass/Vol] 2.1 mg/dL Normal 1.5-2.2 [facility] Comment on above: Order Comment: Comme nts: may add to ED labs*ADD ON, NOT STORED* Performed By: #### L 501.5200 ####[facility] [address] [place], [place], [address] Serum globulin measurementOr dered By: Makenna Rothman on 07-12-2024 Globulin (S) [Mass/Vol] 2.4 g/dL 2.2-4.2 [facility] Serum or plasma alanine moseley otransferase (ALT) measurementOrdered By: Makenna Rothman on 07-12-2024 ALT [Catalytic activity/Vol] 7 U/L <47 [facility] Serum or plasma albumin hui urement (mass/volume)Ordered By: Makenna Rothman on 07-12-2024 Albumin [Mass/Vol] 3.6 g/dL 3.4-4.8 [facility] Serum or plasma albumin/glob ulin mass ratioOrdered By: Makenna Stephan on 07-12-2024 Albumin/Globulin [Mass ratio] 1.5 {ratio} 0.9-2.4 [facility] Serum or plasma alkaline [place] sphatase measurementOrdered By: Makenna Stephan on 07-12-2024 ALP [Catalytic activity/Vol] 36 U/L Low 40-129 [facility] Surgery Specimen Level Nadege 07-12-2024 Surgery Specimen Level IV Normal [facility] Comment on above: Performed By: #### P SUIV ####[facility] [address] [facility] [place], [place], [id number] Total proteinOrdered By: Mahesh Rothman on 07-12-2024 Protein [Mass/Vol] 6.0 g/dL 5.9-8.4 [facility] Type AND Screenon 07-12-2024 ABO and Rh group Nom (Bld) Blood group O Rh(D) negative Normal [facility] Comment on above: Order Comment: HGI Performed By: #### L 100.0600, BTS ####[facility] [address] [facility] [place], [place], [address] Abdomen/Pelvis W IV Cont ONL Yon 07-11-2024 Abdomen/Pelvis W IV Cont ONLY Normal [facility] Activated partial thrombopla stin time (aPTT) in platelet poor plasma by coagulation aOrdered By: Ryan Ely on 07-11-2024 aPTT Coag (PPP) [Time] 29.7 s 24.1-36.2 [facility] Basic Metabolic Profile (BMP )on 07-11-2024 BUN/CRE 13.0 RATIO Normal 10-20 [facility] Comment on above: Performed By: #### L 500.2500, L503.6005, M100.7900, L100.0100 ####[facility] [address] [place], [address] Calcium [Mass/Vol] 9.1 mg/dL Normal 7.6-11.0 [facility] Comment on above: Performed By: #### L 500.2500, L503.6005, M100.7900, L100.0100 ####[facility] [address] [place], [address] Chloride [Moles/Vol] 96 mmol/L Low 98-108 [facility] Comment on above: Performed By: #### L 500.2500, L503.6005, M100.7900, L100.0100 ####[facility] [address] [place], [address] CO2 [Moles/Vol] 21.0 mmol/L Normal 21.0-32.0 [facility] Comment on above: Performed By: #### L 500.2500, L503.6005, M100.7900, L100.0100 ####[facility] [address] [place], [address] Creatinine [Mass/Vol] 1.20 mg/dL Normal 0.70-1.20 [facility] Comment on above: Performed By: #### L 500.2500, L503.6005, M100.7900, L100.0100 ####[facility] [address] [place], [address] ECRCL 63.92 ml/min Normal 50-250 [facility] Comment on above: Performed By: #### L 500.2500, L503.6005, M100.7900, L100.0100 ####[facility] [address] [place], [address] GAP 15 Normal 5-15 [facility] Comment on above: Performed By: #### L 500.2500, L503.6005, M100.7900, L100.0100 ####[facility] [address] [place], [address] GFR/1.73 sq M.predicted among non-blacks MDRD (S/P/Bld) [Vol rate/Area] 68 mL/min/{1.73_m2} Normal >60 [facility] Comment on above: Result Comment: mL/m in/1.73m2 CKD-EPI Creatinine Equation (2020) Performed By: #### L 500.2500, L503.6005, M100.7900, L100.0100 ####[facility] [address] [place], [address] Glucose [Mass/Vol] 105 mg/dL High 70-99 [facility] Comment on above: Performed By: #### L 500.2500, L503.6005, M100.7900, L100.0100 ####[facility] [address] [place], [address] Potassium [Moles/Vol] 3.6 mmol/L Normal 3.3-5.1 [facility] Comment on above: Performed By: #### L 500.2500, L503.6005, M100.7900, L100.0100 ####[facility] [address] [place], [address] Sodium [Moles/Vol] 132 mmol/L Low 133-145 [facility] Comment on above: Performed By: #### L 500.2500, L503.6005, M100.7900, L100.0100 ####[facility] [address] [place], [address] Urea nitrogen [Mass/Vol] 16 mg/dL Normal 4-19 [facility] Comment on above: Performed By: #### L 500.2500, L503.6005, M100.7900, L100.0100 ####[facility] [address] [place], [address] CBC W/Diff, Automatedon 05 PLT EST ADEQUATE Normal ADEQ [facility] Comment on above: Performed By: #### L 500.2500, L503.6005, M100.7900, L100.0100 ####[facility] [address] [place], [address] Emergency Department Summary on 07-11-2024 Emergency Department Summary Normal [facility] H AND P Exam - Hospitaliston 07-11-2024 H&P Exam - Hospitalist Normal [facility] International normalized rat io (INR) calculationOrdered By: Ryan Ely on 07-11-2024 INR Coag (Bld) [Relative time] 1.2 {INR} [facility] Lactic Acidon 07-11-2024 Lactate [Moles/Vol] 1.3 mmol/L Normal 0.0-2.[address] [facility] [facility] Comment on above: Order Comment: Y Performed By: #### L 500.2500, L503.6005, M100.7900, L100.0100 ####[facility] [address] [place], [place], [id number] Lactic acid measurementOrder ed By: Ryan Ely on 07-11-2024 Lactate [Moles/Vol] 1.3 mmol/L 0.0-2.[address] [facility] Partial Thromboplast Timeon 07-11-2024 aPTT Coag (Bld) [Time] 29.7 s Normal 24.1-36.2 [facility] Comment on above: Performed By: #### L 300.4310, L300.3900 ####[facility] [address] [place], [place], [id number] Platelet estimateOrdered By: Ryan Ely on 07-11-2024 Platelets LM Ql (Bld) ADEQUATE ADEQ [facility] Prothrombin Time w/INRon INR Coag (PPP) [Relative time] 1.2 {INR} Normal [facility] Comment on above: Performed By: #### L 300.4310, L300.3900 ####[facility] [address] [place], [address] Prothrombin Time w/INROrdere d By: Ryan Ely on 07-11-2024 PT Coag (PPP) [Time] 15.0 s High 11.7-14.9 [facility] Comment on above: Performed By: #### L 300.4310, L300.3900 ####[facility] [address] [place], [address] Stool Occult Blood iFOBon STOB Positive Normal [facility] Comment on above: Performed By: #### L 500.2500, L503.6005, M100.7900, L100.0100 ####[facility] [address] [place], [address] Stool gastrointestinal hemog lobin detection by immunologic methodOrdered By: Ryan Ely on 07-11-2024 Lower GI hemoglobin IA Ql (Stl) Positive Abnormal [facility] 12 Lead EKG performed by [facility] on 05-23-2024 12 Lead EKG performed by [facility] Normal [facility] Anion gap in Serum or Plasma Ordered By: Arie Berg on 05-23-2024 Anion gap [Moles/Vol] 13 mmol/L 07-25 [facility] BUN/creatinine ratioOrdered By: Arie Berg on 05-23-2024 Urea nitrogen/Creatinine [Mass ratio] 20.2 mg/mg High - [facility] Basic Metabolic Profile (BMP )on 05-23-2024 BUN/CRE 20.2 RATIO High 12-30 [facility] Comment on above: Performed By: #### L 500.2500, L503.7505 ####[facility] [address] [place], [address] Calcium [Mass/Vol] 9.3 mg/dL Normal 7.6-11.0 [facility] Comment on above: Performed By: #### L 500.2500, L503.7505 ####[facility] [address] [place], [address] Chloride [Moles/Vol] 101 mmol/L Normal 98-108 [facility] Comment on above: Performed By: #### L 500.2500, L503.7505 ####[facility] [address] [place], [address] CO2 [Moles/Vol] 23.6 mmol/L Normal 21.0-32.0 [facility] Comment on above: Performed By: #### L 500.2500, L503.7505 ####[facility] [address] [place], [address] Creatinine [Mass/Vol] 1.16 mg/dL Normal 0.70-1.20 [facility] Comment on above: Performed By: #### L 500.2500, L503.7505 ####[facility] [address] [place], [address] GAP 13 Normal 5-15 [facility] Comment on above: Performed By: #### L 500.2500, L503.7505 ####[facility] [address] [place], [address] GFR/1.73 sq M.predicted among non-blacks MDRD (S/P/Bld) [Vol rate/Area] 70 mL/min/{1.73_m2} Normal >60 [facility] Comment on above: Result Comment: mL/m in/1.73m2 CKD-EPI Creatinine Equation (2020) Performed By: #### L 500.2500, L503.7505 ####[facility] [address] [place], [address] Glucose [Mass/Vol] 102 mg/dL High 70-99 [facility] Comment on above: Performed By: #### L 500.2500, L503.7505 ####[facility] [address] [place], [address] Potassium [Moles/Vol] 4.9 mmol/L Normal 3.3-5.1 [facility] Comment on above: Performed By: #### L 500.2500, L503.7505 ####[facility] [address] [place], [address] Sodium [Moles/Vol] 138 mmol/L Normal 133-145 [facility] Comment on above: Performed By: #### L 500.2500, L503.7505 ####[facility] [address] [place], [address] Urea nitrogen [Mass/Vol] 23 mg/dL High 4-19 [facility] Comment on above: Performed By: #### L 500.2500, L503.7505 ####[facility] [address] [place], [address] Carbon dioxide, total [Moles /volume] in Central venous bloodOrdered By: Arie Berg on 05-23-2024 CO2 [Moles/Vol] 23.6 mmol/L 21.0-32.0 [facility] Cardiology Visit Reporton Cardiology Visit Report Normal [facility] Chloride assayOrdered By: Paula Berg on 05-23-2024 Chloride [Moles/Vol] 101 mmol/L 98-108 [facility] GFR/1.73 sq M.predicted lm g non-blacks MDRD (S/P/Bld) [Vol rate/Area]Ordered By: Arie Berg on 05-23-2024 Estimated GFR (MDRD) Non-Af Amer 70 >60 [facility] Comment on above: mL/min/1.73m2 CKD-EP I Creatinine Equation (2020) Glomerular filtration rate ( GFR) estimation/1.73 sq m using serum, plasma, or whole bOrdered By: Arie Berg on 05-23-2024 GFR/1.73 sq M.predicted among non-blacks MDRD (S/P/Bld) [Vol rate/Area] 70 mL/min/{1.73_m2} >60 [facility] Comment on above: mL/min/1.73m2 CKD-EP I Creatinine Equation (2020) L503.7505on 05-23-2024 Natriuretic peptide B (Bld) [Mass/Vol] 550 pg/mL Normal <=900 [facility] Comment on above: Result Comment: Hear t Failure Unlikely: < 300 pg/mLHeart Failure Likely< 50 Years: > 450 pg/mL50-75 Years: > 900 pg/mL>75 Years: > 1800 pg/mL Performed By: #### L 500.2500, L503.7505 ####[facility] [address] [place], [place], [address] Laboratory - Chemistry and C hemistry - challengeOrdered By: Arie Berg on 05-23-2024 Natriuretic peptide B (Bld) [Mass/Vol] 550 pg/mL <900 [facility] Comment on above: Heart Failure Unlike ly: < 300 pg/mLHeart Failure Likely< 50 Years: > 450 pg/mL50-75 Years: > 900 pg/mL>75 Years: > 1800 pg/mL Potassium (Unsp spec) [Mass/ Vol]Ordered By: Arie Berg on 05-23-2024 Potassium [Moles/Vol] 4.9 mmol/L 3.3-5.1 [facility] Potassium measurement (mass/ volume)Ordered By: Arie Berg on 05-23-2024 Potassium (Unsp spec) [Mass/Vol] 4.9 mmol/L 3.3-5.1 [facility] Serum creatinine measurement (mass/volume)Ordered By: Arie Berg on 05-23-2024 Creatinine [Mass/Vol] 1.16 mg/dL 0.70-1.20 [facility] Serum glucose measurement (m ass/volume)Ordered By: Arie Berg on 05-23-2024 Glucose [Mass/Vol] 102 mg/dL High 70-99 [facility] Serum or plasma calcium hui urement (mass/volume)Ordered By: Arie Berg on 05-23-2024 Calcium [Mass/Vol] 9.3 mg/dL 7.6-11.0 [facility] Serum or plasma urea nitroge n measurement (mass/volume)Ordered By: Arie Berg on 05-23-2024 Urea nitrogen [Mass/Vol] 23 mg/dL High 4-19 [facility] Sodium levelOrdered By: Harish parra Morena on 05-23-2024 Sodium [Moles/Vol] 138 mmol/L 133-145 [facility] 12 Lead EKG performed by [facility] on 01-23-2024 12 Lead EKG performed by [facility] Normal [facility] Basic Metabolic Profile (BMP )on 01-16-2024 BUN/CRE 15.4 RATIO Normal 10-20 [facility] Comment on above: Performed By: #### L 500.2500 ####[facility] [address] [place], [address] CA,Total 9.4 mg/dL Normal 8.5-10.1 [facility] Comment on above: Performed By: #### L 500.2500 ####[facility] [address] [place], [address] Chloride [Moles/Vol] 102 mmol/L Normal 98-107 [facility] Comment on above: Performed By: #### L 500.2500 ####[facility] [address] [place], [address] CO2 [Moles/Vol] 27.0 mmol/L Normal 21.0-32.0 [facility] Comment on above: Performed By: #### L 500.2500 ####[facility] [address] [place], [address] Creatinine [Mass/Vol] 1.36 mg/dL High 0.70-1.30 [facility] Comment on above: Result Comment: The validity of the calculated GFR GFRAA in patients over70 years has not been determined. Clinical correlation isessential. Performed By: #### L 500.2500 ####[facility] [address] [place], [address] ECRCL 57.40 ml/min Normal [facility] Comment on above: Performed By: #### L 500.2500 ####[facility] [address] [place], [address] EST GFR - AA 68 mL/min Normal >60 [facility] Comment on above: Result Comment: Afri can Danish GFR Calc Performed By: #### L 500.2500 ####[facility] [address] [place], [address] GAP 6 Normal 5-15 [facility] Comment on above: Performed By: #### L 500.2500 ####[facility] [address] [place], [address] GFR/1.73 sq M.predicted among non-blacks MDRD (S/P/Bld) [Vol rate/Area] 56 mL/min/{1.73_m2} Low >60 [facility] Comment on above: Result Comment: Non- GFR Calc Performed By: #### L 500.2500 ####[facility] [address] [place], [address] Glucose [Mass/Vol] 105 mg/dL Normal 74-106 [facility] Comment on above: Result Comment: Fast ing Glucose result from 100 to 125 mg/dLsuggests IMPAIRED HOMEOSTASIS per A.D.A. criteria. Performed By: #### L 500.2500 ####[facility] [address] [place], [address] Potassium [Moles/Vol] 4.8 mmol/L Normal 3.5-5.1 [facility] Comment on above: Performed By: #### L 500.2500 ####[facility] [address] [place], [address] Sodium [Moles/Vol] 135 mmol/L Low 136-145 [facility] Comment on above: Performed By: #### L 500.2500 ####[facility] [address] [place], [place], [id number] Urea nitrogen [Mass/Vol] 21 mg/dL High 09-27 [facility] Comment on above: Performed By: #### L 500.2500 ####[facility] [address] [place], [place], [id number] Cardioversion Reporton 01-15 Cardioversion Report Normal [facility] Cardioversion Report Normal [facility] 36on 12-29-2023 36 Pt scheduled 01/03/24 in [facility] detailed message with the date and time instructed pt to call back to confirm Normal [facility] 12 Lead EKG performed by [facility] on 12-28-2023 12 Lead EKG performed by [facility] Cardiology Visit Reporton Cardiology Visit Report Normal [facility] Echo Limited w/Contraston Echo Limited w/Contrast Normal [facility] BNP,B-Type NATRIURETIC PEPTI Cherelle 11-24-2023 Natriuretic peptide B (Bld) [Mass/Vol] 307.6 pg/mL High 0-100 [facility] Comment on above: Performed By: #### L 500.4050, L503.6620, L100.0100 ####[facility] [address] [place], [place], [id number] 12 Lead EKG performed by [facility] on 11-23-2023 12 Lead EKG performed by [facility] CBC W/Diff, Automatedon 11-11 Absolute Lymph 1.59 X10 3/uL Normal 0.83-4.51 [facility] Comment on above: Performed By: #### L 500.4050, L503.6620, L100.0100 ####[facility] [address] [place], [address] Absolute Neut 4.5 X10 3/uL Normal 2.0-7.7 [facility] Comment on above: Performed By: #### L 500.4050, L503.6620, L100.0100 ####[facility] [address] [place], [address] Basophils/100 WBC (Bld) 0.5 % Normal 0-1 [facility] Comment on above: Performed By: #### L 500.4050, L503.6620, L100.0100 ####[facility] [address] [place], [address] Eosinophils/100 WBC (Bld) 1.1 % Normal 0-5 [facility] Comment on above: Performed By: #### L 500.4050, L503.6620, L100.0100 ####[facility] [address] [place], [address] Erythrocyte distribution width (RBC) [Ratio] 16.5 % High 11.6-14.6 [facility] Comment on above: Performed By: #### L 500.4050, L503.6620, L100.0100 ####[facility] [address] [place], [address] Hematocrit (Bld) [Volume fraction] 37.0 % Low 40-54 [facility] Comment on above: Performed By: #### L 500.4050, L503.6620, L100.0100 ####[facility] [address] [place], [address] Hemoglobin (Bld) [Mass/Vol] 11.6 g/dL Low 13.0-16.5 [facility] Comment on above: Performed By: #### L 500.4050, L503.6620, L100.0100 ####[facility] [address] [place], [address] IG% 0.500 Normal 0.0-0.9 [facility] Comment on above: Result Comment: IG% - Immature Granulocytes (promyelocytes, myelocytes andmetamyelocytes) > 1% indicates that a LEFT SHIFT is Present. Performed By: #### L 500.4050, L503.6620, L100.0100 ####[facility] [address] [place], [address] Lymphocytes/100 WBC (Bld) 24.1 % Normal 19-41 [facility] Comment on above: Performed By: #### L 500.4050, L503.6620, L100.0100 ####[facility] [address] [place], [address] MCH (RBC) [Entitic mass] 29.6 pg Normal 27.0-32.0 [facility] Comment on above: Performed By: #### L 500.4050, L503.6620, L100.0100 ####[facility] [address] [place], [address] MCHC (RBC) [Mass/Vol] 31.4 g/dL Low 32-36 [facility] Comment on above: Performed By: #### L 500.4050, L503.6620, L100.0100 ####[facility] [address] [place], [address] MCV (RBC) [Entitic vol] 94.4 fL High 80-94 [facility] Comment on above: Performed By: #### L 500.4050, L503.6620, L100.0100 ####[facility] [address] [place], [address] Monocytes/100 WBC (Bld) 5.6 % Normal 0-10 [facility] Comment on above: Performed By: #### L 500.4050, L503.6620, L100.0100 ####[facility] [address] [place], [address] Neutrophils/100 WBC (Bld) 68.2 % Normal 47-70 [facility] Comment on above: Performed By: #### L 500.4050, L503.6620, L100.0100 ####[facility] [address] [place], [address] Nucleated RBC (Bld) [#/Vol] 0 10*3/uL Normal 0-5 [facility] Comment on above: Performed By: #### L 500.4050, L503.6620, L100.0100 ####[facility] [address] [place], [address] Platelet mean volume (Bld) [Entitic vol] 9.3 fL Normal 6.2-12.0 [facility] Comment on above: Performed By: #### L 500.4050, L503.6620, L100.0100 ####[facility] [address] [place], [address] Platelets (Bld) [#/Vol] 261 10*3/uL Normal 150-450 [facility] Comment on above: Performed By: #### L 500.4050, L503.6620, L100.0100 ####[facility] [address] [place], [address] RBC (Bld) [#/Vol] 3.92 10*6/uL Low 4.6-6.[address] [facility] Comment on above: Performed By: #### L 500.4050, L503.6620, L100.0100 ####[facility] [address] [place], [address] RDW SD 56.9 fl High 35.1-43.9 [facility] Comment on above: Performed By: #### L 500.4050, L503.6620, L100.0100 ####[facility] [address] [place], [address] WBC (Bld) [#/Vol] 6.6 10*3/uL Normal 4.4-11.0 [facility] Comment on above: Performed By: #### L 500.4050, L503.6620, L100.0100 ####[facility] [address] [place], [address] Cardiology Visit Reporton Cardiology Visit Report Normal [facility] Comprehensive Metabolic Prof ilon 11-23-2023 Albumin [Mass/Vol] 3.3 g/dL Normal 3.2-5.0 [facility] Comment on above: Performed By: #### L 500.4050, L503.6620, L100.0100 ####[facility] [address] [place], [address] Albumin/Globulin [Mass ratio] 0.9 {ratio} Normal 0.9-2.4 [facility] Comment on above: Performed By: #### L 500.4050, L503.6620, L100.0100 ####[facility] [address] [place], [address] ALK P 84 U/L Normal 45-117 [facility] Comment on above: Performed By: #### L 500.4050, L503.6620, L100.0100 ####[facility] [address] [place], [address] ALT [Catalytic activity/Vol] 18 U/L Normal 16-61 [facility] Comment on above: Performed By: #### L 500.4050, L503.6620, L100.0100 ####[facility] [address] [place], [address] AST [Catalytic activity/Vol] 17 U/L Normal 15-37 [facility] Comment on above: Performed By: #### L 500.4050, L503.6620, L100.0100 ####[facility] [address] [place], [address] Bilirubin [Mass/Vol] 0.70 mg/dL Normal 0.20-1.00 [facility] Comment on above: Result Comment: For patients on eltrombopag therapy, use of Dimension [place] TBIL is not recommended. Performed By: #### L 500.4050, L503.6620, L100.0100 ####[facility] [address] [place], [address] BUN/CRE 14.7 RATIO Normal 10-20 [facility] Comment on above: Performed By: #### L 500.4050, L503.6620, L100.0100 ####[facility] [address] [place], [address] CA,Total 9.2 mg/dL Normal 8.5-10.1 [facility] Comment on above: Performed By: #### L 500.4050, L503.6620, L100.0100 ####[facility] [address] [place], [address] Chloride [Moles/Vol] 99 mmol/L Normal 98-107 [facility] Comment on above: Performed By: #### L 500.4050, L503.6620, L100.0100 ####[facility] [address] [place], [address] CO2 [Moles/Vol] 27.0 mmol/L Normal 21.0-32.0 [facility] Comment on above: Performed By: #### L 500.4050, L503.6620, L100.0100 ####[facility] [address] [place], [address] Creatinine [Mass/Vol] 0.88 mg/dL Normal 0.70-1.30 [facility] Comment on above: Result Comment: The validity of the calculated GFR GFRAA in patients over70 years has not been determined. Clinical correlation isessential. Performed By: #### L 500.4050, L503.6620, L100.0100 ####[facility] [address] [place], [address] EST GFR - AA 112 mL/min Normal >60 [facility] Comment on above: Result Comment: Afri can Danish GFR Calc Performed By: #### L 500.4050, L503.6620, L100.0100 ####[facility] [address] [place], [address] GAP 7 Normal 5-15 [facility] Comment on above: Performed By: #### L 500.4050, L503.6620, L100.0100 ####[facility] [address] [place], [address] GFR/1.73 sq M.predicted among non-blacks MDRD (S/P/Bld) [Vol rate/Area] 93 mL/min/{1.73_m2} Normal >60 [facility] Comment on above: Result Comment: Non- GFR Calc Performed By: #### L 500.4050, L503.6620, L100.0100 ####[facility] [address] [place], [address] Globulin (S) [Mass/Vol] 3.7 g/dL Normal 2.2-4.2 [facility] Comment on above: Performed By: #### L 500.4050, L503.6620, L100.0100 ####[facility] [address] [place], [address] Glucose [Mass/Vol] 96 mg/dL Normal 74-106 [facility] Comment on above: Performed By: #### L 500.4050, L503.6620, L100.0100 ####[facility] [address] [place], [address] Potassium [Moles/Vol] 4.1 mmol/L Normal 3.5-5.1 [facility] Comment on above: Performed By: #### L 500.4050, L503.6620, L100.0100 ####[facility] [address] [place], [address] Sodium [Moles/Vol] 133 mmol/L Low 136-145 [facility] Comment on above: Performed By: #### L 500.4050, L503.6620, L100.0100 ####[facility] [address] [place], [address] T PROT 7.0 g/dL Normal 6.4-8.2 [facility] Comment on above: Performed By: #### L 500.4050, L503.6620, L100.0100 ####[facility] [address] [place], [address] Urea nitrogen [Mass/Vol] 13 mg/dL Normal 7-18 [facility] Comment on above: Performed By: #### L 500.4050, L503.6620, L100.0100 ####[facility] [address] [place], [address] Basic Metabolic Profile (BMP )on 11-14-2023 BUN/CRE 21.7 RATIO High 10-20 [facility] Comment on above: Performed By: #### L 500.2500 ####[facility] [address] [place], [address] CA,Total 8.5 mg/dL Normal 8.5-10.1 [facility] Comment on above: Performed By: #### L 500.2500 ####[facility] [address] [place], [address] Chloride [Moles/Vol] 90 mmol/L Low 98-107 [facility] Comment on above: Performed By: #### L 500.2500 ####[facility] [address] [place], [address] CO2 [Moles/Vol] 34.0 mmol/L High 21.0-32.0 [facility] Comment on above: Performed By: #### L 500.2500 ####[facility] [address] [place], [address] Creatinine [Mass/Vol] 0.92 mg/dL Normal 0.70-1.30 [facility] Comment on above: Result Comment: The validity of the calculated GFR GFRAA in patients over70 years has not been determined. Clinical correlation isessential. Performed By: #### L 500.2500 ####[facility] [address] [place], [address] ECRCL 74.16 ml/min Normal [facility] Comment on above: Performed By: #### L 500.2500 ####[facility] [address] [place], [address] EST GFR - AA 107 mL/min Normal >60 [facility] Comment on above: Result Comment: Afri can Danish GFR Calc Performed By: #### L 500.2500 ####[facility] [address] [place], [address] GAP 6 Normal 5-15 [facility] Comment on above: Performed By: #### L 500.2500 ####[facility] [address] [place], [address] GFR/1.73 sq M.predicted among non-blacks MDRD (S/P/Bld) [Vol rate/Area] 88 mL/min/{1.73_m2} Normal >60 [facility] Comment on above: Result Comment: Non- GFR Calc Performed By: #### L 500.2500 ####[facility] [address] [place], [address] Glucose [Mass/Vol] 143 mg/dL High 74-106 [facility] Comment on above: Result Comment: Fast ing Glucose result greater than or equal to 126 mg/dLsuggests DIABETES MELLITUS per A.D.A. criteria. Performed By: #### L 500.2500 ####[facility] [address] [place], [address] Potassium [Moles/Vol] 3.6 mmol/L Normal 3.5-5.1 [facility] Comment on above: Performed By: #### L 500.2500 ####[facility] [address] [place], [address] Sodium [Moles/Vol] 130 mmol/L Low 136-145 [facility] Comment on above: Performed By: #### L 500.2500 ####[facility] [address] [place], [address] Urea nitrogen [Mass/Vol] 20 mg/dL High 7-18 [facility] Comment on above: Performed By: #### L 500.2500 ####[facility] [address] [place], [address] Discharge Instructionon 09-0 Discharge Instruction Normal [facility] Discharge Instruction Normal [facility] Culture, Blood (WB)on 2023 CUB Blood cultures x2 from two different sites No growth in 5 days. Normal [facility] Comment on above: Performed By: #### M 200.1000 ####[facility] [address] [place], [address] Basic Metabolic Profile (BMP )on 11-10-2023 BUN/CRE 35.9 RATIO High 10-20 [facility] Comment on above: Performed By: #### L 500.2500 ####[facility] [address] [place], [address] CA,Total 8.4 mg/dL Low 8.5-10.1 [facility] Comment on above: Performed By: #### L 500.2500 ####[facility] [address] [place], [address] Chloride [Moles/Vol] 97 mmol/L Low 98-107 [facility] Comment on above: Performed By: #### L 500.2500 ####[facility] [address] [place], [address] CO2 [Moles/Vol] 28.0 mmol/L Normal 21.0-32.0 [facility] Comment on above: Performed By: #### L 500.2500 ####[facility] [address] [place], [address] Creatinine [Mass/Vol] 0.75 mg/dL Normal 0.70-1.30 [facility] Comment on above: Result Comment: The validity of the calculated GFR GFRAA in patients over70 years has not been determined. Clinical correlation isessential. Performed By: #### L 500.2500 ####[facility] [address] [place], [address] ECRCL 102.50 ml/min Normal [facility] Comment on above: Performed By: #### L 500.2500 ####[facility] [address] [place], [address] EST GFR - AA 134 mL/min Normal >60 [facility] Comment on above: Result Comment: Afri can Danish GFR Calc Performed By: #### L 500.2500 ####[facility] [address] [place], [address] GAP 5 Normal 5-15 [facility] Comment on above: Performed By: #### L 500.2500 ####[facility] [address] [place], [address] GFR/1.73 sq M.predicted among non-blacks MDRD (S/P/Bld) [Vol rate/Area] 111 mL/min/{1.73_m2} Normal >60 [facility] Comment on above: Result Comment: Non- GFR Calc Performed By: #### L 500.2500 ####[facility] [address] [place], [address] Glucose [Mass/Vol] 112 mg/dL High 74-106 [facility] Comment on above: Result Comment: Fast ing Glucose result from 100 to 125 mg/dLsuggests IMPAIRED HOMEOSTASIS per A.D.A. criteria. Performed By: #### L 500.2500 ####[facility] [address] [place], [address] Potassium [Moles/Vol] 3.3 mmol/L Low 3.5-5.1 [facility] Comment on above: Performed By: #### L 500.2500 ####[facility] [address] [place], [address] Sodium [Moles/Vol] 130 mmol/L Low 136-145 [facility] Comment on above: Performed By: #### L 500.2500 ####[facility] [address] [place], [address] Urea nitrogen [Mass/Vol] 27 mg/dL High 7-18 [facility] Comment on above: Performed By: #### L 500.2500 ####[facility] [address] [place], [address] Basic Metabolic Profile (BMP )on 11-09-2023 BUN/CRE 29.0 RATIO High 10-20 [facility] Comment on above: Performed By: #### L 501.5200, L300.4310, L501.2300, L100.0100, L500.2500 ####[facility] [address] [place], [address] CA,Total 8.4 mg/dL Low 8.5-10.1 [facility] Comment on above: Performed By: #### L 501.5200, L300.4310, L501.2300, L100.0100, L500.2500 ####[facility] [address] [place], [address] Chloride [Moles/Vol] 98 mmol/L Normal 98-107 [facility] Comment on above: Performed By: #### L 501.5200, L300.4310, L501.2300, L100.0100, L500.2500 ####[facility] [address] [place], [address] CO2 [Moles/Vol] 25.0 mmol/L Normal 21.0-32.0 [facility] Comment on above: Performed By: #### L 501.5200, L300.4310, L501.2300, L100.0100, L500.2500 ####[facility] [address] [place], [address] Creatinine [Mass/Vol] 0.72 mg/dL Normal 0.70-1.30 [facility] Comment on above: Result Comment: The validity of the calculated GFR GFRAA in patients over70 years has not been determined. Clinical correlation isessential. Performed By: #### L 501.5200, L300.4310, L501.2300, L100.0100, L500.2500 ####[facility] [address] [place], [address] ECRCL 107.06 ml/min Normal [facility] Comment on above: Performed By: #### L 501.5200, L300.4310, L501.2300, L100.0100, L500.2500 ####[facility] [address] [place], [address] EST GFR - AA 141 mL/min Normal >60 [facility] Comment on above: Result Comment: Afri can Danish GFR Calc Performed By: #### L 501.5200, L300.4310, L501.2300, L100.0100, L500.2500 ####[facility] [address] [place], [address] GAP 8 Normal 5-15 [facility] Comment on above: Performed By: #### L 501.5200, L300.4310, L501.2300, L100.0100, L500.2500 ####[facility] [address] [place], [address] GFR/1.73 sq M.predicted among non-blacks MDRD (S/P/Bld) [Vol rate/Area] 116 mL/min/{1.73_m2} Normal >60 [facility] Comment on above: Result Comment: Non- GFR Calc Performed By: #### L 501.5200, L300.4310, L501.2300, L100.0100, L500.2500 ####[facility] [address] [place], [address] Glucose [Mass/Vol] 130 mg/dL High 74-106 [facility] Comment on above: Result Comment: Fast ing Glucose result greater than or equal to 126 mg/dLsuggests DIABETES MELLITUS per A.D.A. criteria. Performed By: #### L 501.5200, L300.4310, L501.2300, L100.0100, L500.2500 ####[facility] [address] [place], [address] Potassium [Moles/Vol] 3.9 mmol/L Normal 3.5-5.1 [facility] Comment on above: Performed By: #### L 501.5200, L300.4310, L501.2300, L100.0100, L500.2500 ####[facility] [address] [place], [address] Sodium [Moles/Vol] 131 mmol/L Low 136-145 [facility] Comment on above: Performed By: #### L 501.5200, L300.4310, L501.2300, L100.0100, L500.2500 ####[facility] [address] [place], [address] Urea nitrogen [Mass/Vol] 21 mg/dL High 7-18 [facility] Comment on above: Performed By: #### L 501.5200, L300.4310, L501.2300, L100.0100, L500.2500 ####[facility] [address] [place], [address] CBC W/Diff, Automatedon 10-12 Absolute Lymph 1.14 X10 3/uL Normal 0.83-4.51 [facility] Comment on above: Performed By: #### L 501.5200, L300.4310, L501.2300, L100.0100, L500.2500 ####[facility] [address] [place], [address] Absolute Neut 10.1 X10 3/uL High 2.0-7.7 [facility] Comment on above: Performed By: #### L 501.5200, L300.4310, L501.2300, L100.0100, L500.2500 ####[facility] [address] [place], [address] Basophils/100 WBC (Bld) 0.1 % Normal 0-1 [facility] Comment on above: Performed By: #### L 501.5200, L300.4310, L501.2300, L100.0100, L500.2500 ####[facility] [address] [place], [address] Eosinophils/100 WBC (Bld) 0.0 % Normal 0-5 [facility] Comment on above: Performed By: #### L 501.5200, L300.4310, L501.2300, L100.0100, L500.2500 ####[facility] [address] [place], [address] Erythrocyte distribution width (RBC) [Ratio] 16.6 % High 11.6-14.6 [facility] Comment on above: Performed By: #### L 501.5200, L300.4310, L501.2300, L100.0100, L500.2500 ####[facility] [address] [place], [address] Hematocrit (Bld) [Volume fraction] 29.4 % Low 40-54 [facility] Comment on above: Performed By: #### L 501.5200, L300.4310, L501.2300, L100.0100, L500.2500 ####[facility] [address] [place], [address] Hemoglobin (Bld) [Mass/Vol] 9.7 g/dL Low 13.0-16.5 [facility] Comment on above: Performed By: #### L 501.5200, L300.4310, L501.2300, L100.0100, L500.2500 ####[facility] [address] [place], [address] IG% 0.700 Normal 0.0-0.9 [facility] Comment on above: Result Comment: IG% - Immature Granulocytes (promyelocytes, myelocytes andmetamyelocytes) > 1% indicates that a LEFT SHIFT is Present. Performed By: #### L 501.5200, L300.4310, L501.2300, L100.0100, L500.2500 ####[facility] [address] [place], [address] Lymphocytes/100 WBC (Bld) 9.5 % Low 19-41 [facility] Comment on above: Performed By: #### L 501.5200, L300.4310, L501.2300, L100.0100, L500.2500 ####[facility] [address] [place], [address] MCH (RBC) [Entitic mass] 30.9 pg Normal 27.0-32.0 [facility] Comment on above: Performed By: #### L 501.5200, L300.4310, L501.2300, L100.0100, L500.2500 ####[facility] [address] [place], [address] MCHC (RBC) [Mass/Vol] 33.0 g/dL Normal 32-36 [facility] Comment on above: Performed By: #### L 501.5200, L300.4310, L501.2300, L100.0100, L500.2500 ####[facility] [address] [place], [address] MCV (RBC) [Entitic vol] 93.6 fL Normal 80-94 [facility] Comment on above: Performed By: #### L 501.5200, L300.4310, L501.2300, L100.0100, L500.2500 ####[facility] [address] [place], [address] Monocytes/100 WBC (Bld) 5.4 % Normal 0-10 [facility] Comment on above: Performed By: #### L 501.5200, L300.4310, L501.2300, L100.0100, L500.2500 ####[facility] [address] [place], [address] Neutrophils/100 WBC (Bld) 84.3 % High 47-70 [facility] Comment on above: Performed By: #### L 501.5200, L300.4310, L501.2300, L100.0100, L500.2500 ####[facility] [address] [place], [address] Nucleated RBC (Bld) [#/Vol] 0.7 10*3/uL Normal 0-5 [facility] Comment on above: Performed By: #### L 501.5200, L300.4310, L501.2300, L100.0100, L500.2500 ####[facility] [address] [place], [address] Platelet mean volume (Bld) [Entitic vol] 10.1 fL Normal 6.2-12.0 [facility] Comment on above: Performed By: #### L 501.5200, L300.4310, L501.2300, L100.0100, L500.2500 ####[facility] [address] [place], [address] Platelets (Bld) [#/Vol] 190 10*3/uL Normal 150-450 [facility] Comment on above: Performed By: #### L 501.5200, L300.4310, L501.2300, L100.0100, L500.2500 ####[facility] [address] [place], [address] RBC (Bld) [#/Vol] 3.14 10*6/uL Low 4.6-6.[address] [facility] Comment on above: Performed By: #### L 501.5200, L300.4310, L501.2300, L100.0100, L500.2500 ####[facility] [address] [place], [address] RDW SD 56.1 fl High 35.1-43.9 [facility] Comment on above: Performed By: #### L 501.5200, L300.4310, L501.2300, L100.0100, L500.2500 ####[facility] [address] [place], [address] WBC (Bld) [#/Vol] 12.0 10*3/uL High 4.4-11.[address] [facility] Comment on above: Performed By: #### L 501.5200, L300.4310, L501.2300, L100.0100, L500.2500 ####[facility] [address] [place], [address] Chest 1 View (Portable)on Chest 1 View (Portable) Normal [facility] Echo Limited w/Contraston Echo Limited w/Contrast Normal [facility] Magnesiumon 11-09-2023 Magnesium [Mass/Vol] 1.9 mg/dL Normal 1.6-2.6 [facility] Comment on above: Performed By: #### L 501.5200, L300.4310, L501.2300, L100.0100, L500.2500 ####[facility] [address] [place], [address] Partial Thromboplast Timeon 11-09-2023 aPTT Coag (Bld) [Time] 41.7 s High 24.1-36.2 [facility] Comment on above: Performed By: #### L 501.5200, L300.4310, L501.2300, L100.0100, L500.2500 ####[facility] [address] [place], [address] Phosphoruson 11-09-2023 Phosphate [Mass/Vol] 2.3 mg/dL Low 2.5-4.9 [facility] Comment on above: Performed By: #### L 501.5200, L300.4310, L501.2300, L100.0100, L500.2500 ####[facility] [address] [place], [address] Basic Metabolic Profile (BMP )on 11-08-2023 BUN/CRE 19.0 RATIO Normal 10-20 [facility] Comment on above: Performed By: #### L 501.2300, L501.5200, L100.0100, L500.2500 ####[facility] [address] [place], [address] CA,Total 8.7 mg/dL Normal 8.5-10.1 [facility] Comment on above: Performed By: #### L 501.2300, L501.5200, L100.0100, L500.2500 ####[facility] [address] [place], [address] Chloride [Moles/Vol] 98 mmol/L Normal 98-107 [facility] Comment on above: Performed By: #### L 501.2300, L501.5200, L100.0100, L500.2500 ####[facility] [address] [place], [address] CO2 [Moles/Vol] 24.0 mmol/L Normal 21.0-32.0 [facility] Comment on above: Performed By: #### L 501.2300, L501.5200, L100.0100, L500.2500 ####[facility] [address] [place], [address] Creatinine [Mass/Vol] 0.79 mg/dL Normal 0.70-1.30 [facility] Comment on above: Result Comment: The validity of the calculated GFR GFRAA in patients over70 years has not been determined. Clinical correlation isessential. Performed By: #### L 501.2300, L501.5200, L100.0100, L500.2500 ####[facility] [address] [place], [address] ECRCL 97.58 ml/min Normal [facility] Comment on above: Performed By: #### L 501.2300, L501.5200, L100.0100, L500.2500 ####[facility] [address] [place], [address] EST GFR - AA 127 mL/min Normal >60 [facility] Comment on above: Result Comment: Afri can Danish GFR Calc Performed By: #### L 501.2300, L501.5200, L100.0100, L500.2500 ####[facility] [address] [place], [address] GAP 8 Normal 5-15 [facility] Comment on above: Performed By: #### L 501.2300, L501.5200, L100.0100, L500.2500 ####[facility] [address] [place], [address] GFR/1.73 sq M.predicted among non-blacks MDRD (S/P/Bld) [Vol rate/Area] 105 mL/min/{1.73_m2} Normal >60 [facility] Comment on above: Result Comment: Non- GFR Calc Performed By: #### L 501.2300, L501.5200, L100.0100, L500.2500 ####[facility] [address] [place], [address] Glucose [Mass/Vol] 162 mg/dL High 74-106 [facility] Comment on above: Result Comment: Fast ing Glucose result greater than or equal to 126 mg/dLsuggests DIABETES MELLITUS per A.D.A. criteria. Performed By: #### L 501.2300, L501.5200, L100.0100, L500.2500 ####[facility] [address] [place], [address] Potassium [Moles/Vol] 4.2 mmol/L Normal 3.5-5.1 [facility] Comment on above: Performed By: #### L 501.2300, L501.5200, L100.0100, L500.2500 ####[facility] [address] [place], [address] Sodium [Moles/Vol] 130 mmol/L Low 136-145 [facility] Comment on above: Performed By: #### L 501.2300, L501.5200, L100.0100, L500.2500 ####[facility] [address] [place], [address] Urea nitrogen [Mass/Vol] 15 mg/dL Normal 7-18 [facility] Comment on above: Performed By: #### L 501.2300, L501.5200, L100.0100, L500.2500 ####[facility] [address] [place], [address] CBC W/Diff, Automatedon 10-12 Absolute Lymph 0.72 X10 3/uL Low 0.83-4.51 [facility] Comment on above: Performed By: #### L 501.2300, L501.5200, L100.0100, L500.2500 ####[facility] [address] [place], [address] Absolute Neut 11.8 X10 3/uL High 2.0-7.7 [facility] Comment on above: Performed By: #### L 501.2300, L501.5200, L100.0100, L500.2500 ####[facility] [address] [place], [address] Basophils/100 WBC (Bld) 0.1 % Normal 0-1 [facility] Comment on above: Performed By: #### L 501.2300, L501.5200, L100.0100, L500.2500 ####[facility] [address] [place], [address] Eosinophils/100 WBC (Bld) 0.0 % Normal 0-5 [facility] Comment on above: Performed By: #### L 501.2300, L501.5200, L100.0100, L500.2500 ####[facility] [address] [place], [address] Erythrocyte distribution width (RBC) [Ratio] 17.1 % High 11.6-14.6 [facility] Comment on above: Performed By: #### L 501.2300, L501.5200, L100.0100, L500.2500 ####[facility] [address] [place], [address] Hematocrit (Bld) [Volume fraction] 31.1 % Low 40-54 [facility] Comment on above: Performed By: #### L 501.2300, L501.5200, L100.0100, L500.2500 ####[facility] [address] [place], [address] Hemoglobin (Bld) [Mass/Vol] 10.3 g/dL Low 13.0-16.5 [facility] Comment on above: Performed By: #### L 501.2300, L501.5200, L100.0100, L500.2500 ####[facility] [address] [place], [address] IG% 0.800 Normal 0.0-0.9 [facility] Comment on above: Result Comment: IG% - Immature Granulocytes (promyelocytes, myelocytes andmetamyelocytes) > 1% indicates that a LEFT SHIFT is Present. Performed By: #### L 501.2300, L501.5200, L100.0100, L500.2500 ####[facility] [address] [place], [address] Lymphocytes/100 WBC (Bld) 5.5 % Low 19-41 [facility] Comment on above: Performed By: #### L 501.2300, L501.5200, L100.0100, L500.2500 ####[facility] [address] [place], [address] MCH (RBC) [Entitic mass] 31.6 pg Normal 27.0-32.0 [facility] Comment on above: Performed By: #### L 501.2300, L501.5200, L100.0100, L500.2500 ####[facility] [address] [place], [address] MCHC (RBC) [Mass/Vol] 33.1 g/dL Normal 32-36 [facility] Comment on above: Performed By: #### L 501.2300, L501.5200, L100.0100, L500.2500 ####[facility] [address] [place], [address] MCV (RBC) [Entitic vol] 95.4 fL High 80-94 [facility] Comment on above: Performed By: #### L 501.2300, L501.5200, L100.0100, L500.2500 ####[facility] [address] [place], [address] Monocytes/100 WBC (Bld) 4.3 % Normal 0-10 [facility] Comment on above: Performed By: #### L 501.2300, L501.5200, L100.0100, L500.2500 ####[facility] [address] [place], [address] Neutrophils/100 WBC (Bld) 89.3 % High 47-70 [facility] Comment on above: Performed By: #### L 501.2300, L501.5200, L100.0100, L500.2500 ####[facility] [address] [place], [address] Nucleated RBC (Bld) [#/Vol] 0.2 10*3/uL Normal 0-5 [facility] Comment on above: Performed By: #### L 501.2300, L501.5200, L100.0100, L500.2500 ####[facility] [address] [place], [address] Platelet mean volume (Bld) [Entitic vol] 10.7 fL Normal 6.2-12.0 [facility] Comment on above: Performed By: #### L 501.2300, L501.5200, L100.0100, L500.2500 ####[facility] [address] [place], [address] Platelets (Bld) [#/Vol] 199 10*3/uL Normal 150-450 [facility] Comment on above: Performed By: #### L 501.2300, L501.5200, L100.0100, L500.2500 ####[facility] [address] [place], [address] RBC (Bld) [#/Vol] 3.26 10*6/uL Low 4.6-6.[address] [facility] Comment on above: Performed By: #### L 501.2300, L501.5200, L100.0100, L500.2500 ####[facility] [address] [place], [address] RDW SD 59.3 fl High 35.1-43.9 [facility] Comment on above: Performed By: #### L 501.2300, L501.5200, L100.0100, L500.2500 ####[facility] [address] [place], [address] WBC (Bld) [#/Vol] 13.1 10*3/uL High 4.4-11.[address] [facility] Comment on above: Performed By: #### L 501.2300, L501.5200, L100.0100, L500.2500 ####[facility] [address] [place], [address] Magnesiumon 11-08-2023 Magnesium [Mass/Vol] 2.3 mg/dL Normal 1.6-2.6 [facility] Comment on above: Performed By: #### L 501.2300, L501.5200, L100.0100, L500.2500 ####[facility] [address] [place], [address] Partial Thromboplast Timeon 11-08-2023 aPTT Coag (Bld) [Time] 55.1 s High 24.1-36.2 [facility] Comment on above: Performed By: #### L 300.4310 ####[facility] [address] [place], [address] aPTT Coag (Bld) [Time] 41.7 s High 24.1-36.2 [facility] Comment on above: Performed By: #### L 300.4310 ####[facility] [address] [place], [address] aPTT Coag (Bld) [Time] 69.3 s High 24.1-36.2 [facility] Comment on above: Performed By: #### L 300.4310 ####[facility] [address] [place], [address] Phosphoruson 11-08-2023 Phosphate [Mass/Vol] 2.1 mg/dL Low 2.5-4.9 [facility] Comment on above: Performed By: #### L 501.2300, L501.5200, L100.0100, L500.2500 ####[facility] [address] [place], [address] CBC W/Diff, Automatedon 10-12 Absolute Lymph 1.14 X10 3/uL Normal 0.83-4.51 [facility] Comment on above: Performed By: #### L 100.0100, L501.5200, L501.9520, L500.4050 ####[facility] [address] [place], [address] Absolute Neut 6.9 X10 3/uL Normal 2.0-7.7 [facility] Comment on above: Performed By: #### L 100.0100, L501.5200, L501.9520, L500.4050 ####[facility] [address] [place], [address] Basophils/100 WBC (Bld) 0.1 % Normal 0-1 [facility] Comment on above: Performed By: #### L 100.0100, L501.5200, L501.9520, L500.4050 ####[facility] [address] [place], [address] Eosinophils/100 WBC (Bld) 0.1 % Normal 0-5 [facility] Comment on above: Performed By: #### L 100.0100, L501.5200, L501.9520, L500.4050 ####[facility] [address] [place], [address] Erythrocyte distribution width (RBC) [Ratio] 16.7 % High 11.6-14.6 [facility] Comment on above: Performed By: #### L 100.0100, L501.5200, L501.9520, L500.4050 ####[facility] [address] [place], [address] Hematocrit (Bld) [Volume fraction] 30.8 % Low 40-54 [facility] Comment on above: Performed By: #### L 100.0100, L501.5200, L501.9520, L500.4050 ####[facility] [address] [place], [address] Hemoglobin (Bld) [Mass/Vol] 9.9 g/dL Low 13.0-16.5 [facility] Comment on above: Performed By: #### L 100.0100, L501.5200, L501.9520, L500.4050 ####[facility] [address] [place], [address] IG% 0.500 Normal 0.0-0.9 [facility] Comment on above: Result Comment: IG% - Immature Granulocytes (promyelocytes, myelocytes andmetamyelocytes) > 1% indicates that a LEFT SHIFT is Present. Performed By: #### L 100.0100, L501.5200, L501.9520, L500.4050 ####[facility] [id number] [place], [address] Lymphocytes/100 WBC (Bld) 13.4 % Low 19-41 [facility] Comment on above: Performed By: #### L 100.0100, L501.5200, L501.9520, L500.4050 ####[facility] [address] [place], [address] MCH (RBC) [Entitic mass] 29.9 pg Normal 27.0-32.0 [facility] Comment on above: Performed By: #### L 100.0100, L501.5200, L501.9520, L500.4050 ####[facility] [address] [place], [address] MCHC (RBC) [Mass/Vol] 32.1 g/dL Normal 32-36 [facility] Comment on above: Performed By: #### L 100.0100, L501.5200, L501.9520, L500.4050 ####[facility] [address] [place], [address] MCV (RBC) [Entitic vol] 93.1 fL Normal 80-94 [facility] Comment on above: Performed By: #### L 100.0100, L501.5200, L501.9520, L500.4050 ####[facility] [address] [place], [address] Monocytes/100 WBC (Bld) 5.4 % Normal 0-10 [facility] Comment on above: Performed By: #### L 100.0100, L501.5200, L501.9520, L500.4050 ####[facility] [address] [place], [address] Neutrophils/100 WBC (Bld) 80.5 % High 47-70 [facility] Comment on above: Performed By: #### L 100.0100, L501.5200, L501.9520, L500.4050 ####[facility] [address] [place], [address] Nucleated RBC (Bld) [#/Vol] 0 10*3/uL Normal 0-5 [facility] Comment on above: Performed By: #### L 100.0100, L501.5200, L501.9520, L500.4050 ####[facility] [address] [place], [address] Platelet mean volume (Bld) [Entitic vol] 10.4 fL Normal 6.2-12.0 [facility] Comment on above: Performed By: #### L 100.0100, L501.5200, L501.9520, L500.4050 ####[facility] [address] [place], [address] Platelets (Bld) [#/Vol] 175 10*3/uL Normal 150-450 [facility] Comment on above: Performed By: #### L 100.0100, L501.5200, L501.9520, L500.4050 ####[facility] [address] [place], [address] RBC (Bld) [#/Vol] 3.31 10*6/uL Low 4.6-6.[address] [facility] Comment on above: Performed By: #### L 100.0100, L501.5200, L501.9520, L500.4050 ####[facility] [address] [place], [address] RDW SD 56.7 fl High 35.1-43.9 [facility] Comment on above: Performed By: #### L 100.0100, L501.5200, L501.9520, L500.4050 ####[facility] [address] [place], [address] WBC (Bld) [#/Vol] 8.5 10*3/uL Normal 4.4-11.0 [facility] Comment on above: Performed By: #### L 100.0100, L501.5200, L501.9520, L500.4050 ####[facility] [address] [place], [address] Comprehensive Metabolic Prof ilon 11-07-2023 Albumin [Mass/Vol] 2.6 g/dL Low 3.2-5.0 [facility] Comment on above: Performed By: #### L 100.0100, L501.5200, L501.9520, L500.4050 ####[facility] [address] [place], [address] Albumin/Globulin [Mass ratio] 0.7 {ratio} Low 0.9-2.4 [facility] Comment on above: Performed By: #### L 100.0100, L501.5200, L501.9520, L500.4050 ####[facility] [address] [place], [address] ALK P 57 U/L Normal 45-117 [facility] Comment on above: Performed By: #### L 100.0100, L501.5200, L501.9520, L500.4050 ####[facility] [address] [place], [address] ALT [Catalytic activity/Vol] 115 U/L High 16-61 [facility] Comment on above: Performed By: #### L 100.0100, L501.5200, L501.9520, L500.4050 ####[facility] [address] [place], [address] AST [Catalytic activity/Vol] 377 U/L High 15-37 [facility] Comment on above: Performed By: #### L 100.0100, L501.5200, L501.9520, L500.4050 ####[facility] [address] [place], [address] Bilirubin [Mass/Vol] 1.00 mg/dL Normal 0.20-1.00 [facility] Comment on above: Result Comment: For patients on eltrombopag therapy, use of Dimension [place] TBIL is not recommended. Performed By: #### L 100.0100, L501.5200, L501.9520, L500.4050 ####[facility] [address] [place], [address] BUN/CRE 12.4 RATIO Normal 10-20 [facility] Comment on above: Performed By: #### L 100.0100, L501.5200, L501.9520, L500.4050 ####[facility] [address] [place], [address] CA,Total 8.1 mg/dL Low 8.5-10.1 [facility] Comment on above: Performed By: #### L 100.0100, L501.5200, L501.9520, L500.4050 ####[facility] [address] [place], [address] Chloride [Moles/Vol] 98 mmol/L Normal 98-107 [facility] Comment on above: Performed By: #### L 100.0100, L501.5200, L501.9520, L500.4050 ####[facility] [address] [place], [address] CO2 [Moles/Vol] 25.0 mmol/L Normal 21.0-32.0 [facility] Comment on above: Performed By: #### L 100.0100, L501.5200, L501.9520, L500.4050 ####[facility] [address] [place], [address] Creatinine [Mass/Vol] 0.81 mg/dL Normal 0.70-1.30 [facility] Comment on above: Result Comment: The validity of the calculated GFR GFRAA in patients over70 years has not been determined. Clinical correlation isessential. Performed By: #### L 100.0100, L501.5200, L501.9520, L500.4050 ####[facility] [address] [place], [address] ECRCL 95.43 ml/min Normal [facility] Comment on above: Performed By: #### L 100.0100, L501.5200, L501.9520, L500.4050 ####[facility] [address] [place], [address] EST GFR - AA 124 mL/min Normal >60 [facility] Comment on above: Result Comment: Afri can Danish GFR Calc Performed By: #### L 100.0100, L501.5200, L501.9520, L500.4050 ####[facility] [address] [place], [address] GAP 10 Normal 5-15 [facility] Comment on above: Performed By: #### L 100.0100, L501.5200, L501.9520, L500.4050 ####[facility] [address] [place], [address] GFR/1.73 sq M.predicted among non-blacks MDRD (S/P/Bld) [Vol rate/Area] 103 mL/min/{1.73_m2} Normal >60 [facility] Comment on above: Result Comment: Non- GFR Calc Performed By: #### L 100.0100, L501.5200, L501.9520, L500.4050 ####[facility] [address] [place], [address] Globulin (S) [Mass/Vol] 3.5 g/dL Normal 2.2-4.2 [facility] Comment on above: Performed By: #### L 100.0100, L501.5200, L501.9520, L500.4050 ####[facility] [address] [place], [address] Glucose [Mass/Vol] 109 mg/dL High 74-106 [facility] Comment on above: Result Comment: Fast ing Glucose result from 100 to 125 mg/dLsuggests IMPAIRED HOMEOSTASIS per A.D.A. criteria. Performed By: #### L 100.0100, L501.5200, L501.9520, L500.4050 ####[facility] [address] [place], [address] Potassium [Moles/Vol] 3.4 mmol/L Low 3.5-5.1 [facility] Comment on above: Performed By: #### L 100.0100, L501.5200, L501.9520, L500.4050 ####[facility] [address] [place], [address] Sodium [Moles/Vol] 133 mmol/L Low 136-145 [facility] Comment on above: Performed By: #### L 100.0100, L501.5200, L501.9520, L500.4050 ####[facility] [address] [place], [address] T PROT 6.1 g/dL Low 6.4-8.2 [facility] Comment on above: Performed By: #### L 100.0100, L501.5200, L501.9520, L500.4050 ####[facility] [address] [place], [address] Urea nitrogen [Mass/Vol] 10 mg/dL Normal 7-18 [facility] Comment on above: Performed By: #### L 100.0100, L501.5200, L501.9520, L500.4050 ####[facility] [address] [facility] [place], [address] Magnesiumon 11-07-2023 Magnesium [Mass/Vol] 1.9 mg/dL Normal 1.6-2.6 [facility] Comment on above: Performed By: #### L 100.0100, L501.5200, L501.9520, L500.4050 ####[facility] [address] [place], [address] Partial Thromboplast Timeon 11-07-2023 aPTT Coag (Bld) [Time] 50.3 s High 24.1-36.2 [facility] Comment on above: Performed By: #### L 300.4310 ####[facility] [address] [place], [address] aPTT Coag (Bld) [Time] 57.0 s High 24.1-36.2 [facility] Comment on above: Performed By: #### L 300.4310 ####[facility] [address] [place], [address] aPTT Coag (Bld) [Time] 48.1 s High 24.1-36.2 [facility] Comment on above: Performed By: #### L 300.4310 ####[facility] [address] [place], [address] aPTT Coag (Bld) [Time] 59.8 s High 24.1-36.2 [facility] Comment on above: Performed By: #### L 300.4310 ####[facility] [address] [place], [address] Phosphoruson 11-07-2023 Phosphate [Mass/Vol] 1.9 mg/dL Low 2.5-4.9 [facility] Comment on above: Performed By: #### L 501.8360 ####[facility] [address] [place], [address] Respiratory Cultureon 2023 RESPC Mixed normal respiratory alissa. No Streptococcus pneumoniae, beta-hemolytic Streptococcus or Staphylococcus aureus isolated. Normal [facility] Comment on above: Performed By: #### M 100.2000, M100.2400 ####[facility] [address] [place], [address] Thyroid Stim Hormone (TSH)on 11-07-2023 TSH 3.100 uIU/mL Normal 0.358-3.740 [facility] Comment on above: Performed By: #### L 100.0100, L501.5200, L501.9520, L500.4050 ####[facility] [address] [place], [place], [id number] 12 Lead EKGon 11-06-2023 12 Lead EKG Normal [facility] 12 Lead EKG Normal [facility] 12 Lead EKG Normal [facility] Alcohol, Blood (Medical)-Ser umon 11-06-2023 SERUM ETOH < 3.0 Normal [facility] Comment on above: Result Comment: The serum:whole blood ethanol ratio is approximately 1.14and varies slightly with hematocrit.Medical Alcohol reference interval and critical value innon-tolerant individuals; 50 - 100 Impairment 100 Intoxication 100 - 250 Severe Poisoning 250 - 400 Deep/possible fatal coma Performed By: #### L 501.2450, L500.3400, L300.4310, L501.5425, L500.2500, L505.5000, L501.5200, L100.0100, L503.6005, L503.6620, L300.3900, L501.9100 ####[facility] [address] [place], [address] BNP,B-Type NATRIURETIC PEPTI Cherelle 11-06-2023 Natriuretic peptide B (Bld) [Mass/Vol] 1027.0 pg/mL High 0-100 [facility] Comment on above: Performed By: #### L 501.2450, L500.3400, L300.4310, L501.5425, L500.2500, L505.5000, L501.5200, L100.0100, L503.6005, L503.6620, L300.3900, L501.9100 ####[facility] [address] [place], [address] Basic Metabolic Profile (BMP )on 11-06-2023 BUN/CRE 11.8 RATIO Normal 10-20 [facility] Comment on above: Order Comment: Comme nts: SPECIMEN #3'TROP' Serial specimen #1, #2 or #3: 3 Performed By: #### L 500.2500, L501.4020 ####[facility] [address] [place], [address] CA,Total 7.8 mg/dL Low 8.5-10.1 [facility] Comment on above: Order Comment: Comme nts: SPECIMEN #3'TROP' Serial specimen #1, #2 or #3: 3 Performed By: #### L 500.2500, L501.4020 ####[facility] [address] [place], [address] Chloride [Moles/Vol] 100 mmol/L Normal 98-107 [facility] Comment on above: Order Comment: Comme nts: SPECIMEN #3'TROP' Serial specimen #1, #2 or #3: 3 Performed By: #### L 500.2500, L501.4020 ####[facility] [address] [place], [address] CO2 [Moles/Vol] 23.0 mmol/L Normal 21.0-32.0 [facility] Comment on above: Order Comment: Comme nts: SPECIMEN #3'TROP' Serial specimen #1, #2 or #3: 3 Performed By: #### L 500.2500, L501.4020 ####[facility] [address] [place], [address] Creatinine [Mass/Vol] 0.85 mg/dL Normal 0.70-1.30 [facility] Comment on above: Order Comment: Comme nts: SPECIMEN #3'TROP' Serial specimen #1, #2 or #3: 3 Result Comment: The validity of the calculated GFR GFRAA in patients over70 years has not been determined. Clinical correlation isessential. Performed By: #### L 500.2500, L501.4020 ####[facility] [address] [place], [address] ECRCL 90.19 ml/min Normal [facility] Comment on above: Order Comment: Comme nts: SPECIMEN #3'TROP' Serial specimen #1, #2 or #3: 3 Performed By: #### L 500.2500, L501.4020 ####[facility] [address] [place], [address] EST GFR - AA 117 mL/min Normal >60 [facility] Comment on above: Order Comment: Comme nts: SPECIMEN #3'TROP' Serial specimen #1, #2 or #3: 3 Result Comment: Afri can Danish GFR Calc Performed By: #### L 500.2500, L501.4020 ####[facility] [address] [place], [address] GAP 9 Normal 5-15 [facility] Comment on above: Order Comment: Comme nts: SPECIMEN #3'TROP' Serial specimen #1, #2 or #3: 3 Performed By: #### L 500.2500, L501.4020 ####[facility] [address] [place], [address] GFR/1.73 sq M.predicted among non-blacks MDRD (S/P/Bld) [Vol rate/Area] 97 mL/min/{1.73_m2} Normal >60 [facility] Comment on above: Order Comment: Comme nts: SPECIMEN #3'TROP' Serial specimen #1, #2 or #3: 3 Result Comment: Non- GFR Calc Performed By: #### L 500.2500, L501.4020 ####[facility] [address] [place], [address] Glucose [Mass/Vol] 125 mg/dL High 74-106 [facility] Comment on above: Order Comment: Comme nts: SPECIMEN #3'TROP' Serial specimen #1, #2 or #3: 3 Result Comment: Fast ing Glucose result from 100 to 125 mg/dLsuggests IMPAIRED HOMEOSTASIS per A.D.A. criteria. Performed By: #### L 500.2500, L501.4020 ####[facility] [address] [place], [address] Potassium [Moles/Vol] 3.7 mmol/L Normal 3.5-5.1 [facility] Comment on above: Order Comment: Comme nts: SPECIMEN #3'TROP' Serial specimen #1, #2 or #3: 3 Performed By: #### L 500.2500, L501.4020 ####[facility] [address] [place], [address] Sodium [Moles/Vol] 132 mmol/L Low 136-145 [facility] Comment on above: Order Comment: Comme nts: SPECIMEN #3'TROP' Serial specimen #1, #2 or #3: 3 Performed By: #### L 500.2500, L501.4020 ####[facility] [address] [place], [address] Urea nitrogen [Mass/Vol] 10 mg/dL Normal 7-18 [facility] Comment on above: Order Comment: Comme nts: SPECIMEN #3'TROP' Serial specimen #1, #2 or #3: 3 Performed By: #### L 500.2500, L501.4020 ####[facility] [address] [place], [address] BUN/CRE 7.0 RATIO Low 10-20 [facility] Comment on above: Order Comment: 1Y Performed By: #### L 501.2450, L500.3400, L300.4310, L501.5425, L500.2500, L505.5000, L501.5200, L100.0100, L503.6005, L503.6620, L300.3900, L501.9100 ####[facility] [address] [place], [address] CA,Total 8.6 mg/dL Normal 8.5-10.1 [facility] Comment on above: Order Comment: 1Y Performed By: #### L 501.2450, L500.3400, L300.4310, L501.5425, L500.2500, L505.5000, L501.5200, L100.0100, L503.6005, L503.6620, L300.3900, L501.9100 ####[facility] [address] [place], [address] Chloride [Moles/Vol] 95 mmol/L Low 98-107 [facility] Comment on above: Order Comment: 1Y Performed By: #### L 501.2450, L500.3400, L300.4310, L501.5425, L500.2500, L505.5000, L501.5200, L100.0100, L503.6005, L503.6620, L300.3900, L501.9100 ####[facility] [address] [place], [address] CO2 [Moles/Vol] 18.0 mmol/L Low 21.0-32.0 [facility] Comment on above: Order Comment: 1Y Performed By: #### L 501.2450, L500.3400, L300.4310, L501.5425, L500.2500, L505.5000, L501.5200, L100.0100, L503.6005, L503.6620, L300.3900, L501.9100 ####[facility] [address] [place], [address] Creatinine [Mass/Vol] 1.15 mg/dL Normal 0.70-1.30 [facility] Comment on above: Order Comment: 1Y Result Comment: The validity of the calculated GFR GFRAA in patients over70 years has not been determined. Clinical correlation isessential. Performed By: #### L 501.2450, L500.3400, L300.4310, L501.5425, L500.2500, L505.5000, L501.5200, L100.0100, L503.6005, L503.6620, L300.3900, L501.9100 ####[facility] [address] [place], [place], [address] EST GFR - AA 82 mL/min Normal >60 [facility] Comment on above: Order Comment: 1Y Result Comment: Afri can Danish GFR Calc Performed By: #### L 501.2450, L500.3400, L300.4310, L501.5425, L500.2500, L505.5000, L501.5200, L100.0100, L503.6005, L503.6620, L300.3900, L501.9100 ####[facility] [address] [place], [place], [address] GAP 19 High 5-15 [facility] Comment on above: Order Comment: 1Y Performed By: #### L 501.2450, L500.3400, L300.4310, L501.5425, L500.2500, L505.5000, L501.5200, L100.0100, L503.6005, L503.6620, L300.3900, L501.9100 ####[facility] [address] [place], [place], [address] GFR/1.73 sq M.predicted among non-blacks MDRD (S/P/Bld) [Vol rate/Area] 68 mL/min/{1.73_m2} Normal >60 [facility] Comment on above: Order Comment: 1Y Result Comment: Non- GFR Calc Performed By: #### L 501.2450, L500.3400, L300.4310, L501.5425, L500.2500, L505.5000, L501.5200, L100.0100, L503.6005, L503.6620, L300.3900, L501.9100 ####[facility] [address] [place], [address] Glucose [Mass/Vol] 230 mg/dL High 74-106 [facility] Comment on above: Order Comment: 1Y Result Comment: Gluc ose result greater than or equal to 200 mg/dLsuggests DIABETES MELLITUS per A.D.A. criteria. Performed By: #### L 501.2450, L500.3400, L300.4310, L501.5425, L500.2500, L505.5000, L501.5200, L100.0100, L503.6005, L503.6620, L300.3900, L501.9100 ####[facility] [address] [place], [address] Potassium [Moles/Vol] 2.5 mmol/L Invalid Interpretation Code 3.5-5.1 [facility] Comment on above: Order Comment: 1Y Result Comment: Crit ical Result(s) Called at: 12:06:53 11/06/2023 by: Tobias Lopez RN (ER). Results read back by same. Performed By: #### L 501.2450, L500.3400, L300.4310, L501.5425, L500.2500, L505.5000, L501.5200, L100.0100, L503.6005, L503.6620, L300.3900, L501.9100 ####[facility] [address] [place], [address] Sodium [Moles/Vol] 132 mmol/L Low 136-145 [facility] Comment on above: Order Comment: 1Y Performed By: #### L 501.2450, L500.3400, L300.4310, L501.5425, L500.2500, L505.5000, L501.5200, L100.0100, L503.6005, L503.6620, L300.3900, L501.9100 ####[facility] [address] [place], [address] Urea nitrogen [Mass/Vol] 8 mg/dL Normal 7-18 [facility] Comment on above: Order Comment: 1Y Performed By: #### L 501.2450, L500.3400, L300.4310, L501.5425, L500.2500, L505.5000, L501.5200, L100.0100, L503.6005, L503.6620, L300.3900, L501.9100 ####[facility] [address] [place], [address] Blood Gases by [facility] 024 DEONTE TEST Positive Normal [facility] Comment on above: Performed By: #### L 8999.08 ####[facility] [address] [place], [address] Base excess Calc (Bld) [Moles/Vol] -16 mmol/L Low -2 to +2 [facility] Comment on above: Performed By: #### L 0.0800 ####[facility] [address] [place], [address] Blood Gas Type ART Normal [facility] Comment on above: Performed By: #### L 0.08 ####[facility] [address] [place], [address] CO2 [Moles/Vol] 14 mmol/L Normal [facility] Comment on above: Performed By: #### L 0.0800 ####[facility] [address] [place], [address] FI02 100.0 Normal [facility] Comment on above: Performed By: #### L 0.0800 ####[facility] [address] [place], [address] HCO3 (Bld) [Moles/Vol] 12.8 mmol/L Low 22-26 [facility] Comment on above: Performed By: #### L 8999.0800 ####[facility] [address] [place], [address] Mode AC Normal [facility] Comment on above: Performed By: #### L 8999.0800 ####[facility] [address] [place], [address] O2 Delivery Dev Adult Vent Normal [facility] Comment on above: Performed By: #### L 0.08 ####[facility] [address] [place], [address] pCO2 34.7 mmHg Low 35-45 [facility] Comment on above: Performed By: #### L 8999.08 ####[facility] [address] [place], [address] PEEP 10 Normal [facility] Comment on above: Performed By: #### L 8999.0800 ####[facility] [address] [place], [address] pH (Bld) 7.18 [pH] Invalid Interpretation Code 7.35-7.45 [facility] Comment on above: Performed By: #### L 0.0800 ####[facility] [address] [place], [address] PO2 92 mmHG Normal 75-100 [facility] Comment on above: Performed By: #### L 0.0800 ####[facility] [address] [place], [address] Read Back By Yes Normal [facility] Comment on above: Performed By: #### L 0.0800 ####[facility] [address] [place], [address] RR 16 Normal [facility] Comment on above: Performed By: #### L 9000.0800 ####[facility] [address] [place], [address] SITE L Radial Normal [facility] Comment on above: Performed By: #### L 9000.0800 ####[facility] [address] [place], [address] SO2 95 Normal 95-99 [facility] Comment on above: Performed By: #### L 9000.0800 ####[facility] [address] [place], [address] Vt 500.0 mL Normal [facility] Comment on above: Performed By: #### L 9000.0800 ####[facility] [address] [place], [address] Brain/Head without Contrasto n 11-06-2023 Brain/Head without Contrast Normal [facility] CBC W/Diff, Automatedon - Absolute Lymph 2.02 X10 3/uL Normal 0.83-4.51 [facility] Comment on above: Performed By: #### L 501.2450, L500.3400, L300.4310, L501.5425, L500.2500, L505.5000, L501.5200, L100.0100, L503.6005, L503.6620, L300.3900, L501.9100 ####[facility] [address] [place], [address] Absolute Neut 8.2 X10 3/uL High 2.0-7.7 [facility] Comment on above: Performed By: #### L 501.2450, L500.3400, L300.4310, L501.5425, L500.2500, L505.5000, L501.5200, L100.0100, L503.6005, L503.6620, L300.3900, L501.9100 ####[facility] [address] [place], [place], [id number] Basophils/100 WBC (Bld) 0.4 % Normal 0-1 [facility] Comment on above: Performed By: #### L 501.2450, L500.3400, L300.4310, L501.5425, L500.2500, L505.5000, L501.5200, L100.0100, L503.6005, L503.6620, L300.3900, L501.9100 ####[facility] [address] [place], [place], [phone](511) Eosinophils/100 WBC (Bld) 0.1 % Normal 0-5 [facility] Comment on above: Performed By: #### L 501.2450, L500.3400, L300.4310, L501.5425, L500.2500, L505.5000, L501.5200, L100.0100, L503.6005, L503.6620, L300.3900, L501.9100 ####[facility] [address] [place], [address](148) Erythrocyte distribution width (RBC) [Ratio] 16.6 % High 11.6-14.6 [facility] Comment on above: Performed By: #### L 501.2450, L500.3400, L300.4310, L501.5425, L500.2500, L505.5000, L501.5200, L100.0100, L503.6005, L503.6620, L300.3900, L501.9100 ####[facility] [address] [place], [address](972) Hematocrit (Bld) [Volume fraction] 35.6 % Low 40-54 [facility] Comment on above: Performed By: #### L 501.2450, L500.3400, L300.4310, L501.5425, L500.2500, L505.5000, L501.5200, L100.0100, L503.6005, L503.6620, L300.3900, L501.9100 ####[facility] [address] [place], [place], [phone](425) Hemoglobin (Bld) [Mass/Vol] 11.1 g/dL Low 13.0-16.5 [facility] Comment on above: Performed By: #### L 501.2450, L500.3400, L300.4310, L501.5425, L500.2500, L505.5000, L501.5200, L100.0100, L503.6005, L503.6620, L300.3900, L501.9100 ####[facility] [address] [facility] [place], [place], [phone] IG% 2.400 High 0.0-0.9 [facility] Comment on above: Result Comment: IG% - Immature Granulocytes (promyelocytes, myelocytes andmetamyelocytes) > 1% indicates that a LEFT SHIFT is Present. Performed By: #### L 501.2450, L500.3400, L300.4310, L501.5425, L500.2500, L505.5000, L501.5200, L100.0100, L503.6005, L503.6620, L300.3900, L501.9100 ####[facility] [address] [place], [place], [phone](652) Lymphocytes/100 WBC (Bld) 18.4 % Low 19-41 [facility] Comment on above: Performed By: #### L 501.2450, L500.3400, L300.4310, L501.5425, L500.2500, L505.5000, L501.5200, L100.0100, L503.6005, L503.6620, L300.3900, L501.9100 ####[facility] [address] [place], [address] MCH (RBC) [Entitic mass] 30.6 pg Normal 27.0-32.0 [facility] Comment on above: Performed By: #### L 501.2450, L500.3400, L300.4310, L501.5425, L500.2500, L505.5000, L501.5200, L100.0100, L503.6005, L503.6620, L300.3900, L501.9100 ####[facility] [address] [place], [address] MCHC (RBC) [Mass/Vol] 31.2 g/dL Low 32-36 [facility] Comment on above: Performed By: #### L 501.2450, L500.3400, L300.4310, L501.5425, L500.2500, L505.5000, L501.5200, L100.0100, L503.6005, L503.6620, L300.3900, L501.9100 ####[facility] [address] [place], [address] MCV (RBC) [Entitic vol] 98.1 fL High 80-94 [facility] Comment on above: Performed By: #### L 501.2450, L500.3400, L300.4310, L501.5425, L500.2500, L505.5000, L501.5200, L100.0100, L503.6005, L503.6620, L300.3900, L501.9100 ####[facility] [address] [place], [address] Monocytes/100 WBC (Bld) 3.8 % Normal 0-10 [facility] Comment on above: Performed By: #### L 501.2450, L500.3400, L300.4310, L501.5425, L500.2500, L505.5000, L501.5200, L100.0100, L503.6005, L503.6620, L300.3900, L501.9100 ####[facility] [address] [place], [address] Neutrophils/100 WBC (Bld) 74.9 % High 47-70 [facility] Comment on above: Performed By: #### L 501.2450, L500.3400, L300.4310, L501.5425, L500.2500, L505.5000, L501.5200, L100.0100, L503.6005, L503.6620, L300.3900, L501.9100 ####[facility] [address] [place], [address](162 Nucleated RBC (Bld) [#/Vol] 0.5 10*3/uL Normal 0-5 [facility] Comment on above: Performed By: #### L 501.2450, L500.3400, L300.4310, L501.5425, L500.2500, L505.5000, L501.5200, L100.0100, L503.6005, L503.6620, L300.3900, L501.9100 ####[facility] [address] [place], [phone](094 Platelet mean volume (Bld) [Entitic vol] 10.7 fL Normal 6.2-12.0 [facility] Comment on above: Performed By: #### L 501.2450, L500.3400, L300.4310, L501.5425, L500.2500, L505.5000, L501.5200, L100.0100, L503.6005, L503.6620, L300.3900, L501.9100 ####[facility] [address] [place], [address]( Platelets (Bld) [#/Vol] 195 10*3/uL Normal 150-450 [facility] Comment on above: Performed By: #### L 501.2450, L500.3400, L300.4310, L501.5425, L500.2500, L505.5000, L501.5200, L100.0100, L503.6005, L503.6620, L300.3900, L501.9100 ####[facility] [address] [place], [place], [phone](190) RBC (Bld) [#/Vol] 3.63 10*6/uL Low 4.6-6.[address] [facility] Comment on above: Performed By: #### L 501.2450, L500.3400, L300.4310, L501.5425, L500.2500, L505.5000, L501.5200, L100.0100, L503.6005, L503.6620, L300.3900, L501.9100 ####[facility] [address] [place], [place], [phone] RDW SD 60.1 fl High 35.1-43.9 [facility] Comment on above: Performed By: #### L 501.2450, L500.3400, L300.4310, L501.5425, L500.2500, L505.5000, L501.5200, L100.0100, L503.6005, L503.6620, L300.3900, L501.9100 ####[facility] [address] [place], [place], [phone] WBC (Bld) [#/Vol] 11.0 10*3/uL Normal 4.4-11.[address] [facility] Comment on above: Performed By: #### L 501.2450, L500.3400, L300.4310, L501.5425, L500.2500, L505.5000, L501.5200, L100.0100, L503.6005, L503.6620, L300.3900, L501.9100 ####[facility] [address] [place], [address] CPK Total, Creatine Kinaseon 11-06-2023 CPK TOTAL 130 U/L Normal 39-308 [facility] Comment on above: Order Comment: Comme nts: DC when propofol is d/c'dDC when propofol is d/c'd Performed By: #### L 501.5000, L501.3620 ####[facility] [address] [place], [address] CTA Chest W/WO Contraston CTA Chest W/WO Contrast Normal [facility] Chest 1 View (Portable)on Chest 1 View (Portable) Normal [facility] Chest 1 View (Portable) Normal [facility] Consultation - Cardiologyon 11-06-2023 Consultation - Cardiology Normal [facility] Consultation - Intensiviston 11-06-2023 Consultation - Dock Operations Supervisor Normal [facility] Echo Complete W/ Contraston 11-06-2023 Echo Complete W/ Contrast Normal [facility] Emergency Department Summary on 11-06-2023 Emergency Department Summary Normal [facility] H AND P Exam - Hospitaliston 11-06-2023 H&P Exam - Hospitalist Normal [facility] L501.4020on 11-06-2023 [place] [address] pg/mL Invalid Interpretation Code 3.0-78.0 [facility] Comment on above: Order Comment: Comme nts: SPECIMEN #3'TROP' Serial specimen #1, #2 or #3: 3 Result Comment: Crit ical Result(s) Called at: 18:47:08 11/06/2023 by:FAN STERLING TO [employer]. Results read back by same. Please Note: New Test Units and Gender Specific Reference Ranges. For more information see Policy Stat Procedure [place] High Sensitivity Troponin (TNIH) and attachments. Performed By: #### L 500.2500, L501.4020 ####[facility] [address] [place], [address] TROPONIN-I HS 3313 pg/mL Invalid Interpretation Code 3.0-78.0 [facility] Comment on above: Result Comment: Crit ical Result(s) Called at: 14:05:37 11/06/2023 by: Tobias García RN (ER). Results read back by same. Please Note: New Test Units and Gender Specific Reference Ranges. For more information see Policy Stat Procedure [place] High Sensitivity Troponin (TNIH) and attachments. Performed By: #### L 501.4020 ####[facility] [address] [place], [address] L501.5425on 11-06-2023 TROPONIN-I HS 2087 pg/mL Invalid Interpretation Code 3.0-78.0 [facility] Comment on above: Order Comment: 1Y Result Comment: Crit ical Result(s) Called at: 12:06:53 11/06/2023 by: Tobias Lopez RN (ER). Results read back by same. Please Note: New Test Units and Gender Specific Reference Ranges. For more information see Policy Stat Procedure [place] High Sensitivity Troponin (TNIH) and attachments. Performed By: #### L 501.2450, L500.3400, L300.4310, L501.5425, L500.2500, L505.5000, L501.5200, L100.0100, L503.6005, L503.6620, L300.3900, L501.9100 ####[facility] [address] [place], [place], [phone] Lactic Acidon 11-06-2023 Lactate [Moles/Vol] 3.2 mmol/L Invalid Interpretation Code 0.4-1.9 [facility] Comment on above: Result Comment: Crit ical Result(s) Called at: 16:42:36 11/06/2023 by:FAN STORM. Results read back by same. Performed By: #### L 503.6005 ####[facility] [address] [place], [place], [address] Lactate [Moles/Vol] 9.3 mmol/L Invalid Interpretation Code 0.4-1.9 [facility] Comment on above: Order Comment: Y Result Comment: Crit ical Result(s) Called at: 12:11:28 11/06/2023 by:AMARJIT LUGO. Results read back by same. Performed By: #### L 501.2450, L500.3400, L300.4310, L501.5425, L500.2500, L505.5000, L501.5200, L100.0100, L503.6005, L503.6620, L300.3900, L501.9100 ####[facility] [address] [place], [place], [phone] Lipaseon 11-06-2023 Lipase [Catalytic activity/Vol] 15 U/L Normal 13-75 [facility] Comment on above: Order Comment: 1Y Result Comment: Kami quezada note:LIPASE revised reference range effective 22.New Lipase methodology. Expected to produce lower valuesthan the previous assay method.NEW Reference Range: 13 - 75 U/L Performed By: #### L 501.2450, L500.3400, L300.4310, L501.5425, L500.2500, L505.5000, L501.5200, L100.0100, L503.6005, L503.6620, L300.3900, L501.9100 ####[facility] [address] [place], [place], [address] Liver Profileon 11-06-2023 Albumin [Mass/Vol] 2.9 g/dL Low 3.2-5.0 [facility] Comment on above: Order Comment: 1Y Performed By: #### L 501.2450, L500.3400, L300.4310, L501.5425, L500.2500, L505.5000, L501.5200, L100.0100, L503.6005, L503.6620, L300.3900, L501.9100 ####[facility] [address] [place], [address] ALK P 68 U/L Normal 45-117 [facility] Comment on above: Order Comment: 1Y Performed By: #### L 501.2450, L500.3400, L300.4310, L501.5425, L500.2500, L505.5000, L501.5200, L100.0100, L503.6005, L503.6620, L300.3900, L501.9100 ####[facility] [address] [place], [place], [phone] ALT [Catalytic activity/Vol] 15 U/L Low 16-61 [facility] Comment on above: Order Comment: 1Y Performed By: #### L 501.2450, L500.3400, L300.4310, L501.5425, L500.2500, L505.5000, L501.5200, L100.0100, L503.6005, L503.6620, L300.3900, L501.9100 ####[facility] [address] [place], [place], [phone] AST [Catalytic activity/Vol] 41 U/L High 15-37 [facility] Comment on above: Order Comment: 1Y Performed By: #### L 501.2450, L500.3400, L300.4310, L501.5425, L500.2500, L505.5000, L501.5200, L100.0100, L503.6005, L503.6620, L300.3900, L501.9100 ####[facility] [address] [place], [place], [address] Bilirubin [Mass/Vol] 0.80 mg/dL Normal 0.20-1.00 [facility] Comment on above: Order Comment: 1Y Result Comment: For patients on eltrombopag therapy, use of Dimension [place] TBIL is not recommended. Performed By: #### L 501.2450, L500.3400, L300.4310, L501.5425, L500.2500, L505.5000, L501.5200, L100.0100, L503.6005, L503.6620, L300.3900, L501.9100 ####[facility] [address] [place], [place], [phone](179) Bilirubin.direct [Mass/Vol] 0.31 mg/dL High 0.00-0.30 [facility] Comment on above: Order Comment: 1Y Performed By: #### L 501.2450, L500.3400, L300.4310, L501.5425, L500.2500, L505.5000, L501.5200, L100.0100, L503.6005, L503.6620, L300.3900, L501.9100 ####[facility] [address] [place], [place], [phone](759) Globulin (S) [Mass/Vol] 3.9 g/dL Normal 2.2-4.2 [facility] Comment on above: Order Comment: 1Y Performed By: #### L 501.2450, L500.3400, L300.4310, L501.5425, L500.2500, L505.5000, L501.5200, L100.0100, L503.6005, L503.6620, L300.3900, L501.9100 ####[facility] [address] [place], [place], [phone](719) T PROT 6.8 g/dL Normal 6.4-8.2 [facility] Comment on above: Order Comment: 1Y Performed By: #### L 501.2450, L500.3400, L300.4310, L501.5425, L500.2500, L505.5000, L501.5200, L100.0100, L503.6005, L503.6620, L300.3900, L501.9100 ####[facility] [address] [place], [place], [phone](904) M100.678on 11-06-2023 M100.678 Pending SARS-CoV-2 (COVID 19) Negative INFLUENZA A Negative INFLUENZA B Negative RSV PCR Negative Normal [facility] Comment on above: Performed By: #### M 100.678 ####[facility] [address] [place], [address] Magnesiumon 11-06-2023 Magnesium [Mass/Vol] 2.7 mg/dL High 1.6-2.6 [facility] Comment on above: Order Comment: 1Y Performed By: #### L 501.2450, L500.3400, L300.4310, L501.5425, L500.2500, L505.5000, L501.5200, L100.0100, L503.6005, L503.6620, L300.3900, L501.9100 ####[facility] [address] [place], [address] Partial Thromboplast Timeon 11-06-2023 aPTT Coag (Bld) [Time] 44.0 s High 24.1-36.2 [facility] Comment on above: Performed By: #### L 300.4310 ####[facility] [address] [place], [address] aPTT Coag (Bld) [Time] 34.1 s Normal 24.1-36.2 [facility] Comment on above: Performed By: #### L 300.4310, L300.3900 ####[facility] [address] [place], [address] aPTT Coag (Bld) [Time] 38.2 s High 24.1-36.2 [facility] Comment on above: Performed By: #### L 501.2450, L500.3400, L300.4310, L501.5425, L500.2500, L505.5000, L501.5200, L100.0100, L503.6005, L503.6620, L300.3900, L501.9100 ####[facility] [address] [place], [address] Prothrombin Time w/INRon INR Coag (PPP) [Relative time] 1.4 {INR} Normal [facility] Comment on above: Performed By: #### L 300.4310, L300.3900 ####[facility] [address] [place], [address] PT Coag (PPP) [Time] 16.7 s High 11.7-14.9 [facility] Comment on above: Performed By: #### L 300.4310, L300.3900 ####[facility] [address] [place], [address] INR Coag (PPP) [Relative time] 1.2 {INR} Normal [facility] Comment on above: Performed By: #### L 501.2450, L500.3400, L300.4310, L501.5425, L500.2500, L505.5000, L501.5200, L100.0100, L503.6005, L503.6620, L300.3900, L501.9100 ####[facility] [address] [place], [address] PT Coag (PPP) [Time] 14.7 s Normal 11.7-14.9 [facility] Comment on above: Performed By: #### L 501.2450, L500.3400, L300.4310, L501.5425, L500.2500, L505.5000, L501.5200, L100.0100, L503.6005, L503.6620, L300.3900, L501.9100 ####[facility] [address] [place], [address] Triglycerideson 11-06-2023 Triglyceride [Mass/Vol] 111 mg/dL Normal [facility] Comment on above: Order Comment: Comme nts: DC when propofol is d/c'dDC when propofol is d/c'd Result Comment: The drugs N-Acetylcysteine and Metamizole may falselydepress this assay.Serum Triglycerides Reference Interval Normal <150 mg/dL Borderline high 150 - 199 mg/dL High 200 - 499 mg/dL Very High > or = 500 mg/dL Performed By: #### L 501.5000, L501.3620 ####[facility] [address] [place], [address] Urinalysis, Completeon 11-05 BACTERIA 0 SEEN Normal None Seen [facility] Comment on above: Order Comment: SAROJ TER SPECIMEN Performed By: #### L 400.0001 ####[facility] [address] [place], [address] EPI,SQUAMOUS 0 SEEN Normal 0-5 [facility] Comment on above: Order Comment: SAROJ TER SPECIMEN Performed By: #### L 400.0001 ####[facility] [address] [place], [address] Mucus Ql (Urine sed) 0 SEEN Normal [facility] Comment on above: Order Comment: SAROJ TER SPECIMEN Performed By: #### L 400.0001 ####[facility] [address] [place], [address] RBC 0 SEEN Normal 0-5 [facility] Comment on above: Order Comment: SAROJ TER SPECIMEN Performed By: #### L 400.0001 ####[facility] [address] [place], [address] WBC 0 SEEN Normal 0-5 [facility] Comment on above: Order Comment: SAROJ TER SPECIMEN Performed By: #### L 400.0001 ####[facility] [address] [place], [address] Urine Drug Screen (VISTA)on 11-06-2023 AMPHETAMINES Negative Normal <1000 ng/mL [facility] Comment on above: Performed By: #### L 501.2450, L500.3400, L300.4310, L501.5425, L500.2500, L505.5000, L501.5200, L100.0100, L503.6005, L503.6620, L300.3900, L501.9100 ####[facility] [address] [place], [address] BARBITIURATES Negative Normal < 200 ng/mL [facility] Comment on above: Performed By: #### L 501.2450, L500.3400, L300.4310, L501.5425, L500.2500, L505.5000, L501.5200, L100.0100, L503.6005, L503.6620, L300.3900, L501.9100 ####[facility] [address] [place], [address] BENZODIAZIPINE Negative Normal < 200 ng/mL [facility] Comment on above: Performed By: #### L 501.2450, L500.3400, L300.4310, L501.5425, L500.2500, L505.5000, L501.5200, L100.0100, L503.6005, L503.6620, L300.3900, L501.9100 ####[facility] [address] [place], [place], [address] COCAINE Negative Normal < 300 ng/mL [facility] Comment on above: Performed By: #### L 501.2450, L500.3400, L300.4310, L501.5425, L500.2500, L505.5000, L501.5200, L100.0100, L503.6005, L503.6620, L300.3900, L501.9100 ####[facility] [address] [place], [place], [address] ECSTACY Negative Normal < 500 ng/mL [facility] Comment on above: Performed By: #### L 501.2450, L500.3400, L300.4310, L501.5425, L500.2500, L505.5000, L501.5200, L100.0100, L503.6005, L503.6620, L300.3900, L501.9100 ####[facility] [address] [place], [place], [address] METHADONE Negative Normal < 300 ng/mL [facility] Comment on above: Performed By: #### L 501.2450, L500.3400, L300.4310, L501.5425, L500.2500, L505.5000, L501.5200, L100.0100, L503.6005, L503.6620, L300.3900, L501.9100 ####[facility] [address] [place], [address] OPIATES Negative Normal < 300 ng/mL [facility] Comment on above: Performed By: #### L 501.2450, L500.3400, L300.4310, L501.5425, L500.2500, L505.5000, L501.5200, L100.0100, L503.6005, L503.6620, L300.3900, L501.9100 ####[facility] [address] [place], [place], [phone] PCP Negative Normal < 25 ng/mL [facility] Comment on above: Performed By: #### L 501.2450, L500.3400, L300.4310, L501.5425, L500.2500, L505.5000, L501.5200, L100.0100, L503.6005, L503.6620, L300.3900, L501.9100 ####[facility] [address] [place], [place], [address] THC Positive Abnormal < 50 ng/mL [facility] Comment on above: Performed By: #### L 501.2450, L500.3400, L300.4310, L501.5425, L500.2500, L505.5000, L501.5200, L100.0100, L503.6005, L503.6620, L300.3900, L501.9100 ####[facility] [address] [place], [address] VISTA UDS PH 6 Normal [facility] Comment on above: Performed By: #### L 501.2450, L500.3400, L300.4310, L501.5425, L500.2500, L505.5000, L501.5200, L100.0100, L503.6005, L503.6620, L300.3900, L501.9100 ####[facility] [address] [place], [place], [address] Vital Signs Date Time Vital Sign Value Performing Clinician Clemente robledo 08-21-2024 06:56-0400 Body mass index (BMI) [Ratio] 23.6 kg/m2 No Primary Care Physician [facility] 08-21-2024 06:56-0400 Body weight 74.84 kg No Primary Care Physician [facility] 08-21-2024 06:56-0400 Diastolic blood pressure 86 mm[Hg] No Primary Care Physician [facility] 08-21-2024 06:56-0400 Heart rate 50 /min No Primary Care Physician [facility] 08-21-2024 06:56-0400 Respiratory rate 18 /min No Primary Care Physician [facility] 08-21-2024 06:56-0400 SaO2% (BldA) [Mass fraction] 99 % No Primary Care Physician [facility] 08-21-2024 06:56-0400 Systolic blood pressure 138 mm[Hg] No Primary Care Physician [facility] 07-13-2024 12:27-0400 Body temperature 97.9 [degF] No Primary Care Physician [facility] 07-13-2024 12:27-0400 Diastolic blood pressure 82 mm[Hg] No Primary Care Physician [facility] 07-13-2024 12:27-0400 Heart rate 59 /min No Primary Care Physician [facility] 07-13-2024 12:27-0400 Respiratory rate 18 /min No Primary Care Physician [facility] 07-13-2024 12:27-0400 SaO2% (BldA) [Mass fraction] 96 % No Primary Care Physician [facility] 07-13-2024 12:27-0400 Systolic blood pressure 118 mm[Hg] No Primary Care Physician [facility] 07-13-2024 05:45-0400 Body mass index (BMI) [Ratio] 22.2 kg/m2 No Primary Care Physician [facility] 07-13-2024 05:45-0400 Body weight 70.5 kg No Primary Care Physician [facility] 07-12-2024 16:07-0400 Body height 177.8 cm No Primary Care Physician [facility] 05-23-2024 15:49-0400 Body height 177.8 cm No Primary Care Physician [facility] 05-23-2024 15:49-0400 Body mass index (BMI) [Ratio] 23.1 kg/m2 No Primary Care Physician [facility] 05-23-2024 15:49-0400 Body weight 73.02 kg No Primary Care Physician [facility] 05-23-2024 15:49-0400 Diastolic blood pressure 69 mm[Hg] No Primary Care Physician [facility] 05-23-2024 15:49-0400 Heart rate 49 /min No Primary Care Physician [facility] 05-23-2024 15:49-0400 Respiratory rate 18 /min No Primary Care Physician [facility] 05-23-2024 15:49-0400 SaO2% (BldA) [Mass fraction] 95 % No Primary Care Physician [facility] 05-23-2024 15:49-0400 Systolic blood pressure 119 mm[Hg] No Primary Care Physician [facility] Encounters Encounter Date Encounter Type Care Provider Facility Start: 08-21-2024 End: 08-21-2024 ambulatory No Primary Care Physician [facility] Work Phone: Start: 08-21-2024 End: 08-21-2024 Patient encounter procedure Naveed EWING -[facility] Work Phone: Start: 07-13-2024 Non-patient / Non-visit Dr. Erik emerson MD -[facility] Work Phone: Start: 07-12-2024 Non-patient / Non-visit [facility] Start: 07-12-2024 Non-patient / Non-visit Dr. Erik emerson MD -[facility] Work Phone: Start: 07-11-2024 Non-patient / Non-visit Dr. Makenna Rothman MD -[facility] Work Phone: Start: 07-11-2024 ambulatory No Primary Car e Physician Facility:[facility] Start: 07-11-2024 End: 07-13-2024 Evaluation and management of inpatient No Primary Care Physician Facility:[facility] Start: 05-23-2024 End: 05-23-[address] Arie Berg MD -[facility] Work Phone: Start: 05-23-2024 End: 05-23-2024 ambulatory No Primary Care Physician [facility] Work Phone: Start: 05-23-2024 End: 05-23-2024 ambulatory Arie Berg Facility:[facility] Start: 01-23-2024 End: 01-23-2024 ambulatory Arie Berg Facility:[facility] Start: 01-16-2024 ambulatory Arie Berg Facility :[facility] Start: 01-16-2024 End: 01-16-2024 ambulatory Arie Berg Facility:[facility] Start: 12-28-2023 End: 01-02-2024 Telephone encounter Dakota Gee MD Work Phone: [facility] Comment on above: Appointment Request Start: 12-28-2023 End: 12-28-2023 ambulatory Arie Berg Facility:[facility] Start: 12-14-2023 ambulatory No Primary Car e Physician Facility:[facility] Start: 12-14-2023 End: 12-14-2023 ambulatory No Primary Care Physician Facility:[facility] Start: 11-23-2023 End: 11-23-2023 ambulatory No Primary Care Physician Facility:[facility] Start: 11-23-2023 End: 11-23-2023 ambulatory No Primary Care Physician Facility:[facility] Start: 11-09-2023 ambulatory No Primary Car e Physician Facility:[facility] Start: 11-06-2023 ambulatory Julia Jose Rafael Facility:[facility] Start: 11-06-2023 ambulatory Puja Owusu Facility:[facility] Start: 11-06-2023 End: 11-14-2023 Evaluation and management of inpatient Puja Owusu Facility:[facility] Procedures Date Procedure Procedure Detail Performing Clinician Start: 07-13-2024 Estimated creatinine clearance No Primary Care Physician Start: 07-13-2024 Lymphocyte percent differential count No Primary Care Physician Start: 07-13-2024 Serum inorganic phos phate measurement No Primary Care Physician Start: 07-12-2024 Colonoscopy No Primary Care Physician Start: 07-12-2024 Reactive lymphocyte count No Primary Care Physician Start: 07-11-2024 Computed tomography of abdomen and pelvis with intravenous contrast No Primary Care Physician Start: 07-11-2024 Measurement of occul t blood in stool specimen using immunoassay No Primary Care Physician Start: 05-23-2024 Evaluation of diagno stic study results No Primary Care Physician Plan of Treatment Date Care Activity Detail Author Start: 08-21-2024 Evaluation of diagnostic study results [facility] Start: 07-13-2024 Patient discharge [facility] Start: 07-13-2024 [facility] Start: 07-12-2024 Assessment of risk of venous thromboembolism [facility] Start: 07-12-2024 Inhalation therapy procedure [facility] Start: 07-12-2024 Insertion of catheter into peripheral vein [facility] Start: 07-12-2024 Introduction of urinary catheter [facility] Start: 07-12-2024 Measuring intake and output [facility] Start: 07-12-2024 Oxygen therapy [facility] Start: 07-12-2024 Providing care according to standard [facility] Start: 07-12-2024 Provision of activity privileges [facility] Start: 07-12-2024 Referral to gastroenterology service [facility] Start: 07-12-2024 Tobacco use cessation education [facility] Start: 07-12-2024 [facility] Start: 07-12-2024 Following clinical pathway protocol [facility] Start: 07-12-2024 Patient referral to dietitian [facility] Start: 07-11-2024 Admission procedure [facility] Start: 11-12-2023 COVID-19 Vaccine ( season) COVID-19 Vaccine ( season) [facility] Start: 11-12-2023 Influenza vaccination Influenza Vaccine (#1) [facility] Start: 2020 RSV Immunization for Adults (1 - Risk 60-74 years 1-dose series) RSV Immunization for Adults (1 - Risk 60-74 years 1-dose series) [facility] Start: 02-20-2010 Zoster Vaccines (1 of 2) Zoster Vaccines (1 of 2) [facility] Start: 02-20-1979 DTaP/Tdap/Td Vaccines (1 - Tdap) DTaP/Tdap/Td Vaccines (1 - Tdap) [facility] Start: 02-20-1978 Hepatitis C screening Hepatitis C Screening [facility] Start: 1972 Depression Screening Depression Screening [facility] Start: 02-20-1966 Pneumococcal Vaccine: Pediatrics (0 to 5 Years) and At-Risk Patients (6 to 64 Years) (1 of 2 - PCV) Pneumococcal Vaccine: Pediatrics (0 to 5 Years) and At-Risk Patients (6 to 64 Years) (1 of 2 - PCV) [facility] Start: 02-20-1961 MMR Vaccines (1 of 1 - Standard series) MMR Vaccines (1 of 1 - Standard series) [facility] Start: 1960 HIV screening HIV Screening [facility] Start: 1960 Lipid panel Lipid Panel [facility] Start: 1960 Screening for malignant neoplasm of colon [facility] Start: 1960 Thyroid stimulating hormone measurement TSH Level [facility] Hepatic function panel [facility] Lipid 1996 panel - S alvina or Plasma [facility] Patient referral [facility] Work Phone: Payers Date Payer Category Payer Medicaid MEDICAID - [facility] mber [id number] 2023 Medicare [id number] 2023 Medicaid [id number] 2023 Self-pay Unknown [id number] 2.840.1.088986.3.579.2.462 Unknown [id number] 2.840.1.136846.3.579.2.462 Unknown [id number] 2.840.1.339332.3.579.2.462 Unknown [id number] 2.840.1.066475.3.579.2.462 Unknown [id number] 2.840.1.932139.3.579.2.462 Unknown [id number] 2.840.1.053910.3.579.2.462 Unknown [id number] 2.16840.1.938399.3.579.2.462 Unknown [id number] 2.16840.1.232099.3.579.2.462 Unknown [id number] 2.16840.1.760396.3.579.2.462 Unknown [id number] 2.16840.1.618884.3.579.2.462 Unknown [id number] 2.16840.1.742796.3.579.2.462 Unknown [id number] 2.16840.1.372690.3.579.2.462 Unknown [id number] 2.16840.1.199517.3.579.2.462 Unknown [id number] 2.16840.1.424969.3.579.2.462 Unknown [id number] 2.16.840.1.551360.3.579.2.462 Unknown [id number] 2.16.840.1.309647.3.579.2.462 Unknown [id number] 2.16.840.1.856182.3.579.2.462 Unknown [id number] 2.16.840.1.191902.3.579.2.462 Unknown [id number] 2.16.840.1.032639.3.579.2.462 Unknown [id number] 2.16.840.1.326799.3.579.2.462 Unknown [id number] 2.16840.1.530782.3.579.2.462 Unknown [id number] 2.16.840.1.844563.3.579.2.462 Unknown [id number] 2.840.1.119583.3.579.2.462 Unknown [id number] 2.840.1.936057.3.579.2.462 Unknown [id number] 2.16840.1.385607.3.579.2.462 Unknown [id number] 2.16.840.1.951383.3.579.2.462 Unknown [id number] 2.16840.1.325042.3.579.2.462 Unknown [id number] 2.16840.1.008770.3.579.2.462 Unknown [id number] 2.16840.1.767274.3.579.2.462 Unknown [id number] 2.16.840.1.317878.3.579.2.462 Unknown [id number] 2.16.840.1.776191.3.579.2.462 Unknown [id number] 2.16.840.1.003112.3.579.2.462 Unknown [id number] 2.16840.1.402349.3.579.2.462 Unknown [id number] 2.16.840.1.130706.3.579.2.462 Unknown [id number] 2.16.840.1.048018.3.579.2.462 Unknown [id number] 2.16.840.1.737695.3.579.2.462 Unknown [id number] 2.16.840.1.061507.3.579.2.462 Unknown [id number] 2.16.840.1.974374.3.579.2.462 Unknown [id number] 2.16.840.1.082025.3.579.2.462 Social History Date Type Detail Facility Tobacco smoking status VAIS Tobacco smoking consumption unknown [facility] Start: 12-29-2023 History of Social function [facility] Start: 12-29-2023 Tobacco use panel [facility] Start: 1960 Sex assigned at Not on file S [facility] Start: 12-28-2023 End: 06-03-2024 Sex Male (finding) [facility] Start: 01-16-2024 End: 07-12-2024 Tobacco smoking status VAIS Smokes tobacco daily (finding) [facility] Start: 1960 Sex Assigned At Male W [facility] Medical Equipment Procedure Code Equipment Code Equipment Origin al Text Equipment Identifier Dates Colonoscopy Haemorrhoid liga tion set ()[id number] FDA Start: 07-12-2024 Colonoscopy Haemorrhoid liga tion set ()[id number] FDA Start: 07-12-2024 Goals Date Patient Goal Desired Activity /State Functional Status Date Assessment Result Facility 07-13-2024 Functional status Ambulates;Up ad dennise Blo [facility] Work Phone: Mental Status Date Assessment Result Facility 07-13-2024 Cognitive function Voice/Name [facility] Work Phone: Discharge summary note 07-13-2024 Note Date & Type Note Facility 07-13-2024 Note [facility] Evaluation note 05-23-2024 Note Date & Type Note Facility 05-23-2024 Evaluation note Diagnosis Onset Date Resolution CAD (coronary artery disease) acute May 23, 2024 3:44pm Dilated cardiomyopathy acute [facility] 2024 3:44pm History of sudden cardiac arrest successfully resuscitated acute May 23, 2024 3:44pm Paroxysmal atrial fibrillation acute May 23, 2024 3:44pm Hypertension chronic May 23, 2024 3:44pm [facility] Work Phone: Evaluation note 05-23-2024 Note Date & Type Note Facility 05-23-2024 Evaluation note Diagnosis Onset Date Resolution CAD (coronary artery disease) acute May 23, 2024 3:44pm Dilated cardiomyopathy acute [facility] 2024 3:44pm History of sudden cardiac arrest successfully resuscitated acute May 23, 2024 3:44pm Paroxysmal atrial fibrillation acute May 23, 2024 3:44pm Hypertension chronic May 23, 2024 3:44pm GI bleed resolved July 11, 2024 11:34pm CAD (coronary artery disease) acute August 21, 2024 10:09am Dilated cardiomyopathy acute [facility] 2024 10:09am History of sudden cardiac arrest successfully resuscitated acute August 21, 2024 10:09am Hyperlipidemia acute August 21, 2024 10:09am Paroxysmal atrial fibrillation acute August 21, 2024 10:09am Hypertension chronic August 21, 025 10:09am [facility] Work Phone: Clinical Note 2024 Note Date & Type Note Facility 2024 Note Pt no showed industrial editor appt [facility] informed Lvm for contact (Vy)given by [facility], no show letter mailed. Referral records scanned into the chart [facility] Telephone encounter Note 2024 Telephone Encounter - Ana Luisa Robert - 2024 11:19 AM EST Note Date & Type Note Facility 2024 Telephone encounter Note Form atting of this note might be different from the original. Pt no showed industrial editor appt [facility] informed Lvm for contact (Vy)given by [facility], no show letter mailed. Referral records scanned into the chart [facility] Note 2024 Telephone Encounter - Ana Luisa Robert - 2024 11:19 AM ESTTelephone Encounter - Ana Luisa Robert - 12/29/2023 10:22 AM EDT Note Date & Type Note Facility 2024 Miscellaneous Notes Formattin g of this note might be different from the original. Pt no showed industrial editor appt [facility] informed Lvm for contact (Vy)given by [facility], no show letter mailed. Referral records scanned into the chart Pt scheduled 01/03/24 in [place], left detailed message with the date and time instructed pt to call back to confirm documented in this encounter [facility] Telephone encounter Note 12-29-2023 Telephone Encounter - Ana Luisa Robert - 12/29/2023 10:22 AM EDT Note Date & Type Note Facility 12-29-2023 Telephone encounter Note Form atting of this note might be different from the original. Pt scheduled 01/03/24 in [place], left detailed message with the date and time instructed pt to call back to confirm [facility] Discharge summary note 11-14-2023 Note Date & Type Note Facility 11-14-2023 Note [facility] Microscopic observation Gram stain Nom (Unsp spec) 11-07-2023 Note Date & Type Note Facility 11-07-2023 Note Acceptable Specimen? Acceptable Specimen(Evaluation not needed) Gram Stain 1+ White Blood Cells 3+ Gram positive cocci [facility] Comment on above: Performed By: #### M 100.2000, M100.2400 ####[facility] [id number] [place], [address] Reason for referral (narrative) Note Date & Type Note Facility Reason for referral (narrative) No reason for referral information available [facility] Work Phone: Summary Purpose Family History Relationship Condition Age at Onset Recorded Date/T taurus mother Cardiac disease Unknown father Cardiac disease Unknown grandfather Cardiac disease Unknown grandmother Cardiac disease Unknown Advance Directives Advance Directive Response Recorded Date/ Time Advance Directives No January 16, 2024 8:10am Advance Directive Response Recorded Date/ Time Do you have a Healthcare Power of Steam Station Supervisor? No July 12, 2024 12:26am Advance Directives No January 16, 2024 8:10am Chief Complaint and Reason for Visit Chief Complaint Admit Date O/D for FU May 23, 2024 3:4 4pm E-ORDER May 23, 2024 4:1 7pm Reason for Visit Admit Date CAD (coronary artery disease) May 3:44pm Dilated cardiomyopathy May 23, 2024 3:44pm History of sudden cardiac arrest success fully resuscitated May 23, 2024 3:44pm Paroxysmal atrial fibrillation May 3:44pm Hypertension May 23, 2024 3:4 4pm Chief Complaint Admit Date O/D for FU May 23, 2024 3:4 4pm E-ORDER May 23, 2024 4:1 7pm GI BLEED July 11, 2024 11:34p m GI BLEED July 11, 2024 11:59p m GI BLEED July 12, 2024 8:39am GI BLEED July 12, 2024 4:42pm GI BLEED July 13, 2024 7:34am 3 M FU August 21, 2024 10:0 9am Reason for Visit Admit Date CAD (coronary artery disease) May 3:44pm Dilated cardiomyopathy May 23, 2024 3:44pm History of sudden cardiac arrest success fully resuscitated May 23, 2024 3:44pm Paroxysmal atrial fibrillation May 3:44pm Hypertension May 23, 2024 3:4 4pm GI bleed July 11, 2024 11:34p m CAD (coronary artery disease) August 21, 2024 10:09am Dilated cardiomyopathy August 21, 2024 1 0:09am History of sudden cardiac arrest success fully resuscitated August 21, 2024 10:09am Hyperlipidemia August 21, 2024 10:0 9am Paroxysmal atrial fibrillation August 10:09am Hypertension August 21, 2024 10:0 9am Additional Source Comments Reason for Visit (unrecogniz ed section and content) Reason Onset Date Comments Appointment Request 12/28/2023 (unrecognized sect ion and content) No Status Records FoundNo Status Records Found INFORMATION SOURCE (unrecogn ized section and content) DATE CREATED AUTHOR 02/24/2024 [employer] [facility] DATE CREATED AUTHOR AUTHOR'S ORGANIZ ATION 08/13/2024 [facility] Care Teams (unrecognized sec tion and content) Team Status: Active Member Role Status Dates No Primary Care Physician Primary Care Provider Active Team Status: Inactive Member Role Status Dates No Primary Care Physician Primary Care Provider Active Start: May 23, 2024 End: May 23, 2024 No Primary Care Physician Referring Provider Active Start: May 23, 2024 End: May 23, 2024 Dr. Arie Berg MD Attending Provider Active Start: May 23, 2024 End: May 23, 2024 Team Status: Inactive Member Role Status Dates No Primary Care Physician Primary Care Provider Active Start: May 23, 2024 End: May 23, 2024 Dr. Arie Berg MD Attending Provider Active Start: May 23, 2024 End: May 23, 2024 Dr. Arie Berg MD Referring Provider Active Start: May 23, 2024 End: May 23, 2024 Team Status: Inactive Member Role Status Dates No Primary Care Physician Primary Care Provider Active Start: July 11, 2024 End: July 13, 2024 Dr. Ryan Ely , DO Emergency Provider Activ e Start: July 11, 2024 End: July 13, 2024 Dr. Makenna Rothman MD Admit Provider Active St art: July 11, 2024 End: July 13, 2024 Dr. Makenna Rothman MD Other Provider Active St art: July 11, 2024 End: July 13, 2024 Dr. Erik Sarmiento MD Attending Provider Active Start: July 11, 2024 End: July 13, 2024 Team Status: Active Member Role Status Dates No Primary Care Physician Primary Care Provider Active Start: July 11, 2024 Dr. Ryan Ely , DO Emergency Provider Activ e Start: July 11, 2024 Dr. Makenna Rothman MD Admit Provider Active St art: July 11, 2024 Dr. Makenna Rothman MD Attending Provider Active Start: July 11, 2024 Dr. Makenna Rothman MD Other Provider Active St art: July 11, 2024 Team Status: Active Member Role Status Dates No Primary Care Physician Primary Care Provider Active Start: July 12, 2024 Dr. Ryan Ely , DO Emergency Provider Activ e Start: July 12, 2024 Dr. Makenna Rothman MD Admit Provider Active St art: July 12, 2024 Dr. Makenna Rothman MD Other Provider Active St art: July 12, 2024 Dr. Erik Sarmiento MD Attending Provider Active Start: July 12, 2024 Dr. Erik Sarmiento MD Other Provider Active Star t: July 12, 2024 Team Status: Active Member Role Status Dates No Primary Care Physician Primary Care Provider Active Start: July 12, 2024 Dr. Ryan Ely , DO Emergency Provider Activ e Start: July 12, 2024 Dr. Makenna Rothman MD Admit Provider Active St art: July 12, 2024 Dr. Makenna Rothman MD Other Provider Active St art: July 12, 2024 Dr. Erik Sarmiento MD Referring Provider Active Start: July 12, 2024 Dr. Erik Sarmiento MD Other Provider Active Star t: July 12, 2024 Dr. Thien Donaldson , Attending Provider Active Start: July 12, 2024 Team Status: Active Member Role Status Dates No Primary Care Physician Primary Care Provider Active Start: July 13, 2024 Dr. Ryan Ely , DO Emergency Provider Activ e Start: July 13, 2024 Dr. Makenna Rothman MD Admit Provider Active St art: July 13, 2024 Dr. Makenna Rothman MD Other Provider Active St art: July 13, 2024 Dr. Erik Sarmiento MD Attending Provider Active Start: July 13, 2024 Dr. Erik Sarmiento MD Other Provider Active Star t: July 13, 2024 Team Status: Inactive Member Role Status Dates No Primary Care Physician Primary Care Provider Active Start: August 21, 2024 End: August 21, 2024 No Primary Care Physician Referring Provider Active Start: August 21, 2024 End: August 21, 2024 KAYLIN Swartz Attending Provider Active St art: August 21, 2024 End: August 21, 2024 Goals (unrecognized section and content) Goals may be documented in a n alternate section FOR RECORDS PERTAINING TO PATIENTS WHO ARE OR HAVE BEEN ENROLLED IN A CHEMICAL DEPENDENCY/SUBSTANCEABUSE PROGRAM, SOME INFORMATION MAY BE OMITTED. This clinical summary was aggregated from multiple sources. Caution should be exercised in using it in the provision of clinical care. This summary normalizes information from multiple sources, and as a consequence, information in this document may materially change the coding, format and clinical context of patient data. In addition, data may be omitted in some cases. CLINICAL DECISIONS SHOULD BE BASED ON THE PRIMARY CLINICAL RECORDS. [facility] [employer] [facility]. provides no warranty or guarantee of the accuracy or completeness of information in this document.
== END | disposition home or self-care (01) ==
LOC: LAB 10:53
PROVIDERS: Referring Provider Student in an Organized Health Care Education/Training Program; Visit Provider Student in an Organized Health Care Education/Training Program
DX: E78.00 Pure hypercholesterolemia, unspecified (principal)
CPT/HCPCS: 36415; 80061; 80076

== ENCOUNTER → 2025-02-25 | Outpatient (CLI) | payer MEDICARE, MEDICAID, SELFPAY ==
[2025-02-25 15:52] LABS: Hematocrit 42.6 % (40-54); Hemoglobin 13.9 g/dL (13.0-16.5); Immature Granulocytes Count 0.010 X10^3/uL (0.0-0.0); Mean Corp Hgb Conc 32.6 g/dL (32-36); Mean Corpuscular Volume 100.2 fL (80-94); Mean Platelet Vol. 11.0 fl (6.2-12.0); NRBC Flagged by Analyzer 0 % (0-5); Platelet Count 201 K/mm3 (150-450); RBC Distribution Width CV 13.2 % (11.6-14.6); RBC Distribution Width SD 48.4 fl (35.1-43.9); Red Blood Count 4.25 M/mm3 (4.6-6.2); White Blood Count 6.1 K/mm3 (4.4-11.0)
[2025-02-25 16:32] LABS: AST(SGOT) 22 U/L (<=37); Alanine Aminotransfer ALT/SGPT 10 U/L (<=46); Albumin, Serum 4.3 g/dL (3.4-4.8); Alkaline Phosphatase 48 U/L (40-129); Bilirubin, Direct 0.23 mg/dL (0.00-0.30); Cholesterol 144 mg/dL (<=200); Globulin 3.1 g/dL (2.2-4.2); Low Density Lipoprotein Calc. 79 mg/dL; Triglycerides 145 mg/dL; Very Low Density Lipoprotein 29 mg/dL (5-40); cholesterol:hdl ratio screen 3.60
[2025-02-25 16:36] LABS: AST(SGOT) 21 U/L (<=37); Alanine Aminotransfer ALT/SGPT 9 U/L (<=46); Albumin, Serum 4.3 g/dL (3.4-4.8); Alkaline Phosphatase 51 U/L (40-129); Anion Gap 11 (5-15); BUN 20 mg/dL (4-19); BUN/Creat Ratio 15.6 RATIO (10-20); Calcium,Total 9.5 mg/dL (7.6-11.0); Carbon Dioxide 27.7 mmol/L (21.0-32.0); Chloride 101 mmol/L (98-108); Globulin 3.0 g/dL (2.2-4.2); Glucose 96 mg/dL (70-99); Potassium 4.1 mmol/L (3.3-5.1)
== END | disposition home or self-care (01) ==
LOC: LAB 14:20
PROVIDERS: Student in an Organized Health Care Education/Training Program; PCP Nurse Practitioner Family; Referring Provider Internal Medicine Cardiovascular Disease; Visit Provider Internal Medicine Cardiovascular Disease
DX: E78.5 Hyperlipidemia, unspecified (principal); I48.0 Paroxysmal atrial fibrillation; I42.0 Dilated cardiomyopathy; D64.9 Anemia, unspecified; I25.10 Atherosclerotic heart disease of native coronary artery without angina pectoris; E78.00 Pure hypercholesterolemia, unspecified
CPT/HCPCS: 36415; 80053; 80061; 80076; 84443; 85025